=== PATIENT | male | born 1960 | race Caucasian/White ===

== ENCOUNTER → 2020-11-12 11:31 | Outpatient (BNVA) | payer BC, MEDICAID, SELFPAY | PROVIDERS: PCP Nurse Practitioner Family; Visit Provider Nurse Practitioner Family | DX: I25.10 Atherosclerotic heart disease of native coronary artery without angina pectoris (principal); I48.92 Unspecified atrial flutter; Z95.1 Presence of aortocoronary bypass graft; I10 Essential (primary) hypertension; E78.5 Hyperlipidemia, unspecified | CPT/HCPCS: 93005; 99212 ==

== ENCOUNTER 2021-01-30 08:46 | Outpatient (REF) | payer BC, MEDICAID, SELFPAY ==
[2021-01-30 12:07] LABS: Alanine Aminotransferase 34 U/L (0-40); Alkaline Phosphatase 50 U/L (39-117); Anion Gap 13 (12-20); Aspartate Amino Transferase 27 U/L (5-37); Bilirubin Total 1.4 mg/dL (0.0-1.0); Blood Urea Nitrogen 12 mg/dL (9-16); Carbon Dioxide 26 mmol/L (22-29); Chloride 104 mmol/L (96-108); Cholesterol 123 mg/dL; Estimated Glomerular Filt Rate > 60; Glucose Fasting 133 mg/dL (60-99); HDL Cholesterol 35 mg/dL; LDL Cholesterol Calculated 53 mg/dl; Potassium 4.1 mmol/L (3.3-5.1); Sodium 139 mmol/L (135-145); Total Protein 6.7 g/dL (6.5-8.0); Triglycerides 176 mg/dL
[2021-01-30 12:28] LABS: Prostate Specific Antigen Scr 0.49 ng/mL (<0.05-4.0)
== END 2021-01-30 08:47 | disposition home or self-care (01) ==
LOC: HO.HMGCLDS 08:46
PROVIDERS: PCP Nurse Practitioner Family; Visit Provider Nurse Practitioner Family
DX: I48.92 Unspecified atrial flutter (principal); I25.10 Atherosclerotic heart disease of native coronary artery without angina pectoris; I10 Essential (primary) hypertension; Z12.5 Encounter for screening for malignant neoplasm of prostate
CPT/HCPCS: 36415; 80053; 80061; 84153; 84443

== ENCOUNTER 2021-02-04 10:37 | Outpatient (REF) | payer BC, MEDICAID, SELFPAY ==
[2021-02-04 14:51] LABS: Estimated Average Glucose 126 mg/dL; Hemoglobin A1C 151.9732 umol/L
[2021-02-04 14:59] LABS: Cholesterol 128 mg/dL; HDL Cholesterol 38 mg/dL; LDL Cholesterol Calculated 50 mg/dl; Triglycerides 201 mg/dL
== END 2021-02-04 10:38 | disposition home or self-care (01) ==
LOC: HO.HMGCLDS 10:37
PROVIDERS: Nurse Practitioner Family; PCP Nurse Practitioner Family; Visit Provider Nurse Practitioner Family
DX: E78.5 Hyperlipidemia, unspecified (principal); R73.01 Impaired fasting glucose
CPT/HCPCS: 36415; 80061; 83036

== ENCOUNTER 2021-02-11 13:28 | Outpatient (REF) | payer BC, MEDICAID, SELFPAY ==
--- NOTE | ~2021-02-11 | US_ITS ---
EXAMINATION: US PELVIS, LIMITED/FOLLOWUP CLINICAL INFORMATION: Left lower quadrant pain. Evaluate for hernia. COMPARISON: Previous CT of the abdomen and pelvis October 2018. TECHNIQUE: Yi-scale and color imaging of the left inguinal region. Patient returned for additional images on 02/18/2021 FINDINGS: There is heterogeneous partially hyperechoic partially hyperechoic increased soft tissue seen in the left inguinal region suggestive of a hernia. This moves with Valsalva. No peristalsing loops of bowel are seen and this probably contains fat. This is deep and difficult to visualize by ultrasound. US/US pelvic limited IMPRESSION: Left inguinal hernia probably containing fat..
== END 2021-02-11 13:29 | disposition home or self-care (01) ==
LOC: HO.US 13:28
PROVIDERS: PCP Nurse Practitioner Family; Visit Provider Nurse Practitioner Family
DX: R10.32 Left lower quadrant pain (principal)
CPT/HCPCS: 76857

== ENCOUNTER → 2021-07-02 13:33 | Outpatient (BNVA) | payer BC, MEDICAID, SELFPAY | PROVIDERS: PCP Nurse Practitioner Family; Referring Provider Nurse Practitioner Family; Visit Provider Internal Medicine Cardiovascular Disease | DX: I25.10 Atherosclerotic heart disease of native coronary artery without angina pectoris (principal); I48.92 Unspecified atrial flutter | CPT/HCPCS: 93005 ==

== ENCOUNTER → 2021-10-01 13:29 | Outpatient (BNVA) | payer BC, MEDICAID, SELFPAY | PROVIDERS: PCP Nurse Practitioner Family; Referring Provider Nurse Practitioner Family; Visit Provider Internal Medicine Cardiovascular Disease ==

== ENCOUNTER → 2021-12-26 10:27 | Outpatient (REF) | payer BC, MEDICAID, SELFPAY ==
--- NOTE | 2021-12-26 10:34 | CA_ITS ---
Transthoracic Echocardiogram Patient (Last, First, Middle): Matteo Carlos, Gender: Male Date of : 1960 Age: 61 Procedure Date: 12/26/2021 Procedure Type: Transthoracic Echocardiogram Location: OP Height: 177.8 cm Weight: 90.72 kg BSA: 2.09 m2 Heart Rate: bpm BP: 122 / 70 mmHg Neon Light Installer: CELINA Referring MD: Dakota Cotter MD Glass Mechanic: Dakota Cotter MD Symptoms: I25.10 - Atherosclerotic heart disease of [place] coronary... Study Quality: Fair ECG Rhythm: Sinus Conclusions: - 1. Technically limited study, patient refused definity contrast next 2. Low normal LV ejection fraction 50-55% with impaired relaxation filling pattern 3. Normal cardiac valvular Doppler 4. Normal RV systolic pressure 5. No gross pericardial effusion Findings Procedure Information The patient declines contrast. Left Ventricle Normal left ventricular cavity size. There is normal left ventricular wall thickness. The left ventricular systolic function is low normal. The visually estimated ejection fraction is between 50-55%. Regional wall motion abnormalities can not be excluded due to suboptimal endocardial definition. Spectral Doppler is indicative of an impaired relaxation filling pattern. Right Ventricle Normal right ventricular cavity size and systolic function. Atria The left atrium is normal in size. Interatrial shunt cannot be excluded. The right atrium was not well visualized. Aortic Valve There is mild calcification of the aortic valve. There is no aortic valve stenosis. There is no aortic valve regurgitation. Mitral Valve There is mild anterior and posterior mitral leaflet thickening. There is mild mitral annular calcification. There is trace mitral valve regurgitation. There is no mitral valve stenosis. Pulmonic Valve The pulmonic valve was not well visualized. Tricuspid Valve Likely normal tricuspid valve structure and function. There is trace tricuspid valve regurgitation. The right ventricular systolic pressure is normal. The right ventricular systolic pressure is 21 mmHg. Normal right atrial pressure. Great Vessels The pulmonary artery was not well visualized. There is mild dilatation of the ascending aorta measuring 3.90 cm. Venous The inferior vena cava is normal in size and collapses greater than 50% with inspiration. Pericardium/Pleural There is no evidence of pericardial effusion. Prior Study Comparison Changes noted compared to prior study dated: 03/25/2019. LV systolic function may be marginally reduced Measurements 2D Linear Measurements IVSd: 1.01 0.6-0.9/0.6-1.0 cm LVIDd: 4.99 3.9-5.3/4.2-5.9 cm LVIDd Index: 2.39 2.4-3.2/2.2-3.1 cm/m2 LVIDs: 3.80 2.0-3.6 cm LVPWd: 1.05 0.7-1.1 cm LA Diam: 3.40 2.7-3.8/3.0-4.0 cm LAIDs Index: 1.63 1.5-2.3 cm/m2 LV Mass: 235.20 67-162/88-224 g LV Mass Index: 112.53 43-95/49-115 g/m2 LVOT Diam: 2.10 3.0+(-)1.3 cm Mitral Valve MV Pk E: 0.78 MV PK A: 0.61 MV Decel Time: 273.00 E/A: 1.30 E'Lateral: 10.40 E'Medial: 6.74 E/E' Med: 11.50 E/E' Lat: 7.50 PHT: 80.00 MVA PHT: 2.75 Decel [place]: 2.84 Aortic Valve AoV Pk Stalin: 1.31 AoV Mn Stalin: 0.88 AoV VTI: 0.27 AoV Pk Grad: 7.00 Aov Mn Grad: 4.00 BROOKE Cont.VTI: 2.88 LVOT LVOT Pk Stalin: 1.20 LVOT Mn Stalin: 0.78 LVOT VTI: 0.22 LVOT Pk Grad: 6.00 LVOT Mn Grad: 3.00 LVOT Diam: 2.10 LVOT Area: 3.46 Diastolic Function MV Pk E: 0.78 MV Pk A: 0.61 E/A: 1.30 E'Medial: 6.74 E/E' Med: 11.50 E' Laterial: 10.40 E/E' Lat: 7.50 Right Ventricle TAPSE (mm): 17.40 TVS' Stalin: 11.90 Tricuspid Valve TR Pk Stalin: 2.14 TR Pk Grad: 18.00 RA Press: 3.00 RVSP: 21.00 Great Vessels Aorta Sinus of Valsalva: 4.10 2.0-3.[address] [place]: 3.78 1.7-3.4 cm Ao Asc: 3.90 2.1-3.4 cm Ao Arch: 3.10 Updated in Other Vendor System with Status of Final Dakota Cotter MD electronically signed on 12/26/2021 4:33:53 PM with status of Final
== END ==
LOC: HO.CARD 10:27
PROVIDERS: Visit Provider Internal Medicine Cardiovascular Disease
DX: I25.10 Atherosclerotic heart disease of native coronary artery without angina pectoris (principal)
CPT/HCPCS: 93306

== ENCOUNTER → 2022-01-16 11:03 | Outpatient (BNVA) | payer BC, MEDICAID, SELFPAY | PROVIDERS: PCP Nurse Practitioner Family; Referring Provider Nurse Practitioner Family; Visit Provider Internal Medicine Cardiovascular Disease | DX: I25.10 Atherosclerotic heart disease of native coronary artery without angina pectoris (principal); I48.92 Unspecified atrial flutter | CPT/HCPCS: 93005 ==

== ENCOUNTER 2022-01-23 12:52 | Observation (INO) | payer BC, MEDICAID, SELFPAY ==
--- NOTE | 2022-01-23 | ECG_ITS ---
Test Reason : cp,weakness Blood Pressure : / mmHG Vent. Rate : 057 BPM Atrial Rate : 057 BPM P-R Int : 198 ms QRS Dur : 090 ms QT Int : 446 ms P-R-T Axes : 038 031 078 degrees QTc Int : 434 ms Sinus bradycardia Minimal voltage criteria for LVH, may be normal variant ( Sokolow-Isaacs ) ST & T wave abnormality, consider anterior ischemia Abnormal ECG When compared with ECG of 09-MAY-2020 12:37, No significant change was found Referred By: Generic ED Physician Electronically Signed By:HMIANSHU CHAMORRO MD
--- NOTE | ~2022-01-23 | CT_ITS ---
EXAMINATION: CTA NECK WITH CONTRAST (STROKE) CTA BRAIN WITH CONTRAST (STROKE) CLINICAL INFORMATION: Weakness. History of stroke. COMPARISON: CT head from 01/23/2022. Brain MRI from 04/13/2019. TECHNIQUE: Initial noncontrast applied marine physics professor imaging of the head and neck was performed. Comparison is made with noncontrast head CT from earlier today. Test bolus sequences followed by intravenous administration 70 mL of Omnipaque 350. Helical imaging was performed in the axial plane from the aortic arch to the skull vertex. Delayed postcontrast imaging of the head was also performed. The data was processed at the blood bank technologist's workstation for generation of MIP sequences. Angled MIPs and volume rendered reformatted images were also generated at an offline 3D workstation. Stenoses are assessed in accordance with NASCET criteria unless otherwise indicated. This CT examination was performed using dose optimization techniques as appropriate, variously including the following: *Automated exposure control. *Adjustment of mA and/or kV according to patient size (this includes techniques or standardized protocols for targeted exams where dose is matched to indication/reason for exam; i.e. extremities or head). *Use of iterative reconstruction technique. DLP: 1480 mGy-cm FINDINGS: CT Head: There is no evidence of acute intracranial hemorrhage or edematous territorial infarction. Chronic mineralization of the bilateral globus pallidotomy and left dentate nucleus. A few foci of hypoattenuation in the periventricular and deep white matter are consistent with mild microangiopathy. Yi-white matter differentiation is preserved. The ventricles are normal in size and configuration. No evidence for obstructive hydrocephalus. No abnormal mass effect or midline shift. No extra-axial fluid collections. Calcific atherosclerotic disease of the intracranial internal carotid arteries. No abnormal intracranial enhancement or regional oligemia. No acute soft tissue or osseous abnormalities. Mild mucosal thickening of the paranasal sinuses. Mild rightward nasal septal deviation. Changes of left-sided canal wall down mastoidectomy. Otherwise, the mastoid air cells and middle ear cavities are clear. CT Neck: Mildly heterogeneous thyroid gland without demonstrated discrete focal mass. The remaining cervical soft tissues are within normal limits. Straightening of the normal cervical lordosis. Moderate degenerative disc disease at C3-C4. Advanced degenerative disc disease from C5-T1. Facet and uncovertebral joint arthropathy leads to osseous encroachment on the neural foramina at C3-C4 and from C6-T1. Prominent bridging anterior osteophytosis from C4-T1. CT Upper Chest: Changes of median sternotomy for CABG. The visualized lung apices and upper mediastinum are within normal limits. Neck CTA: Aortic Arch: Normal contour and caliber with mild calcific atherosclerotic disease. Classic 3 vessel branching pattern of the aortic arch. Great Vessel Origins: No significant stenosis of the branch origins. Right Common Carotid Artery: No focal stenosis or occlusion. Cervical Right Internal Carotid Artery: Calcific atherosclerotic disease of the carotid bulb and proximal internal carotid artery causing less than 50% stenosis. Left Common Carotid Artery: No focal stenosis or occlusion. Cervical Left Internal Carotid Artery: Calcific atherosclerotic disease of the carotid bulb and proximal internal carotid artery causing less than 50% stenosis. Cervical Right Vertebral Artery: Co-dominant. No focal stenosis or occlusion. Cervical Left Vertebral Artery: Co-dominant. Calcific atherosclerotic disease causes moderate stenosis of the origin. No additional focal stenosis or occlusion. Brain CTA: Intracranial Internal Carotid Arteries: Calcific atherosclerotic disease of the intracranial internal carotid arteries without occlusion or flow-limiting stenosis. Right Anterior Cerebral Artery: Normal A1 segment. Normal opacification of the distal [place]AN[place] segments. Left Anterior Cerebral Artery: Normal A1 segment. Normal opacification of the distal DAYANARA segments. Anterior Communicating Artery: Normal. Right Middle Cerebral Artery: Normal M1 segment of the MCA without focal stenosis or occlusion. Normal arborization of the distal segments. Left Middle Cerebral Artery: Normal M1 segment of the MCA without focal stenosis or occlusion. Normal arborization of the distal segments. Right Vertebral Artery: Normal V4 segment. Normal opacification of the proximal segments of the posterior inferior cerebellar artery. Left Vertebral Artery: Normal V4 segment. Normal opacification of the proximal segments of the posterior inferior cerebellar artery. Basilar Artery: Normal without focal stenosis or occlusion. Normal appearance of the proximal superior cerebellar arteries. Right Posterior Cerebral Artery: Normal P1 segment. Normal opacification of the distal GRANT WRITER segments. Left Posterior Cerebral Artery: Normal P1 segment. Normal opacification of the distal GRANT WRITER segments. Normal opacification of the superior sagittal, straight, transverse, and sigmoid sinuses. CT/CT angio head neck stroke IMPRESSION: 1. No evidence of acute intracranial hemorrhage or edematous territorial infarction. Mild underlying microangiopathy and generalized cerebral volume loss. 2. CTA of the head and neck without proximal occlusion or flow-limiting stenosis. 3. Moderate multilevel degenerative spondyloarthropathy of the cervical spine. This critical result was discussed with Waylon Gilbert DO at 14:11 on 01/23/2022 and it was ascertained that the content and urgency of the report was understood at the time of direct communication.
--- NOTE | ~2022-01-23 | XR_ITS ---
EXAMINATION: XR CHEST CLINICAL INFORMATION: Weakness COMPARISON: 05/09/2020 TECHNIQUE: 2 views of the chest were obtained. FINDINGS: There is some minimal volume loss in the right lung with shift of the mediastinum slightly to the right, unchanged from prior. Heart size upper limits of normal. Patient status post median sternotomy. No infiltrates, effusions or lung masses are seen. There is no evidence of CHF. XR/XR chest 2V IMPRESSION: No acute intrathoracic disease
--- NOTE | ~2022-01-23 | CT_ITS ---
EXAMINATION: CT HEAD WITHOUT CONTRAST CLINICAL INFORMATION: Weakness. History of stroke. COMPARISON: Brain MRI from 04/13/2019. CT head from 03/24/2019. TECHNIQUE: Contiguous axial imaging was performed from the skull base to vertex without intravenous administration of contrast. This CT examination was performed using dose optimization techniques as appropriate, variously including the following: *Automated exposure control. *Adjustment of mA and/or kV according to patient size (this includes techniques or standardized protocols for targeted exams where dose is matched to indication/reason for exam; i.e. extremities or head). *Use of iterative reconstruction technique. DLP: 670 mGy-cm FINDINGS: There is no evidence of acute intracranial hemorrhage or edematous territorial infarction. Chronic mineralization of the bilateral globus pallidotomy and left dentate nucleus. A few foci of hypoattenuation in the periventricular and deep white matter are consistent with mild microangiopathy. Yi-white matter differentiation is preserved. The ventricles are normal in size and configuration. No evidence for obstructive hydrocephalus. No abnormal mass effect or midline shift. No extra-axial fluid collections. Calcific atherosclerotic disease of the intracranial internal carotid arteries. No acute soft tissue or osseous abnormalities. Mild mucosal thickening of the paranasal sinuses. Mild rightward nasal septal deviation. Changes of left-sided canal wall down mastoidectomy. Otherwise, the mastoid air cells and middle ear cavities are clear. CT/CT head for stroke IMPRESSION: 1. No evidence of acute intracranial hemorrhage or edematous territorial infarction. 2. Mild underlying microangiopathy. This critical result was discussed with Waylon Gilbert DO at 14:11 on 01/23/2022 and it was ascertained that the content and urgency of the report was understood at the time of direct communication.
--- NOTE | ~2022-01-23 | MR_ITS ---
EXAMINATION: MR BRAIN WITHOUT CONTRAST CLINICAL INFORMATION: Transient ischemic attack. COMPARISON: CTA head and neck from 01/23/2022. Brain MRI from 04/13/2019. TECHNIQUE: MRI of the brain was obtained using routine sequences without contrast. FINDINGS: No focal restricted diffusion is demonstrated to suggest acute or subacute cerebral ischemia. Chronic basal ganglia and left dentate nucleus mineralization. No evidence of acute or chronic hemorrhagic products on heme-sensitive imaging. Few scattered periventricular and deep white matter T2 FLAIR hyperintensities most commonly seen with minimal underlying microangiopathy. Proportional prominence of the ventricles and sulcal spaces without evidence of obstructive hydrocephalus. No abnormal mass effect. No midline shift. Normal appearance of the pituitary gland. Normal positioning of the cerebellar tonsils. Normal arterial and venous vascular flow voids are present. Normal, homogeneous marrow signal. Moderate degenerative spondyloarthropathy of the visualized upper cervical spine. Mild mucosal thickening of the paranasal sinuses. No signal abnormalities within the mastoids. MR/MR head/brain wo con IMPRESSION: 1. No acute intracranial abnormalities. 2. Minimal nonspecific white matter changes.
[2022-01-23 12:56] VITALS: BP 133/94; PULSE 58; RESP 20; TEMP 36.5; O2SAT 97; BMI 29.2
--- NOTE | 2022-01-23 13:39 | ED.NEUROSD ---
HPI - Neuro Symptoms/Deficit General Chief Complaint: Stroke Stated Complaint: weak chest pain facial numbness Time Seen by Provider: 01/23/22 13:20 Source: patient Mode of arrival: ambulatory Limitations: no limitations History of Present Illness HPI Narrative: F 8-year-old male he states history of mini-stroke presents emergency room complaining of global weakness he states he is unable to small normally smiles all the time he also is complaining of chest pain he denies any falls or injuries and cough fever states this started last night around 19:00 symptoms to the side for evaluation. Patient is very anxious and stating that he has global weakness Onset (ago): day(s) Time: 19:30 Last Observed Normal: 19:30 History of same: Yes Severity: moderate Quality: weak Relieving factors: none Context: gradual onset On Anticoagulants: No Associated symptoms: chest pain Treatments Prior to Arrival: none Related Data Home Medications Medication Instructions Recorded Confirmed metoprolol tartrate 50 mg tablet 100 mg PO TID tab 01/16/22 01/16/22 Previous Rx's Medication Instructions Recorded atorvastatin 40 mg tablet 40 mg PO DAILY #90 tab 07/02/21 ezetimibe 10 mg tablet 10 mg PO DAILY 90 Days #90 tab 07/02/21 lisinopril 10 mg tablet 10 mg PO BID #180 tab 07/02/21 rivaroxaban 20 mg tablet (Xarelto) 20 mg PO DAILY 90 Days #90 tab 07/02/21 dronedarone 400 mg tablet (Multaq) 400 mg PO BID 90 Days #180 tab 08/16/21 clotrimazole 1 % topical cream 1 appl TOPICAL BID 28 Days #45 g 08/27/21 (Clotrimazole AF) gabapentin 800 mg tablet 800 mg PO TID #90 tab 10/03/21 colchicine 0.6 mg capsule 0.6 mg PO DAILY #90 cap 10/14/21 nitroglycerin 0.4 mg sublingual 0.4 mg SUBLINGUAL Q5M PRN #25 tab 11/11/21 tablet isosorbide mononitrate 30 mg 90 mg PO DAILY 90 Days #270 tab 12/24/21 tablet,extended release 24 hr amlodipine 2.5 mg tablet 2.5 mg PO DAILY #30 tab 01/16/22 Allergies Allergy/AdvReac Type Severity Reaction Status Date / Time allopurinol Allergy Unknown he thinks Verified 08/27/21 14:17 it causes chest pain No Known Allergies Allergy Unverified 08/27/21 14:17 [No Known Allergies*] Review of Systems Review of Systems: Review of systems: General: Weakness Patient denies any fever chills recent illness or falls Musculoskeletal: Denies back pain or body aches or other injuries HEENT: denies headache, runny nose, ear pain Respiratory: denies shortness of breath, cough Cardiovascular: chest pain or palpitations : denies dysuria, frequency Abdomen: no nausea vomiting denies abdominal pain Extremities: no swelling, no pain Skin: no diaphoresis Yes all other systems are reviewed and are negative PMFSH Past Medical History Medical History (Updated 01/23/22 @ 16:21 by Waylon Gilbert DO) CAD (coronary artery disease) HLD (hyperlipidemia) HTN (hypertension) Paroxysmal atrial flutter TIA (transient ischemic attack) Surgical History History of cardiac cath History of cardiac cath Hx of CABG Family History Family History Father No problems noted. Mother No problems noted. Maternal Grandmother No problems noted. 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 Patient is alert and oriented to person place and time. Patient has no dysphagia or dysarthia, denies good vision in all four vision cain no nystagmus on exam, good strength to upper and lower extremities with normal reflexes to brachioradialis, wrist, patella and achilles. Negative romberg, good finger to nose and heel to infante. General: Well-appearing well-nourished in no signs of distress HEENT: Normocephalic atraumatic Neck: No signs of JVD, no masses no tenderness or lymphadenopathy Cardiovascular: Regular rate and rhythm Respiratory: Clear to auscultation bilaterally Abdomen: Soft nontender no masses Extremities: Normal pedal pulses no signs of edema Skin: Dry warm no rashes Back: No tenderness full ROM MDM - Neuro Symptoms/Deficit MDM Narrative Medical decision making narrative: Patient with global weakness bilaterally on his face stating he is unable to smile wanting putting effort into trying to smile will not lift up either extremity or legs and then very unlikely that patient has a global stroke this specialist since he is able to talk again here and has been change in speech I will give patient fluids give the patient for CTA and CT head patient is not a candidate for tPA as his symptoms started 19 hours ago. EKG on arrival is normal. 1412 I spoke with radiologist about the acute stroke. NO [place] no hemorrhage. He might have something metabolic but nothing focal. I will continue with stroke and cardiac workup. 1619 urine labs x-ray everything has coughing for patient he still significantly weak does not feel strong enough home on patient for complete cardiac workup and for workup. Lab Data Result diagrams: 01/23/22 13:48 01/23/22 13:48 Labs: Lab Results 01/23/22 01/23/22 01/23/22 Range/Units 13:48 13:48 13:48 WBC 7.2 (4.8-10.8) X10*3/uL RBC 4.50 L (4.60-5.80) X10*6/uL Hgb 13.7 L (14.0-18.0) g/dl Hct 40.1 L (42.0-52.0) % MCV 89.1 (80.0-98.0) fL MCH 30.4 (27.0-33.0) pg MCHC 34.2 (31.0-36.0) g/dl RDW 12.2 (11.0-16.0) % Plt Count 270 (160-400) X10*3/uL MPV 9.1 L (9.4-12.4) fL Immature Gran % (Auto) 0.3 (0.0-0.4) % Neut % (Auto) 50.4 (45-73) % Lymph % (Auto) 36.1 (20-40) % [place] % (Auto) 11.4 H (2-11) % Eos % (Auto) 1.5 (0-4) % Baso % (Auto) 0.3 (0-2) % Lymph # (Auto) 2.6 (1.2-4.9) X10*3/uL [place] # (Auto) 0.8 (0.1-1.2) X10*3/uL Eos # (Auto) 0.1 (0.0-0.4) X10*3/uL Baso # (Auto) 0.0 (0.0-0.2) X10*3/uL Abs Immat Gran (auto) 0.02 (0.00-0.03) X10*3/uL Absolute Neuts (auto) 3.6 (2.0-8.3) x10*3/uL Absolute Nucleated RBC 0.000 (0.0-0.012) X10*3/uL Nucleated RBC % (auto) 0.0 (0.0-0.2) /100WBC PT 26.0 H (9.9-13.0) SEC INR 2.2 H (0.9-1.1) APTT 42.3 H (24.1-38.0) SEC Sodium 140 (135-145) mmol/L Potassium 4.6 (3.3-5.1) mmol/L Chloride 101 (96-108) mmol/L Carbon Dioxide 31 H (22-29) mmol/L Anion Gap 13 (12-20) BUN 13 (9-16) mg/dL Creatinine 0.98 (0.5-1.4) mg/dL Estim Creat Clear Calc 91.5 Estimated GFR > 60 Random Glucose 143 H (60-115) mg/dL Calcium 9.8 D (8.4-10.2) mg/dL Magnesium 2.0 (1.6-2.6) mg/dL Total Bilirubin 1.1 H (0.0-1.0) mg/dL Direct Bilirubin 0.4 (0.0-0.5) mg/dL AST 27 (5-37) U/L ALT 40 (0-40) U/L Alkaline Phosphatase 56 (39-117) U/L Total Creatine Kinase 150 (38-174) U/L Troponin I High Sens (<3.5-35.0) ng/L Total Protein 7.1 (6.5-8.0) g/dL Albumin 4.1 (3.5-5.0) g/dL Urine Color Urine Appearance Urine pH (5.0-8.0) Ur Specific [place] (1.005-1.025) Urine Protein (NEG-TRACE) MG/DL Urine Glucose (UA) (NEG) MG/DL Urine Ketones (NEG) MG/DL Urine Blood (NEG) Urine Nitrite (NEG) Ur Leukocyte Esterase (NEG) Ethyl Alcohol mg/dL 01/23/22 01/23/22 01/23/22 Range/Units 13:48 13:48 14:39 WBC (4.8-10.8) X10*3/uL RBC (4.60-5.80) X10*6/uL Hgb (14.0-18.0) g/dl Hct (42.0-52.0) % MCV (80.0-98.0) fL MCH (27.0-33.0) pg MCHC (31.0-36.0) g/dl RDW (11.0-16.0) % Plt Count (160-400) X10*3/uL MPV (9.4-12.4) fL Immature Gran % (Auto) (0.0-0.4) % Neut % (Auto) (45-73) % Lymph % (Auto) (20-40) % [place] % (Auto) (2-11) % Eos % (Auto) (0-4) % Baso % (Auto) (0-2) % Lymph # (Auto) (1.2-4.9) X10*3/uL [place] # (Auto) (0.1-1.2) X10*3/uL Eos # (Auto) (0.0-0.4) X10*3/uL Baso # (Auto) (0.0-0.2) X10*3/uL Abs Immat Gran (auto) (0.00-0.03) X10*3/uL Absolute Neuts (auto) (2.0-8.3) x10*3/uL Absolute Nucleated RBC (0.0-0.012) X10*3/uL Nucleated RBC % (auto) (0.0-0.2) /100WBC PT (9.9-13.0) SEC INR (0.9-1.1) APTT (24.1-38.0) SEC Sodium (135-145) mmol/L Potassium (3.3-5.1) mmol/L Chloride (96-108) mmol/L Carbon Dioxide (22-29) mmol/L Anion Gap (12-20) BUN (9-16) mg/dL Creatinine (0.5-1.4) mg/dL Estim Creat Clear Calc Estimated GFR Random Glucose (60-115) mg/dL Calcium (8.4-10.2) mg/dL Magnesium (1.6-2.6) mg/dL Total Bilirubin (0.0-1.0) mg/dL Direct Bilirubin (0.0-0.5) mg/dL AST (5-37) U/L ALT (0-40) U/L Alkaline Phosphatase (39-117) U/L Total Creatine Kinase (38-174) U/L Troponin I High Sens 3.8 (<3.5-35.0) ng/L Total Protein (6.5-8.0) g/dL Albumin (3.5-5.0) g/dL Urine Color STRAW Urine Appearance CLEAR Urine pH 8.0 (5.0-8.0) Ur Specific [place] 1.010 (1.005-1.025) Urine Protein NEG (NEG-TRACE) MG/DL Urine Glucose (UA) NEG (NEG) MG/DL Urine Ketones NEG (NEG) MG/DL Urine Blood NEG (NEG) Urine Nitrite NEG (NEG) Ur Leukocyte Esterase NEG (NEG) Ethyl Alcohol < 10 mg/dL ECG Data Attestation: I personally reviewed and interpreted this ECG as follows: ECG interpretation date: 01/23/22 Prior ECG tracings: not available for review Interpretation: Rate [address] depressions this could be R-wave progression patient is bradycardic know from previous for comparison. NIH Stroke Scale Internal: Initial- Upon Arrival Level of Consciousness: Alert Level of Consciousness Questions: Answers both questions correctly Level of Consciousness Commands: Performs both tasks correctly Best Gaze: Normal Visual: No visual loss Facial Palsy: Normal Motor Arm (Right): No drift Motor Arm (Left): No drift Motor Leg (Right): No drift Motor Leg (Left): No drift Limb Ataxia: Absent Sensory: Normal Best Language: No aphasia Dysarthia: Normal Extinction and Inattention: No abnormality Score: 0 Critical Care Time Critical Care Time Critical Care Time: Yes Total Critical Care Time: 50 Attestation: Multiple re-evaluations the patient I did speak with Radiology as well as plan the patient for admission discussion neurology disposition. Discharge Plan Discharge Clinical Impression: Weakness, Exertional chest pain, HTN (hypertension), HLD (hyperlipidemia), CAD (coronary artery disease), Chest pain Patient Disposition: Admitted As Inpatient
[2022-01-23 13:53] LABS: MANUAL DIFF FLAG NO
[2022-01-23 14:06] LABS: Basophils Percent Auto 0.3 % (0-2); Eosinophils Absolute Auto 0.1 X10*3/uL (0.0-0.4); Eosinophils Percent Auto 1.5 % (0-4); Hematocrit 40.1 % (42.0-52.0); Hemoglobin 13.7 g/dl (14.0-18.0); Imm Gran Abs Auto 0.02 X10*3/uL (0.00-0.03); Imm Gran Pct Auto 0.3 % (0.0-0.4); Lymphocytes Absolute Auto 2.6 X10*3/uL (1.2-4.9); Lymphocytes Percent Auto 36.1 % (20-40); Mean Corpuscular HGB Conc 34.2 g/dl (31.0-36.0); Mean Corpuscular Hemoglobin 30.4 pg (27.0-33.0); Mean Corpuscular Volume 89.1 fL (80.0-98.0); Mean Platelet Volume 9.1 fL (9.4-12.4); Monocytes Absolute Auto 0.8 X10*3/uL (0.1-1.2); Monocytes Percent Auto 11.4 % (2-11); Neutrophils Absolute Auto 3.6 x10*3/uL (2.0-8.3); Neutrophils Percent Auto 50.4 % (45-73); Platelet Count 270 X10*3/uL (160-400); Red Cell Distribution Width 12.2 % (11.0-16.0); White Blood Count 7.2 X10*3/uL (4.8-10.8)
[2022-01-23 14:12] LABS: INTERNATIONAL NORM RATIO 2.2 (0.9-1.1)
[2022-01-23 14:14] LABS: Ethanol < 10 mg/dL
[2022-01-23 14:15] LABS: Partial Thromboplastin Time 42.3 SEC (24.1-38.0)
[2022-01-23 14:26] LABS: Troponin-I High Sensitivity 3.8 ng/L (<3.5-35.0)
[2022-01-23 14:33] LABS: Stroke Lab Use COMPLETE
[2022-01-23] MEDS: iohexoL 350 MG/ML 100 ML INFUS..BTL IV (14:33)
[2022-01-23 14:56] LABS: Appearance Urine CLEAR; Color Urine STRAW; Glucose Urine UA NEG (NEG); Leukocyte Esterase Urine NEG (NEG); Nitrite Urine NEG (NEG); Urine Blood NEG (NEG); Urine Ketones NEG (NEG); Urine Protein NEG (NEG-TRACE)
[2022-01-23 15:00] LABS: Alanine Aminotransferase 40 U/L (0-40); Albumin Level 4.1 g/dL (3.5-5.0); Alkaline Phosphatase 56 U/L (39-117); Anion Gap 13 (12-20); Aspartate Amino Transferase 27 U/L (5-37); Bilirubin Direct 0.4 mg/dL (0.0-0.5); Bilirubin Total 1.1 mg/dL (0.0-1.0); Blood Urea Nitrogen 13 mg/dL (9-16); Calcium 9.8 mg/dL (8.4-10.2); Carbon Dioxide 31 mmol/L (22-29); Chloride 101 mmol/L (96-108); Creatinine Clr Calc Pharmacy 91.5; Estimated Glomerular Filt Rate > 60; Glucose Random 143 mg/dL (60-115); Potassium 4.6 mmol/L (3.3-5.1); Sodium 140 mmol/L (135-145); Total Protein 7.1 g/dL (6.5-8.0)
[2022-01-23 16:01] VITALS: BP 169/94; PULSE 48; RESP 15; O2SAT 96
--- NOTE | 2022-01-23 17:10 | P.HPHOSP_ITS ---
History of Present Illness Date of Service: 01/23/22 Attending physician on admission: Cain Lovell Chief Complaint: Tia , chest pain 62-year-old male with past medical history CAD, HLD, hypertension, PAF-came to the hospital because of numbness of the face, generalized body weakness for more than 24 hour duration. Patient is awake historian-says that he started having chest pain yesterday than also having numbness of the face when he was at work-subsequently he said down and his symptoms was somewhat relieved and did not decided to come to the hospital-woke up with similar symptoms this morning again as per the patient- currently denies any numbness of the face but still generalized weak. Denies any blurry vision or weakness in any specific body part. He said he was admitted to [facility] 2 years ago with similar symptoms-and was told that he had possible TIA. Chest pain-burning/pressure, left side chest, reproducible, oppositional, also complains with the exertion. 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 Denies any new complaint of shortness of breath or abdominal pain or fever or chills or nausea or vomiting Denies any cough Currently no numbness, generally weak. Review of Systems Review of Systems: As above. Yes all other systems are reviewed and are nega tive [facility] Medical History CAD (coronary artery disease) HLD (hyperlipidemia) HTN (hypertension) Paroxysmal atrial flutter TIA (transient ischemic attack) Family History Father No problems noted. Mother No problems noted. Maternal Grandmother No problems noted. Pertinent family history: Says that father had heart disease. 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 Current occupational exposures/hazards: No Meds Allergies Allergy/AdvReac Type Severity Reaction Status Date / Time allopurinol Allergy Unknown he thinks Verified 08/27/21 14:17 it causes chest pain No Known Allergies Allergy Unverified 08/27/21 14:17 [No Known Allergies*] Active Medications: Current Medications Pharmacy Consult (Consult Rx Perform Med Rec) 1 each MISCELLANE ONCE PRN PRN Reason: Consult order Sodium Chloride (0.9 % Sodium Chloride Flush 3 Ml Syringe) 3 ml IVFLUSH QSHIFT [facility] Home Medications Medication Instructions Recorded Confirmed Last Taken Type metoprolol tartrate 50 mg tablet 100 mg PO TID tab 01/16/22 01/23/22 01/23/22 History atorvastatin 40 mg tablet 40 mg PO BEDTIME 01/23/22 01/23/22 01/22/22 History cholecalciferol (vitamin D3) 25 25 mcg PO DAILY 01/23/22 01/23/22 01/23/22 History mcg (1,000 unit) tablet coenzyme Q10 30 mg capsule (Co 30 mg PO DAILY 01/23/22 01/23/22 01/23/22 History Q-10) ezetimibe 10 mg tablet 10 mg PO BEDTIME 01/23/22 01/23/22 01/22/22 History gabapentin 400 mg capsule 400 mg PO QID 01/23/22 01/23/22 01/23/22 History isosorbide mononitrate 30 mg 30 mg PO TID 01/23/22 01/23/22 Unknown History tablet,extended release 24 hr multivitamin 1 tab PO DAILY 01/23/22 01/23/22 01/23/22 History omega-3 fatty acids-fish oil 684 1 cap PO DAILY 01/23/22 01/23/22 01/23/22 History mg-1,200 mg capsule,delayed release Physical Exam Vital Signs and Narrative: Vital Signs: Last Vital Signs Temp 97.7 F 01/23/22 12:56 Pulse 48 L 01/23/22 16:01 Resp 15 01/23/22 16:01 BP 169/94 H 01/23/22 16:01 Pulse Ox 96 01/23/22 16:01 BMI result Body Mass Index 29.2 Appearance: Alert.? Oriented X3.? not in distress.? Eyes: Pupils equal, round and reactive to light.? Sclera nonicteric.? ENT: Pharynx normal.? Moist mucous membranes. cvs: rrr, [id number] , no murmur res: clear to auscultation ,no rhonchii or wheezing abd: no rebound or guarding ,nt, bs present. ext pulses present , no cyanosis. neuro: axo3 , moves all ext, face symmetrical. No numbness Results Labs CBC and Chem 7: 01/23/22 13:48 01/23/22 13:48 Labs: Laboratory Results - last 24 hr 01/23/22 01/23/22 01/23/22 13:48 13:48 13:48 MCV 89.1 MCH 30.4 MCHC 34.2 RDW 12.2 Plt Count 270 MPV 9.1 L Immature Gran % (Auto) 0.3 Neut % (Auto) 50.4 Lymph % (Auto) 36.1 Thomas % (Auto) 11.4 H Eos % (Auto) 1.5 Baso % (Auto) 0.3 Lymph # (Auto) 2.6 Thomas # (Auto) 0.8 Eos # (Auto) 0.1 Baso # (Auto) 0.0 Abs Immat Gran (auto) 0.02 Absolute Neuts (auto) 3.6 Absolute Nucleated RBC 0.000 Nucleated RBC % (auto) 0.0 PT 26.0 H INR 2.2 H APTT 42.3 H Anion Gap 13 Estim Creat Clear Calc 91.5 Estimated GFR > 60 Random Glucose 143 H Calcium 9.8 D Magnesium 2.0 Total Bilirubin 1.1 H Direct Bilirubin 0.4 AST 27 ALT 40 Alkaline Phosphatase 56 Total Creatine Kinase 150 Troponin I High Sens Total Protein 7.1 Albumin 4.1 Urine Color Urine Appearance Urine pH Ur Specific [place] Urine Protein Urine Glucose (UA) Urine Ketones Urine Blood Urine Nitrite Ur Leukocyte Esterase Ethyl Alcohol 01/23/22 01/23/22 01/23/22 13:48 13:48 14:39 MCV MCH MCHC RDW Plt Count MPV Immature Gran % (Auto) Neut % (Auto) Lymph % (Auto) [place] % (Auto) Eos % (Auto) Baso % (Auto) Lymph # (Auto) [place] # (Auto) Eos # (Auto) Baso # (Auto) Abs Immat Gran (auto) Absolute Neuts (auto) Absolute Nucleated RBC Nucleated RBC % (auto) PT INR APTT Anion Gap Estim Creat Clear Calc Estimated GFR Random Glucose Calcium Magnesium Total Bilirubin Direct Bilirubin AST ALT Alkaline Phosphatase Total Creatine Kinase Troponin I High Sens 3.8 Total Protein Albumin Urine Color STRAW Urine Appearance CLEAR Urine pH 8.0 Ur Specific [place] 1.010 Urine Protein NEG Urine Glucose (UA) NEG Urine Ketones NEG Urine Blood NEG Urine Nitrite NEG Ur Leukocyte Esterase NEG Ethyl Alcohol < 10 Imaging Radiologist's Impressions: Impressions Head CT 01/23/22 14:02 IMPRESSION: 1. No evidence of acute intracranial hemorrhage or edematous territorial infarction. 2. Mild underlying microangiopathy. This critical result was discussed with Waylon Gilbert DO at 14:11 on 01/23/2022 and it was ascertained that the content and urgency of the report was understood at the time of direct communication. Head/Neck CTA 01/23/22 14:32 IMPRESSION: 1. No evidence of acute intracranial hemorrhage or edematous territorial infarction. Mild underlying microangiopathy and generalized cerebral volume loss. 2. CTA of the head and neck without proximal occlusion or flow-limiting stenosis. 3. Moderate multilevel degenerative spondyloarthropathy of the cervical spine. This critical result was discussed with Waylon Gilbert DO at 14:11 on 01/23/2022 and it was ascertained that the content and urgency of the report was understood at the time of direct communication. Chest X-Ray 01/23/22 14:55 IMPRESSION: No acute intrathoracic disease Assessment and Plan (1) Weakness: Status: Acute (2) Chest pain: Status: Acute (3) Paroxysmal atrial flutter: Status: Acute Plan 62-year-old male with history of CAD, hypertension,HLD,PAF: Came to the hospital because of chest pain and patient numbness. 1. Possible TIA stroke workup-ct head and cta -seems no cva recent echo : 12/26/21: Conclusions: - 1. Technically limited study, patient refused definity contrast next 2. Low normal LV ejection fraction 50-55% with impaired ? ? relaxation filling pattern ? 3. Normal cardiac valvular Doppler ? 4.? Normal RV systolic pressure? 5. No gross pericardial effusion ?? mri added Symptoms resolved Heart rate control, monitor on telemetry Continue Xarelto Neurology evaluation 2. Chest pain: EKG seems similar to before, 1st troponin negative next troponin pending Will continue Xarelto, metoprolol, statin Will add cardiology evaluation-as per recent cardiology knows plan is stress test 3 -6month if chest pain again -check ekg and trops 3.PAF: sinus brday hr 57 (ekg) ontinue multaq,metoprolol, xarelto 4. HLD: continue statin dvt prophylax: xaralto. Above management discussed the patient in detail length, he understand and in agreement with the above plan, time spent 70 minute. Quality Stroke Does the patient have a stroke diagnosis?: No VTE Prior VTE?: No VTE Risk Level:: Medical - moderate - high VTE Device Contraindication: N/A - Device Ordered VTE Drug Contraindication: N/A - Med Ordered
--- NOTE | 2022-01-23 17:56 | PHA.MEDREC ---
Pharmacy Consult ? Medication Reconciliation Pharmacy has completed the medication reconciliation. Pt was recently prescribed amlodipine 2.5mg QD but says he stopped taking it because it was giving him chest pain. Sadaf Brewer, AkhilD
[2022-01-23 18:22] LABS: Troponin-I High Sensitivity 4.5 ng/L (<3.5-35.0)
[2022-01-23 19:53] LABS: COVID-19 Test Negative (Negative)
[2022-01-23 20:00] VITALS: BP 129/89; PULSE 60; RESP 16; TEMP 36.7; O2SAT 95
[2022-01-23 20:28] VITALS: BP 159/99; PULSE 59; RESP 20; TEMP 36.8; O2SAT 95; BMI 28.6
[2022-01-23] MEDS: 0.9 % Sodium Chloride Flush 3 ML SYRINGE IVFLUSH (20:43)
[2022-01-23 22:42] VITALS: BP 160/100; PULSE 59
[2022-01-23] MEDS: Gabapentin 400 MG CAPSULE PO (22:46)
[2022-01-23] MEDS: Atorvastatin Calcium 40 MG TABLET PO (22:46)
[2022-01-23] MEDS: Isosorbide Mononitrate 30 MG TAB.ER.24H PO (22:46)
[2022-01-23] MEDS: Ezetimibe 10 MG TABLET PO (22:46)
[2022-01-23] MEDS: lisinopriL 10 MG TABLET PO (22:46)
[2022-01-23 23:11] VITALS: BP 157/94; PULSE 56; RESP 16; TEMP 36.6; O2SAT 96
--- NOTE | 2022-01-23 23:57 | ECG_ITS ---
Test Reason : cp Blood Pressure : / mmHG Vent. Rate : 060 BPM Atrial Rate : 060 BPM P-R Int : 202 ms QRS Dur : 094 ms QT Int : 454 ms P-R-T Axes : 053 051 118 degrees QTc Int : 454 ms Normal sinus rhythm Left ventricular hypertrophy with repolarization abnormality ( Sokolow-Isaacs , Romhilt-Ennis ) Abnormal ECG When compared with ECG of 23-JAN-2022 12:52, No significant change was found Referred By: Cain Lovell Electronically Signed By:HIMANSHU CHAMORRO MD
--- NOTE | 2022-01-24 00:10 | MHC.PIE ---
P.CHEST PAIN I.PT C/O MIDSTERNAL CHEST PAIN.BP 157/94,HR 56,SB ON TELE,STAT EKG DONE.MED WITH NITRO X 1 WITH EFFECT.PT STATES NOT SURE IF IT'S CARDIAC OR MUSCULAR.EKG SENT TO TO REVIEW AND UPDATED.ORDER FOR STAT TROPONIN GIVEN. E.MED WITH TYLENOL FOR CHEST PAIN WITH GOOD EFFECT.TROPONIN 4.4. UPDATED.PT HAS CARDIO CONSULT ORDERED.
[2022-01-24 00:28] VITALS: BP 157/94; PULSE 56
[2022-01-24] MEDS: Nitroglycerin 0.4 MG TAB.SUBL SUBLINGUAL ×2 (00:28→09:57)
[2022-01-24] MEDS: Acetaminophen 325 MG TABLET 650 MG PO (00:57)
[2022-01-24 02:46] LABS: Troponin-I High Sensitivity 4.4 ng/L (<3.5-35.0)
[2022-01-24 03:10] VITALS: BP 161/73; PULSE 59; RESP 16; TEMP 36.3; O2SAT 96
[2022-01-24 06:41] LABS: Hematocrit 44.1 % (42.0-52.0); Hemoglobin 15.3 g/dl (14.0-18.0); Mean Corpuscular HGB Conc 34.7 g/dl (31.0-36.0); Mean Corpuscular Hemoglobin 30.5 pg (27.0-33.0); Platelet Count 276 X10*3/uL (160-400); Red Blood Count 5.01 X10*6/uL (4.60-5.80); Red Cell Distribution Width 12.4 % (11.0-16.0); White Blood Count 8.9 X10*3/uL (4.8-10.8)
[2022-01-24 06:58] LABS: Anion Gap 12 (12-20); Blood Urea Nitrogen 11 mg/dL (9-16); Carbon Dioxide 30 mmol/L (22-29); Chloride 102 mmol/L (96-108); Estimated Glomerular Filt Rate > 60; Glucose Random 120 mg/dL (60-115); Potassium 4.1 mmol/L (3.3-5.1); Sodium 140 mmol/L (135-145)
[2022-01-24 07:30] VITALS: BP 174/112; PULSE 76; RESP 18; TEMP 36.4; O2SAT 95
[2022-01-24] MEDS: Rivaroxaban 20 MG TABLET PO (08:01)
[2022-01-24] MEDS: Metoprolol Tartrate 100 MG TABLET PO ×2 (08:01→14:37)
[2022-01-24] MEDS: Colchicine 0.6 MG TABLET PO (08:01)
[2022-01-24] MEDS: Dronedarone HCl 400 MG TABLET PO (08:01)
[2022-01-24] MEDS: Isosorbide Mononitrate 30 MG TAB.ER.24H PO ×2 (08:01→14:37)
[2022-01-24] MEDS: Multivitamin TABLET 1 TAB PO (08:02)
[2022-01-24] MEDS: Gabapentin 400 MG CAPSULE PO ×2 (08:02→14:37)
[2022-01-24] MEDS: lisinopriL 10 MG TABLET PO (08:03)
[2022-01-24] MEDS: 0.9 % Sodium Chloride Flush 3 ML SYRINGE IVFLUSH (08:05)
--- NOTE | 2022-01-24 08:20 | P.PNIM_ITS ---
Subjective Subjective Date of Service: 01/24/22 Interval History: TIA , chest pain Physical Exam Vital Signs: Vital Signs: Last Vital Signs Temp 97.5 F 01/24/22 07:30 Pulse 76 01/24/22 07:30 Resp 18 01/24/22 07:30 BP 174/112 H 01/24/22 07:30 Pulse Ox 95 01/24/22 07:30 BMI result Body Mass Index 28.6 Objective Data Active Medications Acetaminophen (Acetaminophen 325 Mg Tablet) 650 mg PO Q6H PRN PRN Reason: Pain, Mild (Pain Scale 1-3) Last Admin: 01/24/22 00:57 Dose: 650 mg Documented by: EVANGELISTA Amlodipine Besylate (Amlodipine Besylate 2.5 Mg Tablet) 2.5 mg PO DAILY [facility]; Protocol Atorvastatin Calcium (Atorvastatin Calcium 40 Mg Tablet) 40 mg PO BEDTIME [facility] Last Admin: 01/23/22 22:46 Dose: 40 mg Documented by: CARINE Colchicine (Colchicine 0.6 Mg Tablet) 0.6 mg PO DAILY [facility] Last Admin: 01/24/22 08:01 Dose: 0.6 mg Documented by: CAROLE Dronedarone (Dronedarone Hcl 400 Mg Tablet) 400 mg PO BID [facility] Last Admin: 01/24/22 08:01 Dose: 400 mg Documented by: CAROLE Ezetimibe (Ezetimibe 10 Mg Tablet) 10 mg PO BEDTIME [facility] Last Admin: 01/23/22 22:46 Dose: 10 mg Documented by: CARINE Gabapentin (Gabapentin 400 Mg Capsule) 400 mg PO QID [facility] Last Admin: 01/24/22 08:02 Dose: 400 mg Documented by: CAROLE Isosorbide Mononitrate (Isosorbide Mononitrate 30 Mg Tab.Er.24h) 30 mg PO TID [facility]; Protocol Last Admin: 01/24/22 08:01 Dose: 30 mg Documented by: CAROLE Lisinopril (Lisinopril 10 Mg Tablet) 10 mg PO BID [facility]; Protocol Last Admin: 01/24/22 08:03 Dose: 10 mg Documented by: CAROLE Metoprolol Tartrate (Metoprolol Tartrate 100 Mg Tablet) 100 mg PO TID [facility]; Protocol Last Admin: 01/24/22 08:01 Dose: 100 mg Documented by: CAROLE Multivitamins/Vitamin C (Multivitamin Tablet) 1 tab PO DAILY [facility] Last Admin: 01/24/22 08:02 Dose: 1 tab Documented by: CAROLE Nitroglycerin (Nitroglycerin 0.4 Mg Tab.Subl) 0.4 mg SUBLINGUAL Q5M PRN PRN Reason: chest pain Last Admin: 01/24/22 00:28 Dose: 0.4 mg Documented by: EVANGELISTA Pharmacy Consult (Consult Rx Perform Med Rec) 1 each MISCELLANE ONCE PRN PRN Reason: Consult order Rivaroxaban (Rivaroxaban 20 Mg Tablet) 20 mg PO DAILY [facility] Last Admin: 01/24/22 08:01 Dose: 20 mg Documented by: CAROLE Sodium Chloride (0.9 % Sodium Chloride Flush 3 Ml Syringe) 3 ml IVFLUSH QSHIFT [facility] Last Admin: 01/24/22 08:05 Dose: 3 ml Documented by: CAROLE Labs CBC & Chem 7: 01/24/22 06:20 01/24/22 06:20 Labs: Laboratory Results - last 24 hr 01/23/22 01/23/22 01/23/22 13:48 13:48 13:48 MCV 89.1 MCH 30.4 MCHC 34.2 RDW 12.2 Plt Count 270 MPV 9.1 L Immature Gran % (Auto) 0.3 Neut % (Auto) 50.4 Lymph % (Auto) 36.1 [place] % (Auto) 11.4 H Eos % (Auto) 1.5 Baso % (Auto) 0.3 Lymph # (Auto) 2.6 [place] # (Auto) 0.8 Eos # (Auto) 0.1 Baso # (Auto) 0.0 Abs Immat Gran (auto) 0.02 Absolute Neuts (auto) 3.6 Absolute Nucleated RBC 0.000 Nucleated RBC % (auto) 0.0 PT 26.0 H INR 2.2 H APTT 42.3 H Anion Gap 13 Estim Creat Clear Calc 91.5 Estimated GFR > 60 Random Glucose 143 H Calcium 9.8 D Magnesium 2.0 Total Bilirubin 1.1 H Direct Bilirubin 0.4 AST 27 ALT 40 Alkaline Phosphatase 56 Total Creatine Kinase 150 Troponin I High Sens Total Protein 7.1 Albumin 4.1 Urine Color Urine Appearance Urine pH Ur Specific Mineral Urine Protein Urine Glucose (UA) Urine Ketones Urine Blood Urine Nitrite Ur Leukocyte Esterase Ethyl Alcohol COVID-19 (PAIGE) COVID-19 [employer] Pictures 01/23/22 01/23/22 01/23/22 13:48 13:48 14:39 MCV MCH MCHC RDW Plt Count MPV Immature Gran % (Auto) Neut % (Auto) Lymph % (Auto) [place] % (Auto) Eos % (Auto) Baso % (Auto) Lymph # (Auto) [place] # (Auto) Eos # (Auto) Baso # (Auto) Abs Immat Gran (auto) Absolute Neuts (auto) Absolute Nucleated RBC Nucleated RBC % (auto) PT INR APTT Anion Gap Estim Creat Clear Calc Estimated GFR Random Glucose Calcium Magnesium Total Bilirubin Direct Bilirubin AST ALT Alkaline Phosphatase Total Creatine Kinase Troponin I High Sens 3.8 Total Protein Albumin Urine Color STRAW Urine Appearance CLEAR Urine pH 8.0 Ur Specific Mineral 1.010 Urine Protein NEG Urine Glucose (UA) NEG Urine Ketones NEG Urine Blood NEG Urine Nitrite NEG Ur Leukocyte Esterase NEG Ethyl Alcohol < 10 COVID-19 (PAIGE) COVID-JAMF Software 01/23/22 01/23/22 01/24/22 17:59 19:34 00:48 MCV MCH MCHC RDW Plt Count MPV Immature Gran % (Auto) Neut % (Auto) Lymph % (Auto) [place] % (Auto) Eos % (Auto) Baso % (Auto) Lymph # (Auto) [place] # (Auto) Eos # (Auto) Baso # (Auto) Abs Immat Gran (auto) Absolute Neuts (auto) Absolute Nucleated RBC Nucleated RBC % (auto) PT INR APTT Anion Gap Estim Creat Clear Calc Estimated GFR Random Glucose Calcium Magnesium Total Bilirubin Direct Bilirubin AST ALT Alkaline Phosphatase Total Creatine Kinase Troponin I High Sens 4.5 4.4 Total Protein Albumin Urine Color Urine Appearance Urine pH Ur Specific Mineral Urine Protein Urine Glucose (UA) Urine Ketones Urine Blood Urine Nitrite Ur Leukocyte Esterase Ethyl Alcohol COVID-19 (PAIGE) Negative COVID-JAMF Software See Note 01/24/22 01/24/22 06:20 06:20 MCV 88.0 MCH 30.5 MCHC 34.7 RDW 12.4 Plt Count 276 MPV 9.0 L Immature Gran % (Auto) Neut % (Auto) Lymph % (Auto) [place] % (Auto) Eos % (Auto) Baso % (Auto) Lymph # (Auto) [place] # (Auto) Eos # (Auto) Baso # (Auto) Abs Immat Gran (auto) Absolute Neuts (auto) Absolute Nucleated RBC 0.000 Nucleated RBC % (auto) 0.0 PT INR APTT Anion Gap 12 Estim Creat Clear Calc 107.0 Estimated GFR > 60 Random Glucose 120 H Calcium 10.0 Magnesium Total Bilirubin Direct Bilirubin AST ALT Alkaline Phosphatase Total Creatine Kinase Troponin I High Sens Total Protein Albumin Urine Color Urine Appearance Urine pH Ur Specific Mineral Urine Protein Urine Glucose (UA) Urine Ketones Urine Blood Urine Nitrite Ur Leukocyte Esterase Ethyl Alcohol COVID-19 (PAIGE) COVID-19 Clin Com Assessment and Plan Plan 62-year-old male with history of CAD, hypertension,HLD,PAF:? Came to the hospital because of chest pain and patient numbness. 1. Possible TIA stroke workup-ct head and cta -seems no cva recent echo : 12/26/21: Conclusions: - 1. Technically limited study, patient refused definity contrast next 2. Low normal LV ejection fraction 50-55% with impaired ? ? relaxation filling pattern ? 3. Normal cardiac valvular Doppler ? 4.? Normal RV systolic pressure? 5. No gross pericardial effusion ?? mri added Symptoms resolved Heart rate control, monitor on telemetry Continue Xarelto Neurology evaluation 2. Chest pain: EKG seems similar to before, 1st troponin negative next troponin pending Will continue Xarelto, metoprolol, statin Will add cardiology evaluation-as per recent cardiology knows plan is stress test 3 -6month if chest pain again -check ekg and trops 3.PAF: sinus brday hr 57 (ekg) ontinue multaq,metoprolol, xarelto 4. HLD: continue statin dvt prophylax: xaralto. Quality Stroke Does the patient have a stroke diagnosis?: No VTE Prior VTE?: No VTE Risk Level:: Medical - moderate - high VTE Device Contraindication: N/A - Device Ordered VTE Drug Contraindication: N/A - Med Ordered
[2022-01-24 09:56] VITALS: BP 139/85; PULSE 56
[2022-01-24] MEDS: amLODIPine Besylate 2.5 MG TABLET PO (09:57)
--- NOTE | 2022-01-24 10:11 | P.CONCA_ITS ---
History of Present Illness History of Present Illness Date of Service: 01/24/22 Requesting physician: Cain Lovell Consult reason: chest pain Chief complaint: Chest pain facial numbness Narrative: I was consulted to see Matteo in cardiology consultation today because of left- sided facial numbness and chest pain. Patient was recently seen by me in the office and that time was complaining of some exertional chest pain was advised cardiac catheterization. Since then he says he has been very anxious and stressed and also has increased stressed at work. He came to the hospital yesterday noticing left-sided facial numbness and chest pressure. He said he had taken his mom medicine the morning and was emergency for few hours and not received his other medicines still 11 at nighttime. His blood pressures started getting elevated. His symptoms persisted and however his EKG shows no significant new changes and his troponins are negative and he is therefore ruled out. His blood pressure this morning was very elevated but again he says he did not he sees medications very anxious overnight. He is concerned about what the findings of cardiac catheterization would be and that he would require repeat surgery. He has had no recurrent atrial fibrillation. He is currently on full oral anticoagulation with Xarelto and on Multaq. He is also on high dose metoprolol. He all however takes isosorbide 3 times a day per with no nitro free. . His blood pressure this morning was elevated but after getting his morning medication blood pressure is now more controlled. Review of Systems Constitutional: Constitutional: Reports no additional constitutional complaints Eyes: Eyes: Reports no additional eye complaints ENT: Reports system reviewed and no additional complaints, except as documented Cardiovascular: Cardiovascular: Reports chest pain at rest, Denies rapid heart rate, Denies lightheadedness, Denies Loss of Consciousness, Denies palpitations and Denies dyspnea Respiratory: Respiratory: Reports no additional respiratory complaints and Denies dyspnea Gastrointestinal: Gastrointestinal: Reports no additional gastrointestinal complaints Genitourinary: Genitourinary: Reports no additional male genitourinary compl aints Musculoskeletal: Musculoskeletal: Reports no additional musculoskeletal complaints Integumentary/Breasts: Skin/Breast: Reports system reviewed and no additional complaints, except as docu Neurologic: Reports system reviewed and no additional complaints, except as documented Psychiatric: Psychiatric: Reports no additional psychiatric complaints Endocrine: Endocrine: Reports no additional endocrine complaints and Denies palpitations Hematologic/Lymphatic: Hematologic/Lymphatic: Reports no additional hematologic/lymphatic complaints Allergic/Immunologic: Allergic/Immunologic: Reports no additional allergic/immunologic complaints [facility] Past Medical History Medical History CAD (coronary artery disease) HLD (hyperlipidemia) HTN (hypertension) Paroxysmal atrial flutter TIA (transient ischemic attack) Family History Family History Father No problems noted. Mother No problems noted. Maternal Grandmother No problems noted. 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 Current occupational exposures/hazards: No Meds Allergies Allergy/AdvReac Type Severity Reaction Status Date / Time allopurinol Allergy Unknown he thinks Verified 08/27/21 14:17 it causes chest pain No Known Allergies Allergy Unverified 08/27/21 14:17 [No Known Allergies*] Active Medications: Current Medications Acetaminophen (Acetaminophen 325 Mg Tablet) 650 mg PO Q6H PRN PRN Reason: Pain, Mild (Pain Scale 1-3) Last Admin: 01/24/22 00:57 Dose: 650 mg Documented by: Amlodipine Besylate (Amlodipine Besylate 2.5 Mg Tablet) 2.5 mg PO DAILY [facility]; Protocol Atorvastatin Calcium (Atorvastatin Calcium 40 Mg Tablet) 40 mg PO BEDTIME [facility] Last Admin: 01/23/22 22:46 Dose: 40 mg Documented by: Colchicine (Colchicine 0.6 Mg Tablet) 0.6 mg PO DAILY [facility] Last Admin: 01/24/22 08:01 Dose: 0.6 mg Documented by: Dronedarone (Dronedarone Hcl 400 Mg Tablet) 400 mg PO BID [facility] Last Admin: 01/24/22 08:01 Dose: 400 mg Documented by: Ezetimibe (Ezetimibe 10 Mg Tablet) 10 mg PO BEDTIME [facility] Last Admin: 01/23/22 22:46 Dose: 10 mg Documented by: Gabapentin (Gabapentin 400 Mg Capsule) 400 mg PO QID [facility] Last Admin: 01/24/22 08:02 Dose: 400 mg Documented by: Isosorbide Mononitrate (Isosorbide Mononitrate 30 Mg Tab.Er.24h) 30 mg PO TID [facility]; Protocol Last Admin: 01/24/22 08:01 Dose: 30 mg Documented by: Lisinopril (Lisinopril 10 Mg Tablet) 10 mg PO BID [facility]; Protocol Last Admin: 01/24/22 08:03 Dose: 10 mg Documented by: Metoprolol Tartrate (Metoprolol Tartrate 100 Mg Tablet) 100 mg PO TID [facility]; Protocol Last Admin: 01/24/22 08:01 Dose: 100 mg Documented by: Multivitamins/Vitamin C (Multivitamin Tablet) 1 tab PO DAILY [facility] Last Admin: 01/24/22 08:02 Dose: 1 tab Documented by: Nitroglycerin (Nitroglycerin 0.4 Mg Tab.Subl) 0.4 mg SUBLINGUAL Q5M PRN PRN Reason: chest pain Last Admin: 01/24/22 09:57 Dose: 0.4 mg Documented by: Pharmacy Consult (Consult Rx Perform Med Rec) 1 each MISCELLANE ONCE PRN PRN Reason: Consult order Rivaroxaban (Rivaroxaban 20 Mg Tablet) 20 mg PO DAILY [facility] Last Admin: 01/24/22 08:01 Dose: 20 mg Documented by: Sodium Chloride (0.9 % Sodium Chloride Flush 3 Ml Syringe) 3 ml IVFLUSH QSHIFT [facility] Last Admin: 01/24/22 08:05 Dose: 3 ml Documented by: Home Medications Medication Instructions Recorded Confirmed Last Taken Type metoprolol tartrate 50 mg tablet 100 mg PO TID tab 01/16/22 01/23/22 01/23/22 History atorvastatin 40 mg tablet 40 mg PO BEDTIME 01/23/22 01/23/22 01/22/22 History cholecalciferol (vitamin D3) 25 25 mcg PO DAILY 01/23/22 01/23/22 01/23/22 History mcg (1,000 unit) tablet coenzyme Q10 30 mg capsule (Co 30 mg PO DAILY 01/23/22 01/23/22 01/23/22 History Q-10) ezetimibe 10 mg tablet 10 mg PO BEDTIME 01/23/22 01/23/22 01/22/22 History gabapentin 400 mg capsule 400 mg PO QID 01/23/22 01/23/22 01/23/22 History isosorbide mononitrate 30 mg 30 mg PO TID 01/23/22 01/23/22 Unknown History tablet,extended release 24 hr multivitamin 1 tab PO DAILY 01/23/22 01/23/22 01/23/22 History omega-3 fatty acids-fish oil 684 1 cap PO DAILY 01/23/22 01/23/22 01/23/22 History mg-1,200 mg capsule,delayed release Physical Exam Vital Signs: Vital Signs: Last Vital Signs Temp 97.5 F 01/24/22 07:30 Pulse 56 01/24/22 09:56 Resp 18 01/24/22 07:30 BP 139/85 01/24/22 09:56 Pulse Ox 95 01/24/22 07:30 BMI result Body Mass Index 28.6 Const: General: cooperative, comfortable, no acute distress, alert, awake and anxious Nutritional Appearance: overweight Orientation/consciousness: patient oriented x3 Limitations: no limitations HEENT: Head: Yes normocephalic and Yes atraumatic Neck: Neck: Yes trachea midline, Yes supple and Yes no JVD Chest: Chest palpation & inspection: normal inspection of the chest and other (Well-healed sternotomy scar) Resp: Effort & Inspection: normal respiratory effort Auscultation: clear to auscultation bilaterally Cardio: Jugular venous distension: no JVD Palpation: normal PMI Rate: regular rate Rhythm: regular rhythm Heart sounds: S1 normal heart sound present, S2 normal heart sound present, no click, no gallops, no murmurs and no rubs GI: Auscultation: normal bowel sounds Skin: General skin exam: no rashes or lesions noted Neuro: General: patient oriented x3 and no focal motor deficits Extrem: General: Yes no clubbing, cyanosis or edema Objective Labs and Meds Result diagrams: 01/24/22 06:20 01/24/22 06:20 Lab results: Laboratory Results - last 24 hr 01/23/22 01/23/22 01/23/22 13:48 13:48 13:48 WBC 7.2 RBC 4.50 L Hgb 13.7 L Hct 40.1 L MCV 89.1 MCH 30.4 MCHC 34.2 RDW 12.2 Plt Count 270 MPV 9.1 L Immature Gran % (Auto) 0.3 Neut % (Auto) 50.4 Lymph % (Auto) 36.1 [place] % (Auto) 11.4 H Eos % (Auto) 1.5 Baso % (Auto) 0.3 Lymph # (Auto) 2.6 [place] # (Auto) 0.8 Eos # (Auto) 0.1 Baso # (Auto) 0.0 Abs Immat Gran (auto) 0.02 Absolute Neuts (auto) 3.6 Absolute Nucleated RBC 0.000 Nucleated RBC % (auto) 0.0 PT 26.0 H INR 2.2 H APTT 42.3 H Sodium 140 Potassium 4.6 Chloride 101 Carbon Dioxide 31 H Anion Gap 13 BUN 13 Creatinine 0.98 Estim Creat Clear Calc 91.5 Estimated GFR > 60 Random Glucose 143 H Calcium 9.8 D Magnesium 2.0 Total Bilirubin 1.1 H Direct Bilirubin 0.4 AST 27 ALT 40 Alkaline Phosphatase 56 Total Creatine Kinase 150 Troponin I High Sens Total Protein 7.1 Albumin 4.1 Urine Color Urine Appearance Urine pH Ur Specific [place] Urine Protein Urine Glucose (UA) Urine Ketones Urine Blood Urine Nitrite Ur Leukocyte Esterase Ethyl Alcohol COVID-19 ([facility]IGE) COVID-[employer] 01/23/22 01/23/22 01/23/22 13:48 13:48 14:39 WBC RBC Hgb Hct MCV MCH MCHC RDW Plt Count MPV Immature Gran % (Auto) Neut % (Auto) Lymph % (Auto) [place] % (Auto) Eos % (Auto) Baso % (Auto) Lymph # (Auto) [place] # (Auto) Eos # (Auto) Baso # (Auto) Abs Immat Gran (auto) Absolute Neuts (auto) Absolute Nucleated RBC Nucleated RBC % (auto) PT INR APTT Sodium Potassium Chloride Carbon Dioxide Anion Gap BUN Creatinine Estim Creat Clear Calc Estimated GFR Random Glucose Calcium Magnesium Total Bilirubin Direct Bilirubin AST ALT Alkaline Phosphatase Total Creatine Kinase Troponin I High Sens 3.8 Total Protein Albumin Urine Color STRAW Urine Appearance CLEAR Urine pH 8.0 Ur Specific [place] 1.010 Urine Protein NEG Urine Glucose (UA) NEG Urine Ketones NEG Urine Blood NEG Urine Nitrite NEG Ur Leukocyte Esterase NEG Ethyl Alcohol < 10 COVID-19 ([facility]IGE) COVID-19 [employer] 01/23/22 01/23/22 01/24/22 17:59 19:34 00:48 WBC RBC Hgb Hct MCV MCH MCHC RDW Plt Count MPV Immature Gran % (Auto) Neut % (Auto) Lymph % (Auto) [place] % (Auto) Eos % (Auto) Baso % (Auto) Lymph # (Auto) [place] # (Auto) Eos # (Auto) Baso # (Auto) Abs Immat Gran (auto) Absolute Neuts (auto) Absolute Nucleated RBC Nucleated RBC % (auto) PT INR APTT Sodium Potassium Chloride Carbon Dioxide Anion Gap BUN Creatinine Estim Creat Clear Calc Estimated GFR Random Glucose Calcium Magnesium Total Bilirubin Direct Bilirubin AST ALT Alkaline Phosphatase Total Creatine Kinase Troponin I High Sens 4.5 4.4 Total Protein Albumin Urine Color Urine Appearance Urine pH Ur Specific [place] Urine Protein Urine Glucose (UA) Urine Ketones Urine Blood Urine Nitrite Ur Leukocyte Esterase Ethyl Alcohol COVID-19 ([facility]IEG) Negative COVID-19 Clin Com See Note 01/24/22 01/24/22 06:20 06:20 WBC 8.9 RBC 5.01 Hgb 15.3 Hct 44.1 MCV 88.0 MCH 30.5 MCHC 34.7 RDW 12.4 Plt Count 276 MPV 9.0 L Immature Gran % (Auto) Neut % (Auto) Lymph % (Auto) [place] % (Auto) Eos % (Auto) Baso % (Auto) Lymph # (Auto) [place] # (Auto) Eos # (Auto) Baso # (Auto) Abs Immat Gran (auto) Absolute Neuts (auto) Absolute Nucleated RBC 0.000 Nucleated RBC % (auto) 0.0 PT INR APTT Sodium 140 Potassium 4.1 Chloride 102 Carbon Dioxide 30 H Anion Gap 12 BUN 11 Creatinine 0.83 Estim Creat Clear Calc 107.0 Estimated GFR > 60 Random Glucose 120 H Calcium 10.0 Magnesium Total Bilirubin Direct Bilirubin AST ALT Alkaline Phosphatase Total Creatine Kinase Troponin I High Sens Total Protein Albumin Urine Color Urine Appearance Urine pH Ur Specific [place] Urine Protein Urine Glucose (UA) Urine Ketones Urine Blood Urine Nitrite Ur Leukocyte Esterase Ethyl Alcohol COVID-19 ([facility]IGE) COVID-19 Clin Com Imaging Radiologist's impression: Impressions Head CT 01/23/22 14:02 IMPRESSION: 1. No evidence of acute intracranial hemorrhage or edematous territorial infarction. 2. Mild underlying microangiopathy. This critical result was discussed with Waylon Gilbert DO at 14:11 on 01/23/2022 and it was ascertained that the content and urgency of the report was understood at the time of direct communication. Head/Neck CTA 01/23/22 14:32 IMPRESSION: 1. No evidence of acute intracranial hemorrhage or edematous territorial infarction. Mild underlying microangiopathy and generalized cerebral volume loss. 2. CTA of the head and neck without proximal occlusion or flow-limiting stenosis. 3. Moderate multilevel degenerative spondyloarthropathy of the cervical spine. This critical result was discussed with Waylon Gilbert DO at 14:11 on 01/23/2022 and it was ascertained that the content and urgency of the report was understood at the time of direct communication. Chest X-Ray 01/23/22 14:55 IMPRESSION: No acute intrathoracic disease Brain MRI 01/23/22 18:46 IMPRESSION: 1. No acute intracranial abnormalities. 2. Minimal nonspecific white matter changes. Assessment and Plan (1) Chest pain: Status: Acute Patient present with chest pain episode with negative troponins and negative EKG changes. Unlikely to be acute coronary syndrome. Probably related to anxiety/related to uncontrolled hypertension and stress at work. He is scheduled for cardiac catheterization near future which will be pre prone to next week. Advised to continue metoprolol 100 mg t.i.d.. Advised to switch isosorbide to 90 mg once a day to prevent tachyphylaxis. Will continue amlodipine 2.5 mg but staggered to nighttime. Continue high-intensity statin therapy. Continue full oral anticoagulation with Xarelto. Blood pressure remained stable later can be discharged home. Continue Multaq therapy. Ambulate later today and then discharge him home. Patient was reassured any understands agrees. Advised him to participate in stress mitigation strategies. He should be off work for 1 week. Procedures Date of Service Date of Service: 01/24/22
[2022-01-24 11:10] VITALS: BP 132/78; PULSE 63; RESP 17; TEMP 36.9; O2SAT 96
--- NOTE | 2022-01-24 11:49 | PM.DS ---
DS: Providers Provider Date of Service: 01/24/22 Date of admission: 01/23/22 17:05 Primary care physician: MELO Sherman Consults: 01/23/22 17:06 Consult to Cardiology Routine Consulting Provider: [facility] [place] [facility] Reason for consultation: chest pain Has provider been notified: No Consult to Neurology Routine Consulting Provider: [facility] Reason for consultation: TIA Has provider been notified: No DS: Diagnosis Discharge Diagnosis (1) Chest pain: Status: Acute DS: Summary Hospital Course Hospital Course: 62-year-old male with past medical history CAD, HLD, hypertension, PAF-came to the hospital because of numbness of the face, generalized body weakness for more than 24 hour duration. Patient is awake historian-says that he started having chest pain yesterday than also having numbness of the face when he was at work-subsequently he said down and his symptoms was somewhat relieved and did not decided to come to the hospital-woke up with similar symptoms this morning again as per the patient-currently denies any numbness of the face but still generalized weak. Denies any blurry vision or weakness in any specific body part. He said he was admitted to [facility] years ago with similar symptoms-and was told that he had possible TIA. Chest pain-burning/pressure, left side chest, reproducible, oppositional, also complains with the exertion.? 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 Denies any new complaint of? shortness of breath or abdominal pain or fever or chills or nausea or vomiting Denies any cough Currently no numbness, generally weak. Hospital course:Patient came to the hospital because of chest pain and patient numbness. Workup including cardiac enzymes are fine, seen by Cardiology, seen by Cardiology his chest pain thought to be related to uncontrolled hypertension and possible stress component. Cardiology recommended to adjust Imdur to 90 mg daily and amlodipine 2.5 mg added at bedtime. Patient will need further cardiac workup in a week , cardio may arrange appointment. Will give work note for 1 week to the patient. Currently does not seem to complain of stress , denies any chest pain. Blood pressure is improving. Patient numbness probably related to stress component, CT head and MRI negative, neurology saw the patient-recommended to continue current management. Time Spent with Patient Time attestation: Total time spent providing and/or coordinating discharge services: Discharge coordination time: Greater than 30 minutes Quality: Safe Use of Opioids Does Pt have an Active Cancer Diagnosis on the Problem List?: No Quality: Stroke Does the patient have a stroke diagnosis?: No Physical Exam Vital Signs: Vital Signs: Last Vital Signs Temp 98.4 F 01/24/22 11:10 Pulse 63 01/24/22 11:10 Resp 17 01/24/22 11:10 BP 132/78 01/24/22 11:10 Pulse Ox 96 01/24/22 11:10 BMI result Body Mass Index 28.6 Appearance: Alert.? Oriented X3.? not in distress.? Eyes: Pupils equal, round and reactive to light.? Sclera nonicteric.? ENT: Pharynx normal.? Moist mucous membranes. cvs: rrr, [id number] , no murmur res: clear to auscultation ,no rhonchii or wheezing abd: no rebound or guarding ,nt, bs present. ext pulses present , no cyanosis. neuro: axo3 , moves all ext, face symmetrical. No numbness DS: Data Data Completed and Pending Labs on day of discharge: Laboratory Results - last 24 hr 01/23/22 01/23/22 01/23/22 13:48 13:48 13:48 WBC 7.2 RBC 4.50 L Hgb 13.7 L Hct 40.1 L MCV 89.1 MCH 30.4 MCHC 34.2 RDW 12.2 Plt Count 270 MPV 9.1 L Immature Gran % (Auto) 0.3 Neut % (Auto) 50.4 Lymph % (Auto) 36.1 Kidder % (Auto) 11.4 H Eos % (Auto) 1.5 Baso % (Auto) 0.3 Lymph # (Auto) 2.6 Kidder # (Auto) 0.8 Eos # (Auto) 0.1 Baso # (Auto) 0.0 Abs Immat Gran (auto) 0.02 Absolute Neuts (auto) 3.6 Absolute Nucleated RBC 0.000 Nucleated RBC % (auto) 0.0 PT 26.0 H INR 2.2 H APTT 42.3 H Sodium 140 Potassium 4.6 Chloride 101 Carbon Dioxide 31 H Anion Gap 13 BUN 13 Creatinine 0.98 Estim Creat Clear Calc 91.5 Estimated GFR > 60 Random Glucose 143 H Calcium 9.8 D Magnesium 2.0 Total Bilirubin 1.1 H Direct Bilirubin 0.4 AST 27 ALT 40 Alkaline Phosphatase 56 Total Creatine Kinase 150 Troponin I High Sens Total Protein 7.1 Albumin 4.1 Urine Color Urine Appearance Urine pH Ur Specific [place] Urine Protein Urine Glucose (UA) Urine Ketones Urine Blood Urine Nitrite Ur Leukocyte Esterase Ethyl Alcohol COVID-19 ([facility]IGE) COVID-19 Clin Com 01/23/22 01/23/22 01/23/22 13:48 13:48 14:39 WBC RBC Hgb Hct MCV MCH MCHC RDW Plt Count MPV Immature Gran % (Auto) Neut % (Auto) Lymph % (Auto) Kidder % (Auto) Eos % (Auto) Baso % (Auto) Lymph # (Auto) Kidder # (Auto) Eos # (Auto) Baso # (Auto) Abs Immat Gran (auto) Absolute Neuts (auto) Absolute Nucleated RBC Nucleated RBC % (auto) PT INR APTT Sodium Potassium Chloride Carbon Dioxide Anion Gap BUN Creatinine Estim Creat Clear Calc Estimated GFR Random Glucose Calcium Magnesium Total Bilirubin Direct Bilirubin AST ALT Alkaline Phosphatase Total Creatine Kinase Troponin I High Sens 3.8 Total Protein Albumin Urine Color STRAW Urine Appearance CLEAR Urine pH 8.0 Ur Specific [place] 1.010 Urine Protein NEG Urine Glucose (UA) NEG Urine Ketones NEG Urine Blood NEG Urine Nitrite NEG Ur Leukocyte Esterase NEG Ethyl Alcohol < 10 COVID-19 ([facility]IGE) COVID-19 Clin Com 01/23/22 01/23/22 01/24/22 17:59 19:34 00:48 WBC RBC Hgb Hct MCV MCH MCHC RDW Plt Count MPV Immature Gran % (Auto) Neut % (Auto) Lymph % (Auto) Kid[place] % (Auto) Eos % (Auto) Baso % (Auto) Lymph # (Auto) Kidder # (Auto) Eos # (Auto) Baso # (Auto) Abs Immat Gran (auto) Absolute Neuts (auto) Absolute Nucleated RBC Nucleated RBC % (auto) PT INR APTT Sodium Potassium Chloride Carbon Dioxide Anion Gap BUN Creatinine Estim Creat Clear Calc Estimated GFR Random Glucose Calcium Magnesium Total Bilirubin Direct Bilirubin AST ALT Alkaline Phosphatase Total Creatine Kinase Troponin I High Sens 4.5 4.4 Total Protein Albumin Urine Color Urine Appearance Urine pH Ur Specific [place] Urine Protein Urine Glucose (UA) Urine Ketones Urine Blood Urine Nitrite Ur Leukocyte Esterase Ethyl Alcohol COVID-19 (PAIGE) Negative COVID-19 Clin Com See Note 01/24/22 01/24/22 06:20 06:20 WBC 8.9 RBC 5.01 Hgb 15.3 Hct 44.1 MCV 88.0 MCH 30.5 MCHC 34.7 RDW 12.4 Plt Count 276 MPV 9.0 L Immature Gran % (Auto) Neut % (Auto) Lymph % (Auto) [place] % (Auto) Eos % (Auto) Baso % (Auto) Lymph # (Auto) [place] # (Auto) Eos # (Auto) Baso # (Auto) Abs Immat Gran (auto) Absolute Neuts (auto) Absolute Nucleated RBC 0.000 Nucleated RBC % (auto) 0.0 PT INR APTT Sodium 140 Potassium 4.1 Chloride 102 Carbon Dioxide 30 H Anion Gap 12 BUN 11 Creatinine 0.83 Estim Creat Clear Calc 107.0 Estimated GFR > 60 Random Glucose 120 H Calcium 10.0 Magnesium Total Bilirubin Direct Bilirubin AST ALT Alkaline Phosphatase Total Creatine Kinase Troponin I High Sens Total Protein Albumin Urine Color Urine Appearance Urine pH Ur Specific [place] Urine Protein Urine Glucose (UA) Urine Ketones Urine Blood Urine Nitrite Ur Leukocyte Esterase Ethyl Alcohol COVID-19 (PAIGE) COVID-19 Clin Com Additional Comments Additional comments: MR/MR head/brain wo con IMPRESSION: 1. No acute intracranial abnormalities. 2. Minimal nonspecific white matter changes. ??XR/XR chest 2V IMPRESSION: No acute intrathoracic disease. CT/CT angio head? neck stroke IMPRESSION: 1. No evidence of acute intracranial hemorrhage or edematous territorial infarction. Mild underlying microangiopathy and generalized cerebral volume loss. 2. CTA of the head and neck without proximal occlusion or flow-limiting stenosis. 3. Moderate multilevel degenerative spondyloarthropathy of the cervical spine. Discharge Plan Discharge Patient Disposition: Home, Self-Care Discharge Diagnosis: chest pain , face numbness Referrals: Jorge Alberto Dumont, [facility] [Primary Care Provider] - 1 Week Discharge Medications: New amlodipine 2.5 mg tablet 2.5 mg PO BEDTIME Qty: 30 0RF Continued Multaq 400 mg tablet 400 mg PO BID 90 Days Qty: 180 0RF Rx Instructions: Must make cardiology appt for refills - overdue colchicine 0.6 mg capsule 0.6 mg PO DAILY Qty: 90 2RF nitroglycerin 0.4 mg tablet, sublingual 0.4 mg sublingual Q5M PRN (Reason: chest pain) Qty: 25 0RF multivitamin Tablet 1 tab PO DAILY 0RF gabapentin 400 mg Capsule 400 mg PO QID 0RF coenzyme Q10 [Co Q-10] 30 mg Capsule 30 mg PO DAILY 0RF cholecalciferol (vitamin D3) 25 mcg (1,000 unit) Tablet 25 mcg PO DAILY 0RF omega-3 fatty acids-fish oil 684-1,200 mg Capsule,Delayed Release(Dr/Ec) 1 cap PO DAILY 0RF atorvastatin 40 mg tablet 40 mg PO BEDTIME 0RF ezetimibe 10 mg tablet 10 mg PO BEDTIME 0RF lisinopril 10 mg tablet 10 mg PO BID Qty: 180 1RF Xarelto 20 mg tablet 20 mg PO DAILY 90 Days Qty: 90 1RF Rx Instructions: Please call to schedule follow-up appt for cardiology metoprolol tartrate 50 mg tablet 100 mg PO TID 0RF Changed isosorbide mononitrate 30 mg tablet extended release 24 hr 90 mg PO TID Qty: 90 0RF Rx Instructions: Must make cardiology appt for refills - overdue Discharge Orders: Discharge Order (Routine); Ordered 01/24/22 Ordered By: Cain Lovell Diet: advance to usual diet Activity on Discharge: As tolerated Stand Alone Forms: Patient Portal Discharge page, Work/School Release Care Plan Goals: Patient came to the hospital because of chest pain and patient numbness. Workup including cardiac enzymes are fine, seen by Cardiology, seen by Cardiology his chest pain thought to be related to uncontrolled hypertension and possible stress component. Cardiology recommended to adjust Imdur to 90 mg daily and amlodipine 2.5 mg added at bedtime. Patient will need further cardiac workup in a week , cardio may arrange appointment. Will give work note for 1 week to the patient. Patient numbness -CT head and MRI negative, neurology saw the patient-migraine equivalent syndrome with anxiety.? Reassurance and education is recommended. Health Concerns: As above. Plan of Treatment: As above. Assessment: As above. Discharge Date/Time: 01/24/22 15:21
--- NOTE | 2022-01-24 11:55 | MHC.CM.PN ---
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
--- NOTE | 2022-01-24 12:41 | MHC.SLORD ---
Speech Language Pathology Order Status: GERIATRIC PHYSICIAN discussed with MD via [facility] Message- Per Dr. Lovell, patient is not having trouble eating- Order for bedside dysphagia evaluation, which was placed yesterday when patient first arrived in ED, is canceled as it is no longer indicated. Please re-refer with any further concern.
--- NOTE | 2022-01-24 13:56 | PM.NEUROCN ---
History of Present Illness Data of Consult Service Date: 01/24/22 Primary Care Provider: Jorge Alberto Dumont, [facility]- HPI Reason for consult: Facial numbness 62 years old man who came to hospital with new onset of facial numbness that started couple of days prior to coming to hospital. He said he was at work when he started noticing numbness or weakness of left side of face. He put some ice to help it out. Apparently it came back and then he came to emergency room and still had when he was here but now it was resolved. He also was complaining of chest pain nausea and said he vomited. He probably also had a headache but that was not severe. There was no recent cold or flu-like illness or rash. Review of Systems Review of Systems: No recent cold or flu-like illness. [facility] Past Medical History Medical History CAD (coronary artery disease) HLD (hyperlipidemia) HTN (hypertension) Paroxysmal atrial flutter TIA (transient ischemic attack) Family History Family History Father No problems noted. Mother No problems noted. Maternal Grandmother No problems noted. 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 Current occupational exposures/hazards: No Meds Allergies Allergy/AdvReac Type Severity Reaction Status Date / Time allopurinol Allergy Unknown he thinks Verified 08/27/21 14:17 it causes chest pain No Known Allergies Allergy Unverified 08/27/21 14:17 [No Known Allergies*] Active Medications: Current Medications Acetaminophen (Acetaminophen 325 Mg Tablet) 650 mg PO Q6H PRN PRN Reason: Pain, Mild (Pain Scale 1-3) Last Admin: 01/24/22 00:57 Dose: 650 mg Documented by: Amlodipine Besylate (Amlodipine Besylate 2.5 Mg Tablet) 2.5 mg PO DAILY [facility]; Protocol Atorvastatin Calcium (Atorvastatin Calcium 40 Mg Tablet) 40 mg PO BEDTIME [facility] Last Admin: 01/23/22 22:46 Dose: 40 mg Documented by: Colchicine (Colchicine 0.6 Mg Tablet) 0.6 mg PO DAILY [facility] Last Admin: 01/24/22 08:01 Dose: 0.6 mg Documented by: Dronedarone (Dronedarone Hcl 400 Mg Tablet) 400 mg PO BID [facility] Last Admin: 01/24/22 08:01 Dose: 400 mg Documented by: Ezetimibe (Ezetimibe 10 Mg Tablet) 10 mg PO BEDTIME [facility] Last Admin: 01/23/22 22:46 Dose: 10 mg Documented by: Gabapentin (Gabapentin 400 Mg Capsule) 400 mg PO QID [facility] Last Admin: 01/24/22 08:02 Dose: 400 mg Documented by: Isosorbide Mononitrate (Isosorbide Mononitrate 30 Mg Tab.Er.24h) 30 mg PO TID [facility]; Protocol Last Admin: 01/24/22 08:01 Dose: 30 mg Documented by: Lisinopril (Lisinopril 10 Mg Tablet) 10 mg PO BID [facility]; Protocol Last Admin: 01/24/22 08:03 Dose: 10 mg Documented by: Metoprolol Tartrate (Metoprolol Tartrate 100 Mg Tablet) 100 mg PO TID [facility]; Protocol Last Admin: 01/24/22 08:01 Dose: 100 mg Documented by: Multivitamins/Vitamin C (Multivitamin Tablet) 1 tab PO DAILY [facility] Last Admin: 01/24/22 08:02 Dose: 1 tab Documented by: Nitroglycerin (Nitroglycerin 0.4 Mg Tab.Subl) 0.4 mg SUBLINGUAL Q5M PRN PRN Reason: chest pain Last Admin: 01/24/22 09:57 Dose: 0.4 mg Documented by: Pharmacy Consult (Consult Rx Perform Med Rec) 1 each MISCELLANE ONCE PRN PRN Reason: Consult order Rivaroxaban (Rivaroxaban 20 Mg Tablet) 20 mg PO DAILY [facility] Last Admin: 01/24/22 08:01 Dose: 20 mg Documented by: Sodium Chloride (0.9 % Sodium Chloride Flush 3 Ml Syringe) 3 ml IVFLUSH QSHIFT [facility] Last Admin: 01/24/22 08:05 Dose: 3 ml Documented by: Home Medications Medication Instructions Recorded Confirmed Last Taken Type metoprolol tartrate 50 mg tablet 100 mg PO TID tab 01/16/22 01/23/22 01/23/22 History atorvastatin 40 mg tablet 40 mg PO BEDTIME 01/23/22 01/23/22 01/22/22 History cholecalciferol (vitamin D3) 25 25 mcg PO DAILY 01/23/22 01/23/22 01/23/22 History mcg (1,000 unit) tablet coenzyme Q10 30 mg capsule (Co 30 mg PO DAILY 01/23/22 01/23/22 01/23/22 History Q-10) ezetimibe 10 mg tablet 10 mg PO BEDTIME 01/23/22 01/23/22 01/22/22 History gabapentin 400 mg capsule 400 mg PO QID 01/23/22 01/23/22 01/23/22 History isosorbide mononitrate 30 mg 30 mg PO TID 01/23/22 01/23/22 Unknown History tablet,extended release 24 hr multivitamin 1 tab PO DAILY 01/23/22 01/23/22 01/23/22 History omega-3 fatty acids-fish oil 684 1 cap PO DAILY 01/23/22 01/23/22 01/23/22 History mg-1,200 mg capsule,delayed release Physical Exam Vital Signs: Vital Signs: Last Vital Signs Temp 98.4 F 01/24/22 11:10 Pulse 63 01/24/22 11:10 Resp 17 01/24/22 11:10 BP 132/78 01/24/22 11:10 Pulse Ox 96 01/24/22 11:10 BMI result Body Mass Index 28.6 Neuro: Other: Alert and awake with normal spontaneity of speech fluency comprehension and anxious affect. Pupils were equal and reactive to light. Extraocular muscles were intact. Visual cain are full. Face was symmetrical. Tongue was midline. There was no pronator drift. [id number] testing was normal. Deep tendon reflexes were absent with flexor plantars. Results Labs CBC & Chem 7: 01/24/22 06:20 01/24/22 06:20 Labs: Short CBC 01/23/22 01/24/22 Range/Units 13:48 06:20 WBC 7.2 8.9 (4.8-10.8) X10*3/uL Hgb 13.7 L 15.3 (14.0-18.0) g/dl Hct 40.1 L 44.1 (42.0-52.0) % Plt Count 270 276 (160-400) X10*3/uL BMP 01/23/22 01/24/22 13:48 06:20 Sodium 140 140 Potassium 4.6 4.1 Chloride 101 102 Carbon Dioxide 31 H 30 H BUN 13 11 Creatinine 0.98 0.83 Calcium 9.8 D 10.0 Cardiac Enzymes 01/23/22 Range/Units 13:48 Total Creatine Kinase 150 (38-174) U/L Liver Function 01/23/22 Range/Units 13:48 Total Bilirubin 1.1 H (0.0-1.0) mg/dL Direct Bilirubin 0.4 (0.0-0.5) mg/dL AST 27 (5-37) U/L ALT 40 (0-40) U/L Alkaline Phosphatase 56 (39-117) U/L Albumin 4.1 (3.5-5.0) g/dL Urine 01/23/22 Range/Units 14:39 Urine Color STRAW Urine Appearance CLEAR Urine pH 8.0 (5.0-8.0) Ur Specific [place] 1.010 (1.005-1.025) Urine Protein NEG (NEG-TRACE) MG/DL Urine Glucose (UA) NEG (NEG) MG/DL Noncontrast MRI of brain did not reveal any significant acute or chronic abnormality. CTA of brain and neck did not reveal any vascular lesion. Spondylitic changes were noted in spine. Assessment and Plan (1) Facial numbness: Status: Acute 62 years old man significantly anxious who reported developing left-sided facial numbness. He was a vague historian but also stated that he was dizzy had chest pain vomited and might also have a headache. Examination was nonfocal in brain imaging has not reveal any acute pathology or any significant chronic pathology. 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 Reassurance and education is recommended Procedures Date of Service Date of Service: 01/24/22
[2022-01-24 14:34] VITALS: BP 142/89; PULSE 69
== END 2022-01-24 15:21 | disposition home or self-care (01) ==
LOC: HO.ED 16:20 → HO.EDOVER 17:18 → HO.IMC 18:52
PROVIDERS: Internal Medicine; Admitting Provider Internal Medicine; Emergency Provider Student in an Organized Health Care Education/Training Program; PCP Nurse Practitioner Family; Visit Provider Internal Medicine
DX: R20.0 Anesthesia of skin (principal); R07.9 Chest pain, unspecified; R11.2 Nausea with vomiting, unspecified; I48.92 Unspecified atrial flutter; I25.10 Atherosclerotic heart disease of native coronary artery without angina pectoris; I10 Essential (primary) hypertension; E78.5 Hyperlipidemia, unspecified; F41.9 Anxiety disorder, unspecified; Z87.891 Personal history of nicotine dependence; Z20.822 Contact with and (suspected) exposure to COVID-19; Z95.1 Presence of aortocoronary bypass graft; Z86.73 Personal history of transient ischemic attack (TIA), and cerebral infarction without residual deficits; Z88.8 Allergy status to other drugs, medicaments and biological substances; Z79.01 Long term (current) use of anticoagulants; Z79.899 Other long term (current) drug therapy
CPT/HCPCS: 36415; 70450; 70496; 70498; 70551; 71046; 80048; 80076; 81003; 82077; 82550; 83735; 84484; 85025; 85027; 85610; 85730; 87635; 93005; 99219; 99285; 99291; Q9967

== ENCOUNTER → 2022-02-18 14:09 | Outpatient (BNVA) | payer BC, MEDICAID, SELFPAY | PROVIDERS: PCP Nurse Practitioner Family; Referring Provider Nurse Practitioner Family; Visit Provider Nurse Practitioner Family | DX: Z13.89 Encounter for screening for other disorder (principal) ==

== ENCOUNTER → 2022-05-23 10:51 | Outpatient (BNVA) | payer BC, MEDICAID, SELFPAY | PROVIDERS: PCP Nurse Practitioner Family; Referring Provider Nurse Practitioner Family; Visit Provider Internal Medicine Cardiovascular Disease | DX: I25.10 Atherosclerotic heart disease of native coronary artery without angina pectoris (principal); I48.92 Unspecified atrial flutter | CPT/HCPCS: 93005 ==

== ENCOUNTER → 2022-08-15 10:57 | Outpatient (BNVA) | payer BC, MEDICAID, SELFPAY | PROVIDERS: PCP Nurse Practitioner Family; Referring Provider Nurse Practitioner Family; Visit Provider Internal Medicine Cardiovascular Disease | DX: I48.19 Other persistent atrial fibrillation (principal); I25.10 Atherosclerotic heart disease of native coronary artery without angina pectoris | CPT/HCPCS: 93005 ==

== ENCOUNTER → 2022-08-18 10:34 | Day surgery (SDC) | payer BC, MEDICAID, SELFPAY ==
[2022-08-18 10:50] VITALS: BMI 28.7
[2022-08-18 10:53] VITALS: BP 134/85; PULSE 54; RESP 18; TEMP 36.9; O2SAT 97
--- NOTE | 2022-08-18 11:01 | ECG_ITS ---
Test Reason : lt chest pressure Blood Pressure : / mmHG Vent. Rate : 055 BPM Atrial Rate : 055 BPM P-R Int : 210 ms QRS Dur : 092 ms QT Int : 478 ms P-R-T Axes : 035 024 069 degrees QTc Int : 457 ms Sinus bradycardia with 1st degree A-V block Minimal voltage criteria for LVH, may be normal variant ( Sokolow-Isaacs ) Nonspecific T wave abnormality Abnormal ECG When compared with ECG of 24-JAN-2022 00:03, ST no longer depressed in Anterior leads T wave inversion less evident in Anterior leads Referred By: Papito Cardona Electronically Signed By:JOSÉ VASQUEZ MD
--- NOTE | 2022-08-18 11:07 | PC.NURSE ---
pt admits to L chest pressure 2/10 comes and goes. last night took nitro x 1 s.l. for 02/11. with relief to 10/14. hx cardiac cath here for cardioversion. sbrady on monitor. reported to Dr. Jenny Menjivar and Dr. Cotter. vss
--- NOTE | 2022-08-18 11:17 | SUR.OPER ---
sent photo of sinus lindsey nonspecific t waves to dr. birmingham
--- NOTE | 2022-08-18 11:56 | PC.NURSE ---
Dr. Cotter spoke to accepting MD. Report given to Lexi Lund RN. transferred pt to ED on monitor. report given to melissa Arthur RN.
== END ==
PROVIDERS: PCP Nurse Practitioner Family; Visit Provider Internal Medicine Cardiovascular Disease
DX: I48.19 Other persistent atrial fibrillation (principal); Z53.09 Procedure and treatment not carried out because of other contraindication; R00.1 Bradycardia, unspecified
CPT/HCPCS: 93005

== ENCOUNTER 2022-08-18 11:53 | Emergency (ER) | payer BC, SELFPAY ==
--- NOTE | ~2022-08-18 | XR_ITS ---
EXAMINATION: XR CHEST CLINICAL INFORMATION: Chest pain COMPARISON: Chest radiographs 01/23/2022, 05/09/2020, 03/24/2019 TECHNIQUE: Portable upright AP x2 views of the chest are obtained. FINDINGS: There has been prior median sternotomy. Heart size within normal, similar to prior exams. Vascularity normal. No pneumothorax, pleural reaction, or effusion. There is tapering at the cardiophrenic angles consistent with areolar tissue and possibly disc atelectasis at the bases. Otherwise, no lobar or segmental airspace consolidation or groundglass opacities. The hilar and mediastinal contours and bony structures are unremarkable. No free air beneath the diaphragms. XR/XR chest 1V IMPRESSION: -Disc atelectasis at bases. Lungs otherwise clear. -No pneumothorax. No lobar segmental airspace consolidation or effusion.
--- NOTE | 2022-08-18 12:01 | ED_ITS ---
HPI - General Adult General Chief complaint: Chest Pain Stated complaint: sent from PACU Time Seen by Provider: 08/18/22 12:01 Source: patient Mode of arrival: other (stretcher) Limitations: no limitations History of Present Illness HPI narrative: Patient is a 62 year old assigned male at with a history of atrial fibrillation with RVR presenting to the emergency department today with chest pain. Patient states that he was getting ready to get cardioverted for his rapid heart beat when he began to have left sided chest pain. Patient states that they recommended he be brought down to the Emergency Department to be evaluated. Patient denies any dizziness, lightheadedness, abdominal pain, nausea, vomiting, fever, chills, blurry vision, double vision, loss of vision, difficulty breathing, shortness of breath, back pain, night sweats, pain with urination, increased urinary frequency, increased urinary urgency, blood in his urine or stool, syncope or a near syncopal episode, recent trauma or falls, bowel incontinence, bladder incontinence, bowel retention, bladder retention, or any other complaints at this time. Onset (ago): minute(s) Location: chest Radiation: non-radiation Severity: mild Severity scale (1-10): 2 Quality: dull Pain Consistency: constant Relieving factors: none Exacerbating factors: none Associated symptoms: denies other symptoms Treatments prior to arrival: none Related Data Home Medications Medication Instructions Recorded Confirmed cholecalciferol (vitamin D3) 25 25 mcg PO DAILY 01/23/22 08/15/22 mcg (1,000 unit) tablet coenzyme Q10 30 mg capsule (Co 30 mg PO DAILY 01/23/22 08/15/22 Q-10) multivitamin 1 tab PO DAILY 01/23/22 08/15/22 omega-3 fatty acids-fish oil 684 1 cap PO DAILY 01/23/22 08/15/22 mg-1,200 mg capsule,delayed release clotrimazole 1 % topical cream appl topical BID 04/10/22 05/23/22 lidocaine 5 % topical ointment topical TID 04/10/22 05/23/22 gabapentin 400 mg capsule 400 mg PO TID 05/23/22 08/15/22 gabapentin 800 mg tablet 800 mg PO BEDTIME 05/23/22 08/15/22 Previous Rx's Medication Instructions Recorded lisinopril 10 mg tablet 10 mg PO BID #180 tabs 03/07/22 clopidogrel 75 mg tablet 75 mg PO DAILY #90 tabs 05/12/22 isosorbide mononitrate 30 mg 30 mg PO DAILY 90 days #90 tabs 05/23/22 tablet,extended release 24 hr atorvastatin 40 mg tablet 40 mg PO DAILY #90 tabs 06/04/22 ezetimibe 10 mg tablet 10 mg PO DAILY #90 tabs 07/07/22 rivaroxaban 20 mg tablet (Xarelto) 20 mg PO DAILY #90 tabs 07/07/22 colchicine 0.6 mg capsule 0.6 mg PO DAILY #90 caps 07/11/22 nitroglycerin 0.4 mg sublingual 0.4 mg sublingual Q5M PRN chest 07/13/22 tablet pain #25 tabs amlodipine 5 mg tablet 5 mg PO DAILY #90 tabs 08/12/22 amiodarone 400 mg tablet 400 mg PO BID #30 tabs 08/15/22 metoprolol tartrate 100 mg tablet 100 mg PO BID #60 tabs 08/15/22 Allergies Allergy/AdvReac Type Severity Reaction Status Date / Time allopurinol Allergy Unknown he thinks Verified 05/23/22 11:09 it causes chest pain Review of Systems Constitutional: Constitutional: Reports no additional constitutional complaints, Denies chills, Denies fever(s) and Denies night sweats Eyes: Eyes: Reports no additional eye complaints, Denies blurry vision, Denies change in vision, Denies diplopia, Denies eye discharge, Denies loss of vision and Denies eye pain ENT: Denies dizziness Cardiovascular: Cardiovascular: Reports no additional cardiovascular complaints, Reports chest pain, Denies lightheadedness, Denies Loss of Consciousness and Denies dyspnea Respiratory: Respiratory: Reports no additional respiratory complaints and Denies dyspnea Gastrointestinal: Gastrointestinal: Reports no additional gastrointestinal complaints, Denies abdominal pain, Denies melena, Denies hematochezia, Denies change in bowel habits and Denies change in stool character Genitourinary: Genitourinary: Reports no additional male genitourinary complaints, Denies hematuria, Denies oliguria, Denies difficulty urinating, Denies dysuria, Denies urinary frequency, Denies urinary hesitancy, Denies urinary incontinence and Denies urinary urgency Musculoskeletal: Musculoskeletal: Reports no additional musculoskeletal complaints, Denies numbness and Denies tingling Neurologic: Denies dizziness, Denies loss of vision, Denies numbness and Denie s tingling Psychiatric: Psychiatric: Reports no additional psychiatric complaints Endocrine: Endocrine: Reports no additional endocrine complaints Hematologic/Lymphatic: Hematologic/Lymphatic: Reports no additional hematologic/lymphatic complaints Allergic/Immunologic: Allergic/Immunologic: Reports no additional allergic/immunologic complaints PMFSH Past Medical History Attestation statement: The following information was validated with the patient. Source: old records reviewed Medical History CAD (coronary artery disease) Exertional chest pain HLD (hyperlipidemia) HTN (hypertension) Paroxysmal atrial flutter TIA (transient ischemic attack) Surgical History History of cardiac cath History of cardiac cath Hx of CABG S/P cardiac catheterization Family History Family History Father No problems noted. Mother No problems noted. Maternal Grandmother No problems noted. 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 Current occupational exposures/hazards: No Cognitive needs: No Hearing needs: No Vision needs: No Physical Exam ED Vital Signs: Vital Signs - 24 hr 08/18/22 12:03 08/18/22 14:00 08/18/22 15:42 Temperature 98.4 F 97.9 F 97.8 F Pulse Rate 53 54 54 Respiratory Rate 19 15 16 Blood Pressure 136/85 144/89 H 144/82 H Pulse Oximetry 95 95 98 Oxygen Delivery Method Room Air Room Air Room Air BMI result Body Mass Index 29.0 Const General: cooperative, no acute distress, alert and awake Nutritional Appearance: well nourished Orientation/consciousness: patient oriented x3 Limitations: no limitations HENMT Head: Yes normal to inspection and Yes atraumatic Ears: hearing grossly normal bilaterally and external ears normal General nose exam: Normal external nose present, no nasal discharge noted and no epistaxis Face and sinus: Yes normal facial exam, No abrasion and No laceration Mouth: Normal oral and palatal mucosa present, no drooling and no muffled voice Eyes General: appearance normal, both eyes and all related structures Periorbital: periorbital findings normal Eyelids: Yes eyelids normal Conjunctivae: conjunctivae normal Pupils: Equal, round and reactive pupils present EOM: EOMs intact bilaterally Neck Neck: Yes normal visual inspection, Yes full ROM and Yes no lymphadenopathy Chest Chest palpation & inspection: normal inspection of the chest Resp Effort & Inspection: normal respiratory effort and able to speak in complete sentences Auscultation: clear to auscultation bilaterally Cardio Rate: bradycardic Rhythm: regular rhythm GI Inspection: Yes normal to inspection Palpation (GI): Soft to palpation, not firm, nontender and no guarding Neuro General: patient oriented x3 and moves all extremities Cranial nerves: Yes Equal, round and reactive pupils present Cognition (Neuro): normal cognition Motor exam (neuro): 5/5 motor strength present throughout Sensory Exam: Normal double simultaneous stimulation for sensation Coordination: [id number] test normal Extrem General: Yes normal to inspection, Yes full ROM and Yes capillary refill normal Psych Appearance: grossly normal Mental Status: mental status grossly normal Affect: normal affect Attitude: cooperative Thought process: Normal thought process present Thought content: Normal thought content present Insight: Good insight present (Psych) Medical Decision Making [facility] Narrative Medical decision making narrative: Patient is a 62 year old assigned male at with a history of a-fib with RVR presenting to the emergency department today with chest pain. Patient's physical exam showed mild bradycardia but was otherwise unremarkable. Patient's blood work was unremarkable. Patient's EKG showed brdaycardia. Patient's chest x-ray showed no acute process. I spoke to the porcelain enameling supervisor contact lens manufacturer who felt that as long as the patient's repeat troponin was also negative, the patient could be discharged with out patient follow up. I explained my physical exam findings as well as all test results to the patient. I answered all questions asked by the patient. I stressed the importance of the patient taking his medication as prescribed. I stressed the importance of the patient following up with his prima care provider and his porcelain enameling supervisor. I stressed the importance of the patient returning to the emergency department immediately if his symptoms were to worsen or if he were to develop any dizziness, shortness of breath, difficulty breathing, chest pain, blurry vision, loss of vision, nausea, vomiting, abdominal pain, fever, chills, back pain, or any other complaints. Patient verbalized agreement and understanding with this treatment plan and discharge. Medical Records Medical records reviewed: Yes I reviewed the patient's medical records. Lab Data Lab results reviewed: Yes I reviewed the patient's lab results. Result diagrams: 08/18/22 12:41 08/18/22 12:41 Labs: Lab Results 08/18/22 08/18/22 08/18/22 Range/Units 12:41 12:41 12:41 WBC 11.5 H (4.8-10.8) X10*3/uL RBC 4.34 L (4.60-5.80) X10*6/uL Hgb 13.2 L (14.0-18.0) g/dl Hct 38.7 L (42.0-52.0) % MCV 89.2 (80.0-98.0) fL MCH 30.4 (27.0-33.0) pg MCHC 34.1 (31.0-36.0) g/dl RDW 12.5 (11.0-16.0) % Plt Count 286 (160-400) X10*3/uL MPV 8.8 L (9.4-12.4) fL Immature Gran % (Auto) 0.4 (0.0-0.4) % Neut % (Auto) 73.4 H (45-73) % Lymph % (Auto) 17.6 L (20-40) % Kershaw % (Auto) 6.9 (2-11) % Eos % (Auto) 1.4 (0-4) % Baso % (Auto) 0.3 (0-2) % Lymph # (Auto) 2.0 (1.2-4.9) X10*3/uL Kershaw # (Auto) 0.8 (0.1-1.2) X10*3/uL Eos # (Auto) 0.2 (0.0-0.4) X10*3/uL Baso # (Auto) 0.0 (0.0-0.2) X10*3/uL Abs Immat Gran (auto) 0.05 H (0.00-0.03) X10*3/uL Absolute Neuts (auto) 8.4 H (2.0-8.3) x10*3/uL Absolute Nucleated RBC 0.000 (0.0-0.012) X10*3/uL Nucleated RBC % (auto) 0.0 (0.0-0.2) /100WBC Sodium 139 (135-145) mmol/L Potassium 4.6 (3.3-5.1) mmol/L Chloride 102 (96-108) mmol/L Carbon Dioxide 29 (22-29) mmol/L Anion Gap 13 (12-20) BUN 14 (9-16) mg/dL Creatinine 0.94 (0.5-1.4) mg/dL Estim Creat Clear Calc 95.2 Estimated GFR > 60 Random Glucose 125 H (60-115) mg/dL Calcium 9.5 (8.4-10.2) mg/dL Magnesium 2.1 (1.6-2.6) mg/dL Total Bilirubin 1.4 H (0.0-1.0) mg/dL AST 18 (5-37) U/L ALT 28 (0-40) U/L Alkaline Phosphatase 63 (39-117) U/L Troponin I High Sens < 3.5 (<3.5-35.0) ng/L Total Protein 6.6 (6.5-8.0) g/dL Albumin 3.9 (3.5-5.0) g/dL Urine Color Urine Appearance Urine pH (5.0-9.0) Ur Specific Parrott (1.005-1.025) Urine Protein (Neg-Trace) mg/dL Urine Glucose (UA) (Negative) mg/dL Urine Ketones (Negative) mg/dL Urine Blood (Negative) Urine Nitrite (Negative) Ur Leukocyte Esterase (Negative) 08/18/22 08/18/22 Range/Units 14:05 15:48 WBC (4.8-10.8) X10*3/uL RBC (4.60-5.80) X10*6/uL Hgb (14.0-18.0) g/dl Hct (42.0-52.0) % MCV (80.0-98.0) fL MCH (27.0-33.0) pg MCHC (31.0-36.0) g/dl RDW (11.0-16.0) % Plt Count (160-400) X10*3/uL MPV (9.4-12.4) fL Immature Gran % (Auto) (0.0-0.4) % Neut % (Auto) (45-73) % Lymph % (Auto) (20-40) % Kershaw % (Auto) (2-11) % Eos % (Auto) (0-4) % Baso % (Auto) (0-2) % Lymph # (Auto) (1.2-4.9) X10*3/uL Kershaw # (Auto) (0.1-1.2) X10*3/uL Eos # (Auto) (0.0-0.4) X10*3/uL Baso # (Auto) (0.0-0.2) X10*3/uL Abs Immat Gran (auto) (0.00-0.03) X10*3/uL Absolute Neuts (auto) (2.0-8.3) x10*3/uL Absolute Nucleated RBC (0.0-0.012) X10*3/uL Nucleated RBC % (auto) (0.0-0.2) /100WBC Sodium (135-145) mmol/L Potassium (3.3-5.1) mmol/L Chloride (96-108) mmol/L Carbon Dioxide (22-29) mmol/L Anion Gap (12-20) BUN (9-16) mg/dL Creatinine (0.5-1.4) mg/dL Estim Creat Clear Calc Estimated GFR Random Glucose (60-115) mg/dL Calcium (8.4-10.2) mg/dL Magnesium (1.6-2.6) mg/dL Total Bilirubin (0.0-1.0) mg/dL AST (5-37) U/L ALT (0-40) U/L Alkaline Phosphatase (39-117) U/L Troponin I High Sens < 3.5 (<3.5-35.0) ng/L Total Protein (6.5-8.0) g/dL Albumin (3.5-5.0) g/dL Urine Color Yellow Urine Appearance Clear Urine pH 7.5 (5.0-9.0) Ur Specific Parrott 1.010 (1.005-1.025) Urine Protein Negative (Neg-Trace) mg/dL Urine Glucose (UA) Negative (Negative) mg/dL Urine Ketones Negative (Negative) mg/dL Urine Blood Negative (Negative) Urine Nitrite Negative (Negative) Ur Leukocyte Esterase Negative (Negative) Imaging Data Chest x-ray: Attestation: I personally reviewed and interpreted this imaging study as follows: My impression: No acute process. Radiologist's impression: EXAMINATION: XR CHEST CLINICAL INFORMATION: Chest pain COMPARISON: Chest radiographs 01/23/2022, 05/09/2020, 03/24/2019 TECHNIQUE: Portable upright AP x2 views of the chest are obtained. FINDINGS: There has been prior median sternotomy. Heart size within normal, similar to prior exams. Vascularity normal. No pneumothorax, pleural reaction, or effusion. There is tapering at the cardiophrenic angles consistent with areolar tissue and possibly disc atelectasis at the bases. Otherwise, no lobar or segmental airspace consolidation or groundglass opacities. The hilar and mediastinal contours and bony structures are unremarkable. No free air beneath the diaphragms. XR/XR chest 1V IMPRESSION: -Disc atelectasis at bases. Lungs otherwise clear. -No pneumothorax. No lobar segmental airspace consolidation or effusion. Dictated By: Juan Nagel MD Signed By: Electronically signed by Juan Nagel MD 08/18/22 1302 ECG Data Attestation: I personally reviewed and interpreted this ECG as follows: Prior ECG tracings: available for review Interpretation: Vent. Rate: 054 BPM ? ? Atrial Rate: 054 BPM P-R Int: 192 ms? QRS Dur: 086 ms QT Int: 484 ms ? ? ? P-R-T Axes: 042 031 067 degrees QTc Int: 458 ms ? Sinus bradycardia T wave abnormality, consider anterior ischemia Abnormal ECG When compared with ECG of 18-AUG-2022 11:12, No significant change was found ? Electronically Signed By:JOSÉ VASQUEZ MD Dictated By: Myles Vasquez MD Signed By: Electronically signed by Myles Vasquez MD 08/18/22 9023 Critical Care Time Critical Care Time Critical Care Time: Yes Total Critical Care Time: 30 Attestation: I spent 30 minutes of Critical Care Time with this patient. This does not include time spent on separately reported billable procedures. Discharge Plan Discharge Clinical Impression: Chest pain Patient Disposition: Home, Self-Care Instructions: Chest Pain (DC) Additional Instructions: Follow up with your primary care provider. Return to the emergency department immediately if your symptoms worsen or if you develop any dizziness, shortness of breath, difficulty breathing, chest pain, blurry vision, loss of vision, nausea, vomiting, abdominal pain, fever, chills, back pain, or any other complaints. Prescriptions: No Action lisinopril 10 mg tablet 10 mg PO BID Qty: 180 1RF clopidogrel 75 mg tablet 75 mg PO DAILY Qty: 90 3RF atorvastatin 40 mg tablet 40 mg PO DAILY Qty: 90 1RF Xarelto 20 mg tablet 20 mg PO DAILY Qty: 90 3RF ezetimibe 10 mg tablet 10 mg PO DAILY Qty: 90 3RF colchicine 0.6 mg capsule 0.6 mg PO DAILY Qty: 90 2RF nitroglycerin 0.4 mg tablet, sublingual 0.4 mg sublingual Q5M PRN (Reason: chest pain) Qty: 25 0RF amlodipine 5 mg tablet 5 mg PO DAILY Qty: 90 3RF multivitamin Tablet 1 tab PO DAILY coenzyme Q10 [Co Q-10] 30 mg Capsule 30 mg PO DAILY cholecalciferol (vitamin D3) 25 mcg (1,000 unit) Tablet 25 mcg PO DAILY omega-3 fatty acids-fish oil 684-1,200 mg Capsule,Delayed Release(Dr/Ec) 1 cap PO DAILY gabapentin 400 mg capsule 400 mg PO TID clotrimazole 1 % cream topical BID lidocaine 5 % ointment topical TID gabapentin 800 mg tablet 800 mg PO BEDTIME isosorbide mononitrate 30 mg tablet extended release 24 hr 30 mg PO DAILY 90 Days Qty: 90 1RF amiodarone 400 mg tablet 400 mg PO BID Qty: 30 0RF metoprolol tartrate 100 mg tablet 100 mg PO BID Qty: 60 3RF Referrals: Jorge Alberto Dumont FNP-[facility] [Primary Care Provider] - Dakota Cotter MD [Physician] - Print Language: Thai
--- NOTE | 2022-08-18 12:02 | ECG_ITS ---
Test Reason : CHEST PAIN Blood Pressure : / mmHG Vent. Rate : 054 BPM Atrial Rate : 054 BPM P-R Int : 192 ms QRS Dur : 086 ms QT Int : 484 ms P-R-T Axes : 042 031 067 degrees QTc Int : 458 ms Sinus bradycardia T wave abnormality, consider anterior ischemia Abnormal ECG When compared with ECG of 18-AUG-2022 11:12, No significant change was found Referred By: Annamarie Doe Electronically Signed By:JOSÉ VASQUEZ MD
[2022-08-18 12:03] VITALS: BP 136/85; PULSE 53; RESP 19; TEMP 36.9; O2SAT 95; BMI 29.0
[2022-08-18 12:47] LABS: MANUAL DIFF FLAG NO
[2022-08-18 12:53] LABS: Basophils Percent Auto 0.3 % (0-2); Eosinophils Absolute Auto 0.2 X10*3/uL (0.0-0.4); Eosinophils Percent Auto 1.4 % (0-4); Hematocrit 38.7 % (42.0-52.0); Hemoglobin 13.2 g/dl (14.0-18.0); Imm Gran Abs Auto 0.05 X10*3/uL (0.00-0.03); Imm Gran Pct Auto 0.4 % (0.0-0.4); Lymphocytes Percent Auto 17.6 % (20-40); Mean Corpuscular HGB Conc 34.1 g/dl (31.0-36.0); Mean Corpuscular Hemoglobin 30.4 pg (27.0-33.0); Mean Corpuscular Volume 89.2 fL (80.0-98.0); Mean Platelet Volume 8.8 fL (9.4-12.4); Monocytes Absolute Auto 0.8 X10*3/uL (0.1-1.2); Monocytes Percent Auto 6.9 % (2-11); Neutrophils Absolute Auto 8.4 x10*3/uL (2.0-8.3); Neutrophils Percent Auto 73.4 % (45-73); Platelet Count 286 X10*3/uL (160-400); Red Blood Count 4.34 X10*6/uL (4.60-5.80); Red Cell Distribution Width 12.5 % (11.0-16.0); White Blood Count 11.5 X10*3/uL (4.8-10.8)
[2022-08-18 13:10] LABS: Alanine Aminotransferase 28 U/L (0-40); Albumin Level 3.9 g/dL (3.5-5.0); Alkaline Phosphatase 63 U/L (39-117); Anion Gap 13 (12-20); Aspartate Amino Transferase 18 U/L (5-37); Bilirubin Total 1.4 mg/dL (0.0-1.0); Blood Urea Nitrogen 14 mg/dL (9-16); Calcium 9.5 mg/dL (8.4-10.2); Carbon Dioxide 29 mmol/L (22-29); Chloride 102 mmol/L (96-108); Creatinine Clr Calc Pharmacy 95.2; Estimated Glomerular Filt Rate > 60; Glucose Random 125 mg/dL (60-115); Magnesium 2.1 mg/dL (1.6-2.6); Potassium 4.6 mmol/L (3.3-5.1); Sodium 139 mmol/L (135-145); Total Protein 6.6 g/dL (6.5-8.0)
[2022-08-18 13:14] LABS: Troponin-I High Sensitivity < 3.5 ng/L (<3.5-35.0)
[2022-08-18 14:00] VITALS: BP 144/89; PULSE 54; RESP 15; TEMP 36.6; O2SAT 95
[2022-08-18 14:29] LABS: Appearance Urine Clear; Color Urine Yellow; Glucose Urine UA Negative (Negative); Leukocyte Esterase Urine Negative (Negative); Nitrite Urine Negative (Negative); PH 7.5 (5.0-9.0); Urine Blood Negative (Negative); Urine Ketones Negative (Negative); Urine Protein Negative (Neg-Trace)
[2022-08-18 15:42] VITALS: BP 144/82; PULSE 54; RESP 16; TEMP 36.6; O2SAT 98
[2022-08-18 16:14] LABS: Troponin-I High Sensitivity < 3.5 ng/L (<3.5-35.0)
== END 2022-08-18 17:24 | disposition home or self-care (01) ==
PROVIDERS: Physician Assistant Medical; Emergency Provider Emergency Medicine Emergency Medical Services; PCP Nurse Practitioner Family
DX: R07.9 Chest pain, unspecified (principal); I48.20 Chronic atrial fibrillation, unspecified; I10 Essential (primary) hypertension; E78.5 Hyperlipidemia, unspecified; Z95.5 Presence of coronary angioplasty implant and graft; Z86.73 Personal history of transient ischemic attack (TIA), and cerebral infarction without residual deficits; Z87.891 Personal history of nicotine dependence; Z79.899 Other long term (current) drug therapy; Z79.02 Long term (current) use of antithrombotics/antiplatelets; Z79.01 Long term (current) use of anticoagulants
CPT/HCPCS: 36415; 71045; 80053; 81003; 83735; 84484; 85025; 93005; 99283; 99284

== ENCOUNTER → 2022-09-17 13:24 | Outpatient (BNVA) | payer BC, SELFPAY | PROVIDERS: PCP Nurse Practitioner Family; Referring Provider Nurse Practitioner Family; Visit Provider Internal Medicine Cardiovascular Disease | DX: I20.0 Unstable angina (principal); I48.0 Paroxysmal atrial fibrillation | CPT/HCPCS: 93005 ==

== ENCOUNTER 2022-09-25 11:56 | Outpatient (REF) | payer BC, SELFPAY ==
[2022-09-25 12:29] LABS: Hematocrit 39.7 % (42.0-52.0); Hemoglobin 13.5 g/dl (14.0-18.0); Mean Corpuscular Volume 91.1 fL (80.0-98.0); Mean Platelet Volume 8.7 fL (9.4-12.4); Platelet Count 290 X10*3/uL (160-400); Red Blood Count 4.36 X10*6/uL (4.60-5.80); Red Cell Distribution Width 12.5 % (11.0-16.0); White Blood Count 7.2 X10*3/uL (4.8-10.8)
[2022-09-25 12:37] LABS: INTERNATIONAL NORM RATIO 1.2 (0.9-1.1); Prothrombin Time 13.6 SEC (10.0-13.1)
[2022-09-25 12:54] LABS: Anion Gap 11 (12-20); Blood Urea Nitrogen 16 mg/dL (9-16); Calcium 9.5 mg/dL (8.4-10.2); Carbon Dioxide 29 mmol/L (22-29); Chloride 103 mmol/L (96-108); Estimated Glomerular Filt Rate > 60; Glucose Random 146 mg/dL (60-115); Potassium 4.7 mmol/L (3.3-5.1); Sodium 138 mmol/L (135-145)
== END 2022-09-25 11:57 | disposition home or self-care (01) ==
LOC: HO.LAB 11:56
PROVIDERS: PCP Nurse Practitioner Family; Visit Provider Internal Medicine Cardiovascular Disease
DX: I20.0 Unstable angina (principal)
CPT/HCPCS: 36415; 80048; 85027; 85610

== ENCOUNTER → 2022-10-09 10:23 | Outpatient (BNVA) | payer BC, SELFPAY | PROVIDERS: PCP Nurse Practitioner Family; Referring Provider Nurse Practitioner Family; Visit Provider Internal Medicine Cardiovascular Disease | DX: Z13.89 Encounter for screening for other disorder (principal) ==

== ENCOUNTER 2022-10-24 11:11 | Emergency (ER) | payer BC, SELFPAY ==
--- NOTE | ~2022-10-24 | XR_ITS ---
EXAMINATION: XR CHEST CLINICAL INFORMATION: Chest pain COMPARISON: 08/18/2022 TECHNIQUE: 2 views of the chest were obtained. FINDINGS: Lungs are well expanded and clear. No pleural effusion. Cardiac silhouette is normal in size. The sternotomy wires are intact. Mild atherosclerotic calcification of the aorta. Pulmonary vascular pattern is normal. The visualized bones are unremarkable. XR/XR chest 2V IMPRESSION: No acute pulmonary disease.
--- NOTE | ~2022-10-24 | CT_ITS ---
EXAMINATION: CT HEAD WITHOUT CONTRAST CLINICAL INFORMATION: Head injury one week ago on anticoagulation. COMPARISON: 01/23/2022 TECHNIQUE: Contiguous axial imaging was performed from the skull base to vertex without intravenous administration of contrast. This CT examination was performed using dose optimization techniques as appropriate, variously including the following: *Automated exposure control *Adjustment of mA and/or kV according to patient size (this includes techniques or standardized protocols for targeted exams where dose is matched to indication/reason for exam; i.e. extremities or head) *Use of iterative reconstruction technique DLP: 624 mGy-cm FINDINGS: No acute findings. No intracranial hemorrhage, extra-axial fluid collection, focal mass effect or midline shift. The ventricles have normal size and configuration; no hydrocephalus. Chronic mineralization of each globus pallidus and left dentate nucleus of the cerebellum. The newman-white matter differentiation is maintained. No evidence of an acute major vascular territory infarction. There is atherosclerotic calcification of cavernous carotid arteries. No evidence of calvarial fracture. The visualized paranasal sinuses are well aerated. Prior left mastoidectomy. The orbits, globes and temporomandibular joints are unremarkable. CT/CT head/brain wo IV con IMPRESSION: No acute intracranial pathology compared to 01/23/2022.
--- NOTE | 2022-10-24 11:14 | ECG_ITS ---
Test Reason : CHEST PAIN Blood Pressure : / mmHG Vent. Rate : 056 BPM Atrial Rate : 056 BPM P-R Int : 230 ms QRS Dur : 094 ms QT Int : 474 ms P-R-T Axes : 034 026 053 degrees QTc Int : 457 ms Sinus bradycardia with 1st degree A-V block Otherwise normal ECG When compared with ECG of 18-AUG-2022 12:10, LA interval has increased Referred By: Suyapa Hart Electronically Signed By:HIMANSHU CHAMORRO MD
[2022-10-24 11:28] VITALS: BP 124/70; PULSE 56; RESP 20; TEMP 36.4; O2SAT 95; BMI 28.7
--- NOTE | 2022-10-24 11:28 | ED.CHESTPAIN ---
HPI - Chest Pain General Chief Complaint: Chest Pain <Suyapa Godinez GERALDINE Hart - Last Filed: 10/24/22 11:34> Stated Complaint: chest pain <Suyapa Godinez GERALDINE Hart - Last Filed: 10/24/22 11:34> Time Seen by Provider: 10/24/22 12:38 <Suyapa Hart CNP - Last Filed: 10/24/22 11:34> Source: patient <Baudilio Rodarte MD - Last Filed: 10/24/22 15:10> Mode of arrival: ambulatory <Baudilio Rodarte MD - Last Filed: 10/24/22 15:10> Limitations: no limitations <Baudilio Rodarte MD - Last Filed: 10/24/22 15:10> History of Present Illness HPI narrative: 62-year-old male with history of coronary artery disease, recent stent placement presents with intermittent chest pain since yesterday. Yesterday, the patient's symptoms were severe. After arrest, they improved. Today they recurred earlier this morning around 6:00 a.m.. He went to his cardiology office to get a work note. However, symptoms started to recur again. Patient's types of pain as pressure-like in nature. Substernal location. The pain does not radiate. There is no clear relieving or exacerbating features. Is not associated with nausea vomiting. Is not associated with diaphoresis. Symptoms are similar to his ongoing chest pain symptoms which resulted his most recent cardiac catheterization. Additionally, patient is reporting intermittent headache for 1 week. Patient reports head injury. He is on anticoagulation. Denies loss of consciousness. Denies any neck pain or additional neurologic complaints. <Baudilio Rodarte MD - Last Filed: 10/24/22 15:10> Related Data Home Medications: Home Medications Medication Instructions Recorded Confirmed cholecalciferol (vitamin D3) 25 25 mcg PO DAILY 01/23/22 10/09/22 mcg (1,000 unit) tablet coenzyme Q10 30 mg capsule (Co 30 mg PO DAILY 01/23/22 10/09/22 Q-10) multivitamin 1 tab PO DAILY 01/23/22 10/09/22 omega-3 fatty acids-fish oil 684 1 cap PO DAILY 01/23/22 10/09/22 mg-1,200 mg capsule,delayed release clotrimazole 1 % topical cream appl topical BID 04/10/22 10/09/22 lidocaine 5 % topical ointment topical TID 04/10/22 10/09/22 gabapentin 400 mg capsule 400 mg PO TID 05/23/22 10/09/22 Previous Rx's Medication Instructions Recorded clopidogrel 75 mg tablet 75 mg PO DAILY #90 tabs 05/12/22 ezetimibe 10 mg tablet 10 mg PO DAILY #90 tabs 07/07/22 rivaroxaban 20 mg tablet (Xarelto) 20 mg PO DAILY #90 tabs 07/07/22 colchicine 0.6 mg capsule 0.6 mg PO DAILY #90 caps 07/11/22 nitroglycerin 0.4 mg sublingual 0.4 mg sublingual Q5M PRN chest 07/13/22 tablet pain #25 tabs metoprolol tartrate 100 mg tablet 100 mg PO BID #60 tabs 08/15/22 amiodarone 200 mg tablet 200 mg PO DAILY #90 tabs 08/27/22 lisinopril 10 mg tablet 10 mg PO BID #180 tabs 09/01/22 amlodipine 10 mg tablet 10 mg PO DAILY #30 tabs 09/17/22 gabapentin 800 mg tablet 800 mg PO TID #90 tabs 10/04/22 atorvastatin 40 mg tablet 40 mg PO DAILY #90 tabs 10/07/22 isosorbide mononitrate 60 mg 60 mg PO BID #60 tabs 10/09/22 tablet,extended release 24 hr spironolactone 25 mg tablet 25 mg PO DAILY #30 tabs 10/09/22 (Aldactone) ranolazine 500 mg tablet,extended 500 mg PO BID #14 tabs 10/24/22 release,12 hr (Ranexa) <Suyapa Hart CNP - Last Filed: 10/24/22 11:34> Allergies/Adverse Reactions: Allergies Allergy/AdvReac Type Severity Reaction Status Date / Time allopurinol Allergy Unknown he thinks Verified 05/23/22 11:09 it causes chest pain <Suyapa Hart CNP - Last Filed: 10/24/22 11:34> Review of Systems Review of Systems: Yes all other systems are reviewed and are negative <Baudilio Rodarte MD - Last Filed: 10/24/22 15:10> Constitutional: Constitutional: Reports no additional constitutional complaints and Reports headache(s) <Baudilio Rodarte MD - Last Filed: 10/24/22 15:10> Eyes: Eyes: Reports no additional eye complaints <Baudilio Rodarte MD - Last Filed: 10/24/22 15:10> ENT: Reports system reviewed and no additional complaints, except as documented and Reports headache(s) <Baudilio Rodarte MD - Last Filed: 10/24/22 15:10> Cardiovascular: Cardiovascular: Reports chest pain <Baudilio Rodarte MD - Last Filed: 10/24/22 15:10> Respiratory: Respiratory: Reports no additional respiratory complaints <Baudilio Rodarte MD - Last Filed: 10/24/22 15:10> Gastrointestinal: Gastrointestinal: Reports no additional gastrointestinal complaints <Baudilio Rodarte MD - Last Filed: 10/24/22 15:10> Genitourinary: Genitourinary: Reports no additional male genitourinary complaints <Baudilio Rodarte MD - Last Filed: 10/24/22 15:10> Musculoskeletal: Musculoskeletal: Reports no additional musculoskeletal complaints <Baudilio Rodarte MD - Last Filed: 10/24/22 15:10> Integumentary/Breasts: Skin/Breast: Reports system reviewed and no additional complaints, except as docu <Baudilio Rodarte MD - Last Filed: 10/24/22 15:10> Neurologic: Reports headache(s) <Baudilio Rodarte MD - Last Filed: 10/24/22 15:10> Psychiatric: Psychiatric: Reports no additional psychiatric complaints <Baudilio Rodarte MD - Last Filed: 10/24/22 15:10> Endocrine: Endocrine: Reports no additional endocrine complaints <Baudilio Rodarte MD - Last Filed: 10/24/22 15:10> Hematologic/Lymphatic: Hematologic/Lymphatic: Reports no additional hematologic/lymphatic complaints <Baudilio Rodarte MD - Last Filed: 10/24/22 15:10> Allergic/Immunologic: Allergic/Immunologic: Reports no additional allergic/immunologic complaints <Baudilio Rodarte MD - Last Filed: 10/24/22 15:10> PMFSH Past Medical History Attestation statement: The following information was validated with the patient. <Baudilio Rodarte MD - Last Filed: 10/24/22 15:10> Source: old records reviewed <Baudilio Rodarte MD - Last Filed: 10/24/22 15:10> Medical History: Medical History CAD (coronary artery disease) Exertional chest pain HLD (hyperlipidemia) HTN (hypertension) Paroxysmal atrial flutter Persistent atrial fibrillation TIA (transient ischemic attack) <Suyapa Hart CNP - Last Filed: 10/24/22 11:34> Surgical History: Surgical History History of cardiac cath History of cardiac cath Hx of CABG S/P cardiac catheterization <Suyapa Hart CNP - Last Filed: 10/24/22 11:34> Family History Family History: Family History Father No problems noted. Mother No problems noted. Maternal Grandmother No problems noted. 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 Current occupational exposures/hazards: No Cognitive needs: No Hearing needs: No Vision needs: No <Suyapa Hart CNP - Last Filed: 10/24/22 11:34> Physical Exam Vital Signs: Vital Signs: Last Vital Signs Temp 97.9 F 10/24/22 14:01 Pulse 52 10/24/22 14:01 Resp 19 10/24/22 14:01 BP 112/68 10/24/22 14:01 Pulse Ox 95 10/24/22 14:01 O2 Del Method 10/24/22 14:01 BMI result Body Mass Index 28.7 <Suyapa Hart CNP - Last Filed: 10/24/22 11:34> Vital Signs: Last Vital Signs Temp 97.9 F 10/24/22 14:01 Pulse 52 10/24/22 14:01 Resp 19 10/24/22 14:01 BP 112/68 10/24/22 14:01 Pulse Ox 95 10/24/22 14:01 O2 Del Method 10/24/22 14:01 BMI result Body Mass Index 28.7 <Baudilio Rodarte MD - Last Filed: 10/24/22 15:10> Const: General: cooperative, healthy appearing, comfortable, no acute distress and well developed <Baudilio Rodarte MD - Last Filed: 10/24/22 15:10> Orientation/consciousness: patient oriented x3 <Baudilio Rodarte MD - Last Filed: 10/24/22 15:10> HEENT: Head: Yes normal to inspection <Baudilio Rodarte MD - Last Filed: 10/24/22 15:10> Eyes: General: appearance normal, both eyes and all related structures <Baudilio Rodarte MD - Last Filed: 10/24/22 15:10> Neck: Neck: Yes normal visual inspection, Yes full ROM and Yes no meningeal signs <Baudilio Rodarte MD - Last Filed: 10/24/22 15:10> Resp: Effort & Inspection: normal respiratory effort <Baudilio Rodarte MD - Last Filed: 10/24/22 15:10> Auscultation: clear to auscultation bilaterally <Baudilio Rodarte MD - Last Filed: 10/24/22 15:10> Cardio: Rate: regular rate <Baudilio Rodarte MD - Last Filed: 10/24/22 15:10> Rhythm: regular rhythm <Baudilio Rodarte MD - Last Filed: 10/24/22 15:10> Heart sounds: no gallops, no murmurs and no rubs <Baudilio Rodarte MD - Last Filed: 10/24/22 15:10> GI: Inspection: Yes normal to inspection <Baudilio Rodarte MD - Last Filed: 10/24/22 15:10> Palpation (GI): Soft to palpation, nontender, no guarding and No hepatosplenomegaly present <Baudilio Rodarte MD - Last Filed: 10/24/22 15:10> : General: Yes no CVA tenderness <Baudilio Rodarte MD - Last Filed: 10/24/22 15:10> Back/Spine/Pelvis: Back: no CVA tenderness <Baudilio Rodarte MD - Last Filed: 10/24/22 15:10> Neuro: General: patient oriented x3, moves all extremities, no meningeal signs, no focal motor deficits and CN's II-XI intact bilaterally <Baudilio Rodarte MD - Last Filed: 10/24/22 15:10> Extrem: General: Yes normal to inspection and No pedal edema <Baudilio Rodarte MD - Last Filed: 10/24/22 15:10> Psych: Appearance: grossly normal <Baudilio Rodarte MD - Last Filed: 10/24/22 15:10> Mental Status: mental status grossly normal <Baudilio Rodarte MD - Last Filed: 10/24/22 15:10> Course Course Course Narrative: This is an RME: Additional HPI, ROS, PE not included below will be deferred to primary provider. Patient is a 62-year-old male presents to emergency department for evaluation of chest pain. Onset a few days ago, has been intermittent, predominantly left sided. Yesterday while at work pain was feeling worse, was unable to work today. Reports hx of stent placement last month, and history of CABG, followed by Dr. Cotter. On xarelto and plavix. Presented to Cardiology office today to request to light duty note for work and was referred to the emergency department. Plan: labs, EKG, chest x-ray, viral testing <Suyapa Hart CNP - Last Filed: 10/24/22 11:34> Reevaluation(s) Reevaluation #1: Per cloud subject matter expert, Dr. Morris, recommends discharge home with additional antianginals suggesting Ranexa 500 mg twice a day. This will be discussed with patient. <Baudilio Rodarte MD - Last Filed: 10/24/22 15:10> Time: 13:00 <Baudilio Rodarte MD - Last Filed: 10/24/22 15:10> Reevaluation #2: Patient is chest pain-free at this time. His headache is improved. We discussed all results and plan per his cloud subject matter expert. He is requesting few days off from work attending cardiologists re-evaluation. <Baudilio Rodarte MD - Last Filed: 10/24/22 15:10> Time: 15:06 <Baudilio Rodarte MD - Last Filed: 10/24/22 15:10> Medications Administered Discontinued Medications Generic Name Dose Route Start Last Admin Trade Name Freq PRN Reason Stop Dose Admin Acetaminophen 975 mg 10/24/22 12:54 10/24/22 13:28 Acetaminophen 325 Mg Tablet PO 10/24/22 12:55 975 mg ONCE ONE Administration Nitroglycerin 0.5 inch 10/24/22 12:54 10/24/22 13:27 Nitroglycerin 2 % Oint 1 Gm Packet TRANSDERMA 10/24/22 12:55 0.5 inch ONCE ONE Administration <Suyapa Hart CNP - Last Filed: 10/24/22 11:34> Medications Administered Discontinued Medications Generic Name Dose Route Start Last Admin Trade Name Freq PRN Reason Stop Dose Admin Acetaminophen 975 mg 10/24/22 12:54 10/24/22 13:28 Acetaminophen 325 Mg Tablet PO 10/24/22 12:55 975 mg ONCE ONE Administration Nitroglycerin 0.5 inch 10/24/22 12:54 10/24/22 13:27 Nitroglycerin 2 % Oint 1 Gm Packet TRANSDERMA 10/24/22 12:55 0.5 inch ONCE ONE Administration <Baudilio Rodarte MD - Last Filed: 10/24/22 15:10> Medical Decision Making Differential Diagnosis Differential Diagnoses: The differential diagnosis associated with the presentation includes (Acute coronary syndrome, stuttering chest pain, unstable angina, unstable angina, nonspecific chest pain, chest wall pain) <Baudilio Rodarte MD - Last Filed: 10/24/22 15:10> Chronic angina <Baudilio Rodarte MD - Last Filed: 10/24/22 15:10> Admission/Observation Consideration of admission/observation: Escalation of care including admission/observation considered <Baudilio Rodarte MD - Last Filed: 10/24/22 15:10> Will discuss with cloud subject matter expert about potentially admitting for observation versus outpatient follow-up <Baudilio Rodarte MD - Last Filed: 10/24/22 15:10> Consult Healthcare Provider Management of the patient was discussed with: Plant Changer (Cardiology) <Baudilio Rodarte MD - Last Filed: 01/20/23 15:10> Lab Data MDM Lab Attestation statement: I reviewed the patient's lab results. <Baudilio Rodarte MD - Last Filed: 10/24/22 15:10> Result Diagrams: 10/24/22 11:45 10/24/22 11:45 <Suyapa Hart CNP - Last Filed: 10/24/22 11:34> Labs: Lab Results 10/24/22 10/24/22 10/24/22 Range/Units 11:45 11:45 11:45 WBC 7.3 (4.8-10.8) X10*3/uL RBC 4.30 L (4.60-5.80) X10*6/uL Hgb 13.2 L (14.0-18.0) g/dl Hct 37.6 L (42.0-52.0) % MCV 87.4 (80.0-98.0) fL MCH 30.7 (27.0-33.0) pg MCHC 35.1 (31.0-36.0) g/dl RDW 12.3 (11.0-16.0) % Plt Count 245 (160-400) X10*3/uL MPV 8.6 L (9.4-12.4) fL Immature Gran % (Auto) 0.3 (0.0-0.4) % Neut % (Auto) 56.1 (45-73) % Lymph % (Auto) 31.6 (20-40) % [place] % (Auto) 9.5 (2-11) % Eos % (Auto) 2.2 (0-4) % Baso % (Auto) 0.3 (0-2) % Lymph # (Auto) 2.3 (1.2-4.9) X10*3/uL [place] # (Auto) 0.7 (0.1-1.2) X10*3/uL Eos # (Auto) 0.2 (0.0-0.4) X10*3/uL Baso # (Auto) 0.0 (0.0-0.2) X10*3/uL Abs Immat Gran (auto) 0.02 (0.00-0.03) X10*3/uL Absolute Neuts (auto) 4.1 (2.0-8.3) x10*3/uL Absolute Nucleated RBC 0.000 (0.0-0.012) X10*3/uL Nucleated RBC % (auto) 0.0 (0.0-0.2) /100WBC Sodium 139 (135-145) mmol/L Potassium 4.3 (3.3-5.1) mmol/L Chloride 105 (96-108) mmol/L Carbon Dioxide 25 (22-29) mmol/L Anion Gap 13 (12-20) BUN 14 (9-16) mg/dL Creatinine 0.98 (0.5-1.4) mg/dL Estim Creat Clear Calc 90.8 Estimated GFR > 60 Random Glucose 116 H (60-115) mg/dL Calcium 9.0 (8.4-10.2) mg/dL Magnesium 1.8 (1.6-2.6) mg/dL Total Bilirubin 1.0 (0.0-1.0) mg/dL AST 19 (5-37) U/L ALT 22 (0-40) U/L Alkaline Phosphatase 46 (39-117) U/L Troponin I High Sens < 3.5 (<3.5-35.0) ng/L Total Protein 6.9 (6.5-8.0) g/dL Albumin 4.0 (3.5-5.0) g/dL Lipase 18 (8-78) U/L COVID-19 ([facility]) (Negative) COVID-19 Clin Com Influenza Type A ([facility]) (Negative) Influenza Type B ([facility]) (Negative) Influenza A & B Note 10/24/22 10/24/22 Range/Units 11:45 11:45 WBC (4.8-10.8) X10*3/uL RBC (4.60-5.80) X10*6/uL Hgb (14.0-18.0) g/dl Hct (42.0-52.0) % MCV (80.0-98.0) fL MCH (27.0-33.0) pg MCHC (31.0-36.0) g/dl RDW (11.0-16.0) % Plt Count (160-400) X10*3/uL MPV (9.4-12.4) fL Immature Gran % (Auto) (0.0-0.4) % Neut % (Auto) (45-73) % Lymph % (Auto) (20-40) % [place] % (Auto) (2-11) % Eos % (Auto) (0-4) % Baso % (Auto) (0-2) % Lymph # (Auto) (1.2-4.9) X10*3/uL [place] # (Auto) (0.1-1.2) X10*3/uL Eos # (Auto) (0.0-0.4) X10*3/uL Baso # (Auto) (0.0-0.2) X10*3/uL Abs Immat Gran (auto) (0.00-0.03) X10*3/uL Absolute Neuts (auto) (2.0-8.3) x10*3/uL Absolute Nucleated RBC (0.0-0.012) X10*3/uL Nucleated RBC % (auto) (0.0-0.2) /100WBC Sodium (135-145) mmol/L Potassium (3.3-5.1) mmol/L Chloride (96-108) mmol/L Carbon Dioxide (22-29) mmol/L Anion Gap (12-20) BUN (9-16) mg/dL Creatinine (0.5-1.4) mg/dL Estim Creat Clear Calc Estimated GFR Random Glucose (60-115) mg/dL Calcium (8.4-10.2) mg/dL Magnesium (1.6-2.6) mg/dL Total Bilirubin (0.0-1.0) mg/dL AST (5-37) U/L ALT (0-40) U/L Alkaline Phosphatase (39-117) U/L Troponin I High Sens (<3.5-35.0) ng/L Total Protein (6.5-8.0) g/dL Albumin (3.5-5.0) g/dL Lipase (8-78) U/L COVID-19 ([facility]) Negative (Negative) COVID-19 Clin Com See Note Influenza Type A ([facility]) Negative (Negative) Influenza Type B ([facility]) Negative (Negative) Influenza A & B Note See Note <Suyapa Hart, GERALDINE - Last Filed: 10/24/22 11:34> Lab Results 10/24/22 10/24/22 10/24/22 Range/Units 11:45 11:45 11:45 WBC 7.3 (4.8-10.8) X10*3/uL RBC 4.30 L (4.60-5.80) X10*6/uL Hgb 13.2 L (14.0-18.0) g/dl Hct 37.6 L (42.0-52.0) % MCV 87.4 (80.0-98.0) fL MCH 30.7 (27.0-33.0) pg MCHC 35.1 (31.0-36.0) g/dl RDW 12.3 (11.0-16.0) % Plt Count 245 (160-400) X10*3/uL MPV 8.6 L (9.4-12.4) fL Immature Gran % (Auto) 0.3 (0.0-0.4) % Neut % (Auto) 56.1 (45-73) % Lymph % (Auto) 31.6 (20-40) % [place] % (Auto) 9.5 (2-11) % Eos % (Auto) 2.2 (0-4) % Baso % (Auto) 0.3 (0-2) % Lymph # (Auto) 2.3 (1.2-4.9) X10*3/uL [place] # (Auto) 0.7 (0.1-1.2) X10*3/uL Eos # (Auto) 0.2 (0.0-0.4) X10*3/uL Baso # (Auto) 0.0 (0.0-0.2) X10*3/uL Abs Immat Gran (auto) 0.02 (0.00-0.03) X10*3/uL Absolute Neuts (auto) 4.1 (2.0-8.3) x10*3/uL Absolute Nucleated RBC 0.000 (0.0-0.012) X10*3/uL Nucleated RBC % (auto) 0.0 (0.0-0.2) /100WBC Sodium 139 (135-145) mmol/L Potassium 4.3 (3.3-5.1) mmol/L Chloride 105 (96-108) mmol/L Carbon Dioxide 25 (22-29) mmol/L Anion Gap 13 (12-20) BUN 14 (9-16) mg/dL Creatinine 0.98 (0.5-1.4) mg/dL Estim Creat Clear Calc 90.8 Estimated GFR > 60 Random Glucose 116 H (60-115) mg/dL Calcium 9.0 (8.4-10.2) mg/dL Magnesium 1.8 (1.6-2.6) mg/dL Total Bilirubin 1.0 (0.0-1.0) mg/dL AST 19 (5-37) U/L ALT 22 (0-40) U/L Alkaline Phosphatase 46 (39-117) U/L Troponin I High Sens < 3.5 (<3.5-35.0) ng/L Total Protein 6.9 (6.5-8.0) g/dL Albumin 4.0 (3.5-5.0) g/dL Lipase 18 (8-78) U/L COVID-19 ([facility]) (Negative) COVID-19 Clin Com Influenza Type A ([facility]) (Negative) Influenza Type B ([facility]) (Negative) Influenza A & B Note 10/24/22 10/24/22 Range/Units 11:45 11:45 WBC (4.8-10.8) X10*3/uL RBC (4.60-5.80) X10*6/uL Hgb (14.0-18.0) g/dl Hct (42.0-52.0) % MCV (80.0-98.0) fL MCH (27.0-33.0) pg MCHC (31.0-36.0) g/dl RDW (11.0-16.0) % Plt Count (160-400) X10*3/uL MPV (9.4-12.4) fL Immature Gran % (Auto) (0.0-0.4) % Neut % (Auto) (45-73) % Lymph % (Auto) (20-40) % [place] % (Auto) (2-11) % Eos % (Auto) (0-4) % Baso % (Auto) (0-2) % Lymph # (Auto) (1.2-4.9) X10*3/uL [place] # (Auto) (0.1-1.2) X10*3/uL Eos # (Auto) (0.0-0.4) X10*3/uL Baso # (Auto) (0.0-0.2) X10*3/uL Abs Immat Gran (auto) (0.00-0.03) X10*3/uL Absolute Neuts (auto) (2.0-8.3) x10*3/uL Absolute Nucleated RBC (0.0-0.012) X10*3/uL Nucleated RBC % (auto) (0.0-0.2) /100WBC Sodium (135-145) mmol/L Potassium (3.3-5.1) mmol/L Chloride (96-108) mmol/L Carbon Dioxide (22-29) mmol/L Anion Gap (12-20) BUN (9-16) mg/dL Creatinine (0.5-1.4) mg/dL Estim Creat Clear Calc Estimated GFR Random Glucose (60-115) mg/dL Calcium (8.4-10.2) mg/dL Magnesium (1.6-2.6) mg/dL Total Bilirubin (0.0-1.0) mg/dL AST (5-37) U/L ALT (0-40) U/L Alkaline Phosphatase (39-117) U/L Troponin I High Sens (<3.5-35.0) ng/L Total Protein (6.5-8.0) g/dL Albumin (3.5-5.0) g/dL Lipase (8-78) U/L COVID-19 ([facility]) Negative (Negative) COVID-19 Clin Com See Note Influenza Type A ([facility]) Negative (Negative) Influenza Type B ([facility]) Negative (Negative) Influenza A & B Note See Note <Baudilio Rodarte MD - Last Filed: 10/24/22 15:10> Independent Interpretation I performed an independent interpretation of an: EKG (Sinus bradycardia heart rate 56, no acute ST elevations or depressions, diffuse non specific ST T wave changes.) <Baudilio Rodarte MD - Last Filed: 10/24/22 15:10> Radiology Impression Discussion of test interpretation with radiology: I have reviewed the radiologist's reading. (FINDINGS: Lungs are well expanded and clear. No pleural effusion. Cardiac silhouette is normal in size. The sternotomy wires are intact. Mild atherosclerotic calcification of the aorta. Pulmonary vascular pattern is normal. The visualized bones are unremarkable. XR/XR chest 2V) <Baudilio Rodarte MD - Last Filed: 10/24/22 15:10> Radiologist Impression: IMPRESSION: No acute intracranial pathology compared to 01/23/2022. Dictated By: Marco Hernandes MD Signed By: <Electronically signed by Marco Hernandes MD in [facility]> 10/24/22 1434 <Baudilio Rodarte MD - Last Filed: 10/24/22 15:10> Discharge Plan Discharge Clinical Impression: Chest pain, Status post coronary artery stent placement, Head injury <Suyapa Hart CNP - Last Filed: 10/24/22 11:34> Patient Disposition: Home, Self-Care <Suyapa Hart CNP - Last Filed: 10/24/22 11:34> Instructions: Chest Pain (ED), Head Injury (ED) <Suyapa Hart CNP - Last Filed: 10/24/22 11:34> Prescriptions: New ranolazine [Ranexa] 500 mg tablet extended release 12 hr 500 mg PO BID Qty: 14 0RF No Action clopidogrel 75 mg tablet 75 mg PO DAILY Qty: 90 3RF Xarelto 20 mg tablet 20 mg PO DAILY Qty: 90 3RF ezetimibe 10 mg tablet 10 mg PO DAILY Qty: 90 3RF colchicine 0.6 mg capsule 0.6 mg PO DAILY Qty: 90 2RF nitroglycerin 0.4 mg tablet, sublingual 0.4 mg sublingual Q5M PRN (Reason: chest pain) Qty: 25 0RF amiodarone 200 mg tablet 200 mg PO DAILY Qty: 90 2RF Rx Instructions: You are on Amiodarone 200mg daily. No longer take 400mg. Multaq also known as dronedarone was STOPPED. You should not be taking Multaq now. lisinopril 10 mg tablet 10 mg PO BID Qty: 180 3RF gabapentin 800 mg tablet 800 mg PO TID Qty: 90 0RF atorvastatin 40 mg tablet 40 mg PO DAILY Qty: 90 3RF spironolactone [Aldactone] 25 mg tablet 25 mg PO DAILY Qty: 30 5RF multivitamin Tablet 1 tab PO DAILY coenzyme Q10 [Co Q-10] 30 mg Capsule 30 mg PO DAILY cholecalciferol (vitamin D3) 25 mcg (1,000 unit) Tablet 25 mcg PO DAILY omega-3 fatty acids-fish oil 684-1,200 mg Capsule,Delayed Release(Dr/Ec) 1 cap PO DAILY gabapentin 400 mg capsule 400 mg PO TID clotrimazole 1 % cream topical BID lidocaine 5 % ointment topical TID amlodipine 10 mg tablet 10 mg PO DAILY Qty: 30 3RF isosorbide mononitrate 60 mg tablet extended release 24 hr 60 mg PO BID Qty: 60 3RF metoprolol tartrate 100 mg tablet 100 mg PO BID Qty: 60 3RF <Suyapa Hart, GERALDINE - Last Filed: 10/24/22 11:34>
[2022-10-24 11:56] LABS: MANUAL DIFF FLAG NO
[2022-10-24 11:58] VITALS: BP 113/62; PULSE 54; RESP 18; O2SAT 95
[2022-10-24 11:58] LABS: Basophils Percent Auto 0.3 % (0-2); Eosinophils Absolute Auto 0.2 X10*3/uL (0.0-0.4); Eosinophils Percent Auto 2.2 % (0-4); Hematocrit 37.6 % (42.0-52.0); Hemoglobin 13.2 g/dl (14.0-18.0); Imm Gran Abs Auto 0.02 X10*3/uL (0.00-0.03); Imm Gran Pct Auto 0.3 % (0.0-0.4); Lymphocytes Absolute Auto 2.3 X10*3/uL (1.2-4.9); Lymphocytes Percent Auto 31.6 % (20-40); Mean Corpuscular HGB Conc 35.1 g/dl (31.0-36.0); Mean Corpuscular Hemoglobin 30.7 pg (27.0-33.0); Mean Corpuscular Volume 87.4 fL (80.0-98.0); Mean Platelet Volume 8.6 fL (9.4-12.4); Monocytes Absolute Auto 0.7 X10*3/uL (0.1-1.2); Monocytes Percent Auto 9.5 % (2-11); Neutrophils Absolute Auto 4.1 x10*3/uL (2.0-8.3); Neutrophils Percent Auto 56.1 % (45-73); Platelet Count 245 X10*3/uL (160-400); Red Cell Distribution Width 12.3 % (11.0-16.0); White Blood Count 7.3 X10*3/uL (4.8-10.8)
[2022-10-24 12:15] LABS: COVID-19 Test Negative (Negative); IDNOW Serial# 16C4AD1C; IDNOW Serial# BCCEAD1C; Influenza A Negative (Negative); Influenza B2 Negative (Negative)
[2022-10-24 12:25] LABS: Alanine Aminotransferase 22 U/L (0-40); Alkaline Phosphatase 46 U/L (39-117); Anion Gap 13 (12-20); Aspartate Amino Transferase 19 U/L (5-37); Blood Urea Nitrogen 14 mg/dL (9-16); Carbon Dioxide 25 mmol/L (22-29); Chloride 105 mmol/L (96-108); Creatinine Clr Calc Pharmacy 90.8; Estimated Glomerular Filt Rate > 60; Glucose Random 116 mg/dL (60-115); Lipase 18 U/L (8-78); Magnesium 1.8 mg/dL (1.6-2.6); Potassium 4.3 mmol/L (3.3-5.1); Sodium 139 mmol/L (135-145); Total Protein 6.9 g/dL (6.5-8.0)
[2022-10-24 12:30] VITALS: BP 116/68; PULSE 52; RESP 18; TEMP 36.7; O2SAT 94
[2022-10-24 12:32] LABS: Troponin-I High Sensitivity < 3.5 ng/L (<3.5-35.0)
[2022-10-24] MEDS: Nitroglycerin 2 % Oint 1 GM Packet 0.5 INCH TRANSDERMA (13:27)
[2022-10-24] MEDS: Acetaminophen 325 MG TABLET 975 MG PO (13:28)
[2022-10-24 14:01] VITALS: BP 112/68; PULSE 52; RESP 19; TEMP 36.6; O2SAT 95
== END 2022-10-24 15:24 | disposition home or self-care (01) ==
PROVIDERS: Nurse Practitioner Family; Emergency Provider Emergency Medicine
DX: R07.9 Chest pain, unspecified (principal); I25.10 Atherosclerotic heart disease of native coronary artery without angina pectoris; Z95.1 Presence of aortocoronary bypass graft; R51.9 Headache, unspecified; I10 Essential (primary) hypertension
CPT/HCPCS: 70450; 71046; 80053; 83690; 83735; 84484; 85025; 87502; 87635; 93005; 99284; 99285

== ENCOUNTER 2022-10-30 11:57 | Emergency (ER) | payer BC, SELFPAY ==
--- NOTE | ~2022-10-30 | XR_ITS ---
EXAMINATION: XR CHEST CLINICAL INFORMATION: Chest pain COMPARISON: 10/24/2022 TECHNIQUE: Frontal view of the chest was obtained. FINDINGS: The lungs are markedly hypoinflated compared to the prior study. Increased lung markings can probably be accounted for by this. Median sternotomy and normal sized heart. No consolidations, pleural effusions, lung masses or pneumothorax is seen. XR/XR chest 1V IMPRESSION: Hypoinflated lungs. No acute intrathoracic disease.
--- NOTE | 2022-10-30 12:02 | ECG_ITS ---
Test Reason : CHEST PAIN Blood Pressure : / mmHG Vent. Rate : 067 BPM Atrial Rate : 067 BPM P-R Int : 184 ms QRS Dur : 110 ms QT Int : 472 ms P-R-T Axes : 047 017 071 degrees QTc Int : 498 ms Normal sinus rhythm Left ventricular hypertrophy with repolarization abnormality ( [place] product ) Prolonged QT Abnormal ECG When compared with ECG of 24-OCT-2022 11:21, VA interval has decreased Nonspecific T wave abnormality no longer evident in Anterior leads Referred By: Maureen Tomas Electronically Signed By:RAINE HYLTON
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
[2022-10-30 12:13] VITALS: BP 139/86; PULSE 66; RESP 19; TEMP 36.5; O2SAT 94; BMI 28.7
[2022-10-30 12:29] LABS: MANUAL DIFF FLAG NO
[2022-10-30 12:36] LABS: Basophils Percent Auto 0.3 % (0-2); Eosinophils Absolute Auto 0.1 X10*3/uL (0.0-0.4); Eosinophils Percent Auto 1.8 % (0-4); Hematocrit 40.1 % (42.0-52.0); Imm Gran Abs Auto 0.02 X10*3/uL (0.00-0.03); Imm Gran Pct Auto 0.3 % (0.0-0.4); Lymphocytes Absolute Auto 1.9 X10*3/uL (1.2-4.9); Mean Corpuscular HGB Conc 34.9 g/dl (31.0-36.0); Mean Corpuscular Hemoglobin 30.4 pg (27.0-33.0); Mean Platelet Volume 8.4 fL (9.4-12.4); Monocytes Absolute Auto 0.7 X10*3/uL (0.1-1.2); Monocytes Percent Auto 11.1 % (2-11); Neutrophils Absolute Auto 3.3 x10*3/uL (2.0-8.3); Neutrophils Percent Auto 54.5 % (45-73); Platelet Count 242 X10*3/uL (160-400); Red Blood Count 4.61 X10*6/uL (4.60-5.80); Red Cell Distribution Width 12.3 % (11.0-16.0)
[2022-10-30 12:38] LABS: INTERNATIONAL NORM RATIO 2.1 (0.9-1.1); Prothrombin Time 24.7 SEC (10.0-13.1)
[2022-10-30 12:49] LABS: Alanine Aminotransferase 24 U/L (0-40); Albumin Level 4.2 g/dL (3.5-5.0); Alkaline Phosphatase 47 U/L (39-117); Anion Gap 13 (12-20); Aspartate Amino Transferase 18 U/L (5-37); Bilirubin Direct 0.4 mg/dL (0.0-0.5); Bilirubin Total 1.3 mg/dL (0.0-1.0); Blood Urea Nitrogen 18 mg/dL (9-16); Calcium 9.6 mg/dL (8.4-10.2); Carbon Dioxide 26 mmol/L (22-29); Chloride 100 mmol/L (96-108); Creatinine Clr Calc Pharmacy 68.9; Estimated Glomerular Filt Rate 57; Glucose Random 163 mg/dL (60-115); Magnesium 1.9 mg/dL (1.6-2.6); Potassium 4.2 mmol/L (3.3-5.1); Sodium 135 mmol/L (135-145); Total Protein 7.2 g/dL (6.5-8.0)
[2022-10-30 12:54] LABS: COVID-19 Test Negative (Negative); IDNOW Serial# 6674DD1D
[2022-10-30 13:02] LABS: Troponin-I High Sensitivity < 3.5 ng/L (<3.5-35.0)
[2022-10-30 13:29] VITALS: BP 126/83; PULSE 59; RESP 16; O2SAT 94
== END 2022-10-30 15:59 | disposition home or self-care (01) ==
PROVIDERS: Nurse Practitioner Family; Emergency Provider Student in an Organized Health Care Education/Training Program
DX: R55 Syncope and collapse (principal); R07.89 Other chest pain; Z20.822 Contact with and (suspected) exposure to COVID-19; Z20.828 Contact with and (suspected) exposure to other viral communicable diseases; Z79.899 Other long term (current) drug therapy
CPT/HCPCS: 71045; 80048; 80076; 83735; 84484; 85025; 85610; 87635; 93005; 99284

== ENCOUNTER → 2022-12-18 10:26 | Outpatient (BNVA) | payer BC, SELFPAY | PROVIDERS: PCP Nurse Practitioner Family; Referring Provider Nurse Practitioner Family; Visit Provider Internal Medicine Cardiovascular Disease | DX: R07.9 Chest pain, unspecified (principal); I48.0 Paroxysmal atrial fibrillation; I25.10 Atherosclerotic heart disease of native coronary artery without angina pectoris | CPT/HCPCS: 93005 ==

== ENCOUNTER → 2023-01-01 13:23 | Outpatient (REF) | payer BC, SELFPAY ==
--- NOTE | 2023-01-01 13:37 | HM_ITS ---
* Total monitoring time 3 days. * Underlying rhythm is sinus. Average ventricular rate 60/Min. Range 46 to 79/Min. * There is evidence of atrial fibrillation/flutter (more suggestive of flutter). * Overall burden 3.9%. Longest episode 2 hours 49 minutes. Fastest episode 111/Min. * Rare PACs. * No significant pauses or AV blocks. * No patient markers or events in diary. MTDD
== END ==
LOC: HO.CARD 13:23
PROVIDERS: PCP Nurse Practitioner Family; Visit Provider Internal Medicine Cardiovascular Disease
DX: I48.0 Paroxysmal atrial fibrillation (principal)
CPT/HCPCS: 93242

== ENCOUNTER 2023-02-26 08:11 | Outpatient (REF) | payer BC, SELFPAY ==
[2023-02-26 11:20] LABS: MANUAL DIFF FLAG NO
[2023-02-26 11:24] LABS: Appearance Urine Clear; Color Urine Yellow; Glucose Urine UA Negative (Negative); Leukocyte Esterase Urine Negative (Negative); Nitrite Urine Negative (Negative); PH 6.5 (5.0-9.0); Specific Gravity - Urine 1.015 (1.005-1.025); Urine Blood Negative (Negative); Urine Ketones Negative (Negative); Urine Protein Negative (Neg-Trace)
[2023-02-26 11:35] LABS: Basophils Percent Auto 0.5 % (0-2); Eosinophils Absolute Auto 0.1 X10*3/uL (0.0-0.4); Eosinophils Percent Auto 1.8 % (0-4); Hematocrit 42.5 % (42.0-52.0); Hemoglobin 14.3 g/dl (14.0-18.0); Imm Gran Abs Auto 0.02 X10*3/uL (0.00-0.03); Imm Gran Pct Auto 0.3 % (0.0-0.4); Lymphocytes Absolute Auto 2.6 X10*3/uL (1.2-4.9); Lymphocytes Percent Auto 38.6 % (20-40); Mean Corpuscular HGB Conc 33.6 g/dl (31.0-36.0); Mean Corpuscular Hemoglobin 31.2 pg (27.0-33.0); Mean Corpuscular Volume 92.6 fL (80.0-98.0); Monocytes Absolute Auto 0.9 X10*3/uL (0.1-1.2); Monocytes Percent Auto 13.1 % (2-11); Neutrophils Percent Auto 45.7 % (45-73); Platelet Count 277 X10*3/uL (160-400); Red Blood Count 4.59 X10*6/uL (4.60-5.80); Red Cell Distribution Width 12.1 % (11.0-16.0); White Blood Count 6.6 X10*3/uL (4.8-10.8)
[2023-02-26 12:05] LABS: Alanine Aminotransferase 21 U/L (0-40); Albumin Level 4.1 g/dL (3.5-5.0); Alkaline Phosphatase 43 U/L (39-117); Anion Gap 11 (12-20); Aspartate Amino Transferase 17 U/L (5-37); Blood Urea Nitrogen 19 mg/dL (9-16); Calcium 9.6 mg/dL (8.4-10.2); Carbon Dioxide 29 mmol/L (22-29); Chloride 104 mmol/L (96-108); Cholesterol 130 mg/dL; Estimated Glomerular Filt Rate > 60; Glucose Fasting 134 mg/dL (60-99); HDL Cholesterol 40 mg/dL; LDL Cholesterol Calculated 63 mg/dl; Potassium 5.2 mmol/L (3.3-5.1); Prostate Specific Antigen Scr 0.42 ng/mL (<0.05-4.0); Sodium 139 mmol/L (135-145); TSH reflex Free T4 1.41 uIU/mL (0.32-4.0); Triglycerides 138 mg/dL
== END 2023-02-26 08:12 | disposition home or self-care (01) ==
LOC: HO.HMGCLDS 08:11
PROVIDERS: PCP Nurse Practitioner Family; Visit Provider Nurse Practitioner Family
DX: Z12.5 Encounter for screening for malignant neoplasm of prostate (principal); I10 Essential (primary) hypertension
CPT/HCPCS: 36415; 80053; 80061; 81003; 84153; 84443; 85025

== ENCOUNTER 2023-03-10 09:42 | Outpatient (REF) | payer BC, SELFPAY ==
[2023-03-10 11:49] LABS: Estimated Average Glucose 114 mg/dL; Hemoglobin A1c % 5.6 %
[2023-03-10 11:59] LABS: Alanine Aminotransferase 25 U/L (0-40); Albumin Level 4.3 g/dL (3.5-5.0); Alkaline Phosphatase 42 U/L (39-117); Anion Gap 12 (12-20); Aspartate Amino Transferase 19 U/L (5-37); Bilirubin Total 1.4 mg/dL (0.0-1.0); Blood Urea Nitrogen 17 mg/dL (9-16); Carbon Dioxide 28 mmol/L (22-29); Chloride 100 mmol/L (96-108); Cholesterol 136 mg/dL; Estimated Glomerular Filt Rate > 60; Glucose Random 140 mg/dL (60-115); HDL Cholesterol 40 mg/dL; LDL Cholesterol Calculated 61 mg/dl; Potassium 4.3 mmol/L (3.3-5.1); Sodium 136 mmol/L (135-145); Total Protein 7.4 g/dL (6.5-8.0); Triglycerides 176 mg/dL
== END 2023-03-10 09:43 | disposition home or self-care (01) ==
LOC: HO.HMGCLDS 09:42
PROVIDERS: PCP Nurse Practitioner Family; Visit Provider Nurse Practitioner Family
DX: I25.10 Atherosclerotic heart disease of native coronary artery without angina pectoris (principal); R73.01 Impaired fasting glucose
CPT/HCPCS: 36415; 80053; 80061; 83036

== ENCOUNTER → 2023-03-30 11:03 | Outpatient (BNVA) | payer BC, SELFPAY | PROVIDERS: PCP Nurse Practitioner Family; Referring Provider Nurse Practitioner Family; Visit Provider Internal Medicine Cardiovascular Disease | DX: I48.0 Paroxysmal atrial fibrillation (principal); I25.10 Atherosclerotic heart disease of native coronary artery without angina pectoris | CPT/HCPCS: 93005 ==

== ENCOUNTER 2023-05-27 13:51 | Outpatient (AMB) | payer BC, MEDICAID, SELFPAY ==
--- NOTE | 2023-05-27 14:00 | A.OFFPC_ITS ---
Vital Signs 05/27/23 14:01 Height 5 ft 10 in Weight 215 lb 4 oz BMI 30.9 BP 100/62 Blood Pressure Location Rt brachial Position Sitting Pulse 69 Pulse Source Pulse Oximeter Pulse Oximetry (%) 95 Oxygen Delivery Method Room Air Intake Visit Reasons: 3 Month follow up Allergies allopurinol Allergy (Verified 05/27/23 14:02) Chest Pain Tobacco use date assessed: 05/27/23 Dental Screening Dental Screen Date: 05/27/23 Did you have a dental visit in the last 12 months?: No Did you have a dental problem in the last 6 months where you did not have access to dental care?: No Was dental information given to patient?: No HPI 3 Month follow up HPI Details HTN: Blood pressure is stable, managed with amlodipine 10mg, isosorbide mononitrate 60mg tid, lisinopril 10mg, metoprolol 100mg bid, and spironolactone 25mg. Will order labs. Pt is following up with cardiology due to CAD and afib. Denies shortness of breath, headache, dizziness, and blurred vision. Pt does report some intermittent chest discomfort. He has been worked up for this in the past. Will do an EKG in office. Pt reports some left-sided facial numbness. He has seen neurology for this, there was question of migraine, imaging showed no signs of CVA. Pt c/o fatigue especially when getting up in the morning. Will order labs to further assess. REPLACED BY [facility] Medical History CAD (coronary artery disease) Crescendo angina Exertional chest pain HLD (hyperlipidemia) HTN (hypertension) Paroxysmal atrial flutter Persistent atrial fibrillation TIA (transient ischemic attack) Surgical History History of cardiac cath History of cardiac cath Hx of CABG S/P cardiac catheterization Family History Father No problems noted. Mother No problems noted. Maternal Grandmother No problems noted. 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 Ge Fuentes, Maricruz Velázquez, Brent Lara and colleagues, with an educational miah from [employer]. Review of Systems Const Reports as per HPI Physical exam (Primary Care) Vital Signs: Last Vital Signs Pulse 69 05/27/23 14:01 BP 100/62 05/27/23 14:01 Pulse Ox 95 05/27/23 14:01 Oxygen Delivery Method Room Air 05/27/23 14:01 BMI result Body Mass Index 30.9 Tobacco/Smoking Status: Tobacco use Status Tobacco use date assessed 05/27/23 05/27/23 14:06 Patient Tobacco Use Status Former Tobacco user 05/27/23 14:06 e-Cigarette/Vaping Use Never Used 05/27/23 14:06 Thrive Assessment: Date of Thrive Assessment Date Thrive assessed 02/23/23 05/27/23 14:06 Const General: cooperative Orientation/consciousness: patient oriented x3 Eyes Pupils: Equal, round and reactive pupils present Resp Effort & Inspection: normal respiratory effort Auscultation: clear to auscultation bilaterally Cardio Rate: regular rate Rhythm: regular rhythm Heart sounds: S1 normal heart sound present and S2 normal heart sound present Neuro Other: facial symmetry noted, tongue midline, no pronator drift noted, shoulder shrugs General: patient oriented x3 and CN's II-XI intact bilaterally Cranial nerves: Yes Equal, round and reactive pupils present Extrem Other: slight weakness to BLE Psych Appearance: grossly normal Mental Status: mental status grossly normal Speech and movement: Normal speech and movement present Affect: normal affect Attitude: cooperative Thought process: Normal thought process present Thought content: Normal thought content present Insight: Good insight present (Psych) Judgement: Good judgement present (Psych) Assessment and Plan Assessment & Plan (1) CAD (coronary artery disease): Code(s): I25.10 - Atherosclerotic heart disease of [place] coronary artery without angina pectoris Plan: Labs ordered (2) HTN (hypertension): Comment: stable Code(s): I10 - Essential (primary) hypertension Plan: Labs ordered (3) Facial numbness: Code(s): R20.0 - Anesthesia of skin (4) Chest pain: Comment: no changes on EKG Code(s): R07.9 - Chest pain, unspecified Plan The patient agreed to the use of a product manager medical device for this encounter. Scribed for BRADFORD Reyes-BRITTON by Jenna Penn product manager medical device, on 05/27/2023 at 14:15 EST. Orders: Orders Comprehensive [place]. Panel Fast Today I10 - Essential (primary) hypertension, I25.10 - Atherosclerotic heart disease of [place] coronary artery without angina pectoris Lipid Panel Today I10 - Essential (primary) hypertension, I25.10 - Atherosclerotic heart disease of [place] coronary artery without angina pectoris TSH reflex Free T4 Today I10 - Essential (primary) hypertension, I25.10 - Atherosclerotic heart disease of [place] coronary artery without angina pectoris Complete Blood Count Auto Diff Today I10 - Essential (primary) hypertension, I25.10 - Atherosclerotic heart disease of [place] coronary artery without angina pectoris UA CC w/rflx Micro + Cult Today I10 - Essential (primary) hypertension, I25.10 - Atherosclerotic heart disease of [place] coronary artery without angina pectoris Referrals Cologuard Test Z12.11 - Encounter for screening for malignant neoplasm of colon, Z12.12 - Encounter for screening for malignant neoplasm of rectum Coding Level of Care Code Est Pt Level 3 (37489) Diagnoses CAD (coronary artery disease) I25.10 HTN (hypertension) I10 Facial numbness R20.0 Chest pain R07.9
[2023-05-27 14:01] VITALS: BP 100/62; PULSE 69; O2SAT 95; BMI 30.9
== END 2023-05-27 14:57 | disposition home or self-care (01) ==
PROVIDERS: Visit Provider Nurse Practitioner Family
DX: I25.10 Atherosclerotic heart disease of native coronary artery without angina pectoris (principal); I10 Essential (primary) hypertension; R20.0 Anesthesia of skin; R07.9 Chest pain, unspecified
CPT/HCPCS: 99213

== ENCOUNTER 2023-06-01 08:44 | Outpatient (REF) | payer BC, MEDICAID, SELFPAY ==
[2023-06-01 11:20] LABS: MANUAL DIFF FLAG NO
[2023-06-01 11:33] LABS: Basophils Percent Auto 0.3 % (0-2); Eosinophils Absolute Auto 0.2 X10*3/uL (0.0-0.4); Eosinophils Percent Auto 2.1 % (0-4); Hematocrit 38.3 % (42.0-52.0); Hemoglobin 13.5 g/dl (14.0-18.0); Imm Gran Abs Auto 0.02 X10*3/uL (0.00-0.03); Imm Gran Pct Auto 0.3 % (0.0-0.4); Lymphocytes Absolute Auto 2.7 X10*3/uL (1.2-4.9); Lymphocytes Percent Auto 38.5 % (20-40); Mean Corpuscular HGB Conc 35.2 g/dl (31.0-36.0); Mean Corpuscular Hemoglobin 31.9 pg (27.0-33.0); Mean Corpuscular Volume 90.5 fL (80.0-98.0); Monocytes Absolute Auto 0.8 X10*3/uL (0.1-1.2); Monocytes Percent Auto 11.5 % (2-11); Neutrophils Absolute Auto 3.4 x10*3/uL (2.0-8.3); Neutrophils Percent Auto 47.3 % (45-73); Platelet Count 270 X10*3/uL (160-400); Red Blood Count 4.23 X10*6/uL (4.60-5.80); Red Cell Distribution Width 11.8 % (11.0-16.0); White Blood Count 7.1 X10*3/uL (4.8-10.8)
[2023-06-01 11:36] LABS: Appearance Urine Clear; Color Urine Yellow; Glucose Urine UA Negative (Negative); Leukocyte Esterase Urine Negative (Negative); Nitrite Urine Negative (Negative); Urine Blood Negative (Negative); Urine Ketones Negative (Negative); Urine Protein Negative (Neg-Trace)
[2023-06-01 12:22] LABS: Alanine Aminotransferase 32 U/L (0-40); Albumin Level 3.9 g/dL (3.5-5.0); Alkaline Phosphatase 38 U/L (39-117); Anion Gap 10 (12-20); Aspartate Amino Transferase 23 U/L (5-37); Blood Urea Nitrogen 13 mg/dL (9-16); Calcium 9.1 mg/dL (8.4-10.2); Carbon Dioxide 28 mmol/L (22-29); Chloride 99 mmol/L (96-108); Cholesterol 109 mg/dL (<200); Estimated Glomerular Filt Rate > 60; Glucose Fasting 127 mg/dL (60-99); HDL Cholesterol 38 mg/dL (>40); LDL Cholesterol Calculated 34 mg/dL (<100); Potassium 4.4 mmol/L (3.3-5.1); Sodium 133 mmol/L (135-145); TSH reflex Free T4 1.29 uIU/mL (0.32-4.0); Total Protein 6.8 g/dL (6.5-8.0); Triglycerides 186 mg/dL (<150)
== END 2023-06-01 08:45 | disposition home or self-care (01) ==
LOC: HO.HMGCLDS 08:44
PROVIDERS: PCP Nurse Practitioner Family; Visit Provider Nurse Practitioner Family
DX: I10 Essential (primary) hypertension (principal); I25.10 Atherosclerotic heart disease of native coronary artery without angina pectoris
CPT/HCPCS: 36415; 80053; 80061; 81003; 84443; 85025

== ENCOUNTER → 2023-06-25 10:08 | Outpatient (BNVA) | payer BC, SELFPAY | PROVIDERS: PCP Nurse Practitioner Family; Visit Provider Internal Medicine Cardiovascular Disease ==

== ENCOUNTER 2023-06-26 09:14 | Outpatient (REF) | payer BC, MEDICAID, SELFPAY ==
[2023-06-26 11:45] LABS: Estimated Average Glucose 128 mg/dL; Hemoglobin A1c % 6.1 % (<6.0)
== END 2023-06-26 09:15 | disposition home or self-care (01) ==
LOC: HO.HMGCLDS 09:14
PROVIDERS: PCP Nurse Practitioner Family; Visit Provider Nurse Practitioner Family
DX: R73.01 Impaired fasting glucose (principal)
CPT/HCPCS: 36415; 83036

== ENCOUNTER 2023-07-02 04:28 | Emergency (ER) | payer BC, MEDICAID, SELFPAY ==
--- NOTE | ~2023-07-02 | XR_ITS ---
EXAMINATION: XR CHEST CLINICAL INFORMATION: Chest pain COMPARISON: 10/30/2022 TECHNIQUE: Frontal view of the chest was obtained. FINDINGS: Lung volumes are symmetric. There is mild streaky opacity at the right base more suggestive of atelectasis. No additional consolidation is seen. No evidence of pneumothorax, pleural effusion, or pulmonary edema. Cardiac size is within normal limits. Calcification is present at the aortic arch. Sternal wires are present. No acute osseous findings are seen. XR/XR chest 1V IMPRESSION: Mild streaky right basilar opacity more suggestive of atelectasis.
--- NOTE | 2023-07-02 04:30 | ECG_ITS ---
Test Reason : CHEST PAIN Blood Pressure : / mmHG Vent. Rate : 060 BPM Atrial Rate : 060 BPM P-R Int : 234 ms QRS Dur : 094 ms QT Int : 462 ms P-R-T Axes : 057 039 080 degrees QTc Int : 462 ms Sinus rhythm with 1st degree A-V block Otherwise normal ECG When compared with ECG of 30-OCT-2022 12:15, LA interval has increased Referred By: Generic ED Physician Electronically Signed By:HUBER ALDRICH
[2023-07-02 04:43] VITALS: BP 123/74; PULSE 59; RESP 20; TEMP 36.5; O2SAT 96; BMI 31.6
[2023-07-02 04:46] VITALS: PULSE 59
[2023-07-02 04:48] LABS: MANUAL DIFF FLAG NO
[2023-07-02 04:49] LABS: Basophils Percent Auto 0.5 % (0-2); Eosinophils Absolute Auto 0.1 X10*3/uL (0.0-0.4); Eosinophils Percent Auto 1.4 % (0-4); Hematocrit 40.8 % (42.0-52.0); Hemoglobin 14.3 g/dl (14.0-18.0); Imm Gran Abs Auto 0.01 X10*3/uL (0.00-0.03); Imm Gran Pct Auto 0.1 % (0.0-0.4); Lymphocytes Absolute Auto 2.9 X10*3/uL (1.2-4.9); Lymphocytes Percent Auto 39.4 % (20-40); Mean Corpuscular Volume 91.3 fL (80.0-98.0); Mean Platelet Volume 8.7 fL (9.4-12.4); Monocytes Absolute Auto 0.9 X10*3/uL (0.1-1.2); Monocytes Percent Auto 12.9 % (2-11); Neutrophils Absolute Auto 3.3 x10*3/uL (2.0-8.3); Neutrophils Percent Auto 45.7 % (45-73); Platelet Count 272 X10*3/uL (160-400); Red Blood Count 4.47 X10*6/uL (4.60-5.80); Red Cell Distribution Width 11.7 % (11.0-16.0); White Blood Count 7.3 X10*3/uL (4.8-10.8)
[2023-07-02 05:02] LABS: Anion Gap 14 (12-20); Blood Urea Nitrogen 13 mg/dL (9-16); Calcium 9.8 mg/dL (8.4-10.2); Carbon Dioxide 26 mmol/L (22-29); Chloride 101 mmol/L (96-108); Creatinine Clr Calc Pharmacy 88.3; Estimated Glomerular Filt Rate > 60; Glucose Random 137 mg/dL (60-115); Potassium 4.3 mmol/L (3.3-5.1); Sodium 137 mmol/L (135-145)
[2023-07-02 05:09] LABS: Troponin-I High Sensitivity < 2.7 ng/L (<3.5-35.0)
[2023-07-02 06:00] VITALS: BP 103/67; PULSE 53; RESP 17; TEMP 36.5; O2SAT 94
[2023-07-02 06:23] LABS: COVID-19 Test Negative (Negative); IDNOW Serial# 6674DD1D
--- NOTE | 2023-07-02 06:24 | ED.CHESTPAIN ---
HPI - Chest Pain General Chief Complaint: Chest Pain Stated Complaint: CP Time Seen by Provider: 07/02/23 06:22 Source: patient Mode of arrival: ambulatory Limitations: no limitations History of Present Illness HPI narrative: Patient is a 63-year-old male with history of CAD, HTN, HLD, proximal a flutter, AFib, TIA, status post cardiac catheterization, CABG x3 presenting to the emergency department with complaint of intermittent left anterior chest pain since Thursday. He is unable to state length of episodes of chest pain, stating that it varies. Has also felt fatigued and lightheaded. He denies palpitations. Denies shortness of breath, cough, fever. Does report nausea and vomiting, but denies any diarrhea or constipation. Denies abdominal pain. Denies any falls. Denies any headaches or vision changes. MD complaint: chest pain Pertinent past history: coronary artery disease and CABG Onset (ago): day(s) Timing of current episode: episodic Prior episodes: Yes Onset: during rest Pain location: left chest Pain radiation: none Severity: moderate Quality: sharp Relieving factors: nothing Exacerbating factors: nothing Associated symptoms: nausea and vomiting Treatment prior to arrival: none Related Data Home Medications Medication Instructions Recorded Confirmed cholecalciferol (vitamin D3) 25 25 mcg PO DAILY 01/23/22 03/30/23 mcg (1,000 unit) tablet multivitamin 1 tab PO DAILY 01/23/22 03/30/23 omega-3 fatty acids-fish oil 684 1 cap PO DAILY 01/23/22 03/30/23 mg-1,200 mg capsule,delayed release gabapentin 400 mg capsule 400 mg PO TID 05/23/22 03/30/23 ranolazine 500 mg tablet,extended 500 mg PO BID 03/30/23 03/30/23 release,12 hr Previous Rx's Medication Instructions Recorded nitroglycerin 0.4 mg sublingual 0.4 mg sublingual Q5M PRN chest 07/13/22 tablet pain #25 tabs spironolactone 25 mg tablet 25 mg PO DAILY #30 tabs 10/09/22 (Aldactone) lisinopril 10 mg tablet 10 mg PO BID #180 tabs 11/04/22 atorvastatin 40 mg tablet 40 mg PO DAILY #90 tabs 12/01/22 clotrimazole 1 % topical cream 1 appl topical BID #45 grams 12/03/22 amlodipine 10 mg tablet 10 mg PO DAILY 90 days #90 tabs 01/08/23 metoprolol tartrate 100 mg tablet 100 mg PO BID #60 tabs 01/22/23 isosorbide mononitrate 60 mg 60 mg PO TID 30 days #90 tabs 03/31/23 tablet,extended release 24 hr clopidogrel 75 mg tablet 75 mg PO DAILY #90 tabs 04/27/23 pantoprazole 40 mg tablet,delayed 40 mg PO DAILY #90 tabs 05/25/23 release dronedarone 400 mg tablet (Multaq) 400 mg PO Q12H #60 tabs 05/27/23 rivaroxaban 20 mg tablet (Xarelto) 20 mg PO DAILY #90 tabs 06/24/23 ezetimibe 10 mg tablet 10 mg PO DAILY #90 tabs 06/26/23 Allergies Allergy/AdvReac Type Severity Reaction Status Date / Time allopurinol Allergy Chest Pain Verified 07/02/23 04:53 Review of Systems Review of Systems: As per HPI. Yes all other systems are reviewed and are negative Constitutional: Constitutional: Reports as per HPI [facility] Past Medical History Medical History CAD (coronary artery disease) Crescendo angina Exertional chest pain HLD (hyperlipidemia) HTN (hypertension) Paroxysmal atrial flutter Persistent atrial fibrillation TIA (transient ischemic attack) Surgical History History of cardiac cath History of cardiac cath Hx of CABG S/P cardiac catheterization Family History Family History Father No problems noted. Mother No problems noted. Maternal Grandmother No problems noted. 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 Blood pressure normal. Heart rate bradycardic. Respiratory rate normal. Temperature normal. Oxygen saturation normal. Const: General: cooperative, healthy appearing and no acute distress Orientation/consciousness: oriented to person, oriented to place, oriented to time and patient oriented x3 Limitations: no limitations HEENT: Head: Yes normocephalic and Yes atraumatic Ears: external ears normal General nose exam: Normal external nose present Face and sinus: Yes face symmetric Mouth: oropharynx normal and moist mucous membranes Throat: Yes uvula midline Eyes: Pupils: Equal, round and reactive pupils present Neck: Neck: Yes normal visual inspection and Yes supple Resp: Effort & Inspection: normal respiratory effort and able to speak in complete sentences Auscultation: clear to auscultation bilaterally Cardio: Rate: regular rate Rhythm: regular rhythm Heart sounds: S1 normal heart sound present and S2 normal heart sound present GI: Palpation (GI): Soft to palpation and nontender Auscultation: normoactive bowel sounds : General: Yes no CVA tenderness Back/Spine/Pelvis: Back: no CVA tenderness Skin: General skin exam: elasticity normal and turgor normal Neuro: General: oriented to person, oriented to place, oriented to time, patient oriented x3, moves all extremities, no focal motor deficits and CN's II-XI intact bilaterally Cranial nerves: Yes Equal, round and reactive pupils present Cognition (Neuro): normal cognition Extrem: General: Yes full ROM, Yes no pedal edema and Yes no calf tenderness Psych: Mental Status: mental status grossly normal Affect: normal affect Thought process: Normal thought process present Medical Decision Making Medical Decision Making MDM Narrative: Patient is a 63-year-old male with history of CAD, HTN, HLD, proximal a flutter, AFib, TIA, status post cardiac catheterization, CABG x3 presenting to the emergency department with complaint of intermittent left anterior chest pain since Thursday. On exam patient is awake, A+Ox3, bradycardic, VS otherwise WNL, afebrile, normal neurological exam without focal deficits, physical exam findings as above. Given reported symptoms and physical exam findings, initial differential includes ACS, musculoskeletal, viral illness. Less likely pneumonia, pneumothorax. Do not suspect aortic dissection. Unlikely PE as patient is anticoagulated. Labs notable for no leukocytosis, no anemia, no electrolyte abnormalities, negative troponin. X-ray notable for mild streaky right basilar opacities suggestive of atelectasis. My interpretation is in agreement with the radiologist's interpretation. COVID and flu swabs negative. EKG shows normal sinus rhythm with first degree AV block, rate of 60bpm, increased CO interval, no evidence of STEMI. HEART score of 4. Will obtain repeat troponin given that chest pain is episodic. No delta on repeat troponin. Feel patient is stable for discharge home with PCP follow-up. Patient is agreeable to this and feels comfortable being discharged home. Return precautions discussed at bedside. Instructed patient to schedule appointment with his PCP this week. Differential Diagnosis Differential Diagnoses: The differential diagnosis associated with the presentation includes As per [facility]. Lab Data [facility] Lab Attestation statement: I reviewed the patient's lab results. As per [facility]. 07/02/23 04:42 07/02/23 04:42 Labs: Lab Results 07/02/23 07/02/23 07/02/23 Range/Units 04:42 06:07 07:59 WBC 7.3 (4.8-10.8) X10*3/uL RBC 4.47 L (4.60-5.80) X10*6/uL Hgb 14.3 (14.0-18.0) g/dl Hct 40.8 L (42.0-52.0) % MCV 91.3 (80.0-98.0) fL MCH 32.0 (27.0-33.0) pg MCHC 35.0 (31.0-36.0) g/dl RDW 11.7 (11.0-16.0) % Plt Count 272 (160-400) X10*3/uL MPV 8.7 L (9.4-12.4) fL Immature Gran % (Auto) 0.1 (0.0-0.4) % Neut % (Auto) 45.7 (45-73) % Lymph % (Auto) 39.4 (20-40) % Hettinger % (Auto) 12.9 H (2-11) % Eos % (Auto) 1.4 (0-4) % Baso % (Auto) 0.5 (0-2) % Lymph # (Auto) 2.9 (1.2-4.9) X10*3/uL Hettinger # (Auto) 0.9 (0.1-1.2) X10*3/uL Eos # (Auto) 0.1 (0.0-0.4) X10*3/uL Baso # (Auto) 0.0 (0.0-0.2) X10*3/uL Abs Immat Gran (auto) 0.01 (0.00-0.03) X10*3/uL Absolute Neuts (auto) 3.3 (2.0-8.3) x10*3/uL Absolute Nucleated RBC 0.000 (0.0-0.012) X10*3/uL Nucleated RBC % (auto) 0.0 (0.0-0.2) /100WBC Hold Blue Top SEE NOTE Sodium 137 (135-145) mmol/L Potassium 4.3 (3.3-5.1) mmol/L Chloride 101 (96-108) mmol/L Carbon Dioxide 26 (22-29) mmol/L Anion Gap 14 (12-20) BUN 13 (9-16) mg/dL Creatinine 1.04 (0.5-1.4) mg/dL Estim Creat Clear Calc 88.3 Estimated GFR > 60 Random Glucose 137 H (60-115) mg/dL Calcium 9.8 D (8.4-10.2) mg/dL Troponin I High Sens < 2.7 < 2.7 (<3.5-35.0) ng/L COVID-19 (PAIGE) Negative (Negative) COVID-19 Clin Com See Note Influenza Type A (MOIRA) Negative (Negative) Influenza Type B (MOIRA) Negative (Negative) Influenza A & B Note See Note Independent Interpretation I performed an independent interpretation of an: Plain X-Ray Interpretation: I independently reviewed the x-ray and agree with the radiologist's interpretation of atelectasis. Radiology Impression Discussion of test interpretation with radiology: I have reviewed the radiologist's reading. Radiologist Impression: XR/XR chest 1V IMPRESSION: Mild streaky right basilar opacity more suggestive of atelectasis. External Record Review External record reviewed: Inpatient record, Office record and Outpatient record Scores Heart Score History: -1- moderately suspicious ECG: -0- normal Age: -1- >45 - <65 Risk factory: -2- 3 or more risk factors or treated atherosclerosis Troponin: -0- < or = normal limit Score: 4 Risk: 16.6% Discharge Plan Discharge Clinical Impression: Atypical chest pain Patient Disposition: Home, Self-Care Instructions: Chest Pain (DC) Additional Instructions: You were evaluated in the emergency department today for chest pain. Your evaluation has shown no signs of medical conditions requiring emergent intervention at this time, however we recommend that you follow-up with your primary care physician or your transitional care manager as soon as possible for further testing as an outpatient. Please schedule an appointment for follow-up with your primary care physician as soon as possible. Return to the emergency department if you experience worsening or uncontrolled chest pain, shortness of breath, lightheadedness, feeling faint, loss of consciousness, nausea, vomiting, or any other concerning symptoms. Prescriptions: No Action nitroglycerin 0.4 mg tablet, sublingual 0.4 mg sublingual Q5M PRN (Reason: chest pain) Qty: 25 0RF spironolactone [Aldactone] 25 mg tablet 25 mg PO DAILY Qty: 30 5RF lisinopril 10 mg tablet 10 mg PO BID Qty: 180 3RF atorvastatin 40 mg tablet 40 mg PO DAILY Qty: 90 3RF clotrimazole 1 % cream 1 appl topical BID Qty: 45 1RF amlodipine 10 mg tablet 10 mg PO DAILY 90 Days Qty: 90 3RF metoprolol tartrate 100 mg tablet 100 mg PO BID Qty: 60 3RF isosorbide mononitrate 60 mg tablet extended release 24 hr 60 mg PO TID 30 Days Qty: 90 5RF clopidogrel 75 mg tablet 75 mg PO DAILY Qty: 90 2RF pantoprazole 40 mg tablet,delayed release (DR/EC) 40 mg PO DAILY Qty: 90 1RF Multaq 400 mg tablet 400 mg PO Q12H Qty: 60 5RF Xarelto 20 mg tablet 20 mg PO DAILY Qty: 90 3RF ezetimibe 10 mg tablet 10 mg PO DAILY Qty: 90 3RF multivitamin Tablet 1 tab PO DAILY cholecalciferol (vitamin D3) 25 mcg (1,000 unit) Tablet 25 mcg PO DAILY omega-3 fatty acids-fish oil 684-1,200 mg Capsule,Delayed Release(Dr/Ec) 1 cap PO DAILY gabapentin 400 mg capsule 400 mg PO TID ranolazine 500 mg tablet extended release 12 hr 500 mg PO BID
[2023-07-02 06:27] LABS: IDNOW Serial# 08D9AD1C; Influenza A Negative (Negative); Influenza B2 Negative (Negative)
[2023-07-02 07:10] VITALS: BP 103/65; PULSE 55; RESP 18; O2SAT 93
--- NOTE | 2023-07-02 07:13 | PC.NURSE ---
Assumed care of this pt at 0700. Pt appears to be sleeping in bed at this time quietly. No apparent distress.
[2023-07-02 08:26] LABS: Troponin-I High Sensitivity < 2.7 ng/L (<3.5-35.0)
[2023-07-02 08:30] VITALS: BP 108/74; PULSE 57; RESP 18; TEMP 36.7; O2SAT 97
== END 2023-07-02 08:50 | disposition home or self-care (01) ==
PROVIDERS: Registered Nurse Emergency; Emergency Provider Emergency Medicine
DX: R07.89 Other chest pain (principal); Z20.822 Contact with and (suspected) exposure to COVID-19; I10 Essential (primary) hypertension; E78.5 Hyperlipidemia, unspecified; I48.0 Paroxysmal atrial fibrillation; Z95.1 Presence of aortocoronary bypass graft; Z86.73 Personal history of transient ischemic attack (TIA), and cerebral infarction without residual deficits; Z87.891 Personal history of nicotine dependence; Z79.01 Long term (current) use of anticoagulants; Z79.899 Other long term (current) drug therapy
CPT/HCPCS: 36415; 71045; 80048; 84484; 85025; 87502; 87635; 93005; 99285

== ENCOUNTER 2023-09-09 13:57 | Outpatient (AMB) | payer BC, MEDICAID, SELFPAY ==
[2023-09-09 13:56] VITALS: BP 112/70; PULSE 73; TEMP 36.3; O2SAT 98; BMI 31.4
--- NOTE | 2023-09-09 13:56 | AM.OFFWIN_ITS ---
Intake Vital Signs 09/09/23 13:56 Height 5 ft 10 in Weight 99.337 kg BMI 31.4 BP 112/70 Blood Pressure Location Rt brachial Position Sitting Pulse 73 Pulse Source Pulse Oximeter Temp 97.4 F Temp Source Temporal Artery Scan Pulse Oximetry (%) 98 Oxygen Delivery Method Room Air Intake Visit Reasons: EP chest pain Intake Note: pt is here today for chest pain started 3 days ago Patient Tobacco Use Status: Former Tobacco user Allergies allopurinol Allergy (Verified 09/09/23 13:57) Chest Pain Do you need a note to return to daycare/school/sports/work: No HPI HPI Comments History of Present Illness Details 1415 63 year old male presents with chest kosta n x3 days not improving despite sublingual nitroglycerin, patient reports he has taken nitro every day for the past 3 days and has not gotten rid of his chest pain he took 2 pills yesterday back to back in even with this no pain improvement. He reports substernal chest heaviness without radiation of symptoms no associated chest pain. He is refusing to go to the hospital by ambulance but states he will drive himself there. He would like to go to [facility], expect called into [facility] in [place] Exam- regular rate past rhythm likely sinus tachycardia. Heart rate around 90- 100. EKG done and there is new T-wave inversions in lead V1 when compared with previous EKG here on 07/02/2023 at that time he had a first-degree AV block not present today. Patient refusing ambulance will go by private vehicle verbalizes understanding of risks associated with driving himself there versus taking ambulance. Patient EN route. [facility] Medical History Crescendo angina Persistent atrial fibrillation TIA (transient ischemic attack) Exertional chest pain Paroxysmal atrial flutter CAD (coronary artery disease) HLD (hyperlipidemia) HTN (hypertension) Surgical History S/P cardiac catheterization Hx of CABG History of cardiac cath History of cardiac cath Family History Father No problems noted. Mother No problems noted. Maternal Grandmother No problems noted. 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 Current occupational exposures/hazards: No Cognitive needs: No Hearing needs: No Vision needs: No Review of Systems Const Details: Constitutional : No Weight loss, No Fever, No Chills, No Fatigue, No Malaise ENT/Mouth : No sore throat, No Rhinorrhea Eyes: No Eye Pain, No Swelling, No Redness Cardiovascular : + Chest Pain, No SOB, No Dyspnea on Exertion, No Orthopnea, No Edema, No Palpitations Respiratory : No Cough, No Sputum, No Wheezing Gastrointestinal : No Nausea, No Vomiting, No Diarrhea, No Constipation, No abdominal Pain, No Hematochezia, No Melena Genitourinary : No Dysuria, No Urinary Frequency, No Hematuria, Musculoskeletal : No joint pain, No Myalgias, No Joint Swelling Skin : No Skin Lesions, No rash Neuro : No Weakness, No Numbness, No Dizziness, No Headache All other systems reviewed and are negative All systems reviewed & are unremarkable except as noted in HPI and below Physical Exam Vital Signs: Last Vital Signs Temp 97.4 F 09/09/23 13:56 Pulse 73 09/09/23 13:56 BP 112/70 09/09/23 13:56 Pulse Ox 98 09/09/23 13:56 Oxygen Delivery Method Room Air 09/09/23 13:56 BMI result Body Mass Index 31.4 vss Appearance: Alert.? Oriented X3.? No acute distress.? Head: Normocephalic, atraumatic, no step-offs or deformities Eyes: Pupils equal, round and reactive to light.? ENT: Pharynx normal.? Neck: Normal inspection.? Neck supple.? CVS: Rapid rate normal rhythm likely sinus tachycardia.? Pulses normal.? Respiratory: No respiratory distress.? Breath sounds normal.? Abdomen: Soft and nontender.? Skin: Skin warm and dry.? Normal skin color.? Normal skin turgor.? Extremities: No lower extremity edema.? No calf ttp. 5/5 strength to bilateral upper and lower extremities Neuro: Oriented X 3.? No motor deficit.? No sensory deficit. CN 2-12 intact Assessment & Plan Assessment & Plan (1) Chest pain: Code(s): R07.9 - Chest pain, unspecified Plan Patient refusing ambulance transport to go to [facility] Emergency [facility] via private vehicle Coding Level of Care Code Est Pt Level 3 (29605) Diagnoses Chest pain R07.9
== END 2023-09-09 14:17 | disposition home or self-care (01) ==
PROVIDERS: Visit Provider Physician Assistant
DX: R07.9 Chest pain, unspecified (principal)
CPT/HCPCS: 93000; 99213

== ENCOUNTER 2023-09-09 15:26 | Emergency (ER) | payer BC, MEDICAID, SELFPAY ==
--- NOTE | ~2023-09-09 | XR_ITS ---
EXAMINATION: XR CHEST CLINICAL INFORMATION: Chest pain. COMPARISON: Chest radiograph 07/02/2023. TECHNIQUE: 2 views of the chest were obtained. FINDINGS: Unchanged cardiomediastinal silhouette. Sternal wires and mediastinal surgical clips are seen. New, focal hazy airspace opacity projecting over the medial aspect of the right lung base adjacent to the cardiomediastinal silhouette. Unchanged streaky opacities projecting over the retrocardiac region/left lower lobe, favoring to represent subsegmental atelectasis. No pleural effusion. No pneumothorax. No acute osseous findings. XR/XR chest 2V IMPRESSION: New, focal hazy airspace opacity in the medial aspect of the right lung base which could represent aspiration or pneumonia in the appropriate clinical context. Correlate clinically and follow-up to ensure resolution.
--- NOTE | 2023-09-09 15:27 | ECG_ITS ---
Test Reason : cx pain Blood Pressure : / mmHG Vent. Rate : 065 BPM Atrial Rate : 065 BPM P-R Int : 220 ms QRS Dur : 092 ms QT Int : 452 ms P-R-T Axes : 025 028 069 degrees QTc Int : 470 ms Sinus rhythm with 1st degree A-V block Otherwise normal ECG When compared with ECG of 02-JUL-2023 04:38, No significant change was found Referred By: Generic ED Physician Electronically Signed By:RAINE HYLTON
[2023-09-09 15:53] VITALS: BP 108/71; PULSE 62; RESP 18; TEMP 37; O2SAT 94; BMI 31.7
--- NOTE | 2023-09-09 15:55 | ED_ITS ---
HPI - Chest Pain General Chief Complaint: Chest Pain Stated Complaint: chest pain Time Seen by Provider: 09/09/23 16:06 Source: patient and RN notes reviewed Mode of arrival: ambulatory Limitations: no limitations History of Present Illness HPI narrative: Patient is a 63-year-old male with history of CAD, HTN, HLD, proximal a flutter, AFib on Eliquis, TIA, status post cardiac catheterization, CABG x3, most recent last september presenting to the ED with complaint of intermittent chest pain for 2 days and new T wave inversion in V1 on EKG at urgent care. Reports episodes last anywhere from a few minutes to longer than 1 hour. He denies associated shortness of breath or palpitations. Denies any abdominal pain, nausea, vomiting. Denies any back pain. Denies dizziness or lightheadedness. Denies recent cough or fevers. States he has been taking his medications as prescribed. States pain is relieved temporarily with nitro. Denies recent calf pain or swelling. Denies weakness or fatigue. Denies lower extremity edema. 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 and other Onset (ago): day(s) Timing of current episode: episodic Prior episodes: Yes Onset: during rest Pain location: left chest Pain radiation: none Severity: moderate Pain scale (0-10): 5 Quality: aching Relieving factors: nitroglycerin Exacerbating factors: nothing Treatment prior to arrival: nitroglycerin Related Data Home Medications Medication Instructions Recorded Confirmed cholecalciferol (vitamin D3) 25 25 mcg PO DAILY 01/23/22 03/30/23 mcg (1,000 unit) tablet multivitamin 1 tab PO DAILY 01/23/22 03/30/23 omega-3 fatty acids-fish oil 684 1 cap PO DAILY 01/23/22 03/30/23 mg-1,200 mg capsule,delayed release gabapentin 400 mg capsule 400 mg PO TID 05/23/22 03/30/23 ranolazine 500 mg tablet,extended 500 mg PO BID 03/30/23 03/30/23 release,12 hr Previous Rx's Medication Instructions Recorded nitroglycerin 0.4 mg sublingual 0.4 mg sublingual Q5M PRN chest 07/13/22 tablet pain #25 tabs spironolactone 25 mg tablet 25 mg PO DAILY #30 tabs 10/09/22 (Aldactone) lisinopril 10 mg tablet 10 mg PO BID #180 tabs 11/04/22 atorvastatin 40 mg tablet 40 mg PO DAILY #90 tabs 12/01/22 clotrimazole 1 % topical cream 1 appl topical BID #45 grams 12/03/22 amlodipine 10 mg tablet 10 mg PO DAILY 90 days #90 tabs 01/08/23 metoprolol tartrate 100 mg tablet 100 mg PO BID #60 tabs 01/22/23 isosorbide mononitrate 60 mg 60 mg PO TID 30 days #90 tabs 03/31/23 tablet,extended release 24 hr clopidogrel 75 mg tablet 75 mg PO DAILY #90 tabs 04/27/23 pantoprazole 40 mg tablet,delayed 40 mg PO DAILY #90 tabs 05/25/23 release dronedarone 400 mg tablet (Multaq) 400 mg PO Q12H #60 tabs 05/27/23 rivaroxaban 20 mg tablet (Xarelto) 20 mg PO DAILY #90 tabs 06/24/23 ezetimibe 10 mg tablet 10 mg PO DAILY #90 tabs 06/26/23 amoxicillin 875 mg-potassium 1 tab PO BID #14 tabs 09/09/23 clavulanate 125 mg tablet doxycycline hyclate 100 mg capsule 100 mg PO BID #10 caps 09/09/23 Allergies Allergy/AdvReac Type Severity Reaction Status Date / Time allopurinol Allergy Chest Pain Verified 09/09/23 15:55 Review of Systems 2 Review of Systems: As per HPI. Yes all other systems are reviewed and are negative Constitutional: Constitutional: Reports as per HPI [facility] [place] Past Medical History Medical History Crescendo angina Persistent atrial fibrillation TIA (transient ischemic attack) Exertional chest pain Paroxysmal atrial flutter CAD (coronary artery disease) HLD (hyperlipidemia) HTN (hypertension) Surgical History S/P cardiac catheterization Hx of CABG History of cardiac cath History of cardiac cath Family History Family History Father No problems noted. Mother No problems noted. Maternal Grandmother No problems noted. 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 Blood pressure normal. Heart rate normal. Respiratory rate normal. Temperature normal. Oxygen saturation normal. Const: General: cooperative, healthy appearing and no acute distress O rientation/consciousness: oriented to person, oriented to place, oriented to time and patient oriented x3 Limitations: no limitations HEENT: Head: Yes normocephalic and Yes atraumatic Ears: external ears normal General nose exam: Normal external nose present Face and sinus: Yes face symmetric Mouth: oropharynx normal and moist mucous membranes Throat: Yes uvula midline Eyes: Pupils: Equal, round and reactive pupils present Neck: Neck: Yes normal visual inspection and Yes supple Resp: Effort & Inspection: normal respiratory effort and able to speak in complete sentences Auscultation: clear to auscultation bilaterally Cardio: Rate: regular rate Rhythm: regular rhythm Heart sounds: S1 normal heart sound present and S2 normal heart sound present GI: Palpation (GI): Soft to palpation and nontender Auscultation: n ormoactive bowel sounds : General: Yes no CVA tenderness Back/Spine/Pelvis: Back: no CVA tenderness Skin: General skin exam: elasticity normal and turgor normal Neuro: General: oriented to person, oriented to place, oriented to time, patient oriented x3, moves all extremities, no focal motor deficits and CN's II- XI intact bilaterally Cranial nerves: Yes Equal, round and reactive pupils present Cognition (Neuro): normal cognition Extrem: General: Yes full ROM, Yes no pedal edema and Yes no calf tenderness Psych: Mental Status: mental status grossly normal Affect: normal affect Thought process: Normal thought process present Course Course Course Narrative: This is an RME: Additional HPI, ROS, PE not included below will be deferred to primary provider. This is a 63-year-old male, CAD, HTN, HLD, proximal a flutter, AFib, TIA, status post cardiac catheterization, CABG x3, presenting to the emergency department for evaluation of chest pain for the last 2 days he has been using nitro without any relief. Reporting chest pain comes and goes. Patient was seen by urgent care and there was concerns for new inverted T-waves. Plan: Labs, EKG, chest xray Medical Decision Making Medical Decision Making MDM Narrative: Patient is a 63-year-old male with history of CAD, HTN, HLD, proximal a flutter, AFib on Eliquis, TIA, status post cardiac catheterization, CABG x3, most recent last september presenting to the ED with complaint of intermittent chest pain for 2 days and new T wave inversion in V1 on EKG at urgent care. On exam patient is awake, A+Ox3, VS WNL, afebrile, normal neurological exam without focal deficits, physical exam findings as above. Given reported symptoms and physical exam findings, initial differential includes ACS/OK, angina, GERD, pneumonia, musculoskeletal pain. Less likely PE as patient is currently anticoagulated with Eliquis, Wells score of 3. Labs notable for leukocytosis, mild anemia consistent with baseline, slightly elevated bilirubin consistent with baseline, negative troponin. Given that patient has had pain for 2 days, repeat troponin not indicated. EKG shows sinus rhythm with first-degree AV block, no T-wave inversion on V1 on EKG performed here. No other evidence of ischemia. HEART score of 3. X-ray notable for new hazy opacity of right lung base. My interpretation is in agreement with the radiologist's interpretation. Patient denies cough or shortness of breath but O2 sat 93-94% on room air, will treat for pneumonia at this time. Discussed with patient that he will need to follow- up with PCP for repeat chest x-ray to ensure resolution of pneumonia. Return precautions discussed. Patient verbalized understanding of and agreement with plan. Differential Diagnosis Differential Diagnoses: The differential diagnosis associated with the presentation includes As per [facility] Admission/Observation Consideration of admission/observation: Escalation of care including admission/observation considered Lab Data [facility] Lab Attestation statement: I reviewed the patient's lab results. As per [facility]. 09/09/23 16:19 09/09/23 16:19 Labs: Lab Results 09/09/23 Range/Units 16:19 WBC 7.4 (4.8-10.8) X10*3/uL RBC 4.10 L (4.60-5.80) X10*6/uL Hgb 13.1 L (14.0-18.0) g/dl Hct 37.0 L (42.0-52.0) % MCV 90.2 (80.0-98.0) fL MCH 32.0 (27.0-33.0) pg MCHC 35.4 (31.0-36.0) g/dl RDW 11.9 (11.0-16.0) % Plt Count 283 (160-400) X10*3/uL MPV 8.6 L (9.4-12.4) fL Immature Gran % (Auto) 0.4 (0.0-0.4) % Neut % (Auto) 67.9 (45-73) % Lymph % (Auto) 21.6 (20-40) % [place] % (Auto) 8.9 (2-11) % Eos % (Auto) 0.9 (0-4) % Baso % (Auto) 0.3 (0-2) % Lymph # (Auto) 1.6 (1.2-4.9) X10*3/uL [place] # (Auto) 0.7 (0.1-1.2) X10*3/uL Eos # (Auto) 0.1 (0.0-0.4) X10*3/uL Baso # (Auto) 0.0 (0.0-0.2) X10*3/uL Abs Immat Gran (auto) 0.03 (0.00-0.03) X10*3/uL Absolute Neuts (auto) 5.0 (2.0-8.3) x10*3/uL Absolute Nucleated RBC 0.000 (0.0-0.012) X10*3/uL Nucleated RBC % (auto) 0.0 (0.0-0.2) /100WBC PT 31.2 H (11.1-13.3) SEC INR 2.6 H (0.9-1.1) APTT 38.7 H (26.0-36.4) SEC Sodium 135 (135-145) mmol/L Potassium 4.1 (3.3-5.1) mmol/L Chloride 100 (96-108) mmol/L Carbon Dioxide 26 (22-29) mmol/L Anion Gap 13 (12-20) BUN 13 (9-16) mg/dL Creatinine 1.11 (0.5-1.4) mg/dL Estim Creat Clear Calc 82.9 Estimated GFR > 60 Random Glucose 181 H (60-115) mg/dL Calcium 9.4 (8.4-10.2) mg/dL Total Bilirubin 1.1 H (0.0-1.0) mg/dL Direct Bilirubin 0.4 (0.0-0.5) mg/dL AST 22 (5-37) U/L ALT 32 (0-40) U/L Alkaline Phosphatase 47 (39-117) U/L Troponin I High Sens < 2.7 (<3.5-35.0) ng/L Total Protein 7.4 (6.5-8.0) g/dL Albumin 4.2 (3.5-5.0) g/dL Independent Interpretation I performed an independent interpretation of an: EKG and Plain X-Ray Interpretation: sinus rhythm with first-degree AV block, rate 65 bpm, MA interval 220, normal QT interval, no T wave inversion noted on V1 New hazy airspace opacity on chest x-ray Radiology Impression Discussion of test interpretation with radiology: I have reviewed the radiologist's reading. Radiologist Impression: XR/XR chest 2V IMPRESSION: New, focal hazy airspace opacity in the medial aspect of the right lung base which could represent aspiration or pneumonia in the appropriate clinical context. Correlate clinically and follow-up to ensure resolution. External Record Review External record reviewed: Inpatient record, Office record and Outpatient record Prescription Management I considered prescription management with: Antibiotic Chronic Conditions Patient?s care impacted by: Other Scores Heart Score History: -0- slightly suspicious ECG: -0- normal Age: -1- >45 - <65 Risk factory: -2- 3 or more risk factors or treated atherosclerosis Troponin: -0- < or = normal limit Score: 3 Risk: 1.7% Discharge Plan Discharge Clinical Impression: Right lower lobe pneumonia Patient Disposition: Home, Self-Care Instructions: Community Acquired Pneumonia (DC) Additional Instructions: You were evaluated in the emergency department today for chest pain. Your x-ray showed evidence of a right lower lobe pneumonia. You are being treated with a course of two antibiotics, please complete the full courses as prescribed. It is important that you schedule an appointment for follow-up with your primary care physician as you will need a repeat chest x-ray to ensure that your pneumonia has resolved. Return to the emergency department if you experience worsening or uncontrolled chest pain, shortness of breath, lightheadedness, feeling faint, loss of consciousness, nausea, vomiting, or any other concerning symptoms. Prescriptions: New amoxicillin-pot clavulanate 875-125 mg tablet 1 tab PO BID Qty: 14 0RF doxycycline hyclate 100 mg capsule 100 mg PO BID Qty: 10 0RF No Action nitroglycerin 0.4 mg tablet, sublingual 0.4 mg sublingual Q5M PRN (Reason: chest pain) Qty: 25 0RF spironolactone [Aldactone] 25 mg tablet 25 mg PO DAILY Qty: 30 5RF lisinopril 10 mg tablet 10 mg PO BID Qty: 180 3RF atorvastatin 40 mg tablet 40 mg PO DAILY Qty: 90 3RF clotrimazole 1 % cream 1 appl topical BID Qty: 45 1RF amlodipine 10 mg tablet 10 mg PO DAILY 90 Days Qty: 90 3RF metoprolol tartrate 100 mg tablet 100 mg PO BID Qty: 60 3RF isosorbide mononitrate 60 mg tablet extended release 24 hr 60 mg PO TID 30 Days Qty: 90 5RF clopidogrel 75 mg tablet 75 mg PO DAILY Qty: 90 2RF pantoprazole 40 mg tablet,delayed release (DR/EC) 40 mg PO DAILY Qty: 90 1RF Multaq 400 mg tablet 400 mg PO Q12H Qty: 60 5RF Xarelto 20 mg tablet 20 mg PO DAILY Qty: 90 3RF ezetimibe 10 mg tablet 10 mg PO DAILY Qty: 90 3RF multivitamin Tablet 1 tab PO DAILY cholecalciferol (vitamin D3) 25 mcg (1,000 unit) Tablet 25 mcg PO DAILY omega-3 fatty acids-fish oil 684-1,200 mg Capsule,Delayed Release(Dr/Ec) 1 cap PO DAILY gabapentin 400 mg capsule 400 mg PO TID ranolazine 500 mg tablet extended release 12 hr 500 mg PO BID
[2023-09-09 16:24] VITALS: BP 107/74; PULSE 57; RESP 18; TEMP 36.9; O2SAT 93
[2023-09-09 16:24] LABS: MANUAL DIFF FLAG NO
[2023-09-09 16:30] LABS: Basophils Percent Auto 0.3 % (0-2); Eosinophils Absolute Auto 0.1 X10*3/uL (0.0-0.4); Eosinophils Percent Auto 0.9 % (0-4); Hemoglobin 13.1 g/dl (14.0-18.0); Imm Gran Abs Auto 0.03 X10*3/uL (0.00-0.03); Imm Gran Pct Auto 0.4 % (0.0-0.4); Lymphocytes Absolute Auto 1.6 X10*3/uL (1.2-4.9); Lymphocytes Percent Auto 21.6 % (20-40); Mean Corpuscular HGB Conc 35.4 g/dl (31.0-36.0); Mean Corpuscular Volume 90.2 fL (80.0-98.0); Mean Platelet Volume 8.6 fL (9.4-12.4); Monocytes Absolute Auto 0.7 X10*3/uL (0.1-1.2); Monocytes Percent Auto 8.9 % (2-11); Neutrophils Percent Auto 67.9 % (45-73); Platelet Count 283 X10*3/uL (160-400); Red Cell Distribution Width 11.9 % (11.0-16.0); White Blood Count 7.4 X10*3/uL (4.8-10.8)
[2023-09-09 16:33] LABS: INTERNATIONAL NORM RATIO 2.6 (0.9-1.1); Prothrombin Time 31.2 SEC (11.1-13.3)
[2023-09-09 16:35] LABS: Partial Thromboplastin Time 38.7 SEC (26.0-36.4)
[2023-09-09 16:40] LABS: Alanine Aminotransferase 32 U/L (0-40); Albumin Level 4.2 g/dL (3.5-5.0); Alkaline Phosphatase 47 U/L (39-117); Anion Gap 13 (12-20); Aspartate Amino Transferase 22 U/L (5-37); Bilirubin Direct 0.4 mg/dL (0.0-0.5); Bilirubin Total 1.1 mg/dL (0.0-1.0); Blood Urea Nitrogen 13 mg/dL (9-16); Calcium 9.4 mg/dL (8.4-10.2); Carbon Dioxide 26 mmol/L (22-29); Chloride 100 mmol/L (96-108); Creatinine Clr Calc Pharmacy 82.9; Estimated Glomerular Filt Rate > 60; Glucose Random 181 mg/dL (60-115); Potassium 4.1 mmol/L (3.3-5.1); Sodium 135 mmol/L (135-145); Total Protein 7.4 g/dL (6.5-8.0)
[2023-09-09 16:49] LABS: Troponin-I High Sensitivity < 2.7 ng/L (<3.5-35.0)
--- NOTE | 2023-09-09 17:39 | PC.NURSE ---
pt a&o x4, pleasant, calm, and cooperative. 20G IV placed to LAC. labs drawn and sent. EKG obtained and pt placed on bedside monitor in normal sinus rhythm. pt currently resting quietly on stretcher in no apparent distress. rr even/unlabored. pt sating 94% on room air. plan of care ongoing.
== END 2023-09-09 19:21 | disposition home or self-care (01) ==
PROVIDERS: Physician Assistant Medical; Emergency Provider Emergency Medicine; PCP Nurse Practitioner Family
DX: J18.9 Pneumonia, unspecified organism (principal); I10 Essential (primary) hypertension; E78.5 Hyperlipidemia, unspecified; I48.0 Paroxysmal atrial fibrillation; Z95.5 Presence of coronary angioplasty implant and graft; Z79.01 Long term (current) use of anticoagulants; Z79.02 Long term (current) use of antithrombotics/antiplatelets; Z79.899 Other long term (current) drug therapy; Z87.891 Personal history of nicotine dependence
CPT/HCPCS: 36415; 71046; 80048; 80076; 84484; 85025; 85610; 85730; 93005; 99283; 99285

== ENCOUNTER → 2023-09-09 15:27 | Outpatient (BNV) | payer BC, MEDICAID, SELFPAY | PROVIDERS: PCP Nurse Practitioner Family; Visit Provider Internal Medicine | DX: I44.0 Atrioventricular block, first degree (principal) | CPT/HCPCS: 93010 ==

== ENCOUNTER 2023-09-14 08:27 | Outpatient (AMB) | payer BC, MEDICAID, SELFPAY ==
--- NOTE | 2023-09-14 08:30 | A.OFFPC_ITS ---
Vital Signs 09/14/23 08:34 Weight 224 lb BP 110/66 Blood Pressure Location Rt brachial Position Sitting Pulse 60 Pulse Source Pulse Oximeter Pulse Oximetry (%) 95 Oxygen Delivery Method Room Air Intake Visit Reasons: ED F/U Chest Pain Allergies allopurinol Allergy (Verified 09/14/23 08:34) Chest Pain Medication List - Last Reconciled 09/14/23 by Jorge Alberto Dumont, HOT BRAIDER- amlodipine 10 mg PO DAILY 90 days amoxicillin-pot clavulanate 875-125 mg 1 tab PO BID atorvastatin 40 mg PO DAILY cholecalciferol (vitamin D3) 25 mcg PO DAILY clopidogrel 75 mg PO DAILY clotrimazole 1% 1 appl topical BID doxycycline hyclate 100 mg PO BID dronedarone (Multaq) 400 mg PO Q12H ezetimibe 10 mg PO DAILY gabapentin 400 mg PO TID 90 days isosorbide mononitrate ER 60 mg PO TID 30 days lisinopril 10 mg PO BID lorazepam 0.5 mg PO BEDTIME PRN 30 days metoprolol tartrate 100 mg PO BID multivitamin 1 tab PO DAILY nitroglycerin 0.4 mg sublingual Q5M PRN omega-3 fatty acids-fish oil 684-1,200 mg 1 cap PO DAILY pantoprazole 40 mg PO DAILY ranolazine ER 500 mg PO BID rivaroxaban (Xarelto) 20 mg PO DAILY spironolactone (Aldactone) 25 mg PO DAILY Tobacco use date assessed: 05/27/23 HPI ED F/U Chest Pain HPI Details Pt was seen in the walk-in on 09/09 c/o chest pain. EKG showed new T- wave inversions in lead V1 when compared with previous EKG here on 07/02/2023. Pt was sent to the ER. Labs showed leukocytosis, troponin was negative. EKG showed sinus rhythm with first-degree AV block, no T-wave inversion on V1 on EKG performed in the ER. Chest XR showed new focal hazy airspace opacity in the medial aspect of the right lung base which could represent aspiration or pneumonia in the appropriate clinical context. He was treated for pneumonia with augmentin and doxycycline. Pt reports that his breathing is improving. Will order repeat chest XR. Denies fever, chills, and shortness of breath. He does report intermittent chest discomfort mostly with exertion, though pt does report symptoms in office while sitting. EKG done in office. 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 Pt knows to call 911 or go to the ER with any worsening symptoms. Pt will be following up with cardiology this month. Pt is very anxious. He reports insomnia as well. Pt has tried lorazepam in the past which helped. Will send this to be taken as needed. Educated pt on risk of addiction, this is not a long-term med. Pt understands that they can not drive while taking this med, share this med, and to only take as prescribed. [facility] Medical History Crescendo angina Persistent atrial fibrillation TIA (transient ischemic attack) Exertional chest pain Paroxysmal atrial flutter CAD (coronary artery disease) HLD (hyperlipidemia) HTN (hypertension) Surgical History S/P cardiac catheterization Hx of CABG History of cardiac cath History of cardiac cath Family History Father No problems noted. Mother No problems noted. Maternal Grandmother No problems noted. 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 Ge Fuentes, Maricruz Velázquez, Brent Lara and colleagues, with an educational miah from [employer] Review of Systems Const Reports as per HPI Physical exam (Primary Care) Vital Signs: Last Vital Signs Pulse 60 09/14/23 08:34 BP 110/66 09/14/23 08:34 Pulse Ox 95 09/14/23 08:34 Oxygen Delivery Method Room Air 09/14/23 08:34 Tobacco/Smoking Status: Tobacco use Status Tobacco use date assessed 05/27/23 09/14/23 08:32 Patient Tobacco Use Status Former Tobacco user 09/14/23 08:32 e-Cigarette/Vaping Use Never Used 09/14/23 08:32 Thrive Assessment: Date of Thrive Assessment Date Thrive assessed 02/23/23 09/14/23 08:32 Const General: cooperative Orientation/consciousness: patient oriented x3 Resp Effort & Inspection: normal respiratory effort Auscultation: clear to auscultation bilaterally Cardio Other: very difficult to auscultate Rate: regular rate Heart sounds: S1 normal heart sound present and S2 normal heart sound present Neuro General: patient oriented x3 Psych Appearance: grossly normal Mental Status: mental status grossly normal Speech and movement: Normal speech and movement present Affect: normal affect Attitude: cooperative Thought process: Normal thought process present Thought content: Normal thought content present Insight: Good insight present (Psych) Judgement: Good judgement present (Psych) Assessment and Plan Assessment & Plan (1) Pneumonia: Code(s): J18.9 - Pneumonia, unspecified organism Plan: Chest XR ordered (2) Exertional chest pain: Code(s): R07.9 - Chest pain, unspecified Plan: EKG done in office, stat echo ordered, pt instructed to call 911 with any ongoing symptoms. Pt is following up with cardio at the end of this month. Plan The patient agreed to the use of a medical billing and coding instructor for this encounter. Scribed for JESSE Reyes by Jenna Penn medical billing and coding instructor, on 09/14/2023 at 08:40 EST. Orders: Orders XR chest 2V Today J18.9 - Pneumonia, unspecified organism Complete Blood Count Auto Diff Today J18.9 - Pneumonia, unspecified organism Comprehensive Met. Panel Today J18.9 - Pneumonia, unspecified organism AMB EKG-In Office Today J18.9 - Pneumonia, unspecified organism, R07.9 - Chest pain, unspecified CA echo transthoracic complete Today J18.9 - Pneumonia, unspecified organism, R07.9 - Chest pain, unspecified Medications: New lorazepam 0.5 mg PO BEDTIME 30 days PRN 30 tabs 2RF anxiety Coding Level of Care Code Est Pt Level 4 (99848) Diagnoses Pneumonia J18.9 Exertional chest pain R07.9
[2023-09-14 08:34] VITALS: BP 110/66; PULSE 60; O2SAT 95
== END 2023-09-14 10:38 | disposition home or self-care (01) ==
PROVIDERS: PCP Nurse Practitioner Family; Visit Provider Nurse Practitioner Family
DX: J18.9 Pneumonia, unspecified organism (principal); R07.9 Chest pain, unspecified
CPT/HCPCS: 99214

== ENCOUNTER 2023-09-22 15:38 | Emergency (ER) | payer BC, MEDICAID, SELFPAY ==
--- NOTE | ~2023-09-22 | XR_ITS ---
XR/XR chest 2V IMPRESSION: Question small infiltrate at the right lung base at the cardiophrenic angle similar to 09/09/2023 exam. Imaging follow-up recommended. EXAMINATION: XR CHEST CLINICAL INFORMATION: Pain COMPARISON: Previous chest x-ray most recent September 2023 TECHNIQUE: 2 views of the chest were obtained. FINDINGS: The cardiac and mediastinal contours are stable. Question small infiltrate at right lung base at the cardiophrenic angle. Similar to 09/09/2023 exam. The lungs are otherwise clear. No pleural effusion or pneumothorax. Median sternotomy wires. No acute bone abnormality.
--- NOTE | ~2023-09-22 | XR_ITS ---
EXAMINATION: XR SHOULDER, LEFT CLINICAL INFORMATION: Shoulder pain COMPARISON: None available TECHNIQUE: Three views of the left shoulder. FINDINGS: This is status post median sternotomy. There are some minimal degenerative changes at the AC joint. No fracture. Glenohumeral and acromioclavicular alignment is anatomic. No abnormal soft tissue calcifications. XR/XR shoulder LT min 2V IMPRESSION: Mild degenerative changes at the AC joint. No acute finding
[2023-09-22 15:43] VITALS: BP 127/78; PULSE 62; RESP 18; TEMP 36.7; O2SAT 96; BMI 30.7
--- NOTE | 2023-09-22 15:43 | ECG_ITS ---
Test Reason : CHEST PAIN Blood Pressure : / mmHG Vent. Rate : 061 BPM Atrial Rate : 061 BPM P-R Int : 212 ms QRS Dur : 092 ms QT Int : 456 ms P-R-T Axes : 035 022 068 degrees QTc Int : 459 ms Sinus rhythm with 1st degree A-V block Nonspecific ST abnormality Abnormal ECG When compared with ECG of 09-SEP-2023 15:34, No significant change was found Referred By: Noah Jacinto Electronically Signed By:HIMANSHU CHAMORRO MD
--- NOTE | 2023-09-22 15:44 | ED_ITS ---
HPI - General Adult General Chief complaint: Chest Pain Stated complaint: chest pain left arm pain Time Seen by Provider: 09/22/23 23:55 Source: patient, old records reviewed and conference interpreter Mode of arrival: ambulatory Limitations: no limitations History of Present Illness HPI narrative: 63 yo male with PMH of PAF on eliquis, HLD, HTN, CAD s/p multiple PCI currently on eliquis and med management - just completed cardiac rehab. Treated for RLL pneumonia on 09/09 with augmentin and doxy who comes here today with c/o Related Data Home Medications Medication Instructions Recorded Confirmed cholecalciferol (vitamin D3) 25 25 mcg PO DAILY 01/23/22 09/14/23 mcg (1,000 unit) tablet multivitamin 1 tab PO DAILY 01/23/22 09/14/23 omega-3 fatty acids-fish oil 684 1 cap PO DAILY 01/23/22 09/14/23 mg-1,200 mg capsule,delayed release ranolazine 500 mg tablet,extended 500 mg PO BID 03/30/23 09/14/23 release,12 hr Previous Rx's Medication Instructions Recorded nitroglycerin 0.4 mg sublingual 0.4 mg sublingual Q5M PRN chest 07/13/22 tablet pain #25 tabs spironolactone 25 mg tablet 25 mg PO DAILY #30 tabs 10/09/22 (Aldactone) lisinopril 10 mg tablet 10 mg PO BID #180 tabs 11/04/22 atorvastatin 40 mg tablet 40 mg PO DAILY #90 tabs 12/01/22 clotrimazole 1 % topical cream 1 appl topical BID #45 grams 12/03/22 amlodipine 10 mg tablet 10 mg PO DAILY 90 days #90 tabs 01/08/23 metoprolol tartrate 100 mg tablet 100 mg PO BID #60 tabs 01/22/23 isosorbide mononitrate 60 mg 60 mg PO TID 30 days #90 tabs 03/31/23 tablet,extended release 24 hr clopidogrel 75 mg tablet 75 mg PO DAILY #90 tabs 04/27/23 pantoprazole 40 mg tablet,delayed 40 mg PO DAILY #90 tabs 05/25/23 release dronedarone 400 mg tablet (Multaq) 400 mg PO Q12H #60 tabs 05/27/23 rivaroxaban 20 mg tablet (Xarelto) 20 mg PO DAILY #90 tabs 06/24/23 ezetimibe 10 mg tablet 10 mg PO DAILY #90 tabs 06/26/23 amoxicillin 875 mg-potassium 1 tab PO BID #14 tabs 09/09/23 clavulanate 125 mg tablet doxycycline hyclate 100 mg capsule 100 mg PO BID #10 caps 09/09/23 gabapentin 400 mg capsule 400 mg PO TID 90 days #270 caps 09/14/23 lorazepam 0.5 mg tablet 0.5 mg PO BEDTIME PRN anxiety 30 09/14/23 days #30 tabs Allergies Allergy/AdvReac Type Severity Reaction Status Date / Time allopurinol Allergy Chest Pain Verified 09/14/23 08:34 [facility] Past Medical History Medical History Crescendo angina Persistent atrial fibrillation TIA (transient ischemic attack) Exertional chest pain Paroxysmal atrial flutter CAD (coronary artery disease) HLD (hyperlipidemia) HTN (hypertension) Surgical History S/P cardiac catheterization Hx of CABG History of cardiac cath History of cardiac cath Family History Family History Father No problems noted. Mother No problems noted. Maternal Grandmother No problems noted. 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 He reports that he was diagnosed with pneumonia 2 weeks ago and completed his antibiotics. Plan for cardiac workup. Symptoms started just under 2 hours ago Medical Decision Making Medical Decision Making [facility] Narrative: 63 yo male with PMH of PAF on eliquis, HLD, HTN, CAD s/p multiple PCI currently on eliquis and med management Differential Diagnosis Differential Diagnoses: The differential diagnosis associated with the presentation includes Admission/Observation Consideration of admission/observation: Escalation of care including admission/observation considered Lab Data [facility] Lab Attestation statement: I reviewed the patient's lab results. 09/22/23 18:10 09/22/23 18:10 Labs: Lab Results 09/22/23 Range/Units 18:10 WBC 10.6 (4.8-10.8) X10*3/uL RBC 4.39 L (4.60-5.80) X10*6/uL Hgb 14.0 (14.0-18.0) g/dl Hct 39.5 L (42.0-52.0) % MCV 90.0 (80.0-98.0) fL MCH 31.9 (27.0-33.0) pg MCHC 35.4 (31.0-36.0) g/dl RDW 11.8 (11.0-16.0) % Plt Count 312 (160-400) X10*3/uL MPV 8.5 L (9.4-12.4) fL Immature Gran % (Auto) 0.2 (0.0-0.4) % Neut % (Auto) 72.1 (45-73) % Lymph % (Auto) 18.9 L (20-40) % Sampson % (Auto) 8.0 (2-11) % Eos % (Auto) 0.6 (0-4) % Baso % (Auto) 0.2 (0-2) % Lymph # (Auto) 2.0 (1.2-4.9) X10*3/uL Sampson # (Auto) 0.8 (0.1-1.2) X10*3/uL Eos # (Auto) 0.1 (0.0-0.4) X10*3/uL Baso # (Auto) 0.0 (0.0-0.2) X10*3/uL Abs Immat Gran (auto) 0.02 (0.00-0.03) X10*3/uL Absolute Neuts (auto) 7.6 (2.0-8.3) x10*3/uL Absolute Nucleated RBC 0.000 (0.0-0.012) X10*3/uL Nucleated RBC % (auto) 0.0 (0.0-0.2) /100WBC PT 21.6 H D (11.1-13.3) SEC INR 1.8 H (0.9-1.1) APTT 33.9 (26.0-36.4) SEC Sodium 136 (135-145) mmol/L Potassium 4.9 (3.3-5.1) mmol/L Chloride 103 (96-108) mmol/L Carbon Dioxide 28 (22-29) mmol/L Anion Gap 10 L (12-20) BUN 13 (9-16) mg/dL Creatinine 1.02 (0.5-1.4) mg/dL Estim Creat Clear Calc 88.8 Estimated GFR > 60 Random Glucose 131 H (60-115) mg/dL Calcium 10.0 D (8.4-10.2) mg/dL Total Bilirubin 1.2 H (0.0-1.0) mg/dL AST 23 (5-37) U/L ALT 33 (0-40) U/L Alkaline Phosphatase 45 (39-117) U/L Troponin I High Sens < 2.7 (<3.5-35.0) ng/L Total Protein 7.7 (6.5-8.0) g/dL Albumin 4.4 (3.5-5.0) g/dL Lipase 17 (8-78) U/L Independent Interpretation I performed an independent interpretation of an: EKG and Plain X-Ray (normal ) Interpretation: Rate: 61 Rhythm: NSR 1st degree AVB Roosevelt: normal Normal P waves. 1st degree AVB Normal QRS complex. ST T wave : nonspecific V1-V2, avL qTC: normal prior studies: no change from priors The study has been interpreted contemporaneously by me. . Radiology Impression Discussion of test interpretation with radiology: I have reviewed the radiologist's reading. External Record Review External record reviewed: Inpatient record and Office record Discharge Plan Discharge Prescriptions: No Action nitroglycerin 0.4 mg tablet, sublingual 0.4 mg sublingual Q5M PRN (Reason: chest pain) Qty: 25 0RF spironolactone [Aldactone] 25 mg tablet 25 mg PO DAILY Qty: 30 5RF lisinopril 10 mg tablet 10 mg PO BID Qty: 180 3RF atorvastatin 40 mg tablet 40 mg PO DAILY Qty: 90 3RF clotrimazole 1 % cream 1 appl topical BID Qty: 45 1RF amlodipine 10 mg tablet 10 mg PO DAILY 90 Days Qty: 90 3RF metoprolol tartrate 100 mg tablet 100 mg PO BID Qty: 60 3RF isosorbide mononitrate 60 mg tablet extended release 24 hr 60 mg PO TID 30 Days Qty: 90 5RF clopidogrel 75 mg tablet 75 mg PO DAILY Qty: 90 2RF pantoprazole 40 mg tablet,delayed release (DR/EC) 40 mg PO DAILY Qty: 90 1RF Multaq 400 mg tablet 400 mg PO Q12H Qty: 60 5RF Xarelto 20 mg tablet 20 mg PO DAILY Qty: 90 3RF ezetimibe 10 mg tablet 10 mg PO DAILY Qty: 90 3RF gabapentin 400 mg capsule 400 mg PO TID 90 Days Qty: 270 0RF multivitamin Tablet 1 tab PO DAILY cholecalciferol (vitamin D3) 25 mcg (1,000 unit) Tablet 25 mcg PO DAILY omega-3 fatty acids-fish oil 684-1,200 mg Capsule,Delayed Release(Dr/Ec) 1 cap PO DAILY amoxicillin-pot clavulanate 875-125 mg tablet 1 tab PO BID Qty: 14 0RF doxycycline hyclate 100 mg capsule 100 mg PO BID Qty: 10 0RF lorazepam 0.5 mg tablet 0.5 mg PO BEDTIME PRN (Reason: anxiety) 30 Days Qty: 30 2RF ranolazine 500 mg tablet extended release 12 hr 500 mg PO BID
[2023-09-22 18:14] LABS: MANUAL DIFF FLAG NO
[2023-09-22 18:16] LABS: Basophils Percent Auto 0.2 % (0-2); Eosinophils Absolute Auto 0.1 X10*3/uL (0.0-0.4); Eosinophils Percent Auto 0.6 % (0-4); Hematocrit 39.5 % (42.0-52.0); Imm Gran Abs Auto 0.02 X10*3/uL (0.00-0.03); Imm Gran Pct Auto 0.2 % (0.0-0.4); Lymphocytes Percent Auto 18.9 % (20-40); Mean Corpuscular HGB Conc 35.4 g/dl (31.0-36.0); Mean Corpuscular Hemoglobin 31.9 pg (27.0-33.0); Mean Platelet Volume 8.5 fL (9.4-12.4); Monocytes Absolute Auto 0.8 X10*3/uL (0.1-1.2); Neutrophils Absolute Auto 7.6 x10*3/uL (2.0-8.3); Neutrophils Percent Auto 72.1 % (45-73); Platelet Count 312 X10*3/uL (160-400); Red Blood Count 4.39 X10*6/uL (4.60-5.80); Red Cell Distribution Width 11.8 % (11.0-16.0); White Blood Count 10.6 X10*3/uL (4.8-10.8)
[2023-09-22 18:23] LABS: INTERNATIONAL NORM RATIO 1.8 (0.9-1.1); Prothrombin Time 21.6 SEC (11.1-13.3)
[2023-09-22 18:25] LABS: Partial Thromboplastin Time 33.9 SEC (26.0-36.4)
[2023-09-22 18:32] LABS: Alanine Aminotransferase 33 U/L (0-40); Albumin Level 4.4 g/dL (3.5-5.0); Alkaline Phosphatase 45 U/L (39-117); Anion Gap 10 (12-20); Aspartate Amino Transferase 23 U/L (5-37); Bilirubin Total 1.2 mg/dL (0.0-1.0); Blood Urea Nitrogen 13 mg/dL (9-16); Carbon Dioxide 28 mmol/L (22-29); Chloride 103 mmol/L (96-108); Creatinine Clr Calc Pharmacy 88.8; Estimated Glomerular Filt Rate > 60; Glucose Random 131 mg/dL (60-115); Lipase 17 U/L (8-78); Potassium 4.9 mmol/L (3.3-5.1); Sodium 136 mmol/L (135-145); Total Protein 7.7 g/dL (6.5-8.0)
[2023-09-22 18:41] LABS: Troponin-I High Sensitivity < 2.7 ng/L (<3.5-35.0)
--- NOTE | 2023-09-23 00:22 | ED.FALL ---
HPI - Fall General Chief Complaint: Chest Pain Stated Complaint: chest pain left arm pain Time Seen by Provider: 09/22/23 23:55 Related Data Home Medications Medication Instructions Recorded Confirmed cholecalciferol (vitamin D3) 25 25 mcg PO DAILY 01/23/22 09/14/23 mcg (1,000 unit) tablet multivitamin 1 tab PO DAILY 01/23/22 09/14/23 omega-3 fatty acids-fish oil 684 1 cap PO DAILY 01/23/22 09/14/23 mg-1,200 mg capsule,delayed release ranolazine 500 mg tablet,extended 500 mg PO BID 03/30/23 09/14/23 release,12 hr Previous Rx's Medication Instructions Recorded nitroglycerin 0.4 mg sublingual 0.4 mg sublingual Q5M PRN chest 07/13/22 tablet pain #25 tabs spironolactone 25 mg tablet 25 mg PO DAILY #30 tabs 10/09/22 (Aldactone) lisinopril 10 mg tablet 10 mg PO BID #180 tabs 11/04/22 atorvastatin 40 mg tablet 40 mg PO DAILY #90 tabs 12/01/22 clotrimazole 1 % topical cream 1 appl topical BID #45 grams 12/03/22 amlodipine 10 mg tablet 10 mg PO DAILY 90 days #90 tabs 01/08/23 metoprolol tartrate 100 mg tablet 100 mg PO BID #60 tabs 01/22/23 isosorbide mononitrate 60 mg 60 mg PO TID 30 days #90 tabs 03/31/23 tablet,extended release 24 hr clopidogrel 75 mg tablet 75 mg PO DAILY #90 tabs 04/27/23 pantoprazole 40 mg tablet,delayed 40 mg PO DAILY #90 tabs 05/25/23 release dronedarone 400 mg tablet (Multaq) 400 mg PO Q12H #60 tabs 05/27/23 rivaroxaban 20 mg tablet (Xarelto) 20 mg PO DAILY #90 tabs 06/24/23 ezetimibe 10 mg tablet 10 mg PO DAILY #90 tabs 06/26/23 amoxicillin 875 mg-potassium 1 tab PO BID #14 tabs 09/09/23 clavulanate 125 mg tablet doxycycline hyclate 100 mg capsule 100 mg PO BID #10 caps 09/09/23 gabapentin 400 mg capsule 400 mg PO TID 90 days #270 caps 09/14/23 lorazepam 0.5 mg tablet 0.5 mg PO BEDTIME PRN anxiety 30 09/14/23 days #30 tabs Allergies Allergy/AdvReac Type Severity Reaction Status Date / Time allopurinol Allergy Chest Pain Verified 09/14/23 08:34 [facility] Past Medical History Medical History Crescendo angina Persistent atrial fibrillation TIA (transient ischemic attack) Exertional chest pain Paroxysmal atrial flutter CAD (coronary artery disease) HLD (hyperlipidemia) HTN (hypertension) Surgical History S/P cardiac catheterization Hx of CABG History of cardiac cath History of cardiac cath Family History Family History Father No problems noted. Mother No problems noted. Maternal Grandmother No problems noted. 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 Current occupational exposures/hazards: No Cognitive needs: No Hearing needs: No Vision needs: No Physical Exam Vital Signs: Vital Signs: Last Vital Signs Temp 98.0 F 09/22/23 15:43 Pulse 62 09/22/23 15:43 Resp 18 09/22/23 15:43 BP 127/78 09/22/23 15:43 Pulse Ox 96 09/22/23 15:43 O2 Del Method Room Air 09/22/23 15:43 BMI result Body Mass Index 30.7 Medical Decision Making Lab Data 09/22/23 18:10 09/22/23 18:10 Labs: Lab Results 09/22/23 Range/Units 18:10 WBC 10.6 (4.8-10.8) X10*3/uL RBC 4.39 L (4.60-5.80) X10*6/uL Hgb 14.0 (14.0-18.0) g/dl Hct 39.5 L (42.0-52.0) % MCV 90.0 (80.0-98.0) fL MCH 31.9 (27.0-33.0) pg MCHC 35.4 (31.0-36.0) g/dl RDW 11.8 (11.0-16.0) % Plt Count 312 (160-400) X10*3/uL MPV 8.5 L (9.4-12.4) fL Immature Gran % (Auto) 0.2 (0.0-0.4) % Neut % (Auto) 72.1 (45-73) % Lymph % (Auto) 18.9 L (20-40) % Harlan % (Auto) 8.0 (2-11) % Eos % (Auto) 0.6 (0-4) % Baso % (Auto) 0.2 (0-2) % Lymph # (Auto) 2.0 (1.2-4.9) X10*3/uL Harlan # (Auto) 0.8 (0.1-1.2) X10*3/uL Eos # (Auto) 0.1 (0.0-0.4) X10*3/uL Baso # (Auto) 0.0 (0.0-0.2) X10*3/uL Abs Immat Gran (auto) 0.02 (0.00-0.03) X10*3/uL Absolute Neuts (auto) 7.6 (2.0-8.3) x10*3/uL Absolute Nucleated RBC 0.000 (0.0-0.012) X10*3/uL Nucleated RBC % (auto) 0.0 (0.0-0.2) /100WBC PT 21.6 H D (11.1-13.3) SEC INR 1.8 H (0.9-1.1) APTT 33.9 (26.0-36.4) SEC Sodium 136 (135-145) mmol/L Potassium 4.9 (3.3-5.1) mmol/L Chloride 103 (96-108) mmol/L Carbon Dioxide 28 (22-29) mmol/L Anion Gap 10 L (12-20) BUN 13 (9-16) mg/dL Creatinine 1.02 (0.5-1.4) mg/dL Estim Creat Clear Calc 88.8 Estimated GFR > 60 Random Glucose 131 H (60-115) mg/dL Calcium 10.0 D (8.4-10.2) mg/dL Total Bilirubin 1.2 H (0.0-1.0) mg/dL AST 23 (5-37) U/L ALT 33 (0-40) U/L Alkaline Phosphatase 45 (39-117) U/L Troponin I High Sens < 2.7 (<3.5-35.0) ng/L Total Protein 7.7 (6.5-8.0) g/dL Albumin 4.4 (3.5-5.0) g/dL Lipase 17 (8-78) U/L Discharge Plan Discharge Prescriptions: No Action nitroglycerin 0.4 mg tablet, sublingual 0.4 mg sublingual Q5M PRN (Reason: chest pain) Qty: 25 0RF spironolactone [Aldactone] 25 mg tablet 25 mg PO DAILY Qty: 30 5RF lisinopril 10 mg tablet 10 mg PO BID Qty: 180 3RF atorvastatin 40 mg tablet 40 mg PO DAILY Qty: 90 3RF clotrimazole 1 % cream 1 appl topical BID Qty: 45 1RF amlodipine 10 mg tablet 10 mg PO DAILY 90 Days Qty: 90 3RF metoprolol tartrate 100 mg tablet 100 mg PO BID Qty: 60 3RF isosorbide mononitrate 60 mg tablet extended release 24 hr 60 mg PO TID 30 Days Qty: 90 5RF clopidogrel 75 mg tablet 75 mg PO DAILY Qty: 90 2RF pantoprazole 40 mg tablet,delayed release (DR/EC) 40 mg PO DAILY Qty: 90 1RF Multaq 400 mg tablet 400 mg PO Q12H Qty: 60 5RF Xarelto 20 mg tablet 20 mg PO DAILY Qty: 90 3RF ezetimibe 10 mg tablet 10 mg PO DAILY Qty: 90 3RF gabapentin 400 mg capsule 400 mg PO TID 90 Days Qty: 270 0RF multivitamin Tablet 1 tab PO DAILY cholecalciferol (vitamin D3) 25 mcg (1,000 unit) Tablet 25 mcg PO DAILY omega-3 fatty acids-fish oil 4141,200 mg Capsule,Delayed Release(Dr/Ec) 1 cap PO DAILY amoxicillin-pot clavulanate 875-125 mg tablet 1 tab PO BID Qty: 14 0RF doxycycline hyclate 100 mg capsule 100 mg PO BID Qty: 10 0RF lorazepam 0.5 mg tablet 0.5 mg PO BEDTIME PRN (Reason: anxiety) 30 Days Qty: 30 2RF ranolazine 500 mg tablet extended release 12 hr 500 mg PO BID
[2023-09-23 00:24] LABS: Troponin-I High Sensitivity < 2.7 ng/L (<3.5-35.0)
--- NOTE | 2023-09-23 00:25 | ED.EXTPRO ---
HPI - Extremity Problem General Chief complaint: Chest Pain Stated complaint: chest pain left arm pain Time Seen by Provider: 09/22/23 23:55 Source: patient Mode of arrival: ambulatory Limitations: no limitations History of Present Illness HPI Narrative: 63 yo male with PMH of CAD s/p PCI on multiple meds and med management, PAF on elliquis, pneumonia just completed augmentin and doxy 09/09, HTN, HLD here with c/o L shoulder pain since 2pm denies injury but hurts to move arm and it is sharp and painful. States it moves to the chest. He has not injured the L shoulder before. He denies numbness or tingling. MD Complaint: extremity pain Onset (ago): day(s) (2pm on 09/22) Pain Consistency: constant Location: left and upper extremity Radiation: distal Relieving factors: rest Exacerbating factors: range of motion and palpation Associated symptoms: denies other symptoms Related Data Home Medications Medication Instructions Recorded Confirmed cholecalciferol (vitamin D3) 25 25 mcg PO DAILY 01/23/22 09/14/23 mcg (1,000 unit) tablet multivitamin 1 tab PO DAILY 01/23/22 09/14/23 omega-3 fatty acids-fish oil 684 1 cap PO DAILY 01/23/22 09/14/23 mg-1,200 mg capsule,delayed release ranolazine 500 mg tablet,extended 500 mg PO BID 03/30/23 09/14/23 release,12 hr Previous Rx's Medication Instructions Recorded nitroglycerin 0.4 mg sublingual 0.4 mg sublingual Q5M PRN chest 07/13/22 tablet pain #25 tabs spironolactone 25 mg tablet 25 mg PO DAILY #30 tabs 10/09/22 (Aldactone) lisinopril 10 mg tablet 10 mg PO BID #180 tabs 11/04/22 atorvastatin 40 mg tablet 40 mg PO DAILY #90 tabs 12/01/22 clotrimazole 1 % topical cream 1 appl topical BID #45 grams 12/03/22 amlodipine 10 mg tablet 10 mg PO DAILY 90 days #90 tabs 01/08/23 metoprolol tartrate 100 mg tablet 100 mg PO BID #60 tabs 01/22/23 isosorbide mononitrate 60 mg 60 mg PO TID 30 days #90 tabs 03/31/23 tablet,extended release 24 hr clopidogrel 75 mg tablet 75 mg PO DAILY #90 tabs 04/27/23 pantoprazole 40 mg tablet,delayed 40 mg PO DAILY #90 tabs 05/25/23 release dronedarone 400 mg tablet (Multaq) 400 mg PO Q12H #60 tabs 05/27/23 rivaroxaban 20 mg tablet (Xarelto) 20 mg PO DAILY #90 tabs 06/24/23 ezetimibe 10 mg tablet 10 mg PO DAILY #90 tabs 06/26/23 amoxicillin 875 mg-potassium 1 tab PO BID #14 tabs 09/09/23 clavulanate 125 mg tablet doxycycline hyclate 100 mg capsule 100 mg PO BID #10 caps 09/09/23 gabapentin 400 mg capsule 400 mg PO TID 90 days #270 caps 09/14/23 lorazepam 0.5 mg tablet 0.5 mg PO BEDTIME PRN anxiety 30 09/14/23 days #30 tabs lidocaine 4 % topical patch 1 patch topical DAILY PRN pain #30 09/23/23 ea oxycodone 5 mg tablet 5 mg PO TID PRN pain #10 tabs 09/23/23 Allergies Allergy/AdvReac Type Severity Reaction Status Date / Time allopurinol Allergy Chest Pain Verified 09/14/23 08:34 Review of Systems Review of Systems: Constitutional : No Fever, No Chills ENT/Mouth : No Ear Pain, No Hoarseness, No sore throat Eyes: No Eye Pain, No Swelling, No Redness, No Foreign Body Cardiovascular : pos Chest Pain, No SOB Respiratory : No Cough, No Dyspnea Gastrointestinal : No Nausea, No Vomiting, No Diarrhea, No abdominal Pain Genitourinary : No Dysuria, No Hematuria Musculoskeletal : positive joint pain, No Myalgias, No Joint Swelling Skin : No Skin lacerations, No rash Neuro : No Weakness, No Numbness, No Loss of Consciousness, No Dizziness, No Headache Psych : No Anxiety/Panic, No Depression Heme/Lymph: no easy bruising, no Lymphadenopathy Endocrine : No Polyuria, No Polydipsia All other systems reviewed and are negative [facility] Past Medical History Attestation statement: The following information was validated with the patient. Source: old records reviewed Medical History Crescendo angina Persistent atrial fibrillation TIA (transient ischemic attack) Exertional chest pain Paroxysmal atrial flutter CAD (coronary artery disease) HLD (hyperlipidemia) HTN (hypertension) Surgical History S/P cardiac catheterization Hx of CABG History of cardiac cath History of cardiac cath Family History Family History Father No problems noted. Mother No problems noted. Maternal Grandmother No problems noted. 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 Oriented X3. No acute distress. Eyes: Pupils equal, round and reactive to light. ENT: Pharynx normal. Neck: Normal inspection. Neck supple. CVS: Normal heart rate and rhythm. Pulses normal. Respiratory: No respiratory distress. Breath sounds normal. Abdomen: Soft and nontender. Skin: Skin warm and dry. Normal skin color. Normal skin turgor. Extremities: No lower extremity edema. ttp L shoulder at prox biceps tendon insertion distal pulses and NV intact SILT intact will not perform rotator cuff testing due to pain Neuro: Oriented X 3. No motor deficit. No sensory deficit. Medications Administered Discontinued Medications Generic Name Dose Route Start Last Admin Trade Name Freq PRN Reason Stop Dose Admin Hydrocodone Bitart/Acetaminophen 1 tab 09/23/23 00:12 09/23/23 00:28 Hydrocodone Bit/Acetam 5/325 Tablet PO 09/23/23 00:13 1 tab ONCE ONE Administration Lidocaine 1 patch 09/23/23 00:12 09/23/23 00:28 Lidocaine 4 % Patch Adh..Patch TRANSDERMA 09/23/23 00:13 1 patch ONCE ONE Administration Protocol Medical Decision Making Medical Decision Making [facility] Narrative: 63 yo male with PMH of CAD s/p PCI on multiple meds and med management, PAF on elliquis, pneumonia just completed augmentin and doxy 09/09, HTN, HLD here with reproduceable atraumatic L shoulder pain starting at 2pm - distal NV intact, cannot perform rotator cuff testing but also very tender at bicepts tendon insertion. At this time given hx will obtain EKG, xray, trop x 2 but suspect MSK pain. Oral pain medications ordered. Differential Diagnosis Differential Diagnoses: The differential diagnosis associated with the presentation includes tendonitis, rotator cuff issues, atypical chest pain Admission/Observation Consideration of admission/observation: Escalation of care including admission/observation considered EKG nonischemic trop flat x 2 Lab Data [facility] Lab Attestation statement: I reviewed the patient's lab results. 09/22/23 18:10 09/22/23 18:10 Labs: Lab Results 09/22/23 09/22/23 Range/Units 18:10 23:58 WBC 10.6 (4.8-10.8) X10*3/uL RBC 4.39 L (4.60-5.80) X10*6/uL Hgb 14.0 (14.0-18.0) g/dl Hct 39.5 L (42.0-52.0) % MCV 90.0 (80.0-98.0) fL MCH 31.9 (27.0-33.0) pg MCHC 35.4 (31.0-36.0) g/dl RDW 11.8 (11.0-16.0) % Plt Count 312 (160-400) X10*3/uL MPV 8.5 L (9.4-12.4) fL Immature Gran % (Auto) 0.2 (0.0-0.4) % Neut % (Auto) 72.1 (45-73) % Lymph % (Auto) 18.9 L (20-40) % Roberts % (Auto) 8.0 (2-11) % Eos % (Auto) 0.6 (0-4) % Baso % (Auto) 0.2 (0-2) % Lymph # (Auto) 2.0 (1.2-4.9) X10*3/uL Roberts # (Auto) 0.8 (0.1-1.2) X10*3/uL Eos # (Auto) 0.1 (0.0-0.4) X10*3/uL Baso # (Auto) 0.0 (0.0-0.2) X10*3/uL Abs Immat Gran (auto) 0.02 (0.00-0.03) X10*3/uL Absolute Neuts (auto) 7.6 (2.0-8.3) x10*3/uL Absolute Nucleated RBC 0.000 (0.0-0.012) X10*3/uL Nucleated RBC % (auto) 0.0 (0.0-0.2) /100WBC PT 21.6 H D (11.1-13.3) SEC INR 1.8 H (0.9-1.1) APTT 33.9 (26.0-36.4) SEC Sodium 136 (135-145) mmol/L Potassium 4.9 (3.3-5.1) mmol/L Chloride 103 (96-108) mmol/L Carbon Dioxide 28 (22-29) mmol/L Anion Gap 10 L (12-20) BUN 13 (9-16) mg/dL Creatinine 1.02 (0.5-1.4) mg/dL Estim Creat Clear Calc 88.8 Estimated GFR > 60 Random Glucose 131 H (60-115) mg/dL Calcium 10.0 D (8.4-10.2) mg/dL Total Bilirubin 1.2 H (0.0-1.0) mg/dL AST 23 (5-37) U/L ALT 33 (0-40) U/L Alkaline Phosphatase 45 (39-117) U/L Troponin I High Sens < 2.7 < 2.7 (<3.5-35.0) ng/L Total Protein 7.7 (6.5-8.0) g/dL Albumin 4.4 (3.5-5.0) g/dL Lipase 17 (8-78) U/L Independent Interpretation I performed an independent interpretation of an: EKG and Plain X-Ray (no fracture, likely resolved pneumonia) Interpretation: Rate: 61 Rhythm: NSR with 1st degree AVB [place]: normal Normal P waves. 1st degree AVB Normal QRS complex. ST T wave : nonspecific ST T wave changes V1-V2, aVL qTC: normal prior studies: no change from priors The study has been interpreted contemporaneously by me. . Radiology Impression Discussion of test interpretation with radiology: I have reviewed the radiologist's reading. External Record Review External record reviewed: Inpatient record and Office record Prescription Management I considered prescription management with: Pain Medication and Other Discharge Plan Discharge Clinical Impression: Left shoulder tendonitis Patient Disposition: Home, Self-Care Instructions: Shoulder Pain (ED) Additional Instructions: return for worsening symptoms, pain, numbness or tingling. wear sling for 3 days but no longer. use pain patches and take tylenol. please follow up with your doctor you may need further workup including MRI or physical therapy. Prescriptions: New lidocaine 4 % adhesive patch,medicated 1 patch topical DAILY PRN (Reason: pain) Qty: 30 0RF Rx Instructions: may leave on for up to 12 hrs oxycodone 5 mg tablet 5 mg PO TID PRN (Reason: pain) Qty: 10 0RF Rx Instructions: Partial Fill upon patient request. No Action nitroglycerin 0.4 mg tablet, sublingual 0.4 mg sublingual Q5M PRN (Reason: chest pain) Qty: 25 0RF spironolactone [Aldactone] 25 mg tablet 25 mg PO DAILY Qty: 30 5RF lisinopril 10 mg tablet 10 mg PO BID Qty: 180 3RF atorvastatin 40 mg tablet 40 mg PO DAILY Qty: 90 3RF clotrimazole 1 % cream 1 appl topical BID Qty: 45 1RF amlodipine 10 mg tablet 10 mg PO DAILY 90 Days Qty: 90 3RF metoprolol tartrate 100 mg tablet 100 mg PO BID Qty: 60 3RF isosorbide mononitrate 60 mg tablet extended release 24 hr 60 mg PO TID 30 Days Qty: 90 5RF clopidogrel 75 mg tablet 75 mg PO DAILY Qty: 90 2RF pantoprazole 40 mg tablet,delayed release (DR/EC) 40 mg PO DAILY Qty: 90 1RF Multaq 400 mg tablet 400 mg PO Q12H Qty: 60 5RF Xarelto 20 mg tablet 20 mg PO DAILY Qty: 90 3RF ezetimibe 10 mg tablet 10 mg PO DAILY Qty: 90 3RF gabapentin 400 mg capsule 400 mg PO TID 90 Days Qty: 270 0RF multivitamin Tablet 1 tab PO DAILY cholecalciferol (vitamin D3) 25 mcg (1,000 unit) Tablet 25 mcg PO DAILY omega-3 fatty acids-fish oil 684-1,200 mg Capsule,Delayed Release(Dr/Ec) 1 cap PO DAILY amoxicillin-pot clavulanate 875-125 mg tablet 1 tab PO BID Qty: 14 0RF doxycycline hyclate 100 mg capsule 100 mg PO BID Qty: 10 0RF lorazepam 0.5 mg tablet 0.5 mg PO BEDTIME PRN (Reason: anxiety) 30 Days Qty: 30 2RF ranolazine 500 mg tablet extended release 12 hr 500 mg PO BID
[2023-09-23] MEDS: Lidocaine 4 % Patch ADH..PATCH 1 PATCH TRANSDERMA (00:28)
[2023-09-23] MEDS: HYDROcodone Bit/Acetam 5/325 TABLET 1 TAB PO (00:28)
[2023-09-23 00:31] VITALS: BP 101/65; PULSE 62; RESP 16; O2SAT 95
[2023-09-23 01:06] VITALS: BP 103/69; PULSE 61; RESP 16; O2SAT 95
== END 2023-09-23 01:07 | disposition home or self-care (01) ==
PROVIDERS: Physician Assistant; Emergency Provider Emergency Medicine; PCP Nurse Practitioner Family
DX: M75.32 Calcific tendinitis of left shoulder (principal); R07.89 Other chest pain; M79.602 Pain in left arm; Z79.01 Long term (current) use of anticoagulants; Z87.891 Personal history of nicotine dependence; Z79.899 Other long term (current) drug therapy
CPT/HCPCS: 36415; 71046; 73030; 80053; 83690; 84484; 85025; 85610; 85730; 93005; 99284; 99285

== ENCOUNTER → 2023-09-22 15:43 | Outpatient (BNV) | payer BC, MEDICAID, SELFPAY | PROVIDERS: Emergency Provider Emergency Medicine; PCP Nurse Practitioner Family; Visit Provider Internal Medicine Cardiovascular Disease | DX: I44.0 Atrioventricular block, first degree (principal); R94.31 Abnormal electrocardiogram [ECG] [EKG] | CPT/HCPCS: 93010 ==

== ENCOUNTER 2023-10-27 14:42 | Outpatient (AMB) | payer BC, MEDICAID, SELFPAY ==
--- NOTE | 2023-10-27 14:45 | A.OFFVIS_ITS ---
Intake Vital Signs 10/27/23 14:46 Height 5 ft 10 in Weight 213 lb 13.574 oz BMI 30.7 BP 110/64 Blood Pressure Location Lt brachial Position Sitting Pulse 56 Intake Visit Reasons: 6 THU FUP W/ EKG Intake Note: 6 month follow-up with ekg feeling good Clinical Services Director Required: No Allergies allopurinol Allergy (Verified 09/14/23 08:34) Chest Pain Medication List - Last Reconciled 10/27/23 by Dakota Cotter MD amlodipine 10 mg PO DAILY 90 days atorvastatin 40 mg PO DAILY cholecalciferol (vitamin D3) 25 mcg PO DAILY clopidogrel 75 mg PO DAILY clotrimazole 1% 1 appl topical BID dronedarone (Multaq) 400 mg PO Q12H ezetimibe 10 mg PO DAILY gabapentin 400 mg PO TID 90 days isosorbide mononitrate ER 30 mg PO TID lidocaine 4% 1 patch topical DAILY PRN lisinopril 10 mg PO BID lorazepam 0.5 mg PO BEDTIME PRN 30 days metoprolol tartrate 50 mg PO .4 times a day multivitamin 1 tab PO DAILY nitroglycerin 0.4 mg sublingual Q5M PRN omega-3 fatty acids-fish oil 684-1,200 mg 1 cap PO DAILY oxycodone 5 mg PO TID PRN pantoprazole 40 mg PO DAILY ranolazine ER 500 mg PO BID rivaroxaban (Xarelto) 20 mg PO DAILY spironolactone 25 mg PO DAILY HPI HPI Comments History of Present Illness Details Matteo comes for follow-up. He said when he pushes himself for over exerts himself he still gets symptoms of angina. He has to then slow down his activity. He has not taken sublingual nitroglycerin. No symptoms at rest. He has currently not working. Taking all his medications. No prolonged symptoms of palpitations or lightheadedness. No heart failure symptoms. [facility] Medical History Crescendo angina Persistent atrial fibrillation TIA (transient ischemic attack) Exertional chest pain Paroxysmal atrial flutter CAD (coronary artery disease) HLD (hyperlipidemia) HTN (hypertension) Surgical History S/P cardiac catheterization Hx of CABG History of cardiac cath History of cardiac cath Family History Father No problems noted. Mother No problems noted. Maternal Grandmother No problems noted. 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 Current occupational exposures/hazards: No Cognitive needs: No Hearing needs: No Vision needs: No Review of Systems Const Denies chills, Denies fatigue, Denies fever(s), Denies frequent falls, Denies weakness, Denies weight gain and Denies weight loss ENT Denies dizziness Card Denies chest pain, Denies leg edema, Denies lightheadedness, Denies palpitations, Denies dyspnea, Denies dyspnea on exertion, Denies orthopnea and Denies other (loss of consciousness) Resp Denies cough, Denies dyspnea and Denies dyspnea on exertion GI Denies hematochezia and Denies change in stool character Musc Denies abnormal gait, Denies muscle weakness, Denies numbness, Denies radiating pain into limb and Denies tingling Neuro Denies abnormal gait, Denies dizziness, Denies frequent falls, Denies numbness, Denies tingling and Denies weakness Endo Denies fatigue and Denies palpitations Physical Exam Vital Signs: Last Vital Signs Pulse 56 10/27/23 14:46 BP 110/64 10/27/23 14:46 BMI result Body Mass Index 30.7 Const General: cooperative, healthy appearing, no acute distress, alert and awake Orientation/consciousness: patient oriented x3 HEENT Head: Yes normal to inspection Neck Neck: Yes normal visual inspection and Yes no JVD Chest Chest palpation & inspection: other (Well-healed sternotomy scar) Resp Effort & Inspection: normal respiratory effort, able to speak in complete sentences and not labored Auscultation: clear to auscultation bilaterally, no crackles, no rales, no rhonchi and no wheezes Cardio Jugular venous distension: no JVD Rate: regular rate Rhythm: regular rhythm Heart sounds: S1 normal heart sound present and S2 normal heart sound present Peripheral pulses: Peripheral pulses 2+ throughout GI Inspection: Yes normal to inspection Neuro General: patient oriented x3 Extrem Other: Right femoral catheterization site well healed with easily palpable femoral pulse General: Yes normal to inspection and No edema Office Procedures EKG Details: EKG shows normal sinus rhythm with T-wave inversion in V2 to V4 which could represent repolarization abnormality or ischemia. [id number], Complete Assessment & Plan Assessment & Plan (1) Exertional chest pain: Code(s): R07.9 - Chest pain, unspecified Plan: Patient with complex coronary artery disease with prior surgical revascularization multiple PCIs. Complex coronary artery disease with patent bypass grafts. Patient continues to have exertional angina with no unstable pattern. He is on 4 antianginal therapies including his own way of taking metoprolol which she takes 4 times a day as well as isosorbide which she takes 3 times a day. He continues to take amlodipine and Ranexa as prescribed. He is currently on Plavix therapy along with oral anticoagulation with Xarelto. Continue the same. His LDL is currently well optimized. Blood pressure is currently well optimized. Advised to avoid sudden strenuous exertion and avoid over exertion. Advised to take nitroglycerin if he gets resting discomfort in seek emergency care. He understands management well. (2) Paroxysmal atrial fibrillation: Code(s): I48.0 - Paroxysmal atrial fibrillation Plan: Paroxysmal atrial fibrillation which has remained suppressed on metoprolol therapy. No indication for antiarrhythmic drug therapy at this point time. Avoidance of stimulants was discussed. Stress mitigation strategies were discussed aggressive control blood pressure is advised. Continue full oral anticoagulation, currently on Xarelto 20 mg daily. Will follow up in the clinic in 3 months time on patient's request. Thank you for allowing me to partake in his care Medications: Changed From metoprolol tartrate 100 mg PO BID 60 tabs 3RF To metoprolol tartrate 50 mg PO .4 times a day Coding Level of Care Code Est Pt Level 4 (29564) Diagnoses Exertional chest pain R07.9 Paroxysmal atrial fibrillation I48.0 CPT Codes EKG - CPT: 60501-[id number], Complete ([id number])
[2023-10-27 14:46] VITALS: BP 110/64; PULSE 56; BMI 30.7
== END 2023-10-27 15:07 | disposition home or self-care (01) ==
PROVIDERS: PCP Nurse Practitioner Family; Visit Provider Internal Medicine Cardiovascular Disease
DX: R07.9 Chest pain, unspecified (principal); I48.0 Paroxysmal atrial fibrillation
CPT/HCPCS: 93010; 99214

== ENCOUNTER → 2023-10-27 14:42 | Outpatient (BNVA) | payer BC, MEDICAID, SELFPAY | PROVIDERS: PCP Nurse Practitioner Family; Visit Provider Internal Medicine Cardiovascular Disease | DX: R07.9 Chest pain, unspecified (principal); I48.0 Paroxysmal atrial fibrillation; Z79.01 Long term (current) use of anticoagulants; Z79.899 Other long term (current) drug therapy | CPT/HCPCS: 93005 ==

== ENCOUNTER 2024-01-28 14:30 | Outpatient (AMB) | payer BC, SELFPAY ==
--- NOTE | 2024-01-28 14:36 | MHC.OFFVIS ---
Vital Signs 01/28/24 14:37 Height 5 ft 10 in Weight 209 lb 7.026 oz BMI 30.0 BP 100/70 Blood Pressure Location Lt brachial Position Sitting Pulse 69 Pulse Source Monitor Intake Visit Reasons: 3 mth f/up Quality Rn Required: No Allergies allopurinol Allergy (Verified 01/28/24 14:39) Chest Pain Medication List - Last Reconciled 01/28/24 by Renee Pack, OPERATIONS AND MAINTENANCE SUPERVISOR-C amlodipine 10 mg PO DAILY atorvastatin 40 mg PO DAILY cholecalciferol (vitamin D3) 25 mcg PO DAILY clopidogrel 75 mg PO DAILY clotrimazole 1% 1 appl topical BID dronedarone (Multaq) 400 mg PO BID ezetimibe 10 mg PO DAILY gabapentin 400 mg PO TID 90 days isosorbide mononitrate ER 30 mg PO TID lidocaine 4% 1 patch topical DAILY PRN lisinopril 10 mg PO BID lorazepam 0.5 mg PO BEDTIME PRN 30 days metoprolol tartrate 50 mg PO .4 times a day multivitamin 1 tab PO DAILY nitroglycerin 0.4 mg sublingual Q5M PRN omega-3 fatty acids-fish oil 684-1,200 mg 1 cap PO DAILY oxycodone 5 mg PO TID PRN pantoprazole 40 mg PO DAILY ranolazine ER 500 mg PO BID 90 days rivaroxaban (Xarelto) 20 mg PO DAILY spironolactone 25 mg PO DAILY HPI HPI 3 mth f/up: Details: Matteo is a 64 yo male with PMH of HTN, HLD, paroxysmal atrial fibrillation, complex coronary artery disease with prior CABG and multiple PCIs, stable angina who presents for follow up. Today he reports that he will get chest discomfort if he does exertional activities. He tries to do things slowly yet remain as active as he can. He tries to keep his stress level down as well as increased stress and anxiety will cause chest discomfort as well. His breathing has been stable. No PND, orthopnea or edema. No lightheadedness, presyncope, syncope, falls. No bleeding issues reported. Has been out of work as he is unable to perform his job functions without getting chest discomfort. Taking meds as directed. [facility] Medical History Crescendo angina Persistent atrial fibrillation TIA (transient ischemic attack) Exertional chest pain Paroxysmal atrial flutter CAD (coronary artery disease) HLD (hyperlipidemia) HTN (hypertension) Surgical History (Updated 01/29/24 @ 08:15 by YEVGENIY Bell) S/P cardiac catheterization Hx of CABG History of cardiac cath History of cardiac cath Family History Father No problems noted. Mother No problems noted. Maternal Grandmother No problems noted. 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 Current occupational exposures/hazards: No Cognitive needs: No Hearing needs: No Vision needs: No Review of Systems Const All systems reviewed & are unremarkable except as noted in HPI and below ENT Denies dizziness Card Reports chest pain, Denies chest pain at rest, Denies chest pain with activity, Denies rapid heart rate, Denies pedal edema, Denies edema, Denies leg edema, Denies lightheadedness, Denies palpitations, Reports dyspnea, Reports dyspnea on exertion and Denies orthopnea Resp Denies cough, Reports dyspnea and Reports dyspnea on exertion GI Denies hematochezia and Denies change in stool character Musc Denies abnormal gait, Denies limited range of motion, Denies muscle cramps, Denies muscle weakness, Denies numbness, Denies radiating pain into limb, Denies stiffness and Denies tingling Neuro Denies abnormal gait, Denies dizziness, Denies numbness and Denies tingling Endo Denies palpitations Physical Exam Vital Signs: Last Vital Signs Pulse 69 01/28/24 14:37 BP 100/70 01/28/24 14:37 BMI result Body Mass Index 30.0 Const General: cooperative, healthy appearing, comfortable and no acute distress Orientation/consciousness: patient oriented x3 Neck Neck: Yes normal visual inspection and Yes no JVD Resp Effort & Inspection: normal respiratory effort Auscultation: clear to auscultation bilaterally, no crackles, no rales, no rhonchi and no wheezes Cardio Jugular venous distension: no JVD Rate: regular rate Rhythm: regular rhythm Heart sounds: S1 normal heart sound present, S2 normal heart sound present, no murmurs and no rubs Neuro General: patient oriented x3 Extrem General: Yes normal to inspection and No no pedal edema Psych Appearance: grossly normal Mental Status: mental status grossly normal Speech and movement: Normal speech and movement present Office Procedures EKG Details: Today, read by me, rhythm with first-degree AV block, no acute ST or T-wave abnormalities, rate 69, QTC 452 millisecond [id number], Complete Assessment & Plan Assessment & Plan (1) Exertional chest pain: Code(s): R07.9 - Chest pain, unspecified Category: Medical Plan: History of CAD with three-vessel coronary artery bypass grafting 01/2015. Cardiac catheterization 02/01/2022 showing severe PLV stenosis, graft known to be occluded, PCI to the RPLV LU. Last echo 12/26/2021 shows EF 50-55%, impaired relaxation, normal valves, regional wall motion abnormalities can not be excluded due to suboptimal endocardial definition. Cardiac catheterization 09/26/2022 with 95% stenosis of the right PAV, PCI performed, 95% stenosis of the right PDA and PCI performed. Patient continues to have exertional angina with no unstable pattern. He is on 4 antianginal therapies including metoprolol which he takes 4 times a day as well as isosorbide which he takes 3 times a day. He continues to take amlodipine and Ranexa as prescribed. He is currently on Plavix therapy along with oral anticoagulation with Xarelto. He is not on aspirin. EKG done today showing sinus rhythm with first-degree AV block, no acute ST or T-wave abnormalities, rate 69. His angina has remained stable. He adjusts his physical activity and stress levels to avoid chest symptoms. He continues on atorvastatin 40 mg daily as well as Zetia 10 mg daily. Last LDL 34 on 06/01/2023. Recent LFTs are normal. Blood pressure is well controlled. Advised to avoid sudden strenuous exertion and avoid over exertion. Advised to take nitroglycerin sublingual if needed for chest discomfort. Emergency care if needed. Cardiology office visit in 3 months, sooner if needed. (2) Paroxysmal atrial fibrillation: Code(s): I48.0 - Paroxysmal atrial fibrillation Category: Medical Plan: Paroxysmal atrial fibrillation which has remained suppressed on metoprolol and Multaq. EKG done today shows sinus rhythm with first-degree AV block, QTC interval 452 milliseconds. Avoidance of stimulants was discussed. Continue full oral anticoagulation, currently on Xarelto 20 mg daily. Labs done 09/22/2023 shows creatinine 1.02 (3) S/P cardiac catheterization: Comment: 02/01/2022 severe R PLV stenosis, graft known to be occluded, severe distal left main stenosis, occluded mid LAD with patent LACEY to LAD, patent radial graft to the OM. PCI to the R-PLV with LU Code(s): Z98.890 - Other specified postprocedural states Category: Surgical Plan: As above (4) Hx of CABG: Comment: x 3 triple bypass 01/2015 LACEY to LAD, right radial artery graft to OM and SVG to R-PLV Code(s): Z95.1 - Presence of aortocoronary bypass graft Category: Surgical Plan: As above (5) S/P cardiac cath: Comment: 09/26/2022 distal left main 70% stenosis, lad ostial 60-70% stenosis, mid LAD severe stenosis, left circumflex mid to distal 80% stenosis, RCA previous stent in the right PDA, right PAV 95% stenosis, PCI performed, right PDA 95% stenosis, PCI performed, vein graft aorta left 2/3 RPL, radial graft from aorta left to 2nd OM, lacey to mid LAD Code(s): Z98.890 - Other specified postprocedural states Category: Surgical Plan: As above Plan Time spent on chart review, documentation, interview, assessment, paperwork for disability Coding Level of Care Code Est Pt Level 4 (47228) Diagnoses Exertional chest pain R07.9 Paroxysmal atrial fibrillation I48.0 S/P cardiac catheterization Z98.890 Hx of CABG Z95.1 CPT Codes EKG - CPT: 50062-[id number], Complete ([id number]) Time Spent (min) 40
[2024-01-28 14:37] VITALS: BP 100/70; PULSE 69
== END 2024-01-28 15:11 | disposition home or self-care (01) ==
PROVIDERS: PCP Nurse Practitioner Family; Visit Provider Nurse Practitioner Family
DX: I44.0 Atrioventricular block, first degree (principal)
CPT/HCPCS: 93010; 99214

== ENCOUNTER → 2024-01-28 14:30 | Outpatient (BNVA) | payer BC, MEDICAID, SELFPAY | PROVIDERS: PCP Nurse Practitioner Family; Visit Provider Nurse Practitioner Family | DX: R07.9 Chest pain, unspecified (principal); I48.0 Paroxysmal atrial fibrillation; I25.10 Atherosclerotic heart disease of native coronary artery without angina pectoris; Z79.01 Long term (current) use of anticoagulants; Z79.02 Long term (current) use of antithrombotics/antiplatelets; Z79.899 Other long term (current) drug therapy; Z95.1 Presence of aortocoronary bypass graft | CPT/HCPCS: 93005 ==

== ENCOUNTER 2024-04-25 11:01 | Outpatient (AMB) | payer OTHER, SELFPAY ==
--- NOTE | 2024-04-25 11:04 | A.OFFPC_ITS ---
Vital Signs 04/25/24 11:05 Height 5 ft 10 in Weight 211 lb BMI 30.3 BP 112/78 Blood Pressure Location Lt brachial Position Sitting Pulse 67 Pulse Source Pulse Oximeter Pulse Oximetry (%) 96 Oxygen Delivery Method Room Air Intake Visit Reasons: Annual Physical Over Due Intake Note: Pt is here today for his Annual Physical Allergies allopurinol Allergy (Verified 04/25/24 12:05) Chest Pain Medication List - Last Reconciled 04/25/24 by JESSE Glover amlodipine 10 mg PO DAILY atorvastatin 40 mg PO DAILY cholecalciferol (vitamin D3) 25 mcg PO DAILY clopidogrel 75 mg PO DAILY clotrimazole 1% 1 appl topical BID colchicine 0.3 mg orally 2 tabs with flare, then 1 tab 1 hr later PRN; (MAX: 3 tabs a day) 10 days dronedarone (Multaq) 400 mg PO BID ezetimibe 10 mg PO DAILY gabapentin 400 mg PO TID 90 days isosorbide mononitrate ER 30 mg PO TID lisinopril 10 mg PO BID lorazepam 0.5 mg PO BEDTIME PRN 30 days metoprolol tartrate 50 mg (1/2 x 100 mg) PO .4 times a day multivitamin 1 tab PO DAILY omega-3 fatty acids-fish oil 684-1,200 mg 1 cap PO DAILY pantoprazole 40 mg PO DAILY ranolazine ER 500 mg PO BID 90 days rivaroxaban (Xarelto) 20 mg PO DAILY spironolactone 25 mg PO DAILY Tobacco use date assessed: 04/25/24 Dental Screening Dental Screen Date: 04/25/24 Did you have a dental visit in the last 12 months?: No Did you have a dental problem in the last 6 months where you did not have access to dental care?: No Was dental information given to patient?: No HPI Annual Physical Over Due HPI Details Pt is here for a PE. Will order labs. Cologuard is up to date. Due for PSA, will order. Denies dribbling with urination, weak stream, does report frequent nocturia. Pt follows up with cardiology. [facility] Medical History Crescendo angina Persistent atrial fibrillation TIA (transient ischemic attack) Exertional chest pain Paroxysmal atrial flutter CAD (coronary artery disease) HLD (hyperlipidemia) HTN (hypertension) Surgical History S/P cardiac catheterization Hx of CABG History of cardiac cath History of cardiac cath Family History Father No problems noted. Mother No problems noted. Maternal Grandmother No problems noted. 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 1. Little interest or pleasure in doing things: not at all 2. Feeling down, depressed, or hopeless: not at all 3. Trouble falling or staying asleep, or sleeping too much: not at all 4. Feeling tired or having little energy: not at all 5. Poor appetite or overeating: not at all 6. Feeling bad about yourself - or that you are a failure or have let yourself or your family down: not at all 7. Trouble concentrating on things, such as reading the newspaper or watching television: not at all 8. Moving or speaking so slowly that other people could have noticed. Or the opposite - being so fidgety or restless that you have been moving around a lot more than usual: not at all 9. Thoughts that you would be better off or of hurting yourself in some way: not at all Total score: 0 Depression Screening Interpretation: Negative Depression Screening Done: Yes 34608 - PHQ-9 Billing: Yes Source: Developed by Drs. Ge Fuentes, Maricruz Velázquez, Brent Lara and colleagues, with an educational miah from [employer]. Thrive Questionnaire Date Thrive assessed: 04/25/24 I am a: Patient What is your living situation today?: I have a steady place to live Within the past 12 months, did the food you bought not last and you didn't have the money to get more?: Never true Within the past 12 months, did you worry whether your food would run out before you got money to buy more?: Never true Do you have trouble paying for medicines?: No Do you have trouble getting transportation to medical appointments?: No Do you have trouble paying your heating and electricity bill?: No Do you have trouble taking care of your child, family member or friend?: No Do you have trouble with day-to-day activities such as bathing, preparing meals, shopping, managing finances, etc.?: No Are you currently unemployed and looking for a job?: Yes Are you interested in more education?: No Please select the resources that you would like help with: Housing/Jail Currently or been in a relationship where the following occur: No concerns reported THRIVE Score: 0 AUDIT C Alcohol Use Questionnaire (AUDIT-C) 1. How often do you have a drink containing alcohol?: Never 3. How often do you have six or more drinks on one occasion?: Never Total Score: 0 Score Reviewed/Action Taken: Yes MIKEL-7 AMB Questionnaire MIKEL-7 Date MIKEL - 7 assessed: 04/25/24 Feeling nervous, anxious, or on edge: 0 = Not at all Not being able to stop or control worryin = Not at all Worrying too much about different things: 0 = Not at all Trouble relaxin = Not at all Being so restless that it is hard to sit still: 0 = Not at all Becoming easily annoyed or irritable: 0 = Not at all Feeling afraid as if something awful might happen: 0 = Not at all Total MIKEL-7 score (0-4 normal; 5-9 mild; 10-14 moderate; 15-21 severe): 0 Source: Developed by Drs. Ge Fuentes, Maricruz Velázquez, Brent Lara and colleagues, with an educational miah from [employer]. MIKEL-7 Assessment Billing MIKEL-7 Assessment Tool: MIKEL-7 Assessment 18734 Review of Systems Const Denies chills and Denies fever(s) Eyes Denies blurry vision ENT Denies vertigo, Denies dizziness and Denies sore throat Card Denies chest pain at rest, Denies chest pain with activity, Denies diaphoresis, Denies dyspnea and Denies dyspnea on exertion Resp Denies cough, Denies dyspnea, Denies dyspnea on exertion and Denies wheezing GI Denies abdominal pain, Denies melena, Denies hematochezia, Denies constipation, Denies diarrhea and Denies loose stools Denies hematuria Musc Denies numbness and Denies tingling Skin/Breast Denies lesions Neuro Denies vertigo, Denies dizziness, Denies numbness and Denies tingling Psych Denies anxiety, Denies depression, Denies homicidal ideation, Denies suicidal ideation and Denies other (substance abuse) Aller/Immun Denies wheezing Physical exam (Primary Care) Vital Signs: Last Vital Signs Pulse 67 04/25/24 11:05 BP 112/78 04/25/24 11:05 Pulse Ox 96 04/25/24 11:05 Oxygen Delivery Method Room Air 04/25/24 11:05 BMI result Body Mass Index 30.3 Tobacco/Smoking Status: Tobacco use Status Tobacco use date assessed 04/25/24 04/25/24 11:10 Patient Tobacco Use Status Former Tobacco user 04/25/24 11:10 e-Cigarette/Vaping Use Never Used 04/25/24 11:10 PHQ-9: PHQ-9 Score PHQ-9: Total score 0 04/25/24 11:10 Depression Screening Interpretation: Negative Thrive Assessment: Date of Thrive Assessment Date Thrive assessed 04/25/24 04/25/24 11:10 Currently or been in a relationship where the following occur: No concerns reported Const General: cooperative Nutritional Appearance: well nourished Orientation/consciousness: patient oriented x3 HENMT Head: Yes normal to inspection, Yes normocephalic and Yes atraumatic Ears: TM's normal bilaterally Eyes General: appearance normal, both eyes and all related structures Alignment and Position: alignment normal and position normal Neck Neck: Yes normal visual inspection and Yes no lymphadenopathy Thyroid: Thyroid normal Resp Other: lungs fairly clear Effort & Inspection: normal respiratory effort Cardio Rate: regular rate Rhythm: regular rhythm Heart sounds: S1 normal heart sound present, S2 normal heart sound present and no murmurs GI Palpation (GI): Soft to palpation and nontender Auscultation: normal bowel sounds Other: YOLA: prostate without nodules Male General Exam: Yes normal external exam Penis: normal penis Scrotum: scrotum normal and no inguinal hernias Testes: absent testicle on the left and no testicular mass Skin Rashes: no rashes Neuro General: patient oriented x3, moves all extremities, no focal motor deficits and deep tendon reflexes 2+ bilaterally Romberg Test: Negative Extrem Right lower extremity: edema (trace) Left lower extremity: edema (trace) Psych Appearance: grossly normal Mental Status: mental status grossly normal Speech and movement: Normal speech and movement present Affect: normal affect Attitude: cooperative Thought process: Normal thought process present Thought content: Normal thought content present Insight: Good insight present (Psych) Judgement: Good judgement present (Psych) Assessment and Plan Assessment & Plan (1) Physical exam: Code(s): Z00.00 - Encounter for general adult medical examination without abnormal findings Plan: Labs ordered (2) Screening PSA (prostate specific antigen): Code(s): Z12.5 - Encounter for screening for malignant neoplasm of prostate Plan: PSA ordered Plan The patient agreed to the use of a director of medical services for this encounter. Scribed for BRADFORD Reyes-BC by Jenna Penn director of medical services, on 04/25/2024 at 11:15 EST. Orders: Orders Complete Blood Count Auto Diff Today Z00.00 - Encounter for general adult medical examination without abnormal findings Comprehensive Arg[place]. Panel Fast Today Z00.00 - Encounter for general adult medical examination without abnormal findings Lipid Panel Today Z00.00 - Encounter for general adult medical examination without abnormal findings Prostate Specific Antigen Scr Today Z12.5 - Encounter for screening for malignant neoplasm of prostate TSH reflex Free T4 Today Z00.00 - Encounter for general adult medical examination without abnormal findings UA CC w/rflx Micro + Cult Today Z00.00 - Encounter for general adult medical examination without abnormal findings Medications: Refilled ezetimibe 10 mg PO DAILY 90 tabs 3RF colchicine 0.3 mg orally 2 tabs with flare, then 1 tab 1 hr later PRN; (MAX: 3 tabs a day) 30 tabs 0RF gout flare 10 days clopidogrel 75 mg PO DAILY 90 tabs 0RF pantoprazole 40 mg PO DAILY 90 tabs 1RF gabapentin 400 mg PO TID 270 caps 0RF 90 days Coding Level of Care Code Est Pt Prev Care 40-64y(35860) Diagnoses Physical exam Z00.00 Screening PSA (prostate specific antigen) Z12.5 Additional Codes MIKEL-7 Assessment Billing - MIKEL-7 Assessment Tool: MIKEL-7 Assessment 20485 ([id number])
[2024-04-25 11:05] VITALS: BP 112/78; PULSE 67; O2SAT 96; BMI 30.3
== END 2024-04-25 11:27 | disposition home or self-care (01) ==
PROVIDERS: PCP Nurse Practitioner Family; Visit Provider Nurse Practitioner Family
DX: Z00.00 Encounter for general adult medical examination without abnormal findings (principal); Z12.5 Encounter for screening for malignant neoplasm of prostate
CPT/HCPCS: 99396

== ENCOUNTER 2024-05-05 13:41 | Outpatient (AMB) | payer OTHER, SELFPAY ==
[2024-05-05 14:02] VITALS: BP 96/58; PULSE 69; BMI 30.3
--- NOTE | 2024-05-05 14:02 | A.OFFVIS_ITS ---
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 Allergies allopurinol Allergy (Verified 05/05/24 14:04) Chest Pain Medication List - Last Reconciled 05/05/24 by YEVGENIY Bell amlodipine 10 mg PO DAILY atorvastatin 40 mg PO DAILY cholecalciferol (vitamin D3) 25 mcg PO DAILY clopidogrel 75 mg PO DAILY clotrimazole 1% 1 appl topical BID colchicine 0.3 mg orally 2 tabs with flare, then 1 tab 1 hr later PRN; (MAX: 3 tabs a day) 10 days dronedarone (Multaq) 400 mg PO BID ezetimibe 10 mg PO DAILY gabapentin 400 mg PO TID 90 days isosorbide mononitrate ER 30 mg PO TID lisinopril 10 mg PO BID lorazepam 0.5 mg PO BEDTIME PRN 30 days metoprolol tartrate 50 mg (1/2 x 100 mg) PO .4 times a day multivitamin 1 tab PO DAILY omega-3 fatty acids-fish oil 684-1,200 mg 1 cap PO DAILY pantoprazole 40 mg PO DAILY ranolazine ER 500 mg PO BID 90 days rivaroxaban (Xarelto) 20 mg PO DAILY spironolactone 25 mg PO DAILY HPI HPI 3 mth fu: Details: Matteo is a 64 yo male with PMH of HTN, HLD, paroxysmal atrial fibrillation, complex coronary artery disease with prior CABG and multiple PCIs, stable angina who presents for follow up. Today he reports that he continues to get chest discomfort if he does exertional activities. He says this symptom has been stable and not any worse than when previously seen. If he takes things slow he is able to control this symptom. He tries to keep his stress level down since increased stress and anxiety will also cause chest discomfort. He takes his medications throughout the day and finds this system works well for him. His breathing has been stable. No PND, orthopnea or edema. No lightheadedness, presyncope, syncope, falls. No bleeding issues reported. He tells me that since his last visit he got . He is very happy and showing me pictures of his new bride. [facility] Medical History Crescendo angina Persistent atrial fibrillation TIA (transient ischemic attack) Exertional chest pain Paroxysmal atrial flutter CAD (coronary artery disease) HLD (hyperlipidemia) HTN (hypertension) Surgical History S/P cardiac catheterization Hx of CABG History of cardiac cath History of cardiac cath Family History Father No problems noted. Mother No problems noted. Maternal Grandmother No problems noted. 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 Current occupational exposures/hazards: No Cognitive needs: No Hearing needs: No Vision needs: No Review of Systems Const All systems reviewed & are unremarkable except as noted in HPI and below ENT Denies dizziness Card Reports chest pain, Denies chest pain at rest, Denies chest pain with activity, Denies rapid heart rate, Denies pedal edema, Denies edema, Denies leg edema, Denies lightheadedness, Denies palpitations, Denies dyspnea, Denies dyspnea on exertion and Denies orthopnea Resp Denies cough, Denies dyspnea and Denies dyspnea on exertion GI Denies hematochezia and Denies change in stool character Musc Denies abnormal gait, Denies limited range of motion, Denies muscle cramps, Denies muscle weakness, Denies numbness, Denies radiating pain into limb, Denies stiffness and Denies tingling Neuro Denies abnormal gait, Denies dizziness, Denies numbness and Denies tingling Endo Denies palpitations Physical Exam Vital Signs: Last Vital Signs Pulse 69 05/05/24 14:02 BP 80/64 L 05/05/24 14:02 BMI result Body Mass Index 30.3 Const General: cooperative, healthy appearing, comfortable and no acute distress Orientation/consciousness: patient oriented x3 Neck Neck: Yes normal visual inspection and Yes no JVD Resp Effort & Inspection: normal respiratory effort Auscultation: clear to auscultation bilaterally, no crackles, no rales, no rhonchi and no wheezes Cardio Jugular venous distension: no JVD Rate: regular rate Rhythm: regular rhythm Heart sounds: S1 normal heart sound present, S2 normal heart sound present, no murmurs and no rubs Neuro General: patient oriented x3 Extrem General: Yes normal to inspection and No no pedal edema Psych Appearance: grossly normal Mental Status: mental status grossly normal Speech and movement: Normal speech and movement present Office Procedures EKG Details: Today, read by me, sinus rhythm with sinus arrhythmia, first-degree AV block, rate 69, QTC 456 milliseconds. Note tracing at 20mv and not usual 10 mV -false abnormally large QRS complexes [id number], Complete Assessment & Plan Assessment & Plan (1) Exertional chest pain: Code(s): R07.9 - Chest pain, unspecified Category: Medical Plan: History of CAD with three-vessel coronary artery bypass grafting 01/2015. Last echo 12/26/2021 shows EF 50-55%, impaired relaxation, normal valves, regional wall motion abnormalities can not be excluded due to suboptimal endocardial definition. Cardiac catheterization 02/01/2022 showing severe PLV stenosis, graft known to be occluded, PCI to the RPLV LU. Cardiac catheterization 09/26/2022 with 95% stenosis of the right PAV, PCI performed, 95% stenosis of the right PDA and PCI performed. Patient does have known exertional angina with no unstable pattern. He is on 4 antianginal therapies including metoprolol which he takes 4 times a day as well as isosorbide which he takes 3 times a day, amlodipine and Ranexa. He is currently on Plavix therapy along with oral anticoagulation with Xarelto. He is not on aspirin. EKG done today showing sinus rhythm with sinus arrythmia and first-degree AV block, no acute ST or T- wave abnormalities, rate 69. His angina has remained stable. He adjusts his physical activity and stress levels to avoid chest symptoms. He continues on atorvastatin 40 mg daily as well as Zetia 10 mg daily. Last LDL 34 on 06/01/2023. 09/22/23 LFTs are normal. Blood pressure is mildly low, not orthostatic and asymptomatic. Advised to avoid sudden strenuous exertion and avoid over exertion. Advised to take nitroglycerin sublingual if needed for chest discomfort. Take all meds as directed, maintain good hydration. Will have him update lipid profile, BMP, CBC prior to next visit ( ordered by PCP). Emergency care if needed. Cardiology office visit in 3 months, sooner if needed. (2) Paroxysmal atrial fibrillation: Code(s): I48.0 - Paroxysmal atrial fibrillation Category: Medical Plan: Paroxysmal atrial fibrillation which has remained suppressed. On Multaq for rhythm control and on metoprolol for heart rate control. EKG done today shows sinus rhythm/ SA with first-degree AV block, QTC interval 456 milliseconds, rate 69. Avoidance of stimulants was discussed. Continue full oral anticoagulation, currently on Xarelto 20 mg daily. Labs done 09/22/2023 shows creatinine 1.02 (3) S/P cardiac catheterization: Comment: 02/01/2022 severe R PLV stenosis, graft known to be occluded, severe distal left main stenosis, occluded mid LAD with patent LACEY to LAD, patent radial graft to the OM. PCI to the R-PLV with LU Code(s): Z98.890 - Other specified postprocedural states Category: Surgical Plan: As above (4) S/P cardiac cath: Comment: 09/26/2022 distal left main 70% stenosis, lad ostial 60-70% stenosis, mid LAD severe stenosis, left circumflex mid to distal 80% stenosis, RCA previous stent in the right PDA, right PAV 95% stenosis, PCI performed, right PDA 95% stenosis, PCI performed, vein graft aorta left 2/3 RPL, radial graft from aorta left to 2nd OM, lacey to mid LAD Code(s): Z98.890 - Other specified postprocedural states Category: Surgical Plan: As above (5) Hx of CABG: Comment: x 3 triple bypass 01/2015 LACEY to LAD, right radial artery graft to OM and SVG to R-PLV Code(s): Z95.1 - Presence of aortocoronary bypass graft Category: Surgical Plan: As above Plan Time spent on chart review, documentation, interview, assessment, paperwork for disability Medications: Refilled ranolazine ER 500 mg PO BID 90 days 180 tabs 3RF isosorbide mononitrate ER 30 mg PO TID 270 tabs 5RF rivaroxaban (Xarelto) 20 mg PO DAILY 90 tabs 3RF Coding Level of Care Code Est Pt Level 4 (37219) Diagnoses Exertional chest pain R07.9 Paroxysmal atrial fibrillation I48.0 S/P cardiac catheterization Z98.890 Hx of CABG Z95.1 CPT Codes EKG - CPT: 49198-[id number], Complete ([id number]) Time Spent (min) 30
[2024-05-05 14:20] VITALS: BP 106/66
== END 2024-05-05 14:43 | disposition home or self-care (01) ==
PROVIDERS: PCP Nurse Practitioner Family; Visit Provider Nurse Practitioner Family
DX: R07.9 Chest pain, unspecified (principal); I48.0 Paroxysmal atrial fibrillation; Z98.890 Other specified postprocedural states; Z95.1 Presence of aortocoronary bypass graft
CPT/HCPCS: 93010; 99214

== ENCOUNTER → 2024-05-05 13:41 | Outpatient (BNVA) | payer OTHER, SELFPAY | PROVIDERS: PCP Nurse Practitioner Family; Visit Provider Nurse Practitioner Family | DX: I48.0 Paroxysmal atrial fibrillation (principal); R07.9 Chest pain, unspecified; I44.0 Atrioventricular block, first degree; Z98.890 Other specified postprocedural states; Z95.1 Presence of aortocoronary bypass graft | CPT/HCPCS: 93005; 99212 ==

== ENCOUNTER 2024-06-22 10:24 | Outpatient (REF) | payer OTHER, SELFPAY ==
[2024-06-22 13:10] LABS: MANUAL DIFF FLAG NO
[2024-06-22 13:18] LABS: Basophils Percent Auto 0.4 % (0-2); Eosinophils Absolute Auto 0.1 X10*3/uL (0.0-0.4); Eosinophils Percent Auto 2.3 % (0-4); Hematocrit 37.9 % (42.0-52.0); Hemoglobin 12.9 g/dl (14.0-18.0); Imm Gran Abs Auto 0.02 X10*3/uL (0.00-0.03); Imm Gran Pct Auto 0.4 % (0.0-0.4); Lymphocytes Absolute Auto 1.6 X10*3/uL (1.2-4.9); Lymphocytes Percent Auto 27.3 % (20-40); Mean Corpuscular Hemoglobin 31.2 pg (27.0-33.0); Mean Corpuscular Volume 91.8 fL (80.0-98.0); Mean Platelet Volume 9.2 fL (9.4-12.4); Monocytes Absolute Auto 0.7 X10*3/uL (0.1-1.2); Monocytes Percent Auto 12.2 % (2-11); Neutrophils Absolute Auto 3.3 x10*3/uL (2.0-8.3); Neutrophils Percent Auto 57.4 % (45-73); Platelet Count 217 X10*3/uL (160-400); Red Blood Count 4.13 X10*6/uL (4.60-5.80); Red Cell Distribution Width 12.6 % (11.0-16.0); White Blood Count 5.7 X10*3/uL (4.8-10.8)
[2024-06-22 13:38] LABS: Appearance Urine Clear; Color Urine Yellow; Glucose Urine UA Negative (Negative); Leukocyte Esterase Urine Negative (Negative); Nitrite Urine Negative (Negative); PH 7.5 (5.0-9.0); Urine Blood Negative (Negative); Urine Ketones Negative (Negative); Urine Protein Negative (Neg-Trace)
[2024-06-22 13:54] LABS: Alanine Aminotransferase 34 U/L (0-40); Albumin Level 3.9 g/dL (3.5-5.0); Alkaline Phosphatase 49 U/L (39-117); Anion Gap 11 (12-20); Aspartate Amino Transferase 25 U/L (5-37); Bilirubin Total 1.2 mg/dL (0.0-1.0); Blood Urea Nitrogen 11 mg/dL (9-16); Calcium 9.3 mg/dL (8.4-10.2); Carbon Dioxide 27 mmol/L (22-29); Chloride 102 mmol/L (96-108); Cholesterol 114 mg/dL (<200); Estimated Glomerular Filt Rate > 60; Glucose Fasting 138 mg/dL (60-99); HDL Cholesterol 39 mg/dL (>40); LDL Cholesterol Calculated 48 mg/dL (<100); Potassium 4.1 mmol/L (3.3-5.1); Sodium 136 mmol/L (135-145); Total Protein 6.9 g/dL (6.5-8.0); Triglycerides 136 mg/dL (<150)
[2024-06-22 14:14] LABS: Prostate Specific Antigen Scr 0.56 ng/mL (<0.05-4.0)
[2024-06-22 14:17] LABS: TSH reflex Free T4 1.15 uIU/mL (0.32-4.0)
== END 2024-06-22 10:25 | disposition home or self-care (01) ==
LOC: HO.HMGCLDS 10:24
PROVIDERS: PCP Nurse Practitioner Family; Visit Provider Nurse Practitioner Family
DX: Z00.00 Encounter for general adult medical examination without abnormal findings (principal); Z12.5 Encounter for screening for malignant neoplasm of prostate
CPT/HCPCS: 36415; 80053; 80061; 81003; 84153; 84443; 85025

== ENCOUNTER 2024-08-15 14:44 | Outpatient (AMB) | payer OTHER, SELFPAY ==
--- NOTE | 2024-08-15 14:53 | MHC.OFFVIS ---
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 Allergies allopurinol Allergy (Verified 05/05/24 14:04) Chest Pain Medication List - Last Reconciled 08/15/24 by Dakota Cotter MD atorvastatin 40 mg PO DAILY cholecalciferol (vitamin D3) 25 mcg PO DAILY clopidogrel 75 mg PO DAILY clotrimazole 1% 1 appl topical BID colchicine 0.6 mg orally 2 tabs with flare, then 1 tab 1 hr later PRN; (MAX: 3 tabs a day) Cannot take concurrently with Multaq 10 days diltiazem HCl CD (Cardizem CD) 180 mg PO DAILY dronedarone (Multaq) 400 mg PO BID ezetimibe 10 mg PO DAILY gabapentin 400 mg PO TID 90 days isosorbide mononitrate ER 30 mg PO TID lisinopril 10 mg PO BID lorazepam 0.5 mg PO BEDTIME PRN 30 days metoprolol tartrate 50 mg (1/2 x 100 mg) PO .4 times a day multivitamin 1 tab PO DAILY omega-3 fatty acids-fish oil 684-1,200 mg 1 cap PO DAILY pantoprazole 40 mg PO DAILY ranolazine ER 500 mg PO BID 90 days rivaroxaban (Xarelto) 20 mg PO DAILY spironolactone 25 mg PO DAILY HPI Comments Details: Matteo comes for follow-up. He was recently arrested for some landlord/10 and related issues. Subsequently during the 2nd rest he developed some chest pain and was sent to [facility] where he was noted to be in atrial fibrillation. Subsequently started on Cardizem. He is currently presents to the office and is in sinus rhythm. He says lot of personal stress currently living out of a motel. With stress he gets some retrosternal chest pressure. He denies any exertional chest pressure. Takes all his medications including isosorbide. No bleeding issues or neurologic events. [facility] History Crescendo angina Persistent atrial fibrillation TIA (transient ischemic attack) Exertional chest pain Paroxysmal atrial flutter CAD (coronary artery disease) HLD (hyperlipidemia) HTN (hypertension) Surgical History S/P cardiac catheterization Hx of CABG History of cardiac cath History of cardiac cath Family History Father No problems noted. Mother No problems noted. Maternal Grandmother No problems noted. 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 Current occupational exposures/hazards: No Cognitive needs: No Hearing needs: No Vision needs: No Review of Systems Const Denies weakness ENT Denies dizziness Card Reports chest pain, Denies chest pain with activity, Denies syncope, Denies rapid heart rate, Denies pedal edema, Denies edema, Denies leg edema, Denies lightheadedness, Denies palpitations, Denies dyspnea, Denies dyspnea on exertion and Denies orthopnea Resp Denies cough, Denies dyspnea and Denies dyspnea on exertion GI Denies hematochezia and Denies change in stool character Musc Denies abnormal gait, Denies muscle cramps, Denies muscle weakness, Denies numbness, Denies radiating pain into limb and Denies tingling Neuro Denies abnormal gait, Denies dizziness, Denies syncope, Denies numbness, Denies tingling and Denies weakness Endo Denies palpitations Physical Exam Vital Signs: Last Vital Signs Pulse 67 08/15/24 14:54 BP 108/60 08/15/24 14:54 BMI result Body Mass Index 29.1 Const General: cooperative, healthy appearing, no acute distress, alert and awake Orientation/consciousness: patient oriented x3 HEENT Head: Yes normal to inspection Neck Neck: Yes normal visual inspection and Yes no JVD Chest Chest palpation & inspection: other (Well-healed sternotomy scar) Resp Effort & Inspection: normal respiratory effort, able to speak in complete sentences and not labored Auscultation: clear to auscultation bilaterally, no crackles, no rales, no rhonchi and no wheezes Cardio Jugular venous distension: no JVD Rate: regular rate Rhythm: regular rhythm Heart sounds: S1 normal heart sound present and S2 normal heart sound present Peripheral pulses: Peripheral pulses 2+ throughout GI Inspection: Yes normal to inspection Neuro General: patient oriented x3 Extrem Other: Right femoral catheterization site well healed with easily palpable femoral pulse General: Yes normal to inspection and No edema Office Procedures EKG Details: EKG shows normal sinus rhythm with first-degree AV block with PACs [id number], Complete Assessment & Plan Assessment & Plan (1) Paroxysmal atrial fibrillation: Code(s): I48.0 - Paroxysmal atrial fibrillation Category: Medical Plan: Paroxysmal atrial fibrillation now currently suppressed on triple therapy with Multaq, Cardizem metoprolol. Continue the same. Stress mitigation strategies were discussed. Consider treatment for the same through your office. Continue full oral anticoagulation, currently on Xarelto 20 mg daily. Follow up in the clinic in 3 months time. (2) CAD (coronary artery disease): Code(s): I25.10 - Atherosclerotic heart disease of [place] coronary artery without angina pectoris Category: Medical Plan: CAD status post coronary artery bypass grafting and multiple PCI. Currently having intermittent episode of chest pain which are most likely stress-induced. There is no ischemic EKG changes at current point in time. Recent presentation in the hospital there was no evidence of acute myocardial injury. Advised stress mitigation strategies. Continue current therapy with clopidogrel as well as Xarelto. Continue aggressive blood pressure control. Which is well optimized. Do therapy with metoprolol and isosorbide and Ranexa. Continue high-intensity statin therapy with target goal LDL closer to 60 mg/dL. Will follow up in the clinic in 3 months time on his request. Thank you for allowing me to partake in his care Medications: Refilled diltiazem HCl CD (Cardizem CD) 180 mg PO DAILY 90 caps 1RF lisinopril 10 mg PO BID 180 tabs 1RF diltiazem HCl CD (Cardizem CD) 180 mg PO DAILY 90 caps 1RF lisinopril 10 mg PO BID 180 tabs 1RF metoprolol tartrate 50 mg (1/2 x 100 mg) PO .4 times a day 90 tabs 2RF Coding Level of Care Code Est Pt Level 4 (83021) Complex EM visit Add On G2211 Diagnoses Paroxysmal atrial fibrillation I48.0 CAD (coronary artery disease) I25.10 CPT Codes EKG - CPT: 03132-[id number], Complete ([id number])
[2024-08-15 14:54] VITALS: BP 108/60; PULSE 67; BMI 29.1
== END 2024-08-15 15:38 | disposition home or self-care (01) ==
LOC: HO.HCS 14:44
PROVIDERS: PCP Nurse Practitioner Family; Visit Provider Internal Medicine Cardiovascular Disease
DX: I48.0 Paroxysmal atrial fibrillation (principal); I25.10 Atherosclerotic heart disease of native coronary artery without angina pectoris
CPT/HCPCS: 93010; 99214; G2211

== ENCOUNTER → 2024-08-15 14:44 | Outpatient (BNVA) | payer OTHER, SELFPAY | PROVIDERS: PCP Nurse Practitioner Family; Visit Provider Internal Medicine Cardiovascular Disease | DX: I48.0 Paroxysmal atrial fibrillation (principal); I25.10 Atherosclerotic heart disease of native coronary artery without angina pectoris | CPT/HCPCS: 93005; 99212 ==

== ENCOUNTER 2024-08-24 10:51 | Outpatient (AMB) | payer OTHER, SELFPAY ==
[2024-08-24 10:51] VITALS: BP 108/66; PULSE 67; O2SAT 97; BMI 29.4
--- NOTE | 2024-08-24 10:51 | A.OFFPC_ITS ---
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: No Accompanied by: Self / Same As Patient Allergies allopurinol Allergy (Verified 08/24/24 11:45) Chest Pain Medication List - Last Reconciled 08/24/24 by BRADFORD Glover- atorvastatin 40 mg PO DAILY cholecalciferol (vitamin D3) 25 mcg PO DAILY clopidogrel 75 mg PO DAILY clotrimazole 1% 1 appl topical BID colchicine 0.6 mg orally 2 tabs with flare, then 1 tab 1 hr later PRN; (MAX: 3 tabs a day) Cannot take concurrently with Multaq 10 days diltiazem HCl CD (Cardizem CD) 180 mg PO DAILY dronedarone (Multaq) 400 mg PO BID ezetimibe 10 mg PO DAILY gabapentin 400 mg PO TID 90 days isosorbide mononitrate ER 30 mg PO TID lisinopril 10 mg PO BID lorazepam 0.5 mg PO BEDTIME PRN 30 days metoprolol tartrate 50 mg (1/2 x 100 mg) PO .4 times a day multivitamin 1 tab PO DAILY omega-3 fatty acids-fish oil 684-1,200 mg 1 cap PO DAILY pantoprazole 40 mg PO DAILY ranolazine ER 500 mg PO BID 90 days rivaroxaban (Xarelto) 20 mg PO DAILY spironolactone 25 mg PO DAILY Tobacco use date assessed: 04/25/24 Dental Screening Dental Screen Date: 04/25/24 HPI ED F/U HPI Details Patient was seen in the ER 07/11/2024 for chest pain. Around the same time he was subsequently arrested and developed these symptoms. Does have a history of AFib coronary artery disease does follow-up with cardiology on a regular basis. His heart rate was noted to be irregularly irregular with no murmurs and lungs were clear. EKG showed sinus rhythm ventricular rate of [address] changes. Later on that same day another EKG was done and showed atrial fib with a rapid ventricular response without ischemic changes. Initial troponin is 11 it was repeated negative. He was started on Cardizem, eventually discharged. Missing all notes on this. He was subsequently seen by Cardiology, please see his note. It was thought that the patient's episode was related to stress at that time. Please see current med list. Pt reports that he is no longer living in the situation he was in. Pt is currently living in [place]. Pt reports the CP is better, though present here and there . He reports his meds help it . Pt denies any SOB, dizziness, HINTON, blurred vision. [facility] Medical History Crescendo angina Persistent atrial fibrillation TIA (transient ischemic attack) Exertional chest pain Paroxysmal atrial flutter CAD (coronary artery disease) HLD (hyperlipidemia) HTN (hypertension) Surgical History S/P cardiac catheterization Hx of CABG History of cardiac cath History of cardiac cath Family History Father No problems noted. Mother No problems noted. Maternal Grandmother No problems noted. 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 1. Little interest or pleasure in doing things: not at all 2. Feeling down, depressed, or hopeless: not at all 3. Trouble falling or staying asleep, or sleeping too much: not at all 4. Feeling tired or having little energy: not at all 5. Poor appetite or overeating: not at all 6. Feeling bad about yourself - or that you are a failure or have let yourself or your family down: not at all 7. Trouble concentrating on things, such as reading the newspaper or watching television: not at all 8. Moving or speaking so slowly that other people could have noticed. Or the opposite - being so fidgety or restless that you have been moving around a lot more than usual: not at all 9. Thoughts that you would be better off or of hurting yourself in some way: not at all Total score: 0 Depression Screening Interpretation: Negative Depression Screening Done: Yes 11479 - PHQ-9 Billing: Yes Source: Developed by Drs. Ge Fuentes, Maricruz Velázquez, Brent Lara and colleagues, with an educational miah from [employer]. Thrive Questionnaire Date Thrive assessed: 04/25/24 MIKEL-7 AMB Questionnaire MIKEL-7 Date MIKEL - 7 assessed: 04/25/24 Source: Developed by Drs. Ge Fuentes, Maricruz Velázquez, Brent Lara and colleagues, with an educational miah from [employer]. Physical exam (Primary Care) Vital Signs: Last Vital Signs Pulse 67 08/24/24 10:51 BP 108/66 08/24/24 10:51 Pulse Ox 97 08/24/24 10:51 BMI result Body Mass Index 29.4 Tobacco/Smoking Status: Tobacco use Status Tobacco use date assessed 04/25/24 08/24/24 10:53 Patient Tobacco Use Status Former Tobacco user 08/24/24 10:53 e-Cigarette/Vaping Use Never Used 08/24/24 10:53 PHQ-9: PHQ-9 Score PHQ-9: Total score 0 08/24/24 11:42 Depression Screening Interpretation: Negative Thrive Assessment: Date of Thrive Assessment Date Thrive assessed 04/25/24 08/24/24 10:53 Const General: cooperative, healthy appearing, comfortable, no acute distress and well developed Resp Effort & Inspection: normal respiratory effort Auscultation: clear to auscultation bilaterally Cardio Rhythm: abnormal rhythm irregularly irregular Heart sounds: S1 normal heart sound present and S2 normal heart sound present Extrem Right lower extremity: no edema Left lower extremity: no edema Psych Appearance: grossly normal Mental Status: mental status grossly normal Speech and movement: Normal speech and movement present Affect: normal affect Attitude: cooperative Thought process: Normal thought process present Thought content: Normal thought content present Insight: Good insight present (Psych) Judgement: Good judgement present (Psych) Coding Level of Care Code Est Pt Level 3 (26411) Diagnoses Exertional chest pain R07.9 Stress F43.9 Additional Codes PHQ-9 - 48425 - PHQ-9 Billing: Yes ([id number]) Assessment & Plan Assessment & Plan (1) Exertional chest pain: Code(s): R07.9 - Chest pain, unspecified Category: Medical Plan: seems more stress related, sending a low dose buspirone (2) Stress: Code(s): F43.9 - Reaction to severe stress, unspecified Category: Medical Plan: as above Medications: New buspirone 5 mg PO BID 60 tabs 1RF 30 days Refilled colchicine 0.6 mg orally 2 tabs with flare, then 1 tab 1 hr later PRN; (MAX: 3 tabs a day) Cannot take concurrently with Multaq 30 tabs 0RF gout flare 10 days
== END 2024-08-24 13:16 | disposition home or self-care (01) ==
PROVIDERS: PCP Nurse Practitioner Family; Visit Provider Nurse Practitioner Family
DX: R07.9 Chest pain, unspecified (principal); F43.9 Reaction to severe stress, unspecified

== ENCOUNTER → 2024-08-24 10:51 | Outpatient (BNVA) | payer OTHER, SELFPAY | PROVIDERS: PCP Nurse Practitioner Family; Visit Provider Nurse Practitioner Family | DX: R07.9 Chest pain, unspecified (principal); F43.9 Reaction to severe stress, unspecified | CPT/HCPCS: 96127; 99212 ==

== ENCOUNTER 2024-10-05 03:44 | Emergency (ER) | payer OTHER, SELFPAY ==
[2024-10-05] VITALS (8 sets, daily range): BP systolic 132–161; BP diastolic 82–94; PULSE 63–75; RESP 16–24; TEMP 36.3–37.1; O2SAT 93–98; BMI 29.7
--- NOTE | 2024-10-05 | ECG_ITS ---
Test Reason : CHEST PAIN Blood Pressure : / mmHG Vent. Rate : 066 BPM Atrial Rate : 066 BPM P-R Int : 208 ms QRS Dur : 090 ms QT Int : 452 ms P-R-T Axes : 049 029 055 degrees QTc Int : 473 ms Normal sinus rhythm with sinus arrhythmia Normal ECG When compared with ECG of 05-OCT-2024 03:50, No significant change was found Referred By: Annamarie Doe Electronically Signed By:HIMANSHU CHAMORRO MD
--- NOTE | ~2024-10-05 | XR_ITS ---
CLINICAL HISTORY: chest pain shortness of breath 1 view chest x-ray Comparison: CR/SR - XR CHEST 2V - 09/22/2023 04:23 PM EST Findings: Sternotomy wires are evident. Cardiac silhouette is at the upper limits of normal for size. No dense areas of consolidation are seen. There is streaky interstitial prominence along the left cardiophrenic angle. No pleural effusion or pneumothorax. IMPRESSION: Streaky density in the left cardiophrenic angle may be related to atelectasis or developing bronchitis/bronchiolitis. This document has been electronically signed by: Saul Rivers MD on 10/05/2024 04:37:34
[2024-10-05 04:12] LABS: Hemoglobin 13.4 g/dl (14.0-18.0); Mean Corpuscular HGB Conc 35.3 g/dl (31.0-36.0); Mean Corpuscular Hemoglobin 31.2 pg (27.0-33.0); Mean Corpuscular Volume 88.6 fL (80.0-98.0); Mean Platelet Volume 8.9 fL (9.4-12.4); Platelet Count 232 X10*3/uL (160-400); Red Blood Count 4.29 X10*6/uL (4.60-5.80); Red Cell Distribution Width 12.6 % (11.0-16.0)
[2024-10-05 04:20] LABS: INTERNATIONAL NORM RATIO 1.3 (0.9-1.1); Prothrombin Time 14.8 SEC (10.9-12.4)
--- NOTE | 2024-10-05 04:20 | PC.NURSE ---
pt a&ox4, respirations even and unlabored. pt reports sudden onset of left sided chest pain for two hours starting today. pt reports he has some intermittent nausea. pt reports hx of ND one year ago and reports he had two stents placed. pt reports some shortness of breath. pt denies vomiting and diarrhea. 20G placed in left ac, labs obtained. pt normal sinus on tele.
[2024-10-05 04:23] LABS: Partial Thromboplastin Time 30.4 SEC (26.0-36.8)
[2024-10-05 04:51] LABS: Alanine Aminotransferase 58 U/L (0-40); Albumin Level 4.2 g/dL (3.5-5.0); Alkaline Phosphatase 56 U/L (39-117); Anion Gap 12 (12-20); Aspartate Amino Transferase 33 U/L (5-37); Bilirubin Total 0.9 mg/dL (0.0-1.0); Blood Urea Nitrogen 12 mg/dL (9-16); Calcium 9.2 mg/dL (8.4-10.2); Carbon Dioxide 28 mmol/L (22-29); Chloride 104 mmol/L (96-108); Creatinine Clr Calc Pharmacy 83.9; Estimated Glomerular Filt Rate > 60; Glucose Random 178 mg/dL (60-115); Sodium 140 mmol/L (135-145); Total Protein 7.2 g/dL (6.5-8.0)
--- NOTE | 2024-10-05 06:00 | PC.NURSE ---
pt ambulatory with steady gait to bathroom, unable to provide urine sample at this time.
--- NOTE | 2024-10-05 06:41 | ED.CHESTPAIN ---
HPI - Chest Pain General Chief Complaint: Chest Pain Stated Complaint: chest pain Time Seen by Provider: 10/05/24 06:36 Source: patient Mode of arrival: ambulatory Limitations: no limitations History of Present Illness ED Provider: Annamarie Doe PA-C HPI narrative: Patient is a 64 year old assigned male at with a history of 2 cardiac stents, CABG, GERD, paroxysymal atrial fib, CAD, HLD, and HTN presenting to the emergency department today with left sided chest pain. Patient states that over the last few hours he has had left sided crushing chest pain that felt like an elephant sitting on his chest. Patient states that it feels similar to his previous heart incidents. Patient states that since he has been in the department the pain has lessened and is now intermittent rather than constant. Patient denies any dizziness, lightheadedness, abdominal pain, nausea, vomiting, fever, chills, blurry vision, double vision, loss of vision, difficulty breathing, shortness of breath, back pain, night sweats, pain with urination, increased urinary frequency, increased urinary urgency, blood in his urine or stool, syncope or a near syncopal episode, recent trauma or falls, bowel incontinence, bladder incontinence, or any other complaints at this time. 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 CABG Onset (ago): hour(s) Relieving factors: nothing Exacerbating factors: nothing Treatment prior to arrival: none Risk Factors Coronary artery disease risk factors: hyperlipidemia Related Data Home Medications ?Medication ?Instructions ?Recorded ?Confirmed cholecalciferol (vitamin D3) 25 25 mcg PO DAILY 01/23/22 08/24/24 mcg (1,000 unit) tablet multivitamin 1 tab PO DAILY 01/23/22 08/24/24 omega-3 fatty acids-fish oil 684 1 cap PO DAILY 01/23/22 08/24/24 mg-1,200 mg capsule,delayed release Previous Rx's ?Medication ?Instructions ?Recorded spironolactone 25 mg tablet 25 mg PO DAILY #30 tabs 10/26/23 dronedarone 400 mg tablet (Multaq) 400 mg PO BID #180 tabs 11/11/23 clopidogrel 75 mg tablet 75 mg PO DAILY #90 tabs 04/26/24 ezetimibe 10 mg tablet 10 mg PO DAILY #90 tabs 04/26/24 pantoprazole 40 mg tablet,delayed 40 mg PO DAILY #90 tabs 04/26/24 release isosorbide mononitrate 30 mg 30 mg PO TID #270 tabs 05/05/24 tablet,extended release 24 hr ranolazine 500 mg tablet,extended 500 mg PO BID 90 days #180 tabs 05/05/24 release,12 hr rivaroxaban 20 mg tablet (Xarelto) 20 mg PO DAILY #90 tabs 05/05/24 lorazepam 0.5 mg tablet 0.5 mg PO BEDTIME PRN anxiety 30 06/17/24 days #30 tabs gabapentin 400 mg capsule 400 mg PO TID 90 days #270 caps 07/18/24 diltiazem HCl 180 mg 180 mg PO DAILY #90 caps 08/15/24 capsule,extended release 24 hr (Cardizem CD) lisinopril 10 mg tablet 10 mg PO BID #180 tabs 08/15/24 metoprolol tartrate 100 mg tablet 50 mg (1/2 x 100 mg) PO .4 times a 08/15/24 day #90 tabs buspirone 5 mg tablet 5 mg PO BID 30 days #60 tabs 08/24/24 atorvastatin 40 mg tablet 40 mg PO DAILY #90 tabs 09/09/24 clotrimazole 1 % topical cream 1 appl topical BID #45 grams 09/15/24 colchicine 0.6 mg tablet 0.6 mg PO .COMPLEX PRN gout flare 09/26/24 10 days #30 tabs atorvastatin 40 mg tablet 40 mg PO DAILY #14 tabs 10/05/24 clopidogrel 75 mg tablet (Plavix) 75 mg PO DAILY #14 tabs 10/05/24 diltiazem HCl 180 mg 180 mg PO DAILY #14 caps 10/05/24 capsule,extended release 24 hr gabapentin 400 mg capsule 400 mg PO TID #42 caps 10/05/24 isosorbide mononitrate 30 mg 30 mg PO DAILY #14 tabs 10/05/24 tablet,extended release 24 hr lisinopril 10 mg tablet 10 mg PO DAILY #14 tabs 10/05/24 metoprolol succinate 100 mg 100 mg PO DAILY #14 tabs 10/05/24 tablet,extended release 24 hr rivaroxaban 20 mg tablet (Xarelto) 20 mg PO DAILY #14 tabs 10/05/24 Allergies Allergy/AdvReac Type Severity Reaction Status Date / Time allopurinol Allergy Chest Pain Verified 10/05/24 03:55 Review of Systems Constitutional: Constitutional: Reports no additional constitutional complaints, Denies chills, Denies fever(s) and Denies night sweats Eyes: Eyes: Reports no additional eye complaints, Denies blurry vision, Denies change in vision, Denies diplopia, Denies eye discharge, Denies loss of vision and Denies eye pain ENT: Denies dizziness Cardiovascular: Cardiovascular: Reports no additional cardiovascular complaints, Reports chest pain (left sided - initially constant and now intermittent), Denies lightheadedness, Denies Loss of Consciousness and Denies dyspnea Respiratory: Respiratory: Reports no additional respiratory complaints and Denies dyspnea Gastrointestinal: Gastrointestinal: Reports no additional gastrointestinal complaints, Denies abdominal pain, Denies melena, Denies hematochezia, Denies change in bowel habits and Denies change in stool character Genitourinary: Genitourinary: Reports no additional male genitourinary complaints, Denies hematuria, Denies oliguria, Denies difficulty urinating, Denies dysuria, Denies urinary frequency, Denies urinary hesitancy, Denies urinary incontinence and Denies urinary urgency Musculoskeletal: Musculoskeletal: Reports no additional musculoskeletal complaints, Denies numbness and Denies tingling Neurologic: Denies dizziness, Denies loss of vision, Denies numbness and Denies tingling Psychiatric: Psychiatric: Reports no additional psychiatric complaints Endocrine: Endocrine: Reports no additional endocrine complaints Hematologic/Lymphatic: Hematologic/Lymphatic: Reports no additional hematologic/lymphatic complaints Allergic/Immunologic: Allergic/Immunologic: Reports no additional allergic/immunologic complaints FORMERLY [facility], 1928–1983 Past Medical History Attestation statement: The following information was validated with the patient. Source: old records reviewed and nursing notes reviewed Medical History Crescendo angina Persistent atrial fibrillation TIA (transient ischemic attack) Exertional chest pain Paroxysmal atrial flutter CAD (coronary artery disease) HLD (hyperlipidemia) HTN (hypertension) Surgical History S/P cardiac catheterization Hx of CABG History of cardiac cath History of cardiac cath Family History Family History Father No problems noted. Mother No problems noted. Maternal Grandmother No problems noted. 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 Current occupational exposures/hazards: No Cognitive needs: No Hearing needs: No Vision needs: No Physical Exam Vital Signs: Vital Signs: Last Vital Signs Temp 98.7 F 10/05/24 11:47 Pulse 75 10/05/24 11:47 Resp 18 10/05/24 11:47 BP 145/94 H 10/05/24 11:47 Pulse Ox 98 10/05/24 11:47 O2 Del Method Room Air 10/05/24 11:47 BMI result Body Mass Index 29.7 Const: General: cooperative, no acute distress, alert and awake Nutritional Appearance: well nourished Orientation/consciousness: patient oriented x3 Limitations: no limitations HEENT: Head: Yes normal to inspection and Yes atraumatic Ears: hearing grossly normal bilaterally and external ears normal General nose exam: Normal external nose present, no nasal discharge noted and no epistaxis Face and sinus: Yes normal facial exam, No abrasion and No laceration Mouth: Normal oral and palatal mucosa present, no drooling and no muffled voice Eyes: General: appearance normal, both eyes and all related structures Periorbital: periorbital findings normal Eyelids: Yes eyelids normal Conjunctivae: conjunctivae normal Pupils: Equal, round and reactive pupils present EOM: EOMs intact bilaterally Neck: Neck: Yes normal visual inspection, Yes full ROM and Yes no lymphadenopathy Chest: Chest palpation & inspection: normal inspection of the chest Resp: Effort & Inspection: normal respiratory effort and able to speak in complete sentences GI: Inspection: Yes normal to inspection Neuro: General: patient oriented x3 and moves all extremities Cranial nerves: Yes Equal, round and reactive pupils present Cognition (Neuro): normal cognition Extrem: General: Yes normal to inspection, Yes full ROM and Yes capillary refill normal Psych: Appearance: grossly normal Mental Status: mental status grossly normal Affect: normal affect Attitude: cooperative Thought process: Normal thought process present Thought content: Normal thought content present Insight: Good insight present (Psych) Course Reevaluation(s) Reevaluation #1: Patient had just been discharged from this facility. He reported to triage staff that he went to his micromatic hone operator's office to have a refill of his medications but they are close given that it is a holiday. I was able to confirm the patient's dosing for Xarelto, atorvastatin, diltiazem, metoprolol, lisinopril, gabapentin, Plavix, isosorbide. The patient confirms that he is taking all these medications including a medication called Multaq, however on his external medication history he has not been on the Multaq since July and was only given a 30 day supply. I asked the patient to follow up with his micromatic hone operator when able if they still want him to be restarted on this Time: 12:40 Medications Administered Discontinued Medications Generic Name Dose Route Start Last Admin Trade Name Freq PRN Reason Stop Dose Admin Acetaminophen 975 mg 10/05/24 10:21 10/05/24 10:26 Acetaminophen 325 Mg Tablet PO 10/05/24 10:22 650 mg ONCE ONE Administration Nitroglycerin 0.4 mg 10/05/24 10:03 10/05/24 10:19 Nitroglycerin 0.4 Mg Tab.Subl SUBLINGUAL 0.4 mg [id number] PRN Administration Chest Pain Medical Decision Making Medical Decision Making [facility] Narrative: Patient is a 64 year old assigned male at with a history of 2 cardiac stents, CABG, GERD, paroxysymal atrial fib, CAD, HLD, and HTN presenting to the emergency department today with left sided chest pain. Patient's physical exam was unremarkable. Patient's blood work was unremarkable. Patient's initial troponin was 3.0, repeat at 0626 was 6.3, and repeat at 0925 was 8.3. Patient's initial and repeat EKGs were unremarkable. Patient's chest x-ray showed evidence of possible bronchitis. I consulted with Dr. Cotter, the micromatic hone operator, who stated the patient was appropriate for discharge. I explained my physical exam findings as well as all test results to the patient. I answered all questions asked by the patient. Patient did receive nitro which helped his chest pain some butdid not resolve it. I stressed the importance of the patient taking his medication as directed (either prescribed or as the over the counter packaging recommends). I stressed the importance of the patient following up with his primary care provider and his micromatic hone operator. I stressed the importance of the patient returning to the emergency department immediately if his symptoms were to worsen or if he were to develop any dizziness, shortness of breath, difficulty breathing, chest pain, blurry vision, loss of vision, nausea, vomiting, abdominal pain, fever, chills, back pain, or any other complaints. Patient verbalized agreement and understanding with this treatment plan and discharge. Differential Diagnosis Differential Diagnoses: The differential diagnosis associated with the presentation includes Chest pain NSTEMI STEMI Bronchitis COVID-19 Influenza RSV Admission/Observation Consideration of admission/observation: Escalation of care including admission/observation considered Patient would have been admitted to the hospital had his work up had any findings where hospital admission was appropriate, his clinical presentation warranted hospital admission, and the micromatic hone operator butadiene convertor operator recommended admission. Consult Healthcare Provider Management of the patient was discussed with: Director Of Casino Marketing (spoke to Dr. Cotter - the micromatic hone operator butadiene convertor operator as noted in the MDM Rationale portion of this note.) Lab Data [facility] Lab Attestation statement: I reviewed the patient's lab results. My interpretation of these results are in the MDM Rationale portion of this note. 10/05/24 04:08 10/05/24 04:08 Labs: Lab Results 10/05/24 10/05/24 10/05/24 Range/Units 04:08 06:26 08:37 WBC 7.0 (4.8-10.8) X10*3/uL RBC 4.29 L (4.60-5.80) X10*6/uL Hgb 13.4 L (14.0-18.0) g/dl Hct 38.0 L (42.0-52.0) % MCV 88.6 (80.0-98.0) fL MCH 31.2 (27.0-33.0) pg MCHC 35.3 (31.0-36.0) g/dl RDW 12.6 (11.0-16.0) % Plt Count 232 (160-400) X10*3/uL MPV 8.9 L (9.4-12.4) fL Absolute Nucleated RBC 0.000 (0.0-0.012) X10*3/uL Nucleated RBC % (auto) 0.0 (0.0-0.2) /100WBC PT 14.8 H (10.9-12.4) SEC INR 1.3 H (0.9-1.1) APTT 30.4 (26.0-36.8) SEC Sodium 140 (135-145) mmol/L Potassium 4.0 (3.3-5.1) mmol/L Chloride 104 (96-108) mmol/L Carbon Dioxide 28 (22-29) mmol/L Anion Gap 12 (12-20) BUN 12 (9-16) mg/dL Creatinine 1.05 (0.5-1.4) mg/dL Estim Creat Clear Calc 83.9 Estimated GFR > 60 Random Glucose 178 H (60-115) mg/dL Calcium 9.2 (8.4-10.2) mg/dL Total Bilirubin 0.9 (0.0-1.0) mg/dL AST 33 (5-37) U/L ALT 58 H (0-40) U/L Alkaline Phosphatase 56 (39-117) U/L Troponin I High Sens 3.0 6.3 D (<3.5-35.0) ng/L Total Protein 7.2 (6.5-8.0) g/dL Albumin 4.2 (3.5-5.0) g/dL Urine Color Yellow Urine Appearance Clear Urine pH 8.5 (5.0-9.0) Ur Specific [place] 1.010 (1.005-1.025) Urine Protein Negative (Neg-Trace) mg/dL Urine Glucose (UA) Negative (Negative) mg/dL Urine Ketones Negative (Negative) mg/dL Urine Blood Negative (Negative) Urine Nitrite Negative (Negative) Ur Leukocyte Esterase Negative (Negative) Urine RBC 0-2 (0-2) /HPF Urine WBC 0-5 (0-5) /HPF Ur Squamous Epith Cells 0-2 (0-2) /HPF Urine Bacteria None Seen (None Seen) Hyaline Casts 0-2 (0-2) /LPF Influenza Type A (PCR) (Negative) Influenza Type B (PCR) (Negative) RSV RNA Qual (PCR) (Negative) SARS-CoV-2 RNA (RT-PCR) (Negative) 10/05/24 10/05/24 Range/Units 09:25 10:35 WBC (4.8-10.8) X10*3/uL RBC (4.60-5.80) X10*6/uL Hgb (14.0-18.0) g/dl Hct (42.0-52.0) % MCV (80.0-98.0) fL MCH (27.0-33.0) pg MCHC (31.0-36.0) g/dl RDW (11.0-16.0) % Plt Count (160-400) X10*3/uL MPV (9.4-12.4) fL Absolute Nucleated RBC (0.0-0.012) X10*3/uL Nucleated RBC % (auto) (0.0-0.2) /100WBC PT (10.9-12.4) SEC INR (0.9-1.1) APTT (26.0-36.8) SEC Sodium (135-145) mmol/L Potassium (3.3-5.1) mmol/L Chloride (96-108) mmol/L Carbon Dioxide (22-29) mmol/L Anion Gap (12-20) BUN (9-16) mg/dL Creatinine (0.5-1.4) mg/dL Estim Creat Clear Calc Estimated GFR Random Glucose (60-115) mg/dL Calcium (8.4-10.2) mg/dL Total Bilirubin (0.0-1.0) mg/dL AST (5-37) U/L ALT (0-40) U/L Alkaline Phosphatase (39-117) U/L Troponin I High Sens 8.3 (<3.5-35.0) ng/L Total Protein (6.5-8.0) g/dL Albumin (3.5-5.0) g/dL Urine Color Urine Appearance Urine pH (5.0-9.0) Ur Specific [place] (1.005-1.025) Urine Protein (Neg-Trace) mg/dL Urine Glucose (UA) (Negative) mg/dL Urine Ketones (Negative) mg/dL Urine Blood (Negative) Urine Nitrite (Negative) Ur Leukocyte Esterase (Negative) Urine RBC (0-2) /HPF Urine WBC (0-5) /HPF Ur Squamous Epith Cells (0-2) /HPF Urine Bacteria (None Seen) Hyaline Casts (0-2) /LPF Influenza Type A (PCR) NEGATIVE (Negative) Influenza Type B (PCR) NEGATIVE (Negative) RSV RNA Qual (PCR) NEGATIVE (Negative) SARS-CoV-2 RNA (RT-PCR) NEGATIVE (Negative) Independent Interpretation I performed an independent interpretation of an: EKG and Plain X-Ray Interpretation: My interpretation is in agreement with the radiologist's impression of this imaging study. CLINICAL HISTORY: chest pain shortness of breath 1 view chest x-ray Comparison: CR/SR - XR CHEST 2V - 09/22/2023 04:23 PM EST Findings: Sternotomy wires are evident. Cardiac silhouette is at the upper limits of normal for size. No dense areas of consolidation are seen. There is streaky interstitial prominence along the left cardiophrenic angle. No pleural effusion or pneumothorax. IMPRESSION: Streaky density in the left cardiophrenic angle may be related to atelectasis or developing bronchitis/bronchiolitis. This document has been electronically signed by: Saul Rivers MD on 10/05/2024 04:37:34 Dictated By: Saul Rivers MD Signed By: Electronically signed by Saul Rivers MD 10/05/24 0438 Vent. Rate: 067 BPM Atrial Rate: 067 BPM P-R Int: 182 ms QRS Dur: 088 ms QT Int: 454 ms P-R-T Axes: 006 019 053 degrees QTc Int: 479 ms Normal sinus rhythm Normal ECG DD/ 1012 Vent. Rate: 066 BPM Atrial Rate: 066 BPM P-R Int: 208 ms QRS Dur: 090 ms QT Int: 452 ms P-R-T Axes: 049 029 055 degrees QTc Int: 473 ms Normal sinus rhythm with sinus arrhythmia Normal ECG When compared with ECG of 05-OCT-2024 03:50, No significant change was found DD/ 1012 Radiology Impression Discussion of test interpretation with radiology: I have reviewed the radiologist's reading. Chronic Conditions Patient?s care impacted by: Hypertension Critical Care Time Critical Care Time Critical Care Time: Yes Total Critical Care Time: 34 Attestation: I spent 34 minutes of Critical Care Time with this patient. This does not include time spent on separately reported billable procedures. Discharge Plan Discharge Clinical Impression: Chest pain, Acute bronchitis Patient Disposition: Home, Self-Care Instructions: Chest Pain (DC), Acute Bronchitis (ED) Additional Instructions: Your work up today was reassuring for no emergent cardiac (heart) issues. I did consult with a micromatic hone operator (on site services specialist) who stated you were clear for discharge. Follow up with your primary care provider and your micromatic hone operator. Return to the emergency department immediately if your symptoms worsen or if you develop any dizziness, shortness of breath, difficulty breathing, chest pain, blurry vision, loss of vision, nausea, vomiting, abdominal pain, fever, chills, back pain, or any other complaints. Prescriptions: New Xarelto 20 mg tablet 20 mg PO DAILY Qty: 14 0RF Rx Instructions: must administer with evening meal atorvastatin 40 mg tablet 40 mg PO DAILY Qty: 14 0RF diltiazem HCl 180 mg capsule,extended release 24hr 180 mg PO DAILY Qty: 14 0RF metoprolol succinate 100 mg tablet extended release 24 hr 100 mg PO DAILY Qty: 14 0RF lisinopril 10 mg tablet 10 mg PO DAILY Qty: 14 0RF gabapentin 400 mg capsule 400 mg PO TID Qty: 42 0RF clopidogrel [Plavix] 75 mg tablet 75 mg PO DAILY Qty: 14 0RF isosorbide mononitrate 30 mg tablet extended release 24 hr 30 mg PO DAILY Qty: 14 0RF No Action spironolactone 25 mg tablet 25 mg PO DAILY Qty: 30 5RF Multaq 400 mg tablet 400 mg PO BID Qty: 180 2RF clopidogrel 75 mg tablet 75 mg PO DAILY Qty: 90 0RF ezetimibe 10 mg tablet 10 mg PO DAILY Qty: 90 3RF pantoprazole 40 mg tablet,delayed release (DR/EC) 40 mg PO DAILY Qty: 90 1RF lorazepam 0.5 mg tablet 0.5 mg PO BEDTIME PRN (Reason: anxiety) 30 Days Qty: 30 2RF gabapentin 400 mg capsule 400 mg PO TID 90 Days Qty: 270 0RF atorvastatin 40 mg tablet 40 mg PO DAILY Qty: 90 3RF clotrimazole 1 % cream 1 appl topical BID Qty: 45 1RF colchicine 0.6 mg tablet 0.6 mg PO .COMPLEX PRN (Reason: gout flare) 10 Days Qty: 30 0RF Rx Instructions: 0.6 mg orally 2 tabs with flare, then 1 tab 1 hr later PRN; (MAX: 3 tabs a day) Cannot take concurrently with Multaq multivitamin Tablet 1 tab PO DAILY cholecalciferol (vitamin D3) 25 mcg (1,000 unit) Tablet 25 mcg PO DAILY omega-3 fatty acids-fish oil 684-1,200 mg Capsule,Delayed Release(Dr/Ec) 1 cap PO DAILY ranolazine 500 mg tablet extended release 12 hr 500 mg PO BID 90 Days Qty: 180 3RF isosorbide mononitrate 30 mg tablet extended release 24 hr 30 mg PO TID Qty: 270 5RF Xarelto 20 mg tablet 20 mg PO DAILY Qty: 90 3RF metoprolol tartrate 100 mg tablet 50 mg PO .4 times a day Qty: 90 2RF diltiazem HCl [Cardizem CD] 180 mg capsule,extended release 24hr 180 mg PO DAILY Qty: 90 1RF lisinopril 10 mg tablet 10 mg PO BID Qty: 180 1RF buspirone 5 mg tablet 5 mg PO BID 30 Days Qty: 60 1RF Referrals: Jorge Alberto Dumont, NUMERICAL CONTROL MACHINE TOOL OPERATOR-BC [Primary Care Provider] - Interventions: ED Discharge Assessment Last Done: 10/05/24 11:47 Discharge Date/Time: 10/05/24 11:48 Print Language: German
[2024-10-05 07:02] LABS: Troponin-I High Sensitivity 6.3 ng/L (<3.5-35.0)
--- NOTE | 2024-10-05 07:40 | PC.NURSE ---
Pt asleep, easily awakes States mild 3/10 cp at this time without SOB. NSR on tele. Speaking full sentences. VSS. Skin pwd. Awaiting urine spec and repeat trop
[2024-10-05 08:45] LABS: Appearance Urine Clear; Color Urine Yellow; Glucose Urine UA Negative (Negative); Leukocyte Esterase Urine Negative (Negative); Nitrite Urine Negative (Negative); PH 8.5 (5.0-9.0); Urine Blood Negative (Negative); Urine Ketones Negative (Negative); Urine Protein Negative (Neg-Trace)
[2024-10-05 08:50] LABS: Bacteria Urine None Seen (None Seen); Hyaline Casts Urine 0-2 /LPF (0-2); RBC Urine 0-2 /HPF (0-2); Squamous Epithelial Cell Urine 0-2 /HPF (0-2); WBC Urine 0-5 /HPF (0-5)
[2024-10-05 09:53] LABS: Troponin-I High Sensitivity 8.3 ng/L (<3.5-35.0)
--- NOTE | 2024-10-05 10:03 | ECG_ITS ---
Test Reason : CP Blood Pressure : / mmHG Vent. Rate : 067 BPM Atrial Rate : 067 BPM P-R Int : 182 ms QRS Dur : 088 ms QT Int : 454 ms P-R-T Axes : 006 019 053 degrees QTc Int : 479 ms Normal sinus rhythm Nonspecific ST abnormality Abnormal ECG When compared with ECG of 22-SEP-2023 15:57, MO interval has decreased Referred By: Annamarie Doe Electronically Signed By:HIMANSHU CHAMORRO MD
[2024-10-05] MEDS: Nitroglycerin 0.4 MG TAB.SUBL SUBLINGUAL (10:19)
--- NOTE | 2024-10-05 10:23 | PC.NURSE ---
Third troponin resulted, plan for repeat EKG and Nitro. Pt given nitro for persistent 3/10 left sided CP. Denies SOB
[2024-10-05] MEDS: Acetaminophen 325 MG TABLET 975 MG PO (10:26)
--- NOTE | 2024-10-05 10:29 | PC.NURSE ---
Pt requesting Tylenol for H/A s/p Nitro. States CP is unchanged and 10
[2024-10-05 11:21] LABS: Influenza A PCR NEGATIVE (Negative); Influenza B PCR NEGATIVE (Negative); Resp Syncy Virus RNA Qual PCR NEGATIVE (Negative); SARS COV2 PCR INHOUSE NEGATIVE (Negative)
== END 2024-10-05 11:48 | disposition home or self-care (01) ==
PROVIDERS: Physician Assistant Medical; Emergency Provider Emergency Medicine; PCP Nurse Practitioner Family
DX: R07.9 Chest pain, unspecified (principal); J20.9 Acute bronchitis, unspecified; I10 Essential (primary) hypertension; E78.5 Hyperlipidemia, unspecified; I48.0 Paroxysmal atrial fibrillation; Z95.1 Presence of aortocoronary bypass graft; Z79.02 Long term (current) use of antithrombotics/antiplatelets; Z79.899 Other long term (current) drug therapy; Z79.01 Long term (current) use of anticoagulants; Z87.891 Personal history of nicotine dependence; Z03.818 Encounter for observation for suspected exposure to other biological agents ruled out
CPT/HCPCS: 0241U; 36415; 71045; 80053; 81001; 84484; 85027; 85610; 85730; 93005; 99283; 99285

== ENCOUNTER → 2024-10-05 04:10 | Outpatient (BNV) | payer OTHER, SELFPAY | PROVIDERS: PCP Nurse Practitioner Family; Visit Provider Radiology Diagnostic Radiology | DX: R07.9 Chest pain, unspecified (principal); R06.02 Shortness of breath | CPT/HCPCS: 71045 ==

== ENCOUNTER → 2024-10-05 10:12 | Outpatient (BNV) | payer OTHER, SELFPAY | PROVIDERS: Emergency Provider Emergency Medicine; PCP Nurse Practitioner Family; Visit Provider Internal Medicine Cardiovascular Disease | DX: R07.9 Chest pain, unspecified (principal); R94.31 Abnormal electrocardiogram [ECG] [EKG] | CPT/HCPCS: 93010 ==

== ENCOUNTER → 2024-11-09 15:16 | Outpatient (BNVA) | payer OTHER, SELFPAY | PROVIDERS: PCP Nurse Practitioner Family; Visit Provider Nurse Practitioner Family | DX: R74.8 Abnormal levels of other serum enzymes (principal); I10 Essential (primary) hypertension | CPT/HCPCS: 96127; 99212 ==

== ENCOUNTER 2024-11-24 13:47 | Outpatient (AMB) | payer OTHER, SELFPAY ==
--- NOTE | 2024-11-24 14:08 | MHC.OFFVIS ---
Vital Signs 11/24/24 14:09 Height 5 ft 10 in Weight 210 lb 5.136 oz BMI 30.2 BP 120/70 Blood Pressure Location Lt brachial Position Sitting Pulse 63 Pulse Source Monitor Intake Visit Reasons: 3 mth f/up Intake Note: 3 mth f/up Mission Assessment Specialist Required: No Accompanied by: Self / Same As Patient Allergies allopurinol Allergy (Verified 11/09/24 15:39) Chest Pain Medication List - Last Reconciled 11/24/24 by Dakota Cotter MD atorvastatin 40 mg PO DAILY buspirone 5 mg PO BID 30 days cholecalciferol (vitamin D3) 25 mcg PO DAILY clopidogrel (Plavix) 75 mg PO DAILY clotrimazole 1% 1 appl topical BID colchicine 0.6 mg orally 2 tabs with flare, then 1 tab 1 hr later PRN; (MAX: 3 tabs a day) Cannot take concurrently with Multaq 10 days diltiazem HCl CD 180 mg PO DAILY dronedarone (Multaq) 400 mg PO BID ezetimibe 10 mg PO DAILY gabapentin 400 mg PO TID 90 days isosorbide mononitrate ER 30 mg PO BID lisinopril 10 mg PO BID lorazepam 0.5 mg PO BEDTIME PRN 30 days metoprolol tartrate 50 mg PO TID multivitamin 1 tab PO DAILY omega-3 fatty acids-fish oil 684-1,200 mg 1 cap PO DAILY pantoprazole 40 mg PO DAILY ranolazine ER 500 mg PO BID 90 days rivaroxaban (Xarelto) 20 mg PO DAILY spironolactone 25 mg PO DAILY 90 days HPI Comments Details: Matteo comes for follow-up. He intermittently under stressful situation has chest pain for which she then psych sublingual nitroglycerin. No clear exertional chest pain. Takes all his medications. No prolonged palpitation irregular heartbeat. No bleeding issues or neurologic events. Takes all his medications regularly. No heart failure symptoms. [facility] Medical History Crescendo angina Persistent atrial fibrillation TIA (transient ischemic attack) Exertional chest pain Paroxysmal atrial flutter CAD (coronary artery disease) HLD (hyperlipidemia) HTN (hypertension) Surgical History S/P cardiac catheterization Hx of CABG History of cardiac cath History of cardiac cath Family History Father No problems noted. Mother No problems noted. Maternal Grandmother No problems noted. 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 Current occupational exposures/hazards: No Cognitive needs: No Hearing needs: No Vision needs: No Review of Systems Const Denies chills, Denies fatigue, Denies fever(s), Denies frequent falls, Denies weakness, Denies weight gain and Denies weight loss ENT Denies dizziness Card Reports chest pain, Denies leg edema, Denies lightheadedness, Denies palpitations, Denies dyspnea and Denies dyspnea on exertion Resp Denies cough, Denies dyspnea and Denies dyspnea on exertion GI Denies hematochezia Musc Denies abnormal gait, Denies muscle weakness, Denies numbness, Denies radiating pain into limb and Denies tingling Neuro Denies abnormal gait, Denies dizziness, Denies frequent falls, Denies numbness, Denies tingling and Denies weakness Endo Denies fatigue and Denies palpitations Physical Exam Vital Signs: Last Vital Signs Pulse 63 11/24/24 14:09 BP 120/70 11/24/24 14:09 BMI result Body Mass Index 30.2 Const General: cooperative, healthy appearing, no acute distress, alert and awake Orientation/consciousness: patient oriented x3 HEENT Head: Yes normal to inspection Neck Neck: Yes normal visual inspection and Yes no JVD Chest Chest palpation & inspection: other (Well-healed sternotomy scar) Resp Effort & Inspection: normal respiratory effort, able to speak in complete sentences and not labored Auscultation: clear to auscultation bilaterally, no crackles, no rales, no rhonchi and no wheezes Cardio Jugular venous distension: no JVD Rate: regular rate Rhythm: regular rhythm Heart sounds: S1 normal heart sound present and S2 normal heart sound present Peripheral pulses: Peripheral pulses 2+ throughout GI Inspection: Yes normal to inspection Neuro General: patient oriented x3 Extrem Other: Right femoral catheterization site well healed with easily palpable femoral pulse General: Yes normal to inspection and No edema Office Procedures EKG Details: EKG shows normal sinus rhythm with moderate voltage criteria for LVH with inferior Q-waves 34980-[id number], Complete Assessment & Plan Assessment & Plan (1) CAD (coronary artery disease): Code(s): I25.10 - Atherosclerotic heart disease of rampart coronary artery without angina pectoris Category: Medical Plan: Complex coronary artery disease with prior surgical revascularization as his multiple coronary interventions for recurrent symptoms of angina and unstable angina. Patient currently still has symptoms of angina especially under stressful situation. Discussed about stress mitigation strategies. Currently otherwise with exertion he was no significant symptoms. Advised to continue current antianginal therapy. Continue aggressive medical therapy. Currently on Plavix as well as full oral anticoagulation. No further workup is indicated. Continue high-intensity statin therapy along with ezetimibe therapy to target goal LDL in the 50s. If he was progressive symptoms or unrelenting symptoms advised to seek emergency care. (2) Paroxysmal atrial fibrillation: Code(s): I48.0 - Paroxysmal atrial fibrillation Category: Medical Plan: Paroxysmal atrial fibrillation has remained suppressed with dronedarone therapy. Highly symptomatic. Continue dronedarone therapy. Will require quarterly EKGs. Will follow up in the clinic in 6 months time. Continue full oral anticoagulation, currently on Xarelto 20 mg daily. Semi annual renal function test should be pursued. Follow up in the clinic in 3 months for EKG in 6 months with me. Thank you for allowing me to partake in his care Orders: Orders CA echo transthoracic complete Today I48.0 - Paroxysmal atrial fibrillation Medications: Refilled atorvastatin 40 mg PO DAILY 90 tabs 1RF clopidogrel (Plavix) 75 mg PO DAILY 90 tabs 1RF dronedarone (Multaq) 400 mg PO BID 180 tabs 1RF rivaroxaban (Xarelto) must administer with evening meal 20 mg PO DAILY 90 tabs 1RF ranolazine ER 500 mg PO BID 180 tabs 1RF 90 days Coding Level of Care Code Est Pt Level 4 (08473) Complex EM visit Add On G2211 Diagnoses CAD (coronary artery disease) I25.10 Paroxysmal atrial fibrillation I48.0 CPT Codes EKG - CPT: 11152-[id number], Complete ([id number])
[2024-11-24 14:09] VITALS: BP 120/70; PULSE 63; BMI 30.2
== END 2024-11-24 14:35 | disposition home or self-care (01) ==
PROVIDERS: PCP Nurse Practitioner Family; Visit Provider Internal Medicine Cardiovascular Disease
DX: I25.10 Atherosclerotic heart disease of native coronary artery without angina pectoris (principal); I48.0 Paroxysmal atrial fibrillation
CPT/HCPCS: 93010; 99214; G2211

== ENCOUNTER → 2024-11-24 13:47 | Outpatient (BNVA) | payer OTHER, SELFPAY | PROVIDERS: PCP Nurse Practitioner Family; Visit Provider Internal Medicine Cardiovascular Disease | DX: I25.10 Atherosclerotic heart disease of native coronary artery without angina pectoris (principal); I48.0 Paroxysmal atrial fibrillation; R94.31 Abnormal electrocardiogram [ECG] [EKG] | CPT/HCPCS: 93005; 99212 ==

== ENCOUNTER 2024-12-05 09:50 | Outpatient (REF) | payer OTHER, SELFPAY ==
--- NOTE | ~2024-12-05 | US_ITS ---
CLINICAL HISTORY: R74.8 - Abnormal levels of other serum enzymes US abdomen complete Comparison: None Findings: The visualized pancreas is normal. The aorta and inferior vena cava are normal caliber. The liver is normal in size and increased in echotexture. There is no intrahepatic bile duct dilatation. The common duct is 6 mm in diameter. The gallbladder demonstrates small gallstones. There is no sonographic Lucas sign. The main portal vein is antegrade. The right kidney is 12 cm in length. The left kidney is 11.7 cm in length. Benign 14 mm cyst noted. The spleen is normal. No ascites. IMPRESSION: Hepatic steatosis. No acute process. Cholelithiasis without evidence of cholecystitis. Benign left renal cyst. This document has been electronically signed by: Vinicio Manuel MD on 12/05/2024 13:09:56
[2024-12-06 08:07] LABS: HBS Num1 > 1000.00 mIU/mL (0-7.99); HBc Num1 9.19 S/CO (0.00-0.79); HBsAGNum1 0.36 S/CO (0.00-0.99); Hepatitis A Antibody IgM 0.22 Index (0-0.79); Hepatitis B Surface Antigen Negative (Negative); ~HepC Num1 0.15 S/CO (0.00-0.79); ~Hepatitis A Antibody IgM Nonreactive (Nonreactive); ~Hepatitis B Surface Antibody REACTIVE (Nonreactive); ~Hepatitis C Antibody Nonreactive (Nonreactive)
[2024-12-06 10:37] LABS: HBc Num2 8.88 S/CO; HBc Num3 9.05 S/CO; Hepatitis B Core Antibody Reactive (Nonreactive)
== END 2024-12-05 09:51 | disposition home or self-care (01) ==
LOC: HO.HMGCX 09:50
PROVIDERS: PCP Nurse Practitioner Family; Visit Provider Nurse Practitioner Family
DX: R74.8 Abnormal levels of other serum enzymes (principal)
CPT/HCPCS: 36415; 76700; 86704; 86706; 86709; 86803; 87340

== ENCOUNTER → 2024-12-05 10:00 | Outpatient (BNV) | payer OTHER, SELFPAY | PROVIDERS: PCP Nurse Practitioner Family; Visit Provider Radiology Vascular & Interventional Radiology | DX: R74.8 Abnormal levels of other serum enzymes (principal) | CPT/HCPCS: 76700 ==

== ENCOUNTER → 2025-01-24 12:52 | Outpatient (REF) | payer OTHER, SELFPAY ==
--- NOTE | 2025-01-24 12:55 | CA_ITS ---
Transthoracic Echocardiogram Patient (Last, First, Middle): Matteo Carlos, Gender: Male Date of : 1960 Age: 65 Procedure Date: 01/24/2025 Procedure Type: Transthoracic Echocardiogram Location: OP Height: 177.8 cm Weight: 95.26 kg BSA: 2.13 m2 Heart Rate: bpm BP: 122 / 74 mmHg Supervisor Rose Grading: JUAN JOSÉ Referring MD: Dakota Cotter MD Symptoms: I48.0 - Paroxysmal atrial fibrillation Study Quality: Fair ECG Rhythm: Atrial flutter Conclusions: - Even with contrast, difficult to assess LVEF and wall motion. Suspect LVEF >55%. - No obvious valvular pathology seen on this study. Findings Procedure Information Contrast agent, definity, is being given per protocol without apparent complications. The quality of the study was despite the use of contrast and endocardial definition remains poor. Left Ventricle Normal left ventricular cavity size. Regional wall motion abnormalities can not be excluded due to suboptimal endocardial definition. Diastolic function is indeterminate on the basis of available data. There is severe septal asymmetric hypertrophy. Even with contrast, difficult to assess LVEF and wall motion. Suspect LVEF >55%. Right Ventricle Normal right ventricular cavity size. There is moderate to severely decreased right ventricular systolic function. Atria Both atria are normal in size. Aortic Valve There is a normal trileaflet aortic valve. There is no aortic valve stenosis. There is no aortic valve regurgitation. Mitral Valve The mitral valve appears normal. There is no mitral valve regurgitation. There is no mitral valve stenosis. Pulmonic Valve The pulmonic valve is likely normal. Tricuspid Valve There is trace tricuspid valve regurgitation. Tricuspid regurgitation envelope is inadequate for calculation of right ventricular systolic pressure. Great Vessels The asc aorta is normal in size. Venous The inferior vena cava was not well visualized. Pericardium/Pleural There is no evidence of pericardial effusion. Prior Study Comparison No significant change compared to prior study dated: 12/26/2021. Recommendations, Care & Conclusions No obvious valvular pathology seen on this study. Measurements 2D Linear Measurements IVSd: 1.64 0.6-0.9/0.6-1.0 cm LVIDd: 4.10 3.9-5.3/4.2-5.9 cm LVIDd Index: 1.92 2.4-3.2/2.2-3.1 cm/m2 LVIDs: 3.31 2.0-3.6 cm LVOT Diam: 2.50 3.0+(-)1.3 cm 2D Systolic Function EF 4C: 69.80 >55% Mitral Valve MV Pk E: 0.75 Aortic Valve AoV Pk Stalin: 0.77 AoV Pk Grad: 2.00 BROOKE: 4.48 LVOT LVOT Pk Stalin: 0.71 LVOT Mn Stalin: 0.48 LVOT VTI: 0.11 LVOT Pk Grad: 2.00 LVOT Mn Grad: 1.00 LVOT Diam: 2.50 LVOT Area: 4.91 Diastolic Function MV Pk E: 0.75 Right Ventricle TAPSE (mm): 7.70 TVS' Stalin: 6.90 Great Vessels Aorta Sinus of Valsalva: 3.70 2.0-3.5 cm Ao Asc: 3.80 2.1-3.4 cm Pulmonary Valve PV Pk Stalin: 0.81 Peak PV Grad: 3.00 Updated in Other Vendor System with Status of Final Tariq Hernandes MD electronically signed on 01/25/2025 11:04:18 AM with status of Final
== END ==
LOC: HO.CARD 12:52
PROVIDERS: PCP Nurse Practitioner Family; Visit Provider Internal Medicine Cardiovascular Disease
DX: I48.0 Paroxysmal atrial fibrillation (principal)
CPT/HCPCS: 93306; Q9957

== ENCOUNTER → 2025-01-24 12:55 | Outpatient (BNV) | payer OTHER, SELFPAY | PROVIDERS: PCP Nurse Practitioner Family; Visit Provider Internal Medicine | DX: I42.2 Other hypertrophic cardiomyopathy (principal) | CPT/HCPCS: 93306 ==

== ENCOUNTER 2025-02-07 14:07 | Outpatient (AMB) | payer OTHER, SELFPAY ==
[2025-02-07 14:23] VITALS: BP 108/80; PULSE 82; RESP 16; TEMP 36.7; O2SAT 97; BMI 29.7
--- NOTE | 2025-02-07 14:23 | A.OFFPC_ITS ---
Vital Signs 02/07/25 14:23 Height 5 ft 10 in Weight 207 lb BMI 29.7 BP 108/80 Blood Pressure Location Lt brachial Position Sitting Respiration 16 Pulse 82 Pulse Source Pulse Oximeter Temp 98.0 F Temp Source Oral Pulse Oximetry (%) 97 Oxygen Delivery Method Room Air Intake Visit Reasons: 3 months f/up Intake Note: Pt is here today for his 3mo. f/u Allergies allopurinol Allergy (Verified 11/09/24 15:39) Chest Pain Tobacco use date assessed: 02/07/25 Dental Screening Dental Screen Date: 02/07/25 Did you have a dental visit in the last 12 months?: No Did you have a dental problem in the last 6 months where you did not have access to dental care?: No Was dental information given to patient?: Patient has dentist HPI 3 months f/up HPI Details Chief Complaint Follow-up for hypertension and evaluation of cardiac symptoms History of Present Illness The patient is a 65-year-old male presenting with concerns related to hypertension management and possible cardiac irregularities. Currently on follow-up for hypertension, he reports no new or worsening symptoms related to blood pressure. He denies any chest pain or shortness of breath which could indicate a pressing ischemic event. Dizziness is noted upon postural transitions, likely secondary to orthostatic mechanisms, for which I have advised cautious positional changes. There is a noted sensation of intermittent warmth in the chest. Today's cardiac assessment recorded an irregular heartbeat pattern, confirmed by EKG to be atrial flutter with an associated atrioventricular block. This necessitated an immediate emergency room referral for comprehensive cardiac evaluation. Despite recommendations to seek immediate care using emergency services, the patient insisted on self-driving due to his stable perceived state, thus proceeding directly to [facility]. Social History Health Maintenance - Lab studies for further evaluation dis cussed and encouraged. Review of Systems - Cardiovascular: Reports dizziness with rapid postural change, warmth in chest; Denies chest pain or shortness of breath. - Gastrointestinal: Denies abdominal kosta n, blood in stool, constipation, diarrhea. - Constitutional: Denies fever, chills. - Neurological: Denies blurred vision or dizziness unrelated to postural changes. Physical Exam General: Cooperative, healthy appearing, comfortable, no acute distress and well developed Orientation: Patient oriented x3 Limitations: No limitations Head: Normal to inspection Ears: Hearing grossly normal bilaterally Nose: Normal external nose present Face and sinus: Normal facial exam Eyes: Appearance normal, both eyes and all related structures Neck: Normal visual inspection and Yes full ROM Respiratory: Normal respiratory effort and able to speak in complete sentences. Clear to auscultation bilaterally Cardiovascular: Very irregular heart rhythm. A flutter with AV block noted on EKG GI: Normal to inspection. Soft to palpation and nontender Skin: No rashes or lesions noted Neuro: Patient oriented x3 Extremities: Normal to inspection Results - Tests and Diagnostics: Electrocardiogr am (EKG) revealed atrial flutter with AV block. Plan The discovery of atrial flutter with AV block necessitates urgent further evaluation, resulting in the patient being referred immediately to [facility] for additional cardiac diagnostic procedures and potential interventions. Although preference was indicated for non-ambulatory travel, it was impressed upon him the critical nature of timely assessment. For hypertension and orthostatic dizziness management, I recommended laboratory investigations to review his current clinical status and advised on lifestyle modifications to manage dizziness occurrences. Implementation of treatment from the emergency department is anticipated as the immediate next step. Discussion Notes During today's consultation, I identified atrial flutter with AV block on the patient's EKG, necessitating immediate referral to an emergency department for comprehensive cardiac evaluation and intervention. I explained the potential risks associated with the arrhythmia, emphasizing urgency given the EKG findings. Despite his decision to drive himself, I underscored the importance of hospital assessment. For reported dizziness upon rising, I addressed lifestyle alterations such as slow positional changes to mitigate symptoms. The patient was informed of the need for further evaluations in managing EKG changes. Consent discussions primarily revolved around understanding the urgency of follow-up and potential treatments he might require once evaluated at [facility]. Patient Instructions - Go directly to [facility] for further evaluation of your heart. - Drive safely and seek medical attentio n immediately upon arrival. - Stand up slowly to manage dizziness fr om quick position changes. - Await results from further cardiac arthur dies, if needed, as advised by medical staff. - Follow up with laboratory tests for hy pertension as discussed. [facility] Medical History (Updated 02/07/25 @ 15:33 by Jorge Alberto Dumont, [facility]) Fatty liver Crescendo angina Persistent atrial fibrillation TIA (transient ischemic attack) Exertional chest pain Paroxysmal atrial flutter CAD (coronary artery disease) HLD (hyperlipidemia) HTN (hypertension) Surgical History S/P cardiac catheterization Hx of CABG History of cardiac cath History of cardiac cath Family History (Updated 02/07/25 @ 14:26 by Abigail Warren CMA) Father No problems noted. Mother No problems noted. 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 1. Little interest or pleasure in doing things: not at all 2. Feeling down, depressed, or hopeless: not at all 3. Trouble falling or staying asleep, or sleeping too much: not at all 4. Feeling tired or having little energy: not at all 5. Poor appetite or overeating: not at all 6. Feeling bad about yourself - or that you are a failure or have let yourself or your family down: not at all 7. Trouble concentrating on things, such as reading the newspaper or watching television: not at all 8. Moving or speaking so slowly that other people could have noticed. Or the opposite - being so fidgety or restless that you have been moving around a lot more than usual: not at all 9. Thoughts that you would be better off or of hurting yourself in some way: not at all Total score: 0 Depression Screening Interpretation: Negative Depression Screening Done: Yes 76361 - PHQ-9 Billing: Yes Source: Developed by Drs. Ge Fuentes, Maricruz Velázquez, Brent Lara and colleagues, with an educational miah from [employer]. Thrive Questionnaire Date Thrive assessed: 11/09/24 I am a: Patient What is your living situation today?: I do not have a steady places to live I am staying at a hotel Within the past 12 months, did the food you bought not last and you didn't have the money to get more?: I choose not to answer this question Within the past 12 months, did you worry whether your food would run out before you got money to buy more?: I choose not to answer this question Do you have trouble paying for medicines?: No Do you have trouble getting transportation to medical appointments?: No Do you have trouble paying your heating and electricity bill?: No Do you have trouble taking care of your child, family member or friend?: No Do you have trouble with day-to-day activities such as bathing, preparing meals, shopping, managing finances, etc.?: No Are you currently unemployed and looking for a job?: No Are you interested in more education?: No Please select the resources that you would like help with: Housing/Correction Currently or been in a relationship where the following occur: I choose not to answer THRIVE Score: 1 AUDIT C Alcohol Use Questionnaire (AUDIT-C) 1. How often do you have a drink containing alcohol?: Never Total Score: 0 MIKEL-7 AMB Questionnaire MIKEL-7 Date MIKEL - 7 assessed: 11/09/24 Feeling nervous, anxious, or on edge: 0 = Not at all Not being able to stop or control worryin = Not at all Worrying too much about different things: 0 = Not at all Trouble relaxin = Not at all Being so restless that it is hard to sit still: 0 = Not at all Becoming easily annoyed or irritable: 0 = Not at all Feeling afraid as if something awful might happen: 0 = Not at all Total MIKEL-7 score (0-4 normal; 5-9 mild; 10-14 moderate; 15-21 severe): 0 Source: Developed by Drs. Ge Fuentes, Maricruz Velázquez, Brent Lara and colleagues, with an educational miah from [employer]. Physical exam (Primary Care) Vital Signs: Last Vital Signs Temp 98.0 F 02/07/25 14:23 Pulse 82 02/07/25 14:23 Resp 16 02/07/25 14:23 BP 108/80 02/07/25 14:23 Pulse Ox 97 02/07/25 14:23 Oxygen Delivery Method Room Air 02/07/25 14:23 BMI result Body Mass Index 29.7 Tobacco/Smoking Status: Tobacco use Status Tobacco use date assessed 02/07/25 02/07/25 14:29 Patient Tobacco Use Status Former Tobacco user 02/07/25 14:29 e-Cigarette/Vaping Use Never Used 02/07/25 14:29 PHQ-9: PHQ-9 Score PHQ-9: Total score 0 02/07/25 14:29 Depression Screening Interpretation: Negative Thrive Assessment: Date of Thrive Assessment Date Thrive assessed 11/09/24 02/07/25 14:29 Currently or been in a relationship where the following occur: I choose not to answer Coding Level of Care Code Est Pt Level 4 (84555) Diagnoses HTN (hypertension) I10 HLD (hyperlipidemia) E78.5 Atrial flutter I48.92 AV block I44.30 Additional Codes PHQ-9 - 66299 - PHQ-9 Billing: Yes ([id number]) Assessment & Plan Assessment & Plan (1) HTN (hypertension): Comment: stable Code(s): I10 - Essential (primary) hypertension Category: Medical (2) HLD (hyperlipidemia): Code(s): E78.5 - Hyperlipidemia, unspecified Category: Medical (3) Atrial flutter: Code(s): I48.92 - Unspecified atrial flutter Category: Medical (4) AV block: Code(s): I44.30 - Unspecified atrioventricular block Category: Medical Plan . Orders: Orders Complete Blood Count Auto Diff Today I10 - Essential (primary) hypertension Comprehensive [place]. Panel Fast Today I10 - Essential (primary) hypertension TSH reflex Free T4 Today I10 - Essential (primary) hypertension UA CC w/rflx Micro + Cult Today I10 - Essential (primary) hypertension Lipid Panel Today I10 - Essential (primary) hypertension AMB EKG-In Office Today E78.5 - Hyperlipidemia, unspecified, I10 - Essential (primary) hypertension Medications: New amoxicillin-pot clavulanate 875-125 mg 1 tab PO BID 10 days 20 tabs 0RF
== END 2025-02-07 16:49 | disposition home or self-care (01) ==
LOC: HO.HMCC 14:08
PROVIDERS: PCP Nurse Practitioner Family; Visit Provider Nurse Practitioner Family
DX: I10 Essential (primary) hypertension (principal); E78.5 Hyperlipidemia, unspecified; I48.92 Unspecified atrial flutter; I44.30 Unspecified atrioventricular block

== ENCOUNTER → 2025-02-07 14:07 | Outpatient (BNVA) | payer OTHER, SELFPAY | PROVIDERS: PCP Nurse Practitioner Family; Visit Provider Nurse Practitioner Family | DX: I10 Essential (primary) hypertension (principal); E78.5 Hyperlipidemia, unspecified; I48.92 Unspecified atrial flutter; I44.30 Unspecified atrioventricular block | CPT/HCPCS: 96127; 99212 ==

== ENCOUNTER 2025-02-07 17:13 | Emergency (ER) | payer OTHER, SELFPAY ==
[2025-02-07] VITALS (7 sets, daily range): BP systolic 113–137; BP diastolic 71–86; PULSE 66–122; RESP 18–20; TEMP 36.9–37.1; O2SAT 95–96; BMI 29.5
--- NOTE | 2025-02-07 | ECG_ITS ---
Test Reason : CHEST PAIN Blood Pressure : */* mmHG Vent. Rate : 117 BPM Atrial Rate : 117 BPM P-R Int : 160 ms QRS Dur : 84 ms QT Int : 322 ms P-R-T Axes : 83 46 42 degrees QTcB Int : 449 ms Artifact in tracing Sinus tachycardia - probably Nonspecific ST abnormality Abnormal ECG When compared with ECG of 05-Oct-2024 10:12, Vent. rate has increased by [address] now depressed in Lateral leads Referred By: Generic ED Physician Electronically Signed By: RAINE HYLTON
--- NOTE | ~2025-02-07 | XR_ITS ---
CLINICAL HISTORY: EKG changes Single view of the chest. COMPARISON: XR chest dated 10/05/24 at 04:09 EST FINDINGS: Status post sternotomy. Normal heart size. Atherosclerotic thoracic aorta. No consolidation. No pleural effusion or pneumothorax. No acute fracture. IMPRESSION: 1. No consolidation. This document has been electronically signed by: Cuong Butt MD on 02/07/2025 18:51:10
[2025-02-07 17:40] LABS: MANUAL DIFF FLAG NO
[2025-02-07 17:42] LABS: Basophils Percent Auto 0.3 % (0-2); Eosinophils Absolute Auto 0.1 X10*3/uL (0.0-0.4); Eosinophils Percent Auto 1.1 % (0-4); Hematocrit 42.8 % (42.0-52.0); Hemoglobin 15.3 g/dl (14.0-18.0); Imm Gran Abs Auto 0.03 X10*3/uL (0.00-0.03); Imm Gran Pct Auto 0.3 % (0.0-0.4); Lymphocytes Absolute Auto 2.3 X10*3/uL (1.2-4.9); Mean Corpuscular HGB Conc 35.7 g/dl (31.0-36.0); Mean Corpuscular Hemoglobin 31.5 pg (27.0-33.0); Mean Corpuscular Volume 88.1 fL (80.0-98.0); Mean Platelet Volume 8.5 fL (9.4-12.4); Monocytes Absolute Auto 0.9 X10*3/uL (0.1-1.2); Monocytes Percent Auto 9.6 % (2-11); Neutrophils Absolute Auto 5.8 x10*3/uL (2.0-8.3); Neutrophils Percent Auto 63.7 % (45-73); Platelet Count 316 X10*3/uL (160-400); Red Blood Count 4.86 X10*6/uL (4.60-5.80); Red Cell Distribution Width 12.3 % (11.0-16.0); White Blood Count 9.1 X10*3/uL (4.8-10.8)
[2025-02-07 17:50] LABS: Prothrombin Time 23.6 SEC (10.9-12.4)
--- NOTE | 2025-02-07 18:11 | ED.CHESTPAIN ---
HPI - Chest Pain General Chief Complaint: Chest Pain Stated Complaint: Chest pain Time Seen by Provider: 02/07/25 17:45 Related Data Home Medications ?Medication ?Instructions ?Recorded ?Confirmed cholecalciferol (vitamin D3) 25 25 mcg PO DAILY 01/23/22 11/24/24 mcg (1,000 unit) tablet multivitamin 1 tab PO DAILY 01/23/22 11/24/24 omega-3 fatty acids-fish oil 684 1 cap PO DAILY 01/23/22 11/24/24 mg-1,200 mg capsule,delayed release isosorbide mononitrate 30 mg 30 mg PO BID 11/09/24 11/24/24 tablet,extended release 24 hr Previous Rx's ?Medication ?Instructions ?Recorded ezetimibe 10 mg tablet 10 mg PO DAILY #90 tabs 04/26/24 diltiazem HCl 180 mg 180 mg PO DAILY #14 caps 10/05/24 capsule,extended release 24 hr gabapentin 400 mg capsule 400 mg PO TID 90 days #270 caps 11/09/24 atorvastatin 40 mg tablet 40 mg PO DAILY #90 tabs 11/24/24 clopidogrel 75 mg tablet (Plavix) 75 mg PO DAILY #90 tabs 11/24/24 dronedarone 400 mg tablet (Multaq) 400 mg PO BID #180 tabs 11/24/24 ranolazine 500 mg tablet,extended 500 mg PO BID 90 days #180 tabs 11/24/24 release,12 hr rivaroxaban 20 mg tablet (Xarelto) 20 mg PO DAILY #90 tabs 11/24/24 buspirone 5 mg tablet 5 mg PO BID 30 days #60 tabs 12/11/24 lisinopril 10 mg tablet 10 mg PO BID #180 tabs 12/19/24 metoprolol tartrate 50 mg tablet 25 mg (1/2 x 50 mg) PO QID #180 12/19/24 tabs clotrimazole 1 % topical cream 1 appl topical BID #45 grams 12/20/24 spironolactone 25 mg tablet 25 mg PO DAILY #90 tabs 12/20/24 colchicine 0.6 mg tablet 0.6 mg PO .COMPLEX PRN gout flare 01/09/25 10 days #30 tabs amoxicillin 875 mg-potassium 1 tab PO BID 10 days #20 tabs 05/06/25 clavulanate 125 mg tablet lorazepam 0.5 mg tablet 0.5 mg PO BEDTIME PRN anxiety 30 02/08/25 days #30 tabs pantoprazole 40 mg tablet,delayed 40 mg PO DAILY #90 tabs 02/08/25 release Allergies Allergy/AdvReac Type Severity Reaction Status Date / Time allopurinol Allergy Chest Pain Verified 02/07/25 17:26 [facility] Past Medical History Medical History (Updated 02/08/25 @ 00:00 by Shalom Avila) Fatty liver Crescendo angina Persistent atrial fibrillation TIA (transient ischemic attack) Exertional chest pain Paroxysmal atrial flutter CAD (coronary artery disease) HLD (hyperlipidemia) HTN (hypertension) Surgical History S/P cardiac catheterization Hx of CABG History of cardiac cath History of cardiac cath Family History Family History (Updated 02/07/25 @ 14:26 by Abigail Warren CMA) Father No problems noted. Mother No problems noted. 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 Current occupational exposures/hazards: No Cognitive needs: No Hearing needs: No Vision needs: No Physical Exam Vital Signs: Vital Signs: Last Vital Signs Temp 98.5 F 02/07/25 20:35 Pulse 82 02/07/25 20:35 Resp 20 02/07/25 20:35 BP 113/80 02/07/25 20:35 Pulse Ox 96 02/07/25 20:35 O2 Del Method Room Air 02/07/25 20:35 BMI result Body Mass Index 29.5 Medications Administered Discontinued Medications Generic Name Dose Route Start Last Admin Trade Name Freq PRN Reason Stop Dose Admin Diltiazem HCl 15 mg 02/07/25 18:04 02/07/25 18:37 Diltiazem Hcl 50 Mg/10 Ml Vial IVPUSH 02/07/25 18:05 15 mg STAT STA Administration Diltiazem HCl 60 mg 05/06/25 18:04 02/07/25 18:34 Diltiazem Hcl 60 Mg Tablet PO 02/07/25 18:05 60 mg ONCE ONE Administration Protocol Furosemide 20 mg 02/07/25 18:57 02/07/25 19:19 Furosemide 20 Mg Tablet PO 02/07/25 18:58 20 mg ONCE ONE Administration Protocol Sodium Chloride 1,000 mls @ 999 mls/hr 02/07/25 18:15 02/07/25 20:22 Ns IV 02/07/25 19:15 Infused .Q1H1M BREANNA Infusion Sodium Zirconium Cyclosilicate 10 gm 02/07/25 18:57 02/07/25 19:19 Sodium Zirconium Cyclosilicate 10 Gm Powd.Pack PO 02/07/25 18:58 10 gm ONCE ONE Administration Medical Decision Making Medical Decision Making [facility] Narrative: Problem: Rapid dysrhythmia likely AFib paroxysmal with RVR. No major actionable electrolyte derangements aside from hyperkalemia plan for Lokelma Lasix, IV hydration. No clinical symptomatology of fluid overload, DVT Doubt PE control with the diltiazem IV and oral reassessment Does have paroxysmal atrial fibrillation. Unclear etiology of the patient's INR over 2. He is on apparently Xarelto. Fully anticoagulated. Has mild transaminitis of unclear etiology. Persistent atrial flutter in the ED though rate control affective. He has no active chest pain on reassessment at 19:00. Rates well controlled we will watch him a little bit longer. Plan for him to continue home meds including beta-romi and dronedarone and we will have him call his liability analyst tomorrow morning. CA excluded with troponin x2 given the timing and atypical nature of the symptoms Problem: Hyperglycemia, could be stress related, he has had elevating fasting blood sugar in the past Problem: Chest pain: Chronic recurrent angina despite most of all revascularization events. Patient was at a regular routine visit today and he tells me that after he was told his heart rate was fast he developed intermittent chest discomfort this is atypical in nature troponin negative no acute ischemic changes on ECG Admission/Observation Consideration of admission/observation: Escalation of care including admission/observation considered Considered however we were able to control his rate and maintain comfort Lab Data [facility] Lab Attestation statement: I reviewed the patient's lab results. 02/07/25 17:35 02/07/25 17:35 Labs: Lab Results 02/07/25 02/07/25 Range/Units 17:35 19:21 WBC 9.1 (4.8-10.8) X10*3/uL RBC 4.86 (4.60-5.80) X10*6/uL Hgb 15.3 (14.0-18.0) g/dl Hct 42.8 (42.0-52.0) % MCV 88.1 (80.0-98.0) fL MCH 31.5 (27.0-33.0) pg MCHC 35.7 (31.0-36.0) g/dl RDW 12.3 (11.0-16.0) % Plt Count 316 D (160-400) X10*3/uL MPV 8.5 L (9.4-12.4) fL Immature Gran % (Auto) 0.3 (0.0-0.4) % Neut % (Auto) 63.7 (45-73) % Lymph % (Auto) 25.0 (20-40) % [place] % (Auto) 9.6 (2-11) % Eos % (Auto) 1.1 (0-4) % Baso % (Auto) 0.3 (0-2) % Lymph # (Auto) 2.3 (1.2-4.9) X10*3/uL [place] # (Auto) 0.9 (0.1-1.2) X10*3/uL Eos # (Auto) 0.1 (0.0-0.4) X10*3/uL Baso # (Auto) 0.0 (0.0-0.2) X10*3/uL Abs Immat Gran (auto) 0.03 (0.00-0.03) X10*3/uL Absolute Neuts (auto) 5.8 (2.0-8.3) x10*3/uL Absolute Nucleated RBC 0.000 (0.0-0.012) X10*3/uL Nucleated RBC % (auto) 0.0 (0.0-0.2) /100WBC PT 23.6 H D (10.9-12.4) SEC INR 2.0 H (0.9-1.1) Sodium 133 L (135-145) mmol/L Potassium 5.6 H D (3.3-5.1) mmol/L Chloride 98 (96-108) mmol/L Carbon Dioxide 26 (22-29) mmol/L Anion Gap 15 (12-20) BUN 19 H (9-16) mg/dL Creatinine 1.17 (0.5-1.4) mg/dL Estim Creat Clear Calc 74.1 Estimated GFR > 60 Random Glucose 235 H (60-115) mg/dL Calcium 9.7 (8.4-10.2) mg/dL Magnesium 1.8 (1.6-2.6) mg/dL Total Bilirubin 0.8 (0.0-1.0) mg/dL AST 44 H (5-37) U/L ALT 84 H (0-40) U/L Alkaline Phosphatase 54 (39-117) U/L Troponin I High Sens < 2.7 D < 2.7 (<3.5-35.0) ng/L B-Natriuretic Peptide 114 H (<100) pg/mL Total Protein 7.5 (6.5-8.0) g/dL Albumin 4.4 (3.5-5.0) g/dL TSH 1.52 (0.32-4.0) uIU/mL Influenza Type A (PCR) NEGATIVE (Negative) Influenza Type B (PCR) NEGATIVE (Negative) RSV RNA Qual (PCR) NEGATIVE (Negative) SARS-CoV-2 RNA (RT-PCR) NEGATIVE (Negative) Independent Interpretation I performed an independent interpretation of an: EKG (Initial: Likely atrial fibrillation irregular, rate 117, QTC 449. No acute ischemic changes. ), Rhythm Strip and Plain X-Ray (No infiltrates or pulmonary edema) Interpretation: Rhythm interpretation rate controlled a flutter on the monitor at approximately 19:00. Chronic Conditions Patient?s care impacted by: Hypertension and Other (Coronary artery disease, AFib a flutter) Critical Care Time Critical Care Time Critical Care Time: Yes Total Critical Care Time: 45 Attestation: ED Critical Care: Authorized and Performed by: Erlin Laws MD Total critical care time: Approximately 45 Tachy arrhythmia requiring intravenous rate control Due to a high probability of clinically significant, life threatening deterioration, the patient required my highest level of preparedness to intervene emergently and I personally spent this critical care time directly and personally managing the patient. This critical care time included obtaining a history; examining the patient; pulse oximetry; ordering and review of studies; arranging urgent treatment with development of a management plan; evaluation of patient's response to treatment; frequent reassessment; and, discussions with other providers. This critical care time was performed to assess and manage the high probability of imminent, life-threatening deterioration that could result in multi-organ failure. It was exclusive of separately billable procedures and treating other patients and teaching time. Discharge Plan Discharge Clinical Impression: Chest pain, CAD (coronary artery disease), Atrial fibrillation Patient Disposition: Home, Self-Care Additional Instructions: DISCHARGE DIAGNOSES: Atrial fibrillation with rapid heartbeat Chest pain unlikely to be cardiac in nature Mildly elevated potassium level HISTORY OF PRESENTATION: ?You were sent here for rapid heart beating and chest pain from your primary doctor's office, a routine visit. EMERGENCY DEPARTMENT COURSE,TESTS, TREATMENTS: While in the ED today your heart rate was initially fast irregular consistent with atrial fibrillation/atrial flutter an abnormal arrhythmia that you have previous diagnosed with. We gave you lower your potassium as it was slightly high and lower your heart rate which did effectively. DISCHARGE MEDICATIONS: ?[We have made no changes to your regular medication regimen] FOLLOW-UP: ?Call your primary or general physician soon as possible to discuss your symptoms, your ED visit and to discuss follow up plans Call your liability analyst tomorrow 1st thing in the morning to discuss your symptoms and follow up. We recommend you see your doctor within 2-3 days for repeat blood potassium level to make sure your potassium has improved if you can not be seen by your primary doctor you may need to come to the emergency department for lab draw INSTRUCTIONS ?& RETURN PRECAUTIONS: If any symptoms change first call your primary physician, if it is after-hours your primary doctors office should have a provider salesperson stereo equipment you can speak with. If the symptoms are severe or very concerning to you then call 911 or return to the ED. Erlin Laws MD Emergency Physician [facility] Prescriptions: No Action ezetimibe 10 mg tablet 10 mg PO DAILY Qty: 90 3RF buspirone 5 mg tablet 5 mg PO BID 30 Days Qty: 60 1RF lisinopril 10 mg tablet 10 mg PO BID Qty: 180 1RF metoprolol tartrate 50 mg tablet 25 mg PO QID Qty: 180 1RF spironolactone 25 mg tablet 25 mg PO DAILY Qty: 90 1RF clotrimazole 1 % cream 1 appl topical BID Qty: 45 1RF colchicine 0.6 mg tablet 0.6 mg PO .COMPLEX PRN (Reason: gout flare) 10 Days Qty: 30 0RF Rx Instructions: 0.6 mg orally 2 tabs with flare, then 1 tab 1 hr later PRN; (MAX: 3 tabs a day) Cannot take concurrently with Multaq lorazepam 0.5 mg tablet 0.5 mg PO BEDTIME PRN (Reason: anxiety) 30 Days Qty: 30 2RF pantoprazole 40 mg tablet,delayed release (DR/EC) 40 mg PO DAILY Qty: 90 1RF multivitamin Tablet 1 tab PO DAILY cholecalciferol (vitamin D3) 25 mcg (1,000 unit) Tablet 25 mcg PO DAILY omega-3 fatty acids-fish oil 684-1,200 mg Capsule,Delayed Release(Dr/Ec) 1 cap PO DAILY diltiazem HCl 180 mg capsule,extended release 24hr 180 mg PO DAILY Qty: 14 0RF atorvastatin 40 mg tablet 40 mg PO DAILY Qty: 90 1RF clopidogrel [Plavix] 75 mg tablet 75 mg PO DAILY Qty: 90 1RF Multaq 400 mg tablet 400 mg PO BID Qty: 180 1RF Xarelto 20 mg tablet 20 mg PO DAILY Qty: 90 1RF Rx Instructions: must administer with evening meal ranolazine 500 mg tablet extended release 12 hr 500 mg PO BID 90 Days Qty: 180 1RF amoxicillin-pot clavulanate 875-125 mg tablet 1 tab PO BID 10 Days Qty: 20 0RF isosorbide mononitrate 30 mg tablet extended release 24 hr 30 mg PO BID gabapentin 400 mg capsule 400 mg PO TID 90 Days Qty: 270 0RF Interventions: ED Discharge Assessment Last Done: 02/07/25 20:35 Discharge Date/Time: 02/07/25 20:36 Print Language: Romanian
[2025-02-07 18:14] LABS: B Type Natriuretic Peptide 114 pg/mL (<100)
[2025-02-07 18:20] LABS: Troponin-I High Sensitivity < 2.7 ng/L (<3.5-35.0)
[2025-02-07 18:22] LABS: Influenza A PCR NEGATIVE (Negative); Influenza B PCR NEGATIVE (Negative); Resp Syncy Virus RNA Qual PCR NEGATIVE (Negative); SARS COV2 PCR INHOUSE NEGATIVE (Negative)
[2025-02-07 18:26] LABS: Alanine Aminotransferase 84 U/L (0-40); Albumin Level 4.4 g/dL (3.5-5.0); Anion Gap 15 (12-20); Aspartate Amino Transferase 44 U/L (5-37); Bilirubin Total 0.8 mg/dL (0.0-1.0); Blood Urea Nitrogen 19 mg/dL (9-16); Calcium 9.7 mg/dL (8.4-10.2); Carbon Dioxide 26 mmol/L (22-29); Chloride 98 mmol/L (96-108); Creatinine Clr Calc Pharmacy 74.1; Estimated Glomerular Filt Rate > 60; Glucose Random 235 mg/dL (60-115); Magnesium 1.8 mg/dL (1.6-2.6); Potassium 5.6 mmol/L (3.3-5.1); Sodium 133 mmol/L (135-145); Total Protein 7.5 g/dL (6.5-8.0)
[2025-02-07] MEDS: dilTIAZem HCL 60 MG TABLET PO (18:34)
[2025-02-07] MEDS: 0.9 % Sodium Chloride 1,000 ML 999 ML IV (18:36)
[2025-02-07] MEDS: dilTIAZem HCL 50 MG/10 ML VIAL 15 MG IVPUSH (18:37)
[2025-02-07 19:00] LABS: Alkaline Phosphatase 54 U/L (39-117)
[2025-02-07 19:04] LABS: Thyroid Stimulating Hormone 1.52 uIU/mL (0.32-4.0)
[2025-02-07] MEDS: Furosemide 20 MG TABLET PO (19:19)
[2025-02-07] MEDS: Sodium Zirconium Cyclosilicate 10 GM POWD.PACK PO (19:19)
[2025-02-07 19:58] LABS: Troponin-I High Sensitivity < 2.7 ng/L (<3.5-35.0)
== END 2025-02-07 20:36 | disposition home or self-care (01) ==
PROVIDERS: Emergency Provider Emergency Medicine; PCP Nurse Practitioner Family
DX: R07.9 Chest pain, unspecified (principal); I48.91 Unspecified atrial fibrillation; E87.5 Hyperkalemia; Z03.818 Encounter for observation for suspected exposure to other biological agents ruled out; I10 Essential (primary) hypertension; E78.5 Hyperlipidemia, unspecified; Z86.73 Personal history of transient ischemic attack (TIA), and cerebral infarction without residual deficits; Z95.1 Presence of aortocoronary bypass graft; Z95.5 Presence of coronary angioplasty implant and graft
CPT/HCPCS: 0241U; 36415; 71045; 80053; 83735; 83880; 84443; 84484; 85025; 85610; 93005; 96361; 96374; 99284; 99285

== ENCOUNTER → 2025-02-07 17:15 | Outpatient (BNV) | payer OTHER, SELFPAY | PROVIDERS: Emergency Provider Emergency Medicine; PCP Nurse Practitioner Family; Visit Provider Internal Medicine | DX: R94.31 Abnormal electrocardiogram [ECG] [EKG] (principal); R07.9 Chest pain, unspecified | CPT/HCPCS: 93010 ==

== ENCOUNTER → 2025-02-07 17:45 | Outpatient (BNV) | payer OTHER, SELFPAY | PROVIDERS: Emergency Provider Emergency Medicine; PCP Nurse Practitioner Family; Visit Provider Radiology Diagnostic Radiology | DX: R94.31 Abnormal electrocardiogram [ECG] [EKG] (principal) | CPT/HCPCS: 71045 ==

== ENCOUNTER 2025-02-10 10:49 | Outpatient (REF) | payer OTHER, SELFPAY ==
[2025-02-10 13:17] LABS: MANUAL DIFF FLAG NO
[2025-02-10 13:27] LABS: Basophils Percent Auto 0.4 % (0-2); Eosinophils Absolute Auto 0.1 X10*3/uL (0.0-0.4); Eosinophils Percent Auto 1.3 % (0-4); Hematocrit 42.5 % (42.0-52.0); Hemoglobin 14.8 g/dl (14.0-18.0); Imm Gran Abs Auto 0.02 X10*3/uL (0.00-0.03); Imm Gran Pct Auto 0.2 % (0.0-0.4); Lymphocytes Absolute Auto 3.3 X10*3/uL (1.2-4.9); Lymphocytes Percent Auto 36.2 % (20-40); Mean Corpuscular HGB Conc 34.8 g/dl (31.0-36.0); Mean Corpuscular Hemoglobin 31.3 pg (27.0-33.0); Mean Corpuscular Volume 89.9 fL (80.0-98.0); Mean Platelet Volume 9.1 fL (9.4-12.4); Monocytes Absolute Auto 1.1 X10*3/uL (0.1-1.2); Monocytes Percent Auto 11.9 % (2-11); Neutrophils Absolute Auto 4.5 x10*3/uL (2.0-8.3); Platelet Count 302 X10*3/uL (160-400); Red Blood Count 4.73 X10*6/uL (4.60-5.80); Red Cell Distribution Width 12.4 % (11.0-16.0)
[2025-02-10 13:36] LABS: Appearance Urine Clear; Color Urine Yellow; Glucose Urine UA Negative (Negative); Leukocyte Esterase Urine Trace (Negative); Nitrite Urine Negative (Negative); PH 7.5 (5.0-9.0); UMIC TRIGGER UACC YES; Urine Blood Negative (Negative); Urine Ketones Negative (Negative); Urine Protein Negative (Neg-Trace)
[2025-02-10 13:41] LABS: Bacteria Urine None Seen (None Seen); Hyaline Casts Urine 0-2 /LPF (0-2); RBC Urine 0-2 /HPF (0-2); Squamous Epithelial Cell Urine 0-2 /HPF (0-2); WBC Urine 0-5 /HPF (0-5)
[2025-02-10 14:07] LABS: Alanine Aminotransferase 68 U/L (0-40); Alkaline Phosphatase 47 U/L (39-117); Anion Gap 9 (12-20); Aspartate Amino Transferase 35 U/L (5-37); Bilirubin Total 1.5 mg/dL (0.0-1.0); Blood Urea Nitrogen 15 mg/dL (9-16); Calcium 9.4 mg/dL (8.4-10.2); Carbon Dioxide 28 mmol/L (22-29); Chloride 97 mmol/L (96-108); Cholesterol 117 mg/dL (<200); Estimated Glomerular Filt Rate > 60; Glucose Fasting 149 mg/dL (60-99); HDL Cholesterol 34 mg/dL (>40); LDL Cholesterol Calculated 41 mg/dL (<100); Potassium 4.4 mmol/L (3.3-5.1); Sodium 130 mmol/L (135-145); Total Protein 6.9 g/dL (6.5-8.0); Triglycerides 210 mg/dL (<150)
[2025-02-10 14:11] LABS: TSH reflex Free T4 1.57 uIU/mL (0.32-4.0)
== END 2025-02-10 10:50 | disposition home or self-care (01) ==
LOC: HO.HMGCLDS 10:49
PROVIDERS: PCP Nurse Practitioner Family; Visit Provider Nurse Practitioner Family
DX: I10 Essential (primary) hypertension (principal)
CPT/HCPCS: 36415; 80053; 80061; 81001; 84443; 85025

== ENCOUNTER → 2025-02-15 13:57 | Outpatient (BNVA) | payer OTHER, SELFPAY | PROVIDERS: PCP Nurse Practitioner Family; Visit Provider Internal Medicine Cardiovascular Disease ==

== ENCOUNTER → 2025-02-22 11:36 | Day surgery (SDC) | payer OTHER, SELFPAY ==
[2025-02-20 15:14] VITALS: BMI 30.1
--- NOTE | 2025-02-21 10:55 | HO.ANESPROP2 ---
HPI - Anesthesia Eval Consult details Narrative: 65yo M for Cardioversion Xarelto and plavix Complex coronary artery disease with prior surgical revascularization as his multiple coronary interventions for recurrent symptoms of angina and unstable angina. Currently, stable angina with stressful situations PMF Active Problems Active Problems: All Active Problems Hyponatremia (Acute) Elevated bilirubin (Acute) AV block (Acute) Atrial flutter (Acute) Elevated liver enzymes (Acute) Stress (Acute) Physical exam (Acute) S/P cardiac cath (Acute) Pneumonia (Acute) GERD (gastroesophageal reflux disease) (Acute) Paroxysmal atrial fibrillation (Acute) Left hip pain (Acute) Status post coronary artery stent placement (Acute) Facial numbness (Acute) Chest pain (Acute) Weakness (Acute) Left inguinal hernia (Acute) Elevated fasting blood sugar (Acute) Discomfort of left groin (Acute) Screening PSA (prostate specific antigen) (Acute) Fatty liver (Acute) Hx of CABG (Acute) S/P cardiac catheterization (Acute) Exertional chest pain (Acute) CAD (coronary artery disease) (Acute) HLD (hyperlipidemia) (Acute) HTN (hypertension) (Acute) Past Medical History Medical History (Updated 02/20/25 @ 15:00 by Marilyn Farias RN) History of cardioversion Fatty liver Crescendo angina Persistent atrial fibrillation TIA (transient ischemic attack) Exertional chest pain Paroxysmal atrial flutter CAD (coronary artery disease) HLD (hyperlipidemia) HTN (hypertension) Family History Family History (Updated 02/07/25 @ 14:26 by Abigail Warren CMA) Father No problems noted. Mother No problems noted. 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 Current occupational exposures/hazards: No Cognitive needs: No Hearing needs: No Vision needs: No Meds Allergies Allergy/AdvReac Type Severity Reaction Status Date / Time allopurinol Allergy Chest Pain Verified 02/07/25 17:26 Home Medications ?Medication ?Instructions ?Recorded ?Confirmed ?Last Taken ?Type cholecalciferol (vitamin D3) 25 25 mcg PO DAILY 01/23/22 02/20/25 01/23/22 History mcg (1,000 unit) tablet multivitamin 1 tab PO DAILY 01/23/22 02/20/25 01/23/22 History omega-3 fatty acids-fish oil 684 1 cap PO DAILY 01/23/22 02/20/25 01/23/22 History mg-1,200 mg capsule,delayed release isosorbide mononitrate 30 mg 30 mg PO BID 11/09/24 02/20/25 Unknown History tablet,extended release 24 hr Exam Height,Weight and Vital Signs: Height 5 ft 10 in Weight 95.254 kg Pertinent Lab Results Pertinent Lab Results: Laboratory Tests 02/10/25 02/10/25 10:52 11:52 WBC 9.0 Hgb 14.8 Hct 42.5 Plt Count 302 Sodium 130 L Potassium 4.4 D Chloride 97 Carbon Dioxide 28 BUN 15 Creatinine 0.97 Narrative Narrative: EKG 02/2025 Aflutter @ [address] and T wave abn ECHO 01/2025 Conclusions: - Even with contrast, difficult to assess LVEF and wall motion. Suspect LVEF >55%. - No obvious valvular pathology seen on this study. Assessment and Plan Assessment Anesthesia Assessment: Chart Reviewed
--- NOTE | 2025-02-22 12:46 | ECG_ITS ---
Test Reason : preop Blood Pressure : */* mmHG Vent. Rate : 66 BPM Atrial Rate : 66 BPM P-R Int : 208 ms QRS Dur : 90 ms QT Int : 444 ms P-R-T Axes : 34 36 57 degrees QTcB Int : 465 ms Sinus rhythm with marked sinus arrhythmia Otherwise normal ECG When compared with ECG of 07-Feb-2025 17:15, Vent. rate has decreased by [address] no longer depressed in Inferior leads Referred By: Dakota Cotter Electronically Signed By: Leonard Leos
[2025-02-22 12:47] VITALS: BP 135/85; PULSE 68; RESP 14; TEMP 36.6; O2SAT 95
--- NOTE | 2025-02-22 13:24 | PC.NURSE ---
Upon intake with nurse Crockett, pt was noted to be in NSR. Dr. Cotter notified via [place] text, EKG ordered/completed, sent image to Dr. Cotter. Advised pt go home, discontinue Cardizem and continue Ranexa with follow up in office in one week for EKG. Pt aware of instructions which were transcribed to discharge paperwork and presented to patient. Discharged to friend in waiting room.
== END ==
LOC: HO.SSS 11:38
PROVIDERS: PCP Nurse Practitioner Family; Visit Provider Internal Medicine Cardiovascular Disease
DX: I48.92 Unspecified atrial flutter (principal); Z53.8 Procedure and treatment not carried out for other reasons; Z79.01 Long term (current) use of anticoagulants; Z79.02 Long term (current) use of antithrombotics/antiplatelets; I10 Essential (primary) hypertension; I25.10 Atherosclerotic heart disease of native coronary artery without angina pectoris; Z95.1 Presence of aortocoronary bypass graft; Z95.5 Presence of coronary angioplasty implant and graft
CPT/HCPCS: 93005

== ENCOUNTER → 2025-02-22 12:46 | Outpatient (BNV) | payer OTHER, SELFPAY | PROVIDERS: PCP Nurse Practitioner Family; Visit Provider Internal Medicine Cardiovascular Disease | DX: I49.9 Cardiac arrhythmia, unspecified (principal) | CPT/HCPCS: 93010 ==

== ENCOUNTER → 2025-03-01 09:17 | Outpatient (BNVA) | payer OTHER, SELFPAY | PROVIDERS: PCP Nurse Practitioner Family; Visit Provider Internal Medicine Cardiovascular Disease ==

== ENCOUNTER 2025-04-06 21:57 | Emergency (ER) | payer OTHER, SELFPAY ==
--- NOTE | 2025-04-06 22:08 | PC.NURSE ---
Informed by registration patient left dept immediately after checking in. Patient not in WR at this time.
--- NOTE | 2025-04-06 22:18 | MHC.EDTECH ---
Pt checked in for CP at front desk team member. EKG oder entered at 2200. Pt called for att 2202. Nax1 at 2202. Pt called for again at 2214 with Nax2. Informed by registration patient left dept immediately after checking in. Patient not in WR at this time. On speaking with registration staff, pt was well appearing, ambulating independently without difficulty, speaking full coherent sentences, with no visible apparent distress.
--- NOTE | 2025-04-06 22:43 | PC.NURSE ---
Called Pt cell phone, Pt stated I left because my called me and she needs me, I go if I'm feeling bad . Pt LWBS.
== END 2025-04-06 23:12 | disposition left against medical advice (07) ==
LOC: HO.ED 23:10
PROVIDERS: Emergency Provider Emergency Medicine
DX: R07.9 Chest pain, unspecified (principal); Z53.21 Procedure and treatment not carried out due to patient leaving prior to being seen by health care provider

== ENCOUNTER 2025-05-10 16:06 | Outpatient (AMB) | payer OTHER, SELFPAY ==
--- NOTE | 2025-05-10 16:08 | AM.OFFWIN_ITS ---
Intake Vital Signs 05/10/25 16:11 Height 5 ft 10 in Weight 202 lb BMI 29.0 BP 102/76 Blood Pressure Location Lt brachial Position Sitting Pulse 75 Pulse Source Pulse Oximeter Temp 97.9 F Temp Source Oral Pulse Oximetry (%) 96 Oxygen Delivery Method Room Air Intake Visit Reasons: EP Stomach pain Intake Note: presents with epigastric pain after eating certain foods- never had issues with this food before Patient Tobacco Use Status: Former Tobacco user Allergies allopurinol Allergy (Verified 05/10/25 16:09) Chest Pain Medication List - Last Reconciled 05/10/25 by Yumiko Lamb PA-C atorvastatin 40 mg PO DAILY buspirone 5 mg PO BID 30 days cholecalciferol (vitamin D3) 25 mcg PO DAILY clopidogrel (Plavix) 75 mg PO DAILY clotrimazole 1% 1 appl topical BID PRN colchicine 0.6 mg orally 2 tabs with flare, then 1 tab 1 hr later PRN; (MAX: 3 tabs a day) Cannot take concurrently with Multaq 10 days diltiazem HCl CD 180 mg PO DAILY dronedarone (Multaq) 400 mg PO BID ezetimibe 10 mg PO DAILY gabapentin 400 mg PO TID PRN garlic 500 mg PO DAILY isosorbide mononitrate ER 30 mg PO BID lisinopril 10 mg PO BID lorazepam 0.5 mg PO BEDTIME PRN 30 days magnesium citrate 100 mg PO DAILY metoprolol tartrate 50 mg PO TID multivitamin 1 tab PO DAILY omega-3 fatty acids-fish oil 684-1,200 mg 1 cap PO DAILY pantoprazole 40 mg PO DAILY ranolazine ER 500 mg PO BID 90 days rivaroxaban (Xarelto) 20 mg PO DAILY spironolactone 25 mg PO DAILY zinc gluconate 100 mg PO DAILY Do you need a note to return to daycare/school/sports/work: No HPI HPI Comments History of Present Illness Details History of Present Illness - The patient is a 65-year-old male pres enting with abdominal pain. - Abdominal pain onset after eating empa nada and coffee, ongoing for months. - Nausea and vomiting occur in the morni ngs, no blood or black vomit. - Diarrhea present, no blood or black st ools, no fever. - History of gallstones and fatty liver from December 2024 ultrasound. - Denies alcohol and tobacco use. - Negative cardiac workup at [facility] ED la [facility] week, abdominal pain not addressed. Physical Exam General: Cooperative, healthy appearing, comfortable, no acute distress and well developed Orientation: Patient oriented x3 Limitations: No limitations Head: Normal to inspection Ears: Hearing grossly normal bilaterally Nose: Normal External nose present Face and sinus: Normal facial exam Eyes: Appearance normal, both eyes and all related structures Neck: Normal visual inspection and Yes full ROM Respiratory: Normal respiratory effort and able to speak in complete sentences. GI; obese abdomen, soft, + andre's, ttp RUQ, otherwise normal Skin: No rashes or lesions noted Neuro: Patient oriented x3 Extremities: Normal to inspection [facility] Medical History History of cardioversion Fatty liver Crescendo angina Persistent atrial fibrillation TIA (transient ischemic attack) Exertional chest pain Paroxysmal atrial flutter CAD (coronary artery disease) HLD (hyperlipidemia) HTN (hypertension) Surgical History S/P cardiac catheterization Hx of CABG History of cardiac cath History of cardiac cath Family History (Updated 02/07/25 @ 14:26 by Abigail Warren CMA) Father No problems noted. Mother No problems noted. 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 Current occupational exposures/hazards: No Cognitive needs: No Hearing needs: No Vision needs: No Review of Systems Const All systems reviewed & are unremarkable except as noted in HPI and below Physical Exam Vital Signs: Last Vital Signs Temp 97.9 F 05/10/25 16:11 Pulse 75 05/10/25 16:11 BP 102/76 05/10/25 16:11 Pulse Ox 96 05/10/25 16:11 Oxygen Delivery Method Room Air 05/10/25 16:11 BMI result Body Mass Index 29.0 Assessment & Plan Assessment & Plan (1) RUQ abdominal pain: Code(s): R10.11 - Right upper quadrant pain Plan: Plan - Abdominal ultrasound ordered (okay with PCP) for gallbladder evaluation. - Zofran and Bentyl prescribed for symptom relief. - ER visit advised if symptoms worsen before ultrasound. Patient was informed and verbally consented to the use of an ambient scribe for clinic note documentation during this visit. (2) Nausea and vomiting: Code(s): R11.2 - Nausea with vomiting, unspecified Qualifiers: Vomiting type: unspecified Qualified Code(s): R11.2 - Nausea with vomiting, unspecified Plan: as above Orders: Orders US abdomen limited Today Yumiko Lamb PA-C R10.11 - Right upper quadrant pain, R11.2 - Nausea with vomiting, unspecified Medications: New ondansetron 4 mg PO Q8H PRN 10 tabs 0RF nausea and vomiting Yumiko Lamb PA-C dicyclomine 10 mg PO TID PRN 10 caps 0RF abdominal pain Yumiko Lamb PA-C Changed From metoprolol tartrate 25 mg (1/2 x 50 mg) PO QID 180 tabs 1RF To metoprolol tartrate 50 mg PO TID Dakota Cotter MD From gabapentin 400 mg PO TID 90 days 270 caps 2RF To gabapentin 400 mg PO TID PRN JESSE Glover From clotrimazole 1% 1 appl topical BID 45 grams 1RF To clotrimazole 1% 1 appl topical BID PRN JESSE Glover Coding Level of Care Code Est Pt Level 4 (42447) Diagnoses RUQ abdominal pain R10.11 Nausea and vomiting, unspecified vomiting type R11.2 Vomiting type: unspecified
[2025-05-10 16:11] VITALS: BP 102/76; PULSE 75; TEMP 36.6; O2SAT 96; BMI 29.0
--- OUTSIDE RECORDS SUMMARY | 2025-05-10 16:24 | XMS_ITS | Clinical Summary ---
Author Organization [facility] Address [address] [place] [phone] Phone Care Team Providers Care Actuarial Manager Name Role Phone Physician, Pcp Unknown Primary Care Provider Greta vailable Allergies No known active allergies Medications acetaminophen (TYLENOL) 500 mg tablet Take 1 tablet (500 mg total) by mouth every 6 (six) hours if needed for mild pain for up to 12 doses. 12 tablet 04/29/20 25 Active loperamide (IMODIUM) 2 mg capsule Take 1 capsule (2 mg total) by mouth 4 (four) times a day if needed for diarrhea for up to 24 doses. 24 capsule 04/29/20 25 Active ondansetron ODT (ZOFRAN-ODT) 4 mg disintegrating tablet Dissolve 1 tablet (4 mg total) on top of the tongue every 8 (eight) hours if needed for nausea or vomiting for up to 12 doses. Let 1 tablet dissolve under the tongue three times daily as needed for nausea or vomiting. 12 tablet 04/29/20 25 Active acetaminophen (TYLENOL) 500 mg tablet Take 1 tablet (500 mg total) by mouth every 6 (six) hours if needed for mild pain for up to 12 doses. 12 tablet 04/29/20 25 025 Discontinued ondansetron ODT (ZOFRAN-ODT) 4 mg disintegrating tablet Dissolve 1 tablet (4 mg total) on top of the tongue every 8 (eight) hours if needed for nausea or vomiting for up to 12 doses. Let 1 tablet dissolve under the tongue three times daily as needed for nausea or vomiting. 12 tablet 04/29/20 25 025 Discontinued loperamide (IMODIUM) 2 mg capsule Take 1 capsule (2 mg total) by mouth 4 (four) times a day if needed for diarrhea for up to 24 doses. 24 capsule 04/29/20 25 025 Discontinued Encounters Date Type Department Care Team Description 04/29/2025 11:18 AM EDT - 04/29/2025 4:41 PM EDT Emergency [facility] Emergency [address] [place] [address] Robe Cui MD Acute gastroenteritis (Primary Dx); Nausea vomiting and diarrhea; Lightheadedness Discharge Disposition: Home or Self Care from Last 3 Months Social History Tobacco Use Types Packs/Day Years Used Date Smoking Tobacco: Never Assessed Sex and Gender Information Value Date Recorded Sex Assigned at Not on file Legal Sex Male 11:14 AM EDT Gender Identity Not on file Sexual Orientation Not on file Last Filed Vital Signs Vital Sign Reading Time Taken Comments Blood Pressure 120/86 04/29/2025 4:08 PM EDT Pulse 66 04/29/2025 4:08 PM EDT Temperature 36.6 C (97.9 F) 04/29/2025 4:08 PM EDT Respiratory Rate 18 04/29/2025 4:08 PM EDT Oxygen Saturation 97% 04/29/2025 4:08 PM EDT Inhaled Oxygen Concentration - - Weight - - Height - - Body Mass Index - - Plan of Treatment Health Maintenance Due Date Last Done Comments DTaP,Tdap,and Td Vaccines (1 - Tdap) 1981 Pneumococcal Vaccine: 50+ Years (1 of 1 - PCV) 01/07/2012 Zoster Vaccines (1 of 2) 01/07/2012 COVID-19 Vaccine ( - 2023-2 5 season) 2024 Depression Screening 10/05/2024 Cholesterol Screening (Lipid Panel) 04/29/2025 HIV Screening 04/29/2025 Hepatitis C Screening 04/29/2025 Medicare Annual Wellness Visit 04/29/2025 Social Influencers of Health Screening 04/29/2025 Influenza Vaccine (#1) 2025 Colorectal Cancer Screening: FIT-DNA (Cologuard) 03/05/2026 03/05/2023, 03/05/2023 RSV Immunization Adult Patients (1 - 1-dose 75+ series) 2037 HIB Vaccines Aged Out No longer eligi ble based on patient's age to complete this topic HPV Vaccines Aged Out No longer eligi ble based on patient's age to complete this topic Hepatitis A Vaccines Aged Out No long er eligible based on patient's age to complete this topic Hepatitis B Vaccines Aged Out No long er eligible based on patient's age to complete this topic IPV Vaccines Aged Out No longer eligi ble based on patient's age to complete this topic MMR Vaccines Aged Out No longer eligi ble based on patient's age to complete this topic Meningococcal ACWY Vaccine Aged Out N o longer eligible based on patient's age to complete this topic Meningococcal B Vaccine Aged Out No l onger eligible based on patient's age to complete this topic RSV Immunization Patients Under 20 months Aged Out No longer eligible b ased on patient's age to complete this topic Varicella Vaccines Aged Out No longer eligible based on patient's age to complete this topic Procedures Procedure Name Priority Date/Time Associated Diagnosis Comments ECG ANNOTATED 05/01/2025 XR CHEST 2 VIEWS STAT 04/29/2025 1:19 PM EDT YI URINE CULTURE TUBE STAT 04/29/2025 1:04 PM EDT URINALYSIS WITH REFLEX MICROSCOPIC AND CULTURE STAT 04/29/2025 1:04 PM EDT URINALYSIS WITH REFLEX MICROSCOPIC AND CULTURE STAT 04/29/2025 1:04 PM EDT CULTURE URINE STAT 04/29/2025 1:04 PM EDT HEPATIC FUNCTION PANEL STAT Add-on 04/29/2025 12:05 PM EDT TROPONIN I HIGH SENSITIVITY STAT 04/29/2025 12:05 PM EDT CBC WITH AUTO DIFFERENTIAL STAT 04/29/2025 12:05 PM EDT MAGNESIUM STAT 04/29/2025 12:05 PM EDT BASIC METABOLIC PANEL STAT 04/29/2025 12:05 PM EDT CBC AND DIFFERENTIAL STAT 04/29/2025 12:05 PM EDT POCT GLUCOSE BLOOD Routine 04/29/2025 11 :49 AM EDT ECG 12-LEAD STAT 04/29/2025 11:44 AM EDT from Last 3 Months Results * ECG-Annotated (05/01/2025) us Provider Onbase MD ECG ORDERABLES Final Result * XR Chest 2 Views (04/29/2025 1:19 PM EDT) Anatomical Region Laterality Modality Body Radiographic Tamela ging 04/29/2025 1:39 PM EDT Impressions 04/29/2025 1:40 PM EDT Impression: No active pulmonary process identified. Telerad JENNIE ([id number]) -------- FINAL REPORT -------- Dictated By: Mae Morley Dictated Date: 04/29/2025 13:39 ET Assigned Physician: Mae Morley Reviewed and Electronically Signed By: Mae Morley Signed Date: 04/29/2025 13:40 ET Workstation ID: [id number] Transcribed By: Self Edit Transcribed Date: 04/29/2025 13:39 ET Narrative 04/29/2025 1:40 PM EDT History: Dizziness. Comparison: No previous imaging at this institution. Findings: PA and lateral views. The cardiac silhouette is normal in size. Sternal sutures and mediastinal clips are consistent with coronary artery surgery. The leslie are not enlarged. The pulmonary vascularity is within normal limits. The lungs are clear. The costophrenic angles are sharp. Procedure Note Mae Morley MD - 04/29/2025 History: Dizziness. Comparison: No previous imaging at this institution. Findings: PA and lateral views. The cardiac silhouette is normal in size. Sternalsutures and mediastinal clips are consistent with coronary artery surgery.The leslie are not enlarged. The pulmonary vascularity is within normallimits. The lungs are clear. The costophrenic angles are sharp. IMPRESSION: Impression: No active pulmonary process identified. Telerad PA ([id number]) -------- FINAL REPORT -------- Dictated By: Mae Morley Dictated Date: 04/29/2025 13:39 ET Assigned Physician: Mae Morley Reviewed and Electronically Signed By: Mae Morley Signed Date: 04/29/2025 13:40 ET Workstation ID: [id number] Transcribed By: Self Edit Transcribed Date: 04/29/2025 13:39 ET us Robe Cui MD IMG XR PROCEDURES Final Res ult * (ABNORMAL) Urinalysis with reflex microscopic and culture (04/29/2025 1:04 PM EDT) Specific [place] Urine 1.025 1.003 - 1.030 LAB URINALYSIS - [facility] pH, Urine 6.0 5.0 - 8.0 pH LAB URINALYSIS - AUTOMATED METHOD 04/29/2025 1:47 PM [facility] Leukocytes, Urine Trace(A) Negative LAB URINALYSIS - AUTOMATED METHOD 04/29/2025 1:47 PM [facility] Nitrite, Urine Negative Negative LAB URINALYSIS - AUTOMATED METHOD 04/29/2025 1:47 PM [facility] Protein, Urine 30(A) <=Trace mg/dL LAB URINALYSIS - AUTOMATED METHOD 04/29/2025 1:47 PM [facility] Glucose, Urine Negative Negative mg/dL LAB URINALYSIS - AUTOMATED METHOD 04/29/2025 1:47 PM [facility] Ketones, Urine Trace(A) Negative mg/dL LAB URINALYSIS - AUTOMATED METHOD 04/29/2025 1:47 PM [facility] Urobilinogen, Urine 1.0 0.2 - 1.0 mg/dL LAB URINALYSIS - AUTOMATED METHOD 04/29/2025 1:47 PM EDT [facility] Bilirubin, Urine Negative Negative LAB URINALYSIS - AUTOMATED METHOD 04/29/2025 1:47 PM EDT [facility] Blood, Urine Negative Negative LAB URINALYSIS - AUTOMATED METHOD 04/29/2025 1:47 PM EDT [facility] RBC, Urine 4.0 0 - 4 /HPF LAB URINALYSIS - AUTOMATED METHOD 04/29/2025 1:47 PM EDT [facility] WBC, Urine 2.5 0 - 4 /HPF LAB URINALYSIS - AUTOMATED METHOD 04/29/2025 1:47 PM EDT [facility] Squamous Epithelial, Urine 13 0 - 60 /LPF LAB URINALYSIS - AUTOMATED METHOD 04/29/2025 1:47 PM [facility] Bacteria, Urine Negative Negative /HPF LAB URINALYSIS - AUTOMATED METHOD 04/29/2025 1:47 PM [facility] Hyaline Casts, Urine 2.4 0 - 3 /LPF LAB URINALYSIS - AUTOMATED METHOD 04/29/2025 1:47 PM EDT [facility] Urine Urine specimen obtained by clean catch procedure / Unknown Non-blood Collection / Unknown 04/29/2025 1:04 PM EDT 04/29/2025 1:38 PM EDT Robe Cui MD LAB URINE ORDERABLES Final Result [facility] [address] [place] [address], * Yi urine culture tube (04/29/2025 1:04 PM EDT) Extra Tube Hold for add-ons. 04/29/2025 3:01 PM EDT [facility] Comment:Auto resulted. Urine Urine specimen obtained by clean catch procedure / Unknown Non-blood Collection / Unknown 04/29/2025 1:04 PM EDT 04/29/2025 1:38 PM EDT Robe Cui MD LAB URINE ORDERABLES Final Result [facility] [address] [place] [address], [place] [phone] * Culture urine (04/29/2025 1:04 PM EDT) Pathologist [facility] Culture, Urine No growth 04/30/2025 10:04 AM EDT [facility] Urine Urine specimen obtained by clean catch procedure / Unknown Non-blood Collection / Unknown 04/29/2025 1:04 PM EDT 04/29/2025 1:47 PM EDT Robe Cui MD LAB MICROBIOLOGY - GENERAL ORDERABLES Final Result [facility] [address] [place] [address], [place] [phone] * Troponin I high sensitivity (04/29/2025 12:05 PM EDT) [facility] High Sensitivity Troponin I 6 <=79 ng/L LAB CHEMISTRY METHOD 04/29/2025 12:49 PM EDT [facility] Blood Venous blood specimen / Unknown Venipuncture / Unknown 04/29/2025 12:05 PM EDT 04/29/2025 12:18 PM EDT Narrative [facility] - 04/29/2025 12:49 PM EDT High levels of biotin in samples may falsely decrease hsTroponin values. Use caution when interpreting hsTroponin results in patients taking biotin who exhibit renal impairment (eGFR <60) or in patients taking more than 20 mg/day of biotin. us Nohemi Turner MD LAB BLOOD ORDERABLES Final Resul t [facility] [address] [place] [address], * (ABNORMAL) CBC auto differential (04/29/2025 12:05 PM EDT) WBC 11.7(H) 4.8 - 10.8 K/mcL LAB HEMETOLOGY METHOD 04/29/2025 12:25 PM EDT [facility] RBC 4.70 4.50 - 5.50 M/mcL LAB HEMETOLOGY METHOD 04/29/2025 12:25 PM EDT [facility] Hemoglobin 14.6 13.5 - 17.5 g/dL LAB HEMETOLOGY METHOD 04/29/2025 12:25 PM EDT [facility] Hematocrit 43.6 42.0 - 54.0 % LAB HEMETOLOGY METHOD 04/29/2025 12:25 PM EDT [facility] MCV 92.6 79.0 - 98.0 FL LAB HEMETOLOGY METHOD 04/29/2025 12:25 PM EDT [facility] MCH 31.0 27.0 - 32.0 pcg LAB HEMETOLOGY METHOD 04/29/2025 12:25 PM EDT [facility] MCHC 33.5 32.0 - 37.0 g/dL LAB HEMETOLOGY METHOD 04/29/2025 12:25 PM EDT [facility] RDW 11.9 11.0 - 15.0 % LAB HEMETOLOGY METHOD 04/29/2025 12:25 PM EDT [facility] Platelets 274 130 - 400 K/mcL LAB HEMETOLOGY METHOD 04/29/2025 12:25 PM EDT [facility] MPV 8.8 7.0 - 11.0 FL LAB HEMETOLOGY METHOD 04/29/2025 12:25 PM EDT [facility] NRBC 0.0 <1.0 % LAB HEMETOLOGY METHOD 04/29/2025 12:25 PM EDT [facility] NRBC Absolute 0.00 <0.10 K/mcL LAB HEMETOLOGY METHOD [facility]/29[facility]2025 [facility] Neutrophils Relative 68.8 % LAB HEMETOLOGY METHOD 04/29/2025 12:[facility] Lymphocytes Relative 22.3 % LAB HEMETOLOGY METHOD 04/29/2025 12:25 [facility] Monocytes Relative 7.6 % LAB HEMETOLOGY METHOD 04/29/2025 12:25 PM [facility] Eosinophils Relative 0.8 % LAB HEMETOLOGY METHOD 04/29/2025 12:25 PM [facility] Basophils Relative 0.2 % LAB HEMETOLOGY METHOD 04/29/2025 12:25 PM [facility] Immature Granulocytes Relative 0.3 % LAB HEMETOLOGY METHOD 04/29/2025 12:25 PM [facility] Neutrophils Absolute 8.08(H) 1.50 - 7.00 K/mcL LAB HEMETOLOGY METHOD 04/29/2025 12:25 PM [facility] Lymphocytes Absolute 2.62 1.00 - 5.00 K/mcL LAB HEMETOLOGY METHOD 04/29/2025 12:25 PM T [facility] Monocytes Absolute 0.89 0.20 - 1.00 K/mcL LAB HEMETOLOGY METHOD 04/29/2025 12:25 PM [facility] Eosinophils Absolute 0.09 0.00 - 0.50 K/mcL LAB HEMETOLOGY METHOD 04/29/2025 12:25 PM [facility] Basophils Absolute 0.02 0.00 - 0.20 K/mcL LAB HEMETOLOGY METHOD 04/29/2025 12:25 PM EDT [facility] Immature Granulocytes Absolute 0.03 0.00 - 0.03 K/mcL LAB HEMETOLOGY METHOD 04/29/2025 12:25 PM EDT [facility] Blood Venous blood specimen / Unknown Venipuncture / Unknown 04/29/2025 12:05 PM EDT 04/29/2025 12:18 PM EDT Robe Cui MD LAB BLOOD ORDERABLES Final Result [facility] [address] [place] [address], [place] [phone] * Magnesium (04/29/2025 12:05 PM EDT) Magnesium 1.9 1.9 - 2.6 mg/dL LAB CHEMISTRY METHOD 04/29/2025 12:46 PM EDT [facility] Blood Venous blood specimen / Unknown Venipuncture / Unknown 04/29/2025 12:05 PM EDT 04/29/2025 12:18 PM EDT Robe Cui MD LAB BLOOD ORDERABLES Final Result Performing Organization Address City/[facility]/ZIP Co de Phone Number [facility] [address] [place] [address], [place] [phone] * Hepatic Function Panel (04/29/2025 12:05 PM EDT) Total Protein 7.0 6.0 - 8.0 g/dL LAB CHEMISTRY METHOD 04/29/2025 2:43 PM EDT [facility] Albumin 3.7 3.2 - 5.0 g/dL LAB CHEMISTRY METHOD 04/29/2025 2:43 PM EDT [facility] Total Bilirubin 0.9 0.0 - 1.4 mg/dL LAB CHEMISTRY METHOD 04/29/2025 2:43 PM EDT [facility] Bilirubin, Direct 0.2 0.0 - 0.3 mg/dL LAB CHEMISTRY METHOD 04/29/2025 2:43 PM EDT [facility] Bilirubin, Indirect 0.7 0.0 - 1.1 mg/dL LAB CHEMISTRY METHOD 04/29/2025 2:43 PM EDT [facility] ALT (SGPT) 50 10 - 60 unit/L LAB CHEMISTRY METHOD 04/29/2025 2:43 PM EDT [facility] AST (SGOT) 24 10 - 42 unit/L LAB CHEMISTRY METHOD 04/29/2025 2:43 PM EDT [facility] Alkaline Phosphatase 61 42 - 121 unit/L LAB CHEMISTRY METHOD 04/29/2025 2:43 PM T [facility] Blood Venous blood specimen / Unknown Venipuncture / Unknown 04/29/2025 12:05 PM EDT 04/29/2025 12:18 PM EDT us Robe Cui MD LAB BLOOD ORDERABLES Final Result [facility] [address] [place] [address], * (ABNORMAL) Basic metabolic panel (04/29/2025 12:05 PM EDT) Sodium 137 133 - 145 mmol/L LAB CHEMISTRY METHOD 04/29/2025 12:46 PM EDT [facility] Potassium 4.5 3.5 - 5.5 mmol/L LAB CHEMISTRY METHOD 04/29/2025 12:46 PM EDT [facility] Chloride 103 96 - 110 mmol/L LAB CHEMISTRY METHOD 04/29/2025 12:46 PM [facility] CO2 30 21 - 32 mmol/L LAB CHEMISTRY METHOD 04/29/2025 12:46 PM EDT [facility] Anion Gap 4 3 - 11 LAB CHEMISTRY METHOD 04/29/2025 12:46 PM EDT [facility] Glucose 193(H) 70 - 100 mg/dL LAB CHEMISTRY METHOD 04/29/2025 12:46 PM EDT [facility] BUN 15 5 - 25 mg/dL LAB CHEMISTRY METHOD 04/29/2025 12:46 PM EDT [facility] Creatinine 1.19 0.70 - 1.30 mg/dL LAB CHEMISTRY METHOD 04/29/2025 12:46 PM EDT [facility] eGFR 69 >=60 mL/min/1. 73m2 LAB CHEMISTRY METHOD 04/29/2025 12:46 PM EDT [facility] Comment:Calculation based on the Chronic Kidney Disease Epidemiology Collaboration (CKD-EPI) equation refit without adjustment for race. BUN/Creatinine Ratio 12.6 LAB CHEMISTRY METHOD 04/29/2025 12:46 PM EDT [facility] Calcium 9.7 8.5 - 10.5 mg/dL LAB CHEMISTRY METHOD 04/29/2025 12:46 PM T [facility] Blood Venous blood specimen / Unknown Venipuncture / Unknown 04/29/2025 12:05 PM EDT 04/29/2025 12:18 PM EDT us Robe Cui MD LAB BLOOD ORDERABLES Final Result [facility] [address] [place] [address], * (ABNORMAL) POCT Glucose, blood (04/29/2025 11:49 AM EDT) Glucose POCT 195(H) 70 - 100 mg/dL 04/29/2025 11:50 AM EDT [facility] Blood Capillary blood specimen / Unknown 04/29/2025 11:49 AM EDT 04/29/2025 11:51 AM EDT us Generic Provider Poct LAB POINT OF CARE TEST DOCKED DEVICE UNSOLICITED RESULTS Final Result Performing Organization Address City/[facility]/ZIP Co de Phone Number AD [facility] [address] [place] [address], [place] [phone] * ECG 12 lead (04/29/2025 11:44 AM EDT) Ventricular Rate ECG 73 BPM GEMUSE Atrial Rate 73 BPM GEMUSE P-R Interval 192 ms GEMUSE QRS Duration 88 ms GEMUSE Q-T Interval 436 ms GEMUSE QTc 480 ms GEMUSE P Wave [place] 45 degrees GEMUSE R [place] 25 degrees GEMUSE T [place] 52 degrees GEMUSE ECG Interpretation Normal sinus rhythm with sinus arrhythmia Nonspecific T wave abnormality Statement not found (#[id number]) Abnormal ECG No previous ECGs available Confirmed by Clement BOYD JAMES ([id number]) on 04/29/2025 5:38:21 PM GEMUSE 04/29/2025 11:4 4 AM EDT 04/29/2025 5:38 PM EDT Robe Cui MD ECG ORDERABLES Final Resul t Performing Organization Address City/[facility] Co de Phone Number GEMUSE from Last 3 Months Insurance MEDICARE Care Teams Actuarial Manager Relationship Specialty Start Date End Date Physician, Pcp Unknown PCP - General 04/29/25
== END 2025-05-10 16:49 | disposition home or self-care (01) ==
PROVIDERS: PCP Nurse Practitioner Family; Visit Provider Physician Assistant
DX: R10.11 Right upper quadrant pain (principal); R11.2 Nausea with vomiting, unspecified

== ENCOUNTER → 2025-05-10 16:06 | Outpatient (BNVA) | payer MEDICARE, MEDICAID, SELFPAY | PROVIDERS: PCP Nurse Practitioner Family; Visit Provider Physician Assistant | DX: R10.11 Right upper quadrant pain (principal); R11.2 Nausea with vomiting, unspecified | CPT/HCPCS: 99212 ==

== ENCOUNTER 2025-05-12 07:52 | Outpatient (REF) | payer MEDICARE, MEDICAID, SELFPAY ==
--- NOTE | ~2025-05-12 | US_ITS ---
EXAMINATION: US ABDOMEN LIMITED CLINICAL INFORMATION: Right upper arm pain. COMPARISON: 12/05/2024. TECHNIQUE: Real-time imaging of the right upper quadrant abdominal viscera. FINDINGS: PANCREAS: Visualized portions are unremarkable. LIVER: Liver is mildly enlarged. The right hepatic lobe measures 18.6 cm in length. The liver contour is normal. Parenchymal echogenicity is diffusely increased and mildly heterogeneous. No focal hepatic lesion. There is no intrahepatic biliary duct dilatation seen. GALLBLADDER: Gallbladder is physiologically distended. There are small shadowing gallstones intraluminally. There is no wall thickening, pericholecystic fluid, or edema. Negative sonographic Lucas's sign. COMMON BILE DUCT: Normal in caliber measuring 0.4 cm in diameter. RIGHT KIDNEY: No hydronephrosis. No renal calculi or focal parenchymal lesions. The kidney measures 11.5 cm in maximum dimension. FREE FLUID: None. US/US abdomen limited IMPRESSION: 1. Cholelithiasis. 2. Mild hepatomegaly with diffuse increased hepatic echotexture, likely in keeping with fatty infiltration. 3. No biliary dilatation. Electronically signed by: Kolby Martin MD 05/12/2025 08:48 AM EDT
--- OUTSIDE RECORDS SUMMARY | 2025-05-12 07:54 | XMS_ITS | Clinical Summary ---
Author Organization [facility] Address [address] [place] [phone] Phone Care Team Providers Care Watch Dial Maker Name Role Phone Physician, Pcp Unknown Primary [...] EDT - 04/29/2025 4:41 PM EDT Emergency [facility] Emergency [address] [place] [address] Robe Cui MD Acute gastroenteritis [...] No active pulmonary process identified. Telerad JENNIE ([id number]) -------- FINAL REPORT -------- Dictated By: Mae Morley Dictated Date: 04/29/2025 13:39 ET Assigned Physician: Mae Morley Reviewed and Electronically Signed By: Mae Morley Signed Date: 04/29/2025 13:40 ET Workstation ID: [id number] Transcribed By: Self Edit Transcribed Date: 04/29/2025 [...] No active pulmonary process identified. Telerad PA ([id number]) -------- FINAL REPORT -------- Dictated By: Mae Morley Dictated Date: 04/29/2025 13:39 ET Assigned Physician: Mae Morley Reviewed and Electronically Signed By: Mae Morley Signed Date: 04/29/2025 13:40 ET Workstation ID: [id number] Transcribed By: Self Edit Transcribed Date: 04/29/2025 13:39 ET us Robe Cui MD IMG XR PROCEDURES Final Res ult * (ABNORMAL) Urinalysis with reflex microscopic and culture (04/29/2025 1:04 PM EDT) Specific [place] Urine 1.025 1.003 - 1.030 LAB URINALYSIS - [facility], U[facility] 6.0 5.0 - 8.0 pH LAB URINALYSIS - AUTOMATED METHOD 04/29/2025 1:47 PM [facility] Leukocytes, Urine Trace(A) Negative LAB URINALYSIS - AUTOMATED METHOD 04/29/2025 1:47 PM [facility] Nitrite, Urine Negative Negative LAB URINALYSIS - AUTOMATED METHOD 04/29/2025 1:47 PM [facility] Protein, Urine 30(A) <=Trace mg/dL LAB URINALYSIS - AUTOMATED METHOD 04/29/2025 1:47 PM [facility] Glucose, Urine Negative Negative mg/dL LAB URINALYSIS - AUTOMATED METHOD 04/29/2025 1:47 PM [facility] Ketones, Urine Trace(A) Negative mg/dL LAB URINALYSIS - AUTOMATED METHOD 04/29/2025 1:47 PM [facility] Urobilinogen, Urine 1.0 0.2 - 1.0 mg/dL LAB URINALYSIS - AUTOMATED METHOD 04/29/2025 1:47 PM EDT [facility] Bilirubin, Urine Negative Negative LAB URINALYSIS - AUTOMATED METHOD 04/29/2025 1:47 PM EDT [facility] Blood, Urine Negative Negative LAB URINALYSIS - AUTOMATED METHOD 04/29/2025 1:47 PM EDT [facility] RBC, Urine 4.0 0 - 4 /HPF LAB URINALYSIS - AUTOMATED METHOD 04/29/2025 1:47 PM EDT [facility] WBC, Urine 2.5 0 - 4 /HPF LAB URINALYSIS - AUTOMATED METHOD 04/29/2025 1:47 PM EDT [facility] Squamous Epithelial, Urine 13 0 - 60 /LPF LAB URINALYSIS - AUTOMATED METHOD 04/29/2025 1:47 PM [facility] Bacteria, Urine Negative Negative /HPF LAB URINALYSIS - AUTOMATED METHOD 04/29/2025 1:47 PM [facility] Hyaline Casts, Urine 2.4 0 - 3 /LPF LAB URINALYSIS - AUTOMATED METHOD 04/29/2025 1:47 PM EDT [facility] Urine Urine specimen obtained by clean catch procedure / Unknown Non-blood Collection / Unknown 04/29/2025 1:04 PM EDT 04/29/2025 1:38 PM EDT Robe Cui MD LAB URINE ORDERABLES Final Result [facility] [address] [place] [address], * Yi urine culture tube (04/29/2025 1:04 PM EDT) Extra Tube Hold for add-ons. 04/29/2025 3:01 PM EDT [facility] Comment:Auto resulted. Urine Urine specimen obtained by clean catch procedure / Unknown Non-blood Collection / Unknown 04/29/2025 1:04 PM EDT 04/29/2025 1:38 PM EDT Robe Cui MD LAB URINE ORDERABLES Final Result [facility] [address] [place] [address], [place] [phone] * Culture urine (04/29/2025 1:04 PM EDT) Pathologist [facility] Culture, Urine No growth 04/30/2025 10:04 AM EDT [facility] Urine Urine specimen obtained by clean catch procedure / Unknown Non-blood Collection / Unknown 04/29/2025 1:04 PM EDT 04/29/2025 1:47 PM EDT Robe Cui MD LAB MICROBIOLOGY - GENERAL ORDERABLES Final Result [facility] [address] [place] [address], [place] [phone] * Troponin I high sensitivity (04/29/2025 12:05 PM EDT) [facility] High Sensitivity Troponin I 6 <=79 ng/L LAB CHEMISTRY METHOD 04/29/2025 12:49 PM EDT [facility] Blood Venous blood specimen / Unknown Venipuncture / Unknown 04/29/2025 12:05 PM EDT 04/29/2025 12:18 PM EDT Narrative [facility] - 04/29/2025 12:49 PM EDT High levels of biotin in samples may falsely decrease hsTroponin values. Use caution when interpreting hsTroponin results in patients taking biotin who exhibit renal impairment (eGFR <60) or in patients taking more than 20 mg/day of biotin. us Nohemi Turner MD LAB BLOOD ORDERABLES Final Resul t [facility] [address] [place] [address], * (ABNORMAL) CBC auto differential (04/29/2025 12:05 PM EDT) WBC 11.7(H) 4.8 - 10.8 K/mcL LAB HEMETOLOGY METHOD 04/29/2025 12:25 PM EDT [facility] RBC 4.70 4.50 - 5.50 M/mcL LAB HEMETOLOGY METHOD 04/29/2025 12:25 PM EDT [facility] Hemoglobin 14.6 13.5 - 17.5 g/dL LAB HEMETOLOGY METHOD 04/29/2025 12:25 PM EDT [facility] Hematocrit 43.6 42.0 - 54.0 % LAB HEMETOLOGY METHOD 04/29/2025 12:25 PM EDT [facility] MCV 92.6 79.0 - 98.0 FL LAB HEMETOLOGY METHOD 04/29/2025 12:25 PM EDT [facility] MCH 31.0 27.0 - 32.0 pcg LAB HEMETOLOGY METHOD 04/29/2025 12:25 PM EDT [facility] MCHC 33.5 32.0 - 37.0 g/dL LAB HEMETOLOGY METHOD 04/29/2025 12:25 PM EDT [facility] RDW 11.9 11.0 - 15.0 % LAB HEMETOLOGY METHOD 04/29/2025 12:25 PM EDT [facility] Platelets 274 130 - 400 K/mcL LAB HEMETOLOGY METHOD 04/29/2025 12:25 PM EDT [facility] MPV 8.8 7.0 - 11.0 FL LAB HEMETOLOGY METHOD 04/29/2025 12:25 PM EDT [facility] NRBC 0.0 <1.0 % LAB HEMETOLOGY METHOD 04/29/2025 12:25 PM EDT [facility] NRBC Absolute 0.00 <0.10 K/mcL LAB HEMETOLOGY METHOD 04/29[facility]2025 12:[facility] Neutrophils Relative 68.8 % LAB HEMETOLOGY METHOD 04/29/2025 12:25 PM [facility] Lymphocytes Relative 22.3 % LAB HEMETOLOGY METHOD 04/29/2025 12:25 PM [facility] Monocytes Relative 7.6 % LAB HEMETOLOGY METHOD 04/29/2025 12:25 PM [facility] Eosinophils Relative 0.8 % LAB HEMETOLOGY METHOD 04/29/2025 12:25 PM [facility] Basophils Relative 0.2 % LAB HEMETOLOGY METHOD 04/29/2025 12:25 PM [facility] Immature Granulocytes Relative 0.3 % LAB HEMETOLOGY METHOD 04/29/2025 12:25 PM [facility] Neutrophils Absolute 8.08(H) 1.50 - 7.00 K/mcL LAB HEMETOLOGY METHOD 04/29/2025 12:25 PM [facility] Lymphocytes Absolute 2.62 1.00 - 5.00 K/mcL LAB HEMETOLOGY METHOD 04/29/2025 12:25 PM T [facility] Monocytes Absolute 0.89 0.20 - 1.00 K/mcL LAB HEMETOLOGY METHOD 04/29/2025 12:25 PM [facility] Eosinophils Absolute 0.09 0.00 - 0.50 K/mcL LAB HEMETOLOGY METHOD 04/29/2025 12:25 PM [facility] Basophils Absolute 0.02 0.00 - 0.20 K/mcL LAB HEMETOLOGY METHOD 04/29/2025 12:25 PM EDT [facility] Immature Granulocytes Absolute 0.03 0.00 - 0.03 K/mcL LAB HEMETOLOGY METHOD 04/29/2025 12:25 PM EDT [facility] Blood Venous blood specimen / Unknown Venipuncture / Unknown 04/29/2025 12:05 PM EDT 04/29/2025 12:18 PM EDT Robe Cui MD LAB BLOOD ORDERABLES Final Result [facility] [address] [place] [address], [place] [phone] * Magnesium (04/29/2025 12:05 PM EDT) Magnesium 1.9 1.9 - 2.6 mg/dL LAB CHEMISTRY METHOD 04/29/2025 12:46 PM EDT [facility] Blood Venous blood specimen / Unknown Venipuncture / Unknown 04/29/2025 12:05 PM EDT 04/29/2025 12:18 PM EDT Robe Cui MD LAB BLOOD ORDERABLES Final Result Performing Organization Address City/[facility]/ZIP Co de Phone Number [facility] [address] [place] [address], [place] [phone] * Hepatic Function Panel (04/29/2025 12:05 PM EDT) Total Protein 7.0 6.0 - 8.0 g/dL LAB CHEMISTRY METHOD 04/29/2025 2:43 PM EDT [facility] Albumin 3.7 3.2 - 5.0 g/dL LAB CHEMISTRY METHOD 04/29/2025 2:43 PM EDT [facility] Total Bilirubin 0.9 0.0 - 1.4 mg/dL LAB CHEMISTRY METHOD 04/29/2025 2:43 PM EDT [facility] Bilirubin, Direct 0.2 0.0 - 0.3 mg/dL LAB CHEMISTRY METHOD 04/29/2025 2:43 PM EDT [facility] Bilirubin, Indirect 0.7 0.0 - 1.1 mg/dL LAB CHEMISTRY METHOD 04/29/2025 2:43 PM EDT [facility] ALT (SGPT) 50 10 - 60 unit/L LAB CHEMISTRY METHOD 04/29/2025 2:43 PM EDT [facility] AST (SGOT) 24 10 - 42 unit/L LAB CHEMISTRY METHOD 04/29/2025 2:43 PM EDT [facility] Alkaline Phosphatase 61 42 - 121 unit/L LAB CHEMISTRY METHOD 04/29/2025 2:43 PM T [facility] Blood Venous blood specimen / Unknown Venipuncture / Unknown 04/29/2025 12:05 PM EDT 04/29/2025 12:18 PM EDT us Robe Cui MD LAB BLOOD ORDERABLES Final Result [facility] [address] [place] [address], * (ABNORMAL) Basic metabolic panel (04/29/2025 12:05 PM EDT) Sodium 137 133 - 145 mmol/L LAB CHEMISTRY METHOD 04/29/2025 12:46 PM EDT [facility] Potassium 4.5 3.5 - 5.5 mmol/L LAB CHEMISTRY METHOD 04/29/2025 12:46 PM EDT [facility] Chloride 103 96 - 110 mmol/L LAB CHEMISTRY METHOD 04/29/2025 12:46 PM [facility] CO2 30 21 - 32 mmol/L LAB CHEMISTRY METHOD 04/29/2025 12:46 PM EDT [facility] Anion Gap 4 3 - 11 LAB CHEMISTRY METHOD 04/29/2025 12:46 PM EDT [facility] Glucose 193(H) 70 - 100 mg/dL LAB CHEMISTRY METHOD 04/29/2025 12:46 PM EDT [facility] BUN 15 5 - 25 mg/dL LAB CHEMISTRY METHOD 04/29/2025 12:46 PM EDT [facility] Creatinine 1.19 0.70 - 1.30 mg/dL LAB CHEMISTRY METHOD 04/29/2025 12:46 PM EDT [facility] eGFR 69 >=60 mL/min/1. 73m2 LAB CHEMISTRY METHOD 04/29/2025 12:46 PM EDT [facility] Comment:Calculation based on the Chronic Kidney Disease Epidemiology Collaboration (CKD-EPI) equation refit without adjustment for race. BUN/Creatinine Ratio 12.6 LAB CHEMISTRY METHOD 04/29/2025 12:46 PM EDT [facility] Calcium 9.7 8.5 - 10.5 mg/dL LAB CHEMISTRY METHOD 04/29/2025 12:46 PM T [facility] Blood Venous blood specimen / Unknown Venipuncture / Unknown 04/29/2025 12:05 PM EDT 04/29/2025 12:18 PM EDT us Robe Cui MD LAB BLOOD ORDERABLES Final Result [facility] [address] [place] [address], * (ABNORMAL) POCT Glucose, blood (04/29/2025 11:49 AM EDT) Glucose POCT 195(H) 70 - 100 mg/dL 04/29/2025 11:50 AM EDT [facility] Blood Capillary blood specimen / Unknown 04/29/2025 11:49 AM EDT 04/29/2025 11:51 AM EDT us Generic Provider Poct LAB POINT OF CARE TEST DOCKED DEVICE UNSOLICITED RESULTS Final Result Performing Organization Address City/[facility]/ZIP Co de Phone Number [facility] [address] [place] [address], [place] [phone] * ECG 12 lead (04/29/2025 11:44 AM EDT) Ventricular Rate ECG 73 BPM GEMUSE Atrial Rate 73 BPM GEMUSE P-R Interval 192 ms GEMUSE QRS Duration 88 ms GEMUSE Q-T Interval 436 ms GEMUSE QTc 480 ms GEMUSE P Wave [place] 45 degrees GEMUSE R [place] 25 degrees GEMUSE T [place] 52 degrees GEMUSE ECG Interpretation Normal sinus rhythm with sinus arrhythmia Nonspecific T wave abnormality Statement not found (#[id number]) Abnormal ECG No previous ECGs available Confirmed by Clement BOYD JAMES ([id number]) on 04/29/2025 5:38:21 PM GEMUSE 04/29/2025 11:4 4 AM EDT 04/29/2025 5:38 PM EDT Robe Cui MD ECG ORDERABLES Final Resul t Performing Organization Address City/[facility] Co de Phone Number GEMUSE from Last 3 Months Insurance MEDICARE Care Teams Watch Dial Maker Relationship Specialty Start Date End Date Physician, Pcp Unknown PCP - General 04/29/25
== END 2025-05-12 07:53 | disposition home or self-care (01) ==
LOC: HO.US 07:52
PROVIDERS: PCP Nurse Practitioner Family; Visit Provider Physician Assistant
DX: R10.11 Right upper quadrant pain (principal); R11.2 Nausea with vomiting, unspecified
CPT/HCPCS: 76705

== ENCOUNTER → 2025-05-12 07:59 | Outpatient (BNV) | payer MEDICARE, MEDICAID, SELFPAY | PROVIDERS: PCP Nurse Practitioner Family; Visit Provider Radiology Diagnostic Radiology | DX: K80.20 Calculus of gallbladder without cholecystitis without obstruction (principal) | CPT/HCPCS: 76705 ==

== ENCOUNTER 2025-05-23 12:47 | Outpatient (AMB) | payer MEDICARE, MEDICAID, SELFPAY ==
[2025-05-23 12:50] VITALS: BP 118/80; PULSE 67; RESP 16; O2SAT 96; BMI 29.4
--- NOTE | 2025-05-23 12:50 | MHC.PC.OV ---
Vital Signs 05/23/25 12:50 Height 5 ft 10 in Weight 205 lb BMI 29.4 BP 118/80 Blood Pressure Location Lt brachial Respiration 16 Pulse 67 Pulse Source Pulse Oximeter Pulse Oximetry (%) 96 Oxygen Delivery Method Room Air Intake Visit Reasons: JESSICA ALBA Immigration Manager Required: No Accompanied by: Self / Same As Patient Allergies allopurinol Allergy (Verified 05/23/25 12:52) Chest Pain Medication List - Last Reconciled 05/23/25 by BRADFORD Glover- atorvastatin 40 mg PO DAILY cholecalciferol (vitamin D3) 25 mcg PO DAILY clopidogrel (Plavix) 75 mg PO DAILY clotrimazole 1% 1 appl topical BID PRN colchicine 0.6 mg orally 2 tabs with flare, then 1 tab 1 hr later PRN; (MAX: 3 tabs a day) Cannot take concurrently with Multaq 10 days dicyclomine 10 mg PO TID PRN diltiazem HCl CD 180 mg PO DAILY dronedarone (Multaq) 400 mg PO BID ezetimibe 10 mg PO DAILY gabapentin 400 mg PO TID PRN garlic 500 mg PO DAILY isosorbide mononitrate ER 30 mg PO BID lisinopril 10 mg PO BID lorazepam 0.5 mg PO BEDTIME PRN 30 days magnesium citrate 100 mg PO DAILY metoprolol tartrate 50 mg PO TID multivitamin 1 tab PO DAILY omega-3 fatty acids-fish oil 684-1,200 mg 1 cap PO DAILY ondansetron 4 mg PO Q8H PRN pantoprazole 40 mg PO DAILY ranolazine ER 500 mg PO BID 90 days rivaroxaban (Xarelto) 20 mg PO DAILY spironolactone 25 mg PO DAILY zinc gluconate 100 mg PO DAILY Tobacco use date assessed: 05/23/25 Dental Screening Dental Screen Date: 05/23/25 Did you have a dental visit in the last 12 months?: No Did you have a dental problem in the last 6 months where you did not have access to dental care?: No Was dental information given to patient?: Patient has dentist HPI JESSICA ALBA HPI Details History of Present Illness The patient is a 65-year-old male presenting for a physical examination. He reports regular follow-ups with a emergency communications dispatcher and denies any recent chest pain, increased dyspnea, or gastrointestinal symptoms such as blood in stool, constipation, or diarrhea. The patient reports erectile dysfunction but is currently on nitrate therapy through his emergency communications dispatcher, precluding the prescription of erectile dysfunction medications at this time. He is referred to a urologist for further evaluation due to increased nocturia and a suspected enlarged prostate, with a PSA test ordered for further assessment. 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 He also reports a larger diameter of the external ear canal on the left side. The patient is noted to be obese, and his colon cancer screening is up to date. [facility] Maintenance - Colon cancer screening is up to date Social History Review of Systems - Cardiovascular: Denies chest pain, increased dyspnea - Gastrointestinal: Denies blood in stool, constipation, diarrhea - Genitourinary: Reports erectile dysfunction, increased nocturia - Neurological: Reports hearing loss in the left ear Physical Exam General: Cooperative, healthy appearing, comfortable, no acute distress and well developed, otherwise obese Orientation: Patient oriented x3 Limitations: No limitations Head: Normal to inspection Ears: Enlarged external ear canal to the left side, no hearing through the left ear Nose: Normal external nose present Face and sinus: Normal facial exam Eyes: Appearance normal, both eyes and all related structures Neck: Normal visual inspection and Yes full ROM, no carotid bruits noted Respiratory: Normal respiratory effort and able to speak in complete sentences. Clear to auscultation bilaterally Cardiovascular: Regular rate and rhythm. Normal S1 and S2 GI: Normal to inspection. Soft to palpation and nontender : singular Testicle without masses/lesions and no hernias appreciated, reports some erectile dysfunction, question of prostate enlargement Skin: No rashes or lesions noted Neuro: Patient oriented x3 Extremities: Normal to inspection, no edema Results Plan The patient will continue regular follow-ups with his emergency communications dispatcher, and no changes to his current nitrate therapy are advised until further consultation with his cardiology team. He is referred to a urologist for a comprehensive evaluation of his increased nocturia and suspected prostate enlargement, with a PSA test ordered to assist in the assessment. Given the history of hearing loss due to prior brain tumor surgery, no immediate interventions are planned, but monitoring for any changes in auditory function is advised. Discussion Notes I discussed with the patient the importance of continuing his regular cardiology follow-ups and the need for a urology referral to evaluate his urinary symptoms and potential prostate enlargement. We also reviewed his history of hearing loss and the lack of current interventions needed, emphasizing monitoring for any changes. Patient Instructions - Continue regular follow-ups with your emergency communications dispatcher. - Attend the urology appointment for further evaluation of urinary symptoms. - Monitor for any changes in hearing and report them promptly. [facility] Medical History Left ear hearing loss History of cardioversion Fatty liver [place] angina Persistent atrial fibrillation TIA (transient ischemic attack) Exertional chest pain Paroxysmal atrial flutter CAD (coronary artery disease) HLD (hyperlipidemia) HTN (hypertension) Surgical History S/P cardiac catheterization Hx of CABG History of cardiac cath History of cardiac cath Family History Father No problems noted. Mother No problems noted. 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 1. Little interest or pleasure in doing things: not at all 2. Feeling down, depressed, or hopeless: not at all 3. Trouble falling or staying asleep, or sleeping too much: not at all 4. Feeling tired or having little energy: not at all 5. Poor appetite or overeating: not at all 6. Feeling bad about yourself - or that you are a failure or have let yourself or your family down: not at all 7. Trouble concentrating on things, such as reading the newspaper or watching television: not at all 8. Moving or speaking so slowly that other people could have noticed. Or the opposite - being so fidgety or restless that you have been moving around a lot more than usual: not at all 9. Thoughts that you would be better off or of hurting yourself in some way: not at all Total score: 0 Depression Screening Interpretation: Negative Depression Screening Done: Yes 34266 - PHQ-9 Billing: Yes Source: Developed by Drs. Ge Fuentes, Maricruz Velázquez, Brent Lara and colleagues, with an educational miah from [employer] Thrive Questionnaire Date Thrive assessed: 02/07/25 I am a: Patient What is your living situation today?: I do not have a steady places to live I am staying at a hotel Within the past 12 months, did the food you bought not last and you didn't have the money to get more?: I choose not to answer this question Within the past 12 months, did you worry whether your food would run out before you got money to buy more?: I choose not to answer this question Do you have trouble paying for medicines?: No Do you have trouble getting transportation to medical appointments?: No Do you have trouble paying your heating and electricity bill?: No Do you have trouble taking care of your child, family member or friend?: No Do you have trouble with day-to-day activities such as bathing, preparing meals, shopping, managing finances, etc.?: No Are you currently unemployed and looking for a job?: No Are you interested in more education?: No Please select the resources that you would like help with: Housing/Detention Currently or been in a relationship where the following occur: I choose not to answer THRIVE Score: 1 MIKEL-7 AMB Questionnaire MIKEL-7 Date MIKEL - 7 assessed: 05/23/25 Feeling nervous, anxious, or on edge: 0 = Not at all Not being able to stop or control worryin = Not at all Worrying too much about different things: 0 = Not at all Trouble relaxin = Not at all Being so restless that it is hard to sit still: 0 = Not at all Becoming easily annoyed or irritable: 0 = Not at all Feeling afraid as if something awful might happen: 0 = Not at all Total MIKEL-7 score (0-4 normal; 5-9 mild; 10-14 moderate; 15-21 severe): 0 Source: Developed by Drs. Ge Fuentes, Maricruz Velázquez, Brent Lara and colleagues, with an educational miah from [employer] MIKEL-7 Assessment Billing MIKEL-7 Assessment Tool: MIKEL-7 Assessment 34758 Physical exam (Primary Care) Vital Signs: Last Vital Signs Pulse 67 05/23/25 12:50 Resp 16 05/23/25 12:50 BP 118/80 05/23/25 12:50 Pulse Ox 96 05/23/25 12:50 Oxygen Delivery Method Room Air 05/23/25 12:50 BMI result Body Mass Index 29.4 Tobacco/Smoking Status: Tobacco use Status Tobacco use date assessed 05/23/25 05/23/25 12:57 Patient Tobacco Use Status Former Tobacco user 05/23/25 12:57 e-Cigarette/Vaping Use Never Used 05/23/25 12:57 PHQ-9: PHQ-9 Score PHQ-9: Total score 0 05/23/25 13:14 Depression Screening Interpretation: Negative Thrive Assessment: Date of Thrive Assessment Date Thrive assessed 02/07/25 05/23/25 12:57 Currently or been in a relationship where the following occur: I choose not to answer Coding Level of Care Code Est Pt Prev Care 40-64y(83236) Diagnoses Encounter for routine adult physical exam with abnormal findings Z00. Screening PSA (prostate specific antigen) Z12.5 Nocturia R35.1 Additional Codes MIKEL-7 Assessment Billing - MIKEL-7 Assessment Tool: MIKEL-7 Assessment 56720 ([id number]) PHQ-9 - 15651 - PHQ-9 Billing: Yes ([id number]) Assessment & Plan Assessment & Plan (1) Encounter for routine adult physical exam with abnormal findings: Code(s): Z00.01 - Encounter for general adult medical examination with abnormal findings Category: Medical (2) Screening PSA (prostate specific antigen): Code(s): Z12.5 - Encounter for screening for malignant neoplasm of prostate Category: Medical (3) Nocturia: Code(s): R35.1 - Nocturia Category: Medical Plan . Orders: Orders Comprehensive [place]. Panel Fast Today Z00.01 - Encounter for general adult medical examination with abnormal findings UA CC w/rflx Micro + Cult Today Z00.01 - Encounter for general adult medical examination with abnormal findings Prostate Specific Antigen Scr Today Z12.5 - Encounter for screening for malignant neoplasm of prostate Complete Blood Count Auto Diff Today Z00.01 - Encounter for general adult medical examination with abnormal findings TSH reflex Free T4 Today Z00.01 - Encounter for general adult medical examination with abnormal findings Lipid Panel Today Z00.01 - Encounter for general adult medical examination with abnormal findings Referrals Urology Referral R35.1 - Nocturia Medications: New clotrimazole-betamethasone 1-0.05 % 1 appl topical BID 45 grams 0RF
--- OUTSIDE RECORDS SUMMARY | 2025-05-23 13:57 | XMS_ITS | Clinical Summary ---
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 Telerad JENNIE ([id number]) -------- FINAL REPORT -------- Dictated By: Mae Morley Dictated Date: 04/29/2025 13:39 ET Assigned Physician: Mae Morley Reviewed and Electronically Signed By: Mae Morley Signed Date: 04/29/2025 13:40 ET Workstation ID: [id number] Transcribed By: Self Edit Transcribed Date: 04/29/2025 [...] No active pulmonary process identified. Telerad PA ([id number]) -------- FINAL REPORT -------- Dictated By: Mae Morley Dictated Date: 04/29/2025 13:39 ET Assigned Physician: Mae Morley Reviewed and Electronically Signed By: Mae Morley Signed Date: 04/29/2025 13:40 ET Workstation ID: [id number] Transcribed By: Self Edit Transcribed Date: 04/29/2025 13:39 ET us Robe Cui MD IMG XR PROCEDURES Final Res ult * (ABNORMAL) Urinalysis with reflex microscopic and culture (04/29/2025 1:04 PM EDT) Specific [place] Urine 1.025 1.003 - 1.030 LAB URINALYSIS - [facility]OM[facility] pH, Urine 6.0 5.0 - 8.0 pH LAB URINALYSIS - AUTOMATED METHOD 04/29/2025 1:47 PM [facility] Leukocytes, Urine Trace(A) Negative LAB URINALYSIS - AUTOMATED METHOD 04/29/2025 1:47 PM [facility] Nitrite, Urine Negative Negative LAB URINALYSIS - AUTOMATED METHOD 04/29/2025 1:47 PM [facility] Protein, Urine 30(A) <=Trace mg/dL LAB URINALYSIS - AUTOMATED METHOD 04/29/2025 1:47 PM [facility] Glucose, Urine Negative Negative mg/dL LAB URINALYSIS - AUTOMATED METHOD 04/29/2025 1:47 PM [facility] Ketones, Urine Trace(A) Negative mg/dL LAB URINALYSIS - AUTOMATED METHOD 04/29/2025 1:47 PM [facility] Urobilinogen, Urine 1.0 0.2 - 1.0 mg/dL LAB URINALYSIS - AUTOMATED METHOD 04/29/2025 1:47 PM EDT [facility] Bilirubin, Urine Negative Negative LAB URINALYSIS - AUTOMATED METHOD 04/29/2025 1:47 PM EDT [facility] Blood, Urine Negative Negative LAB URINALYSIS - AUTOMATED METHOD 04/29/2025 1:47 PM EDT [facility] RBC, Urine 4.0 0 - 4 /HPF LAB URINALYSIS - AUTOMATED METHOD 04/29/2025 1:47 PM EDT [facility] WBC, Urine 2.5 0 - 4 /HPF LAB URINALYSIS - AUTOMATED METHOD 04/29/2025 1:47 PM EDT [facility] Squamous Epithelial, Urine 13 0 - 60 /LPF LAB URINALYSIS - AUTOMATED METHOD 04/29/2025 1:47 PM [facility] Bacteria, Urine Negative Negative /HPF LAB URINALYSIS - AUTOMATED METHOD 04/29/2025 1:47 PM [facility] Hyaline Casts, Urine 2.4 0 - 3 /LPF LAB URINALYSIS - AUTOMATED METHOD 04/29/2025 1:47 PM EDT [facility] Urine Urine specimen obtained by clean catch procedure / Unknown Non-blood Collection / Unknown 04/29/2025 1:04 PM EDT 04/29/2025 1:38 PM EDT Robe Cui MD LAB URINE ORDERABLES Final Result [facility] [address] [place] [address], * Yi urine culture tube (04/29/2025 1:04 PM EDT) Extra Tube Hold for add-ons. 04/29/2025 3:01 PM EDT [facility] Comment:Auto resulted. Urine Urine specimen obtained by clean catch procedure / Unknown Non-blood Collection / Unknown 04/29/2025 1:04 PM EDT 04/29/2025 1:38 PM EDT Robe Cui MD LAB URINE ORDERABLES Final Result [facility] [address] [place] [address], [place] [phone] * Culture urine (04/29/2025 1:04 PM EDT) Pathologist [facility] Culture, Urine No growth 04/30/2025 10:04 AM EDT [facility] Urine Urine specimen obtained by clean catch procedure / Unknown Non-blood Collection / Unknown 04/29/2025 1:04 PM EDT 04/29/2025 1:47 PM EDT Robe Cui MD LAB MICROBIOLOGY - GENERAL ORDERABLES Final Result [facility] [address] [place] [address], [place] [phone] * Troponin I high sensitivity (04/29/2025 12:05 PM EDT) [facility] High Sensitivity Troponin I 6 <=79 ng/L LAB CHEMISTRY METHOD 04/29/2025 12:49 PM EDT [facility] Blood Venous blood specimen / Unknown Venipuncture / Unknown 04/29/2025 12:05 PM EDT 04/29/2025 12:18 PM EDT Narrative [facility] - 04/29/2025 12:49 PM EDT High levels of biotin in samples may falsely decrease hsTroponin values. Use caution when interpreting hsTroponin results in patients taking biotin who exhibit renal impairment (eGFR <60) or in patients taking more than 20 mg/day of biotin. us Nohemi Turner MD LAB BLOOD ORDERABLES Final Resul t [facility] [address] [place] [address], * (ABNORMAL) CBC auto differential (04/29/2025 12:05 PM EDT) WBC 11.7(H) 4.8 - 10.8 K/mcL LAB HEMETOLOGY METHOD 04/29/2025 12:25 PM EDT [facility] RBC 4.70 4.50 - 5.50 M/mcL LAB HEMETOLOGY METHOD 04/29/2025 12:25 PM EDT [facility] Hemoglobin 14.6 13.5 - 17.5 g/dL LAB HEMETOLOGY METHOD 04/29/2025 12:25 PM EDT [facility] Hematocrit 43.6 42.0 - 54.0 % LAB HEMETOLOGY METHOD 04/29/2025 12:25 PM EDT [facility] MCV 92.6 79.0 - 98.0 FL LAB HEMETOLOGY METHOD 04/29/2025 12:25 PM EDT [facility] MCH 31.0 27.0 - 32.0 pcg LAB HEMETOLOGY METHOD 04/29/2025 12:25 PM EDT [facility] MCHC 33.5 32.0 - 37.0 g/dL LAB HEMETOLOGY METHOD 04/29/2025 12:25 PM EDT [facility] RDW 11.9 11.0 - 15.0 % LAB HEMETOLOGY METHOD 04/29/2025 12:25 PM EDT [facility] Platelets 274 130 - 400 K/mcL LAB HEMETOLOGY METHOD 04/29/2025 12:25 PM EDT [facility] MPV 8.8 7.0 - 11.0 FL LAB HEMETOLOGY METHOD 04/29/2025 12:25 PM EDT [facility] NRBC 0.0 <1.0 % LAB HEMETOLOGY METHOD 04/29/2025 12:25 PM EDT [facility] NRBC Absolute 0.00 <0.10 K/mcL LAB HEMETOLOGY METHOD [facility] Neutrophils Relative 68.8 % LAB HEMETOLOGY METHOD [facility]2025 [facility] Lymphocytes Relative 22.3 % LAB HEMETOLOGY METHOD 04/29[facility]2025 12:[facility] Monocytes Relative 7.6 % LAB HEMETOLOGY METHOD [facility]/29[facility]2025 [facility] Eosinophils Relative 0.8 % LAB HEMETOLOGY METHOD 04/29/2025 12:25 PM [facility] Basophils Relative 0.2 % LAB HEMETOLOGY METHOD 04/29/2025 12:25 PM [facility] Immature Granulocytes Relative 0.3 % LAB HEMETOLOGY METHOD 04/29/2025 12:25 PM [facility] Neutrophils Absolute 8.08(H) 1.50 - 7.00 K/mcL LAB HEMETOLOGY METHOD 04/29/2025 12:25 PM [facility] Lymphocytes Absolute 2.62 1.00 - 5.00 K/mcL LAB HEMETOLOGY METHOD 04/29/2025 12:25 PM T [facility] Monocytes Absolute 0.89 0.20 - 1.00 K/mcL LAB HEMETOLOGY METHOD 04/29/2025 12:25 PM [facility] Eosinophils Absolute 0.09 0.00 - 0.50 K/mcL LAB HEMETOLOGY METHOD 04/29/2025 12:25 PM [facility] Basophils Absolute 0.02 0.00 - 0.20 K/mcL LAB HEMETOLOGY METHOD 04/29/2025 12:25 PM EDT [facility] Immature Granulocytes Absolute 0.03 0.00 - 0.03 K/mcL LAB HEMETOLOGY METHOD 04/29/2025 12:25 PM EDT [facility] Blood Venous blood specimen / Unknown Venipuncture / Unknown 04/29/2025 12:05 PM EDT 04/29/2025 12:18 PM EDT Robe Cui MD LAB BLOOD ORDERABLES Final Result [facility] [address] [place] [address], [place] [phone] * Magnesium (04/29/2025 12:05 PM EDT) Magnesium 1.9 1.9 - 2.6 mg/dL LAB CHEMISTRY METHOD 04/29/2025 12:46 PM EDT [facility] Blood Venous blood specimen / Unknown Venipuncture / Unknown 04/29/2025 12:05 PM EDT 04/29/2025 12:18 PM EDT Robe Cui MD LAB BLOOD ORDERABLES Final Result Performing Organization Address City/[facility]/ZIP Co de Phone Number [facility] [address] [place] [address], [place] [phone] * Hepatic Function Panel (04/29/2025 12:05 PM EDT) Total Protein 7.0 6.0 - 8.0 g/dL LAB CHEMISTRY METHOD 04/29/2025 2:43 PM EDT [facility] Albumin 3.7 3.2 - 5.0 g/dL LAB CHEMISTRY METHOD 04/29/2025 2:43 PM EDT [facility] Total Bilirubin 0.9 0.0 - 1.4 mg/dL LAB CHEMISTRY METHOD 04/29/2025 2:43 PM EDT [facility] Bilirubin, Direct 0.2 0.0 - 0.3 mg/dL LAB CHEMISTRY METHOD 04/29/2025 2:43 PM EDT [facility] Bilirubin, Indirect 0.7 0.0 - 1.1 mg/dL LAB CHEMISTRY METHOD 04/29/2025 2:43 PM EDT [facility] ALT (SGPT) 50 10 - 60 unit/L LAB CHEMISTRY METHOD 04/29/2025 2:43 PM EDT [facility] AST (SGOT) 24 10 - 42 unit/L LAB CHEMISTRY METHOD 04/29/2025 2:43 PM EDT [facility] Alkaline Phosphatase 61 42 - 121 unit/L LAB CHEMISTRY METHOD 04/29/2025 2:43 PM T [facility] Blood Venous blood specimen / Unknown Venipuncture / Unknown 04/29/2025 12:05 PM EDT 04/29/2025 12:18 PM EDT us Robe Cui MD LAB BLOOD ORDERABLES Final Result [facility] [address] [place] [address], * (ABNORMAL) Basic metabolic panel (04/29/2025 12:05 PM EDT) Sodium 137 133 - 145 mmol/L LAB CHEMISTRY METHOD 04/29/2025 12:46 PM EDT [facility] Potassium 4.5 3.5 - 5.5 mmol/L LAB CHEMISTRY METHOD 04/29/2025 12:46 PM EDT [facility] Chloride 103 96 - 110 mmol/L LAB CHEMISTRY METHOD 04/29/2025 12:46 PM [facility] CO2 30 21 - 32 mmol/L LAB CHEMISTRY METHOD 04/29/2025 12:46 PM EDT [facility] Anion Gap 4 3 - 11 LAB CHEMISTRY METHOD 04/29/2025 12:46 PM EDT [facility] Glucose 193(H) 70 - 100 mg/dL LAB CHEMISTRY METHOD 04/29/2025 12:46 PM EDT [facility] BUN 15 5 - 25 mg/dL LAB CHEMISTRY METHOD 04/29/2025 12:46 PM EDT [facility] Creatinine 1.19 0.70 - 1.30 mg/dL LAB CHEMISTRY METHOD 04/29/2025 12:46 PM EDT [facility] eGFR 69 >=60 mL/min/1. 73m2 LAB CHEMISTRY METHOD 04/29/2025 12:46 PM EDT [facility] Comment:Calculation based on the Chronic Kidney Disease Epidemiology Collaboration (CKD-EPI) equation refit without adjustment for race. BUN/Creatinine Ratio 12.6 LAB CHEMISTRY METHOD 04/29/2025 12:46 PM EDT [facility] Calcium 9.7 8.5 - 10.5 mg/dL LAB CHEMISTRY METHOD 04/29/2025 12:46 PM T [facility] Blood Venous blood specimen / Unknown Venipuncture / Unknown 04/29/2025 12:05 PM EDT 04/29/2025 12:18 PM EDT us Robe Cui MD LAB BLOOD ORDERABLES Final Result [facility] [address] [place] [address], * (ABNORMAL) POCT Glucose, blood (04/29/2025 11:49 AM EDT) Glucose POCT 195(H) 70 - 100 mg/dL 04/29/2025 11:50 AM EDT [facility] Blood Capillary blood specimen / Unknown 04/29/2025 11:49 AM EDT 04/29/2025 11:51 AM EDT us Generic Provider Poct LAB POINT OF CARE TEST DOCKED DEVICE UNSOLICITED RESULTS Final Result Performing Organization Address City/[facility]/ZIP Co de Phone Number AD [facility] [address] [place] [address], [place] [phone] * ECG 12 lead (04/29/2025 11:44 AM EDT) Ventricular Rate ECG 73 BPM GEMUSE Atrial Rate 73 BPM GEMUSE P-R Interval 192 ms GEMUSE QRS Duration 88 ms GEMUSE Q-T Interval 436 ms GEMUSE QTc 480 ms GEMUSE P Wave [place] 45 degrees GEMUSE R [place] 25 degrees GEMUSE T [place] 52 degrees GEMUSE ECG Interpretation Normal sinus rhythm with sinus arrhythmia Nonspecific T wave abnormality Statement not found (#[id number]) Abnormal ECG No previous ECGs available Confirmed by Clement BOYD JAMES ([id number]) on 04/29/2025 5:38:21 PM GEMUSE 04/29/2025 11:4 4 AM EDT 04/29/2025 5:38 PM EDT Robe Cui MD ECG ORDERABLES Final Resul t Performing Organization Address City/[facility] Co de Phone Number GEMUSE from Last 3 Months Insurance MEDICARE [employer] Care Teams Candlemaking Laborer Relationship Specialty Start Date End Date Physician, Pcp Unknown PCP - General 04/29/25
== END 2025-05-23 13:50 | disposition home or self-care (01) ==
PROVIDERS: PCP Nurse Practitioner Family; Visit Provider Nurse Practitioner Family
DX: Z00.01 Encounter for general adult medical examination with abnormal findings (principal); Z12.5 Encounter for screening for malignant neoplasm of prostate; R35.1 Nocturia

== ENCOUNTER → 2025-05-23 12:47 | Outpatient (BNVA) | payer MEDICARE, MEDICAID, SELFPAY | PROVIDERS: PCP Nurse Practitioner Family; Visit Provider Nurse Practitioner Family | DX: Z00.01 Encounter for general adult medical examination with abnormal findings (principal); I25.10 Atherosclerotic heart disease of native coronary artery without angina pectoris; I48.0 Paroxysmal atrial fibrillation; R35.1 Nocturia; Z87.891 Personal history of nicotine dependence | CPT/HCPCS: 93005; 96127; 99212; 99396 ==

== ENCOUNTER 2025-05-23 14:01 | Outpatient (AMB) | payer MEDICARE, MEDICAID, SELFPAY ==
[2025-05-23 14:22] VITALS: BP 106/66; PULSE 63; BMI 31.0
--- NOTE | 2025-05-23 14:22 | MHC.OFFVIS ---
Vital Signs 05/23/25 14:22 Height 5 ft 10 in Weight 216 lb 0.848 oz BMI 31.0 BP 106/66 Blood Pressure Location Lt brachial Position Sitting Pulse 63 Intake Visit Reasons: 6m follow up Intake Note: 6 month follow-up feeling good Documentation Consultant Required: No Allergies allopurinol Allergy (Verified 05/23/25 12:52) Chest Pain Medication List - Last Reconciled 05/23/25 by Dakota Cotter MD atorvastatin 40 mg PO DAILY cholecalciferol (vitamin D3) 25 mcg PO DAILY clopidogrel (Plavix) 75 mg PO DAILY clotrimazole 1% 1 appl topical BID PRN clotrimazole-betamethasone 1-0.05 % 1 appl topical BID colchicine 0.6 mg orally 2 tabs with flare, then 1 tab 1 hr later PRN; (MAX: 3 tabs a day) Cannot take concurrently with Multaq 10 days dicyclomine 10 mg PO TID PRN diltiazem HCl CD 180 mg PO DAILY dronedarone (Multaq) 400 mg PO BID ezetimibe 10 mg PO DAILY gabapentin 400 mg PO TID PRN garlic 500 mg PO DAILY isosorbide mononitrate ER 30 mg PO BID lisinopril 10 mg PO BID lorazepam 0.5 mg PO BEDTIME PRN 30 days magnesium citrate 100 mg PO DAILY metoprolol tartrate 50 mg PO TID multivitamin 1 tab PO DAILY omega-3 fatty acids-fish oil 684-1,200 mg 1 cap PO DAILY ondansetron 4 mg PO Q8H PRN pantoprazole 40 mg PO DAILY ranolazine ER 500 mg PO BID 90 days rivaroxaban (Xarelto) 20 mg PO DAILY spironolactone 25 mg PO DAILY zinc gluconate 100 mg PO DAILY HPI Comments Details: Matteo comes for follow-up. Patient has had couple weeks ago he had developed some nausea vomiting and lightheadedness and went to emergency room at [facility] [place] and was told that he had gastrointestinal viral disease. Subsequently was treated and sent home. No cardiac issues. He has not had any significant cardiac issues in the last 6 months. No hospitalization for AFib or angina. Taking all his medications. He has no orthopnea, PND, leg edema. No prolonged palpitation irregular heartbeat. No exertional chest pain. He is complaining of erectile dysfunction and is looking for medications. [facility] Medical History Left ear hearing loss History of cardioversion Fatty liver [place] angina Persistent atrial fibrillation TIA (transient ischemic attack) Exertional chest pain Paroxysmal atrial flutter CAD (coronary artery disease) HLD (hyperlipidemia) HTN (hypertension) Surgical History S/P cardiac catheterization Hx of CABG History of cardiac cath History of cardiac cath Family History Father No problems noted. Mother No problems noted. 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 Current occupational exposures/hazards: No Cognitive needs: No Hearing needs: No Vision needs: No Review of Systems Const Denies chills, Denies fatigue, Denies fever(s), Denies frequent falls, Denies weakness, Denies weight gain and Denies weight loss ENT Denies dizziness Card Denies chest pain, Denies leg edema, Denies lightheadedness, Denies palpitations, Denies dyspnea, Denies dyspnea on exertion, Denies orthopnea and Denies other (loss of consciousness) Resp Denies cough, Denies dyspnea and Denies dyspnea on exertion GI Denies hematochezia and Denies change in stool character Musc Denies abnormal gait, Denies muscle weakness, Denies numbness, Denies radiating pain into limb and Denies tingling Neuro Denies abnormal gait, Denies dizziness, Denies frequent falls, Denies numbness, Denies tingling and Denies weakness Endo Denies fatigue and Denies palpitations Physical Exam Vital Signs: Last Vital Signs Pulse 63 05/23/25 14:22 BP 106/66 05/23/25 14:22 BMI result Body Mass Index 31.0 Const General: cooperative, healthy appearing, no acute distress, alert and awake Orientation/consciousness: patient oriented x3 HEENT Head: Yes normal to inspection Neck Neck: Yes normal visual inspection and Yes no JVD Chest Chest palpation & inspection: other (Well-healed sternotomy scar) Resp Effort & Inspection: normal respiratory effort, able to speak in complete sentences and not labored Auscultation: clear to auscultation bilaterally, no crackles, no rales, no rhonchi and no wheezes Cardio Jugular venous distension: no JVD Rate: regular rate Rhythm: regular rhythm Heart sounds: S1 normal heart sound present and S2 normal heart sound present Peripheral pulses: Peripheral pulses 2+ throughout GI Inspection: Yes normal to inspection Neuro General: patient oriented x3 Extrem Other: Right femoral catheterization site well healed with easily palpable femoral pulse General: Yes normal to inspection and No edema Office Procedures EKG Details: EKG shows normal sinus rhythm with PACs with inferior infarct 67249-[id number], Complete Assessment & Plan Assessment & Plan (1) CAD (coronary artery disease): Code(s): I25.10 - Atherosclerotic heart disease of torres martinez coronary artery without angina pectoris Category: Medical Plan: CAD complex coronary artery disease with prior coronary revascularization by surgical means as well as by PCI. Currently on current medical therapy he has not had any recurrent anginal symptoms. Continue Plavix. Continue current therapy with Cardizem, isosorbide, Ranexa as well as metoprolol which has helped him significantly. He is currently on full oral anticoagulation with Xarelto and would add advised to avoid aspirin therapy. Continue aggressive blood pressure control which is currently well optimized. Advised to monitor blood pressure at home maintain a log. Goal blood pressure less than 130/84. Low-salt diet was advised. Encouraged to participate in physical activity as tolerated. Continue rhythm control approach. Continue high-intensity statin therapy with target goal LDL less than 70 mg/dL. Advised lipid panel in near future. Given that he is on long-acting nitrates, phosphodiesterase inhibitors are absolutely contraindicated. (2) Paroxysmal atrial fibrillation: Code(s): I48.0 - Paroxysmal atrial fibrillation Category: Medical Plan: Paroxysmal atrial fibrillation which has done well with rhythm control approach with Multaq. He is tolerating this therapy well. Has led to decreasing hospitalization related to AFib. Continue the same. Avoidance of stimulants was discussed. Stress mitigation strategies were discussed. Continue full oral anticoagulation, currently on Xarelto 20 mg daily. Semi annual renal function test should be pursued. Follow up in the clinic in 6 months time, sooner p.r.n.. Thank you for allowing me to partake in his care Coding Level of Care Code Est Pt Level 4 (60792) Complex EM visit Add On G2211 Diagnoses CAD (coronary artery disease) I25.10 Paroxysmal atrial fibrillation I48.0 CPT Codes EKG - CPT: 33412-[id number], Complete ([id number])
== END 2025-05-23 15:14 | disposition home or self-care (01) ==
LOC: HO.HCS 14:02
PROVIDERS: PCP Nurse Practitioner Family; Visit Provider Internal Medicine Cardiovascular Disease
DX: I25.10 Atherosclerotic heart disease of native coronary artery without angina pectoris (principal); I48.0 Paroxysmal atrial fibrillation
CPT/HCPCS: 93010; 99214; G2211

== ENCOUNTER 2025-05-30 07:29 | Outpatient (REF) | payer MEDICARE, MEDICAID, SELFPAY ==
--- OUTSIDE RECORDS SUMMARY | 2025-05-30 07:32 | XMS_ITS | Clinical Summary ---
Author Organization [facility] Address [address] [place] [address] Phone Care Team Providers Care Saw Maker Name Role Phone Physician, Pcp Unknown Primary Care Provider Greta vailable Allergies No known active allergies Medications acetaminophen (TYLENOL) 500 mg tablet Take 1 tablet (500 mg total) by mouth every 6 (six) hours if needed for mild pain for up to 12 doses. 12 tablet 5 Active loperamide (IMODIUM) 2 mg capsule Take 1 capsule (2 mg total) by mouth 4 (four) times a day if needed for diarrhea for up to 24 doses. 24 capsule 5 Active ondansetron ODT (ZOFRAN-ODT) 4 mg disintegrating tablet Dissolve 1 tablet (4 mg total) on top of the tongue every 8 (eight) hours if needed for nausea or vomiting for up to 12 doses. Let 1 tablet dissolve under the tongue three times daily as needed for nausea or vomiting. 12 tablet 5 Active Encounters Date Type Department Care Team Description 04/29/2025 11:18 AM EDT - 04/29/2025 4:41 PM EDT Emergency [facility] Emergency [address] [place] [id number] Robe Cui MD Acute gastroenteritis (Primary Dx); [...] Vaccines (1 of 2) 01/07/2012 COVID-19 Vaccine (2023-2 5 season) 2024 Depression Screening 10/05/2024 Cholesterol [...] No active pulmonary process identified. Telerad JENNIE ([id number]) -------- FINAL REPORT -------- Dictated By: Mae Morley Dictated Date: 04/29/2025 13:39 ET Assigned Physician: Mae Morley Reviewed and Electronically Signed By: Mae Morley Signed Date: 04/29/2025 13:40 ET Workstation ID: [id number] Transcribed By: Self Edit Transcribed Date: 04/29/2025 [...] No active pulmonary process identified. Telerad JENNIE ([id number]) -------- FINAL REPORT -------- Dictated By: Mae Morley Dictated Date: 04/29/2025 13:39 ET Assigned Physician: Mae Morley Reviewed and Electronically Signed By: Mae Morley Signed Date: 04/29/2025 13:40 ET Workstation ID: [id number] Transcribed By: Self Edit Transcribed Date: 04/29/2025 13:39 ET us Robe Cui MD IMG XR PROCEDURES Final Res ult * (ABNORMAL) Urinalysis with reflex microscopic and culture (04/29/2025 1:04 PM EDT) [facility] Specific [place] Urine 1.025 1.003 - 1.030 LAB URINALYSIS - AUTOMATED METHOD 04/29/2025 1:47 PM [facility] pH, Urine 6.0 5.0 - 8.0 pH LAB URINALYSIS - AUTOMATED METHOD 04/29/2025 1:47 PM [facility] Leukocytes, Urine Trace(A) Negative LAB URINALYSIS - AUTOMATED METHOD 04/29/2025 1:47 PM [facility] Nitrite, Urine Negative Negative LAB URINALYSIS - AUTOMATED METHOD 04/29/2025 1:47 PM [facility] Protein, Urine 30(A) <=Trace mg/dL LAB URINALYSIS - AUTOMATED METHOD 04/29/2025 1:47 PM [facility] Glucose, Urine Negative Negative mg/dL LAB URINALYSIS - AUTOMATED METHOD 04/29/2025 1:47 PM [facility] Ketones, Urine Trace(A) Negative mg/dL LAB URINALYSIS - AUTOMATED METHOD 04/29/2025 1:47 PM [facility] Urobilinogen, Urine 1.0 0.2 - 1.0 mg/dL LAB URINALYSIS - AUTOMATED METHOD 04/29/2025 1:47 PM [facility] Bilirubin, Urine Negative Negative LAB URINALYSIS - AUTOMATED METHOD 04/29/2025 1:47 PM [facility] Blood, Urine Negative Negative LAB URINALYSIS - AUTOMATED METHOD 04/29/2025 1:47 PM [facility] RBC, Urine 4.0 0 - 4 /HPF LAB URINALYSIS - AUTOMATED METHOD 04/29/2025 1:47 PM [facility] WBC, Urine 2.5 0 - 4 /HPF LAB URINALYSIS - AUTOMATED METHOD 04/29/2025 1:47 PM [facility] Squamous Epithelial, Urine 13 0 - 60 /LPF LAB URINALYSIS - AUTOMATED METHOD 04/29/2025 1:47 PM EDT [facility] Bacteria, Urine Negative Negative /HPF LAB URINALYSIS - AUTOMATED METHOD 04/29/2025 1:47 PM EDT [facility] Hyaline Casts, Urine 2.4 0 - 3 /LPF LAB URINALYSIS - AUTOMATED METHOD 04/29/2025 1:47 PM EDT [facility] Urine Urine specimen obtained by clean catch procedure / Unknown Non-blood Collection / Unknown 04/29/2025 1:04 PM EDT 04/29/2025 1:38 PM EDT Robe Cui MD LAB URINE ORDERABLES Final Result Performing Organization Address [facility] [place]/[facility]/ZIP Co de Phone Number [facility] [address] [place] [address], [place] [phone] * Yi urine culture tube (04/29/2025 1:04 PM EDT) Extra Tube Hold for add-ons. 04/29/2025 3:01 PM EDT [facility] Comment:Auto resulted. Urine Urine specimen obtained by clean catch procedure / Unknown Non-blood Collection / Unknown 04/29/2025 1:04 PM EDT 04/29/2025 1:38 PM EDT Robe Cui MD LAB URINE ORDERABLES Final Result Performing Organization Address City/[facility]/ZIP Co de Phone Number [facility] [address] [place] [address], [place] [phone] * Culture urine (04/29/2025 1:04 PM EDT) Culture, Urine No growth 04/30/2025 10:04 AM EDT [facility] Urine Urine specimen obtained by clean catch procedure / Unknown Non-blood Collection / Unknown 04/29/2025 1:04 PM EDT 04/29/2025 1:47 PM EDT Robe Cui MD LAB MICROBIOLOGY - GENERAL ORDERABLES Final Result Performing Organization Address [facility] [place] Co de Phone Number [facility] [address] [place] [address], * Troponin I high sensitivity (04/29/2025 12:05 PM EDT) [facility] High Sensitivity Troponin I 6 <=79 ng/L LAB CHEMISTRY METHOD 04/29/2025 12:49 PM EDT [facility] Blood Venous blood specimen / Unknown Venipuncture / Unknown 04/29/2025 12:05 PM EDT 04/29/2025 12:18 PM EDT Narrative [facility] - 04/29/2025 12:49 PM EDT High levels of biotin in samples may falsely decrease hsTroponin values. Use caution when interpreting hsTroponin results in patients taking biotin who exhibit renal impairment (eGFR <60) or in patients taking more than 20 mg/day of biotin. Nohemi Turner MD LAB BLOOD ORDERABLES Final Resul t Performing Organization Address [facility] [place]/[facility] de Phone Number [facility] [address] [place] [address], * (ABNORMAL) CBC auto differential (04/29/2025 12:05 PM EDT) [facility] WBC 11.7(H) 4.8 - 10.8 K/mcL LAB HEMETOLOGY METHOD 04/29/2025 12:25 PM EDT [facility] RBC 4.70 4.50 - 5.50 M/mcL LAB HEMETOLOGY METHOD 04/29/2025 12:25 PM EDT [facility] Hemoglobin 14.6 13.5 - 17.5 g/dL LAB HEMETOLOGY METHOD 04/29/2025 12:25 PM EDT [facility] Hematocrit 43.6 42.0 - 54.0 % LAB HEMETOLOGY METHOD 04/29/2025 12:25 PM [facility] MCV 92.6 79.0 - 98.0 FL LAB HEMETOLOGY METHOD 04/29/2025 12:25 PM [facility] MCH 31.0 27.0 - 32.0 pcg LAB HEMETOLOGY METHOD [facility] MCHC 33.5 32.0 - 37.0 g/dL LAB HEMETOLOGY METHOD 04/29/2025 12:25 PM [facility] RDW 11.9 11.0 - 15.0 % LAB HEMETOLOGY METHOD 04/29/2025 12:25 PM [facility] Platelets 274 130 - 400 K/mcL LAB HEMETOLOGY METHOD 04/29/2025 12:25 PM [facility] MPV 8.8 7.0 - 11.0 FL LAB HEMETOLOGY METHOD 04/29/2025 12:25 PM [facility] NRBC 0.0 <1.0 % LAB HEMETOLOGY METHOD 04/29/2025 12:25 PM [facility] NRBC Absolute 0.00 <0.10 K/mcL LAB HEMETOLOGY METHOD 04/29/2025 12:25 PM [facility] Neutrophils Relative 68.8 % LAB HEMETOLOGY METHOD 04/29[facility]2025 12:[facility] Lymphocytes Relative 22.3 % LAB HEMETOLOGY METHOD 04/29/2025 12:25 PM [facility] Monocytes Relative 7.6 % LAB HEMETOLOGY METHOD 04/29/2025 12:25 PM [facility] Eosinophils Relative 0.8 % LAB HEMETOLOGY METHOD 04/29/2025 12:25 PM EDT [facility] Basophils Relative 0.2 % LAB HEMETOLOGY METHOD 04/29/2025 12:25 PM EDT [facility] Immature Granulocytes Relative 0.3 % LAB HEMETOLOGY METHOD 04/29/2025 12:25 PM EDT [facility] Neutrophils Absolute 8.08(H) 1.50 - 7.00 K/mcL LAB HEMETOLOGY METHOD 04/29/2025 12:25 PM EDT [facility] Lymphocytes Absolute 2.62 1.00 - 5.00 K/mcL LAB HEMETOLOGY METHOD 04/29/2025 12:25 PM EDT [facility] Monocytes Absolute 0.89 0.20 - 1.00 K/mcL LAB HEMETOLOGY METHOD 04/29/2025 12:25 PM EDT [facility] Eosinophils Absolute 0.09 0.00 - 0.50 K/mcL LAB HEMETOLOGY METHOD 04/29/2025 12:25 PM EDT [facility] Basophils Absolute 0.02 0.00 - 0.20 K/mcL LAB HEMETOLOGY METHOD 04/29/2025 12:25 PM EDT [facility] Immature Granulocytes Absolute 0.03 0.00 - 0.03 K/mcL LAB HEMETOLOGY METHOD 04/29/2025 12:25 PM EDT [facility] Blood Venous blood specimen / Unknown Venipuncture / Unknown 04/29/2025 12:05 PM EDT 04/29/2025 12:18 PM EDT us Robe Cui MD LAB BLOOD ORDERABLES Final Result [facility] [address] [place] [address], * Magnesium (04/29/2025 12:05 PM EDT) Magnesium 1.9 1.9 - 2.6 mg/dL LAB CHEMISTRY METHOD 04/29/2025 12:46 PM EDT [facility] Blood Venous blood specimen / Unknown Venipuncture / Unknown 04/29/2025 12:05 PM EDT 04/29/2025 12:18 PM EDT Robe Cui MD LAB BLOOD ORDERABLES Final Result [facility] [address] [place] [address], * Hepatic Function Panel (04/29/2025 12:05 PM EDT) [facility] Total Protein 7.0 6.0 - 8.0 g/dL LAB CHEMISTRY METHOD [facility]25 2[facility] Albumin 3.7 3.2 - 5.0 g/dL LAB CHEMISTRY METHOD 04/29/2025 2:43 PM [facility] Total Bilirubin 0.9 0.0 - 1.4 mg/dL LAB CHEMISTRY METHOD 04/29/2025 2:43 PM [facility] Bilirubin, Direct 0.2 0.0 - 0.3 mg/dL LAB CHEMISTRY METHOD 04/29/2025 2:43 PM [facility] Bilirubin, Indirect 0.7 0.0 - 1.1 mg/dL LAB CHEMISTRY METHOD 04/29/2025 2:43 PM [facility] ALT (SGPT) 50 10 - 60 unit/L LAB CHEMISTRY METHOD 04/29/2025 2:43 PM [facility] AST (SGOT) 24 10 - 42 unit/L LAB CHEMISTRY METHOD 04/29/2025 2:43 PM EDT [facility] Alkaline Phosphatase 61 42 - 121 unit/L LAB CHEMISTRY METHOD 04/29/2025 2:43 PM [facility] Blood Venous blood specimen / Unknown Venipuncture / Unknown 04/29/2025 12:05 PM EDT 04/29/2025 12:18 PM EDT us Robe Cui MD LAB BLOOD ORDERABLES Final Result [facility] [address] [place] [address], [place] [phone] * (ABNORMAL) Basic metabolic panel (04/29/2025 12:05 PM EDT) Sodium 137 133 - 145 mmol/L LAB CHEMISTRY METHOD 04/29/2025 12:46 PM [facility] Potassium 4.5 3.5 - 5.5 mmol/L LAB CHEMISTRY METHOD 04/29/2025 12:46 PM [facility] Chloride 103 96 - 110 mmol/L LAB CHEMISTRY METHOD 04/29/2025 12:46 PM [facility] CO2 30 21 - 32 mmol/L LAB CHEMISTRY METHOD 04/29/2025 12:46 PM [facility] Anion Gap 4 3 - 11 LAB CHEMISTRY METHOD 04/29/2025 12:46 PM [facility] Glucose 193(H) 70 - 100 mg/dL LAB CHEMISTRY METHOD 04/29/2025 12:46 PM [facility] BUN 15 5 - 25 mg/dL LAB CHEMISTRY METHOD 04/29/2025 12:46 PM [facility] Creatinine 1.19 0.70 - 1.30 mg/dL LAB CHEMISTRY METHOD 04/29/2025 12:46 PM [facility] eGFR 69 >=60 mL/min/1. 73m2 LAB CHEMISTRY METHOD 04/29/2025 12:46 PM EDT [facility] Comment:Calculation based on the Chronic Kidney Disease Epidemiology Collaboration (CKD-EPI) equation refit without adjustment for race. BUN/Creatinine Ratio 12.6 LAB CHEMISTRY METHOD 04/29/2025 12:46 PM EDT [facility] Calcium 9.7 8.5 - 10.5 mg/dL LAB CHEMISTRY METHOD 04/29/2025 12:46 PM EDT [facility] Blood Venous blood specimen / Unknown Venipuncture / Unknown 04/29/2025 12:05 PM EDT 04/29/2025 12:18 PM EDT Robe Cui MD LAB BLOOD ORDERABLES Final Result [facility] [address] [place] [address], [place] [phone] * (ABNORMAL) POCT Glucose, blood (04/29/2025 11:49 AM EDT) [facility] Glucose POCT 195(H) 70 - 100 mg/dL 04/29/2025 11:50 AM EDT [facility] Blood Capillary blood specimen / Unknown 04/29/2025 11:49 AM EDT 04/29/2025 11:51 AM EDT us Generic Provider Poct LAB POINT OF CARE TEST DOCKED DEVICE UNSOLICITED RESULTS Final Result [facility] [address] [place] [address], [place] [phone] * ECG 12 lead (04/29/2025 11:44 AM EDT) Ventricular Rate ECG 73 BPM GEMUSE Atrial Rate 73 BPM GEMUSE P-R Interval 192 ms GEMUSE QRS Duration 88 ms GEMUSE Q-T Interval 436 ms GEMUSE QTc 480 ms GEMUSE P Wave [place] 45 degrees GEMUSE R [place] 25 degrees GEMUSE T [place] 52 degrees GEMUSE ECG Interpretation Normal sinus rhythm with sinus arrhythmia Nonspecific T wave abnormality Statement not found (#[id number]) Abnormal ECG No previous ECGs available Confirmed by Clement BOYD JAMES ([id number]) on 04/29/2025 5:38:21 PM GEMUSE 04/29/2025 11:4 4 AM EDT 04/29/2025 5:38 PM EDT us Robe Cui MD ECG ORDERABLES Final Resul t GEMUSE from Last 3 Months Insurance [address] [place] [address] MEDICARE [facility] MEDICAID - [place] Care Teams Saw Maker Relationship Specialty Start Date End Date Physician, Pcp Unknown PCP - General 04/29/25
[2025-05-30 10:08] LABS: MANUAL DIFF FLAG NO
[2025-05-30 10:10] LABS: Hematocrit 41.9 % (42.0-52.0); Hemoglobin 14.4 g/dl (14.0-18.0); Imm Gran Abs Auto 0.01 X10*3/uL (0.00-0.03); Imm Gran Pct Auto 0.1 % (0.0-0.4); Lymphocytes Absolute Auto 3.2 X10*3/uL (1.2-4.9); Mean Corpuscular HGB Conc 34.4 g/dl (31.0-36.0); Mean Corpuscular Hemoglobin 31.2 pg (27.0-33.0); Mean Corpuscular Volume 90.9 fL (80.0-98.0); NRBC Abs Auto 0.000 X10*3/uL (0.0-0.012); NRBC Pct Auto 0.0 /100WBC (0.0-0.2); Platelet Count 326 X10*3/uL (160-400); Red Blood Count 4.61 X10*6/uL (4.60-5.80); Reticulocytes Absolute 0.099 X10*6/uL (0.026-0.095); White Blood Count 7.1 X10*3/uL (4.8-10.8)
[2025-05-30 10:20] LABS: Osmolality, Serum 290 mosm/kg (281-305)
[2025-05-30 10:45] LABS: Appearance Urine Clear; Glucose Urine UA Negative (Negative); PH 6.5 (5.0-9.0); Specific Gravity - Urine 1.015 (1.005-1.025)
[2025-05-30 10:53] LABS: Alanine Aminotransferase 55 U/L (0-40); Albumin Level 4.0 g/dL (3.5-5.0); Alkaline Phosphatase 102 U/L (39-117); Anion Gap 13 (12-20); Aspartate Amino Transferase 31 U/L (5-37); Blood Urea Nitrogen 12 mg/dL (9-16); Calcium 9.4 mg/dL (8.4-10.2); Carbon Dioxide 27 mmol/L (22-29); Chloride 101 mmol/L (96-108); Cholesterol 125 mg/dL (<200); Estimated Glomerular Filt Rate > 60; HDL Cholesterol 33 mg/dL (>40); Potassium 4.7 mmol/L (3.3-5.1); Sodium 136 mmol/L (135-145); Total Protein 6.8 g/dL (6.5-8.0); Triglycerides 192 mg/dL (<150)
== END 2025-05-30 07:30 | disposition home or self-care (01) ==
LOC: HO.HMGCLDS 07:29
PROVIDERS: PCP Nurse Practitioner Family; Visit Provider Nurse Practitioner Family
DX: Z00.01 Encounter for general adult medical examination with abnormal findings (principal); Z12.5 Encounter for screening for malignant neoplasm of prostate; R17 Unspecified jaundice; E87.1 Hypo-osmolality and hyponatremia; I10 Essential (primary) hypertension
CPT/HCPCS: 36415; 80053; 80061; 81003; 82248; 83010; 83615; 83930; 84153; 84443; 85025; 85045; 86015

== ENCOUNTER 2025-06-09 14:17 | Outpatient (REF) | payer MEDICARE, MEDICAID, SELFPAY ==
[2025-06-09 19:04] LABS: Resp Syncy Virus RNA Qual PCR NEGATIVE (Negative); SARS COV2 PCR INHOUSE NEGATIVE (Negative)
== END 2025-06-09 14:18 | disposition home or self-care (01) ==
LOC: HO.LAB 14:17
PROVIDERS: PCP Nurse Practitioner Family; Visit Provider Physician Assistant
DX: J06.9 Acute upper respiratory infection, unspecified (principal); R09.89 Other specified symptoms and signs involving the circulatory and respiratory systems; Z87.891 Personal history of nicotine dependence
CPT/HCPCS: 87637; 99212

== ENCOUNTER 2025-06-09 14:17 | Outpatient (AMB) | payer MEDICARE, MEDICAID, SELFPAY ==
[2025-06-09 14:38] VITALS: BP 102/60; PULSE 66; TEMP 36.9; O2SAT 94; BMI 29.1
--- NOTE | 2025-06-09 14:38 | MHC.OFFWIV ---
Intake Vital Signs 06/09/25 14:38 Height 5 ft 10 in Weight 203 lb BMI 29.1 BP 102/60 Blood Pressure Location Lt brachial Position Sitting Pulse 66 Pulse Source Pulse Oximeter Temp 98.5 F Temp Source Oral Pulse Oximetry (%) 94 Oxygen Delivery Method Room Air Intake Visit Reasons: EP Covid? Intake Note: pt presents with dry cough with pain to chest x1 day Patient Tobacco Use Status: Former Tobacco user Allergies allopurinol Allergy (Verified 06/09/25 14:42) Chest Pain Do you need a note to return to daycare/school/sports/work: No HPI HPI Comments History of Present Illness Details History - The patient is a 65-year-old male presenting with a cough and possible COVID-19 exposure. - The cough began the day prior to the visit and persisted throughout the night. - The patient visited a longterm where COVID-19 was present, although he wore a mask during the visit. - The patient denies fever, shortness of breath, wheezing, ear pain, and sinus pain. - The patient self-administered amoxicillin and Mucinex without relief. - The patient has a history of receiving antibiotics for similar symptoms in the past, typically azithromycin, which he reports as effective and he would like it today Physical Exam General: Cooperative, healthy appearing, comfortable and no acute distress Orientation/consciousness: Patient oriented x3 Limitations: No limitations Head: Normal to inspection Ears: Hearing grossly normal bilaterally, external ears normal and TM's normal bilaterally Nose: Normal external nose present, Normal nares present and No nasal discharge present Face and sinus: Normal facial exam and Yes sinuses nontender Mouth: Normal oral and palatal mucosa present and moist mucous membranes Throat: Yes tonsils normal, Yes uvula midline. Posterior oropharynx erythema, no exudates Eyes: Appearance normal, both eyes and all related structures Neck: Normal visual inspection, full ROM Respiratory: Clear to auscultation bilaterally. Normal respiratory effort, able to speak in complete sentences, not actively coughing, no respiratory distress, not tachypneic, no tripod positioning and no use of accessory muscles Cardiovascular: Regular rate and rhythm. Normal S1 and S2 Skin: No rashes or lesions noted Neuro: Patient oriented x3 Extremities: Normal to inspection and Yes no clubbing, cyanosis or edema [facility] Medical History Left ear hearing loss History of cardioversion Fatty liver Crescendo angina Persistent atrial fibrillation TIA (transient ischemic attack) Exertional chest pain Paroxysmal atrial flutter CAD (coronary artery disease) HLD (hyperlipidemia) HTN (hypertension) Surgical History S/P cardiac catheterization Hx of CABG History of cardiac cath History of cardiac cath Family History Father No problems noted. Mother No problems noted. 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 Current occupational exposures/hazards: No Cognitive needs: No Hearing needs: No Vision needs: No Review of Systems Const All systems reviewed & are unremarkable except as noted in HPI and below Physical Exam Vital Signs: Last Vital Signs Temp 98.5 F 06/09/25 14:38 Pulse 66 06/09/25 14:38 BP 102/60 06/09/25 14:38 Pulse Ox 94 06/09/25 14:38 Oxygen Delivery Method Room Air 06/09/25 14:38 BMI result Body Mass Index 29.1 Assessment & Plan Assessment & Plan (1) URI, acute: Code(s): J06.9 - Acute upper respiratory infection, unspecified Plan: Plan Patient was informed and verbally consented to the use of an ambient scribe for clinic note documentation during this visit. VSS, pt well appearing and PE unremarkable. Viral URI - Explained that Zpak will not help if this is viral, explained it helps him feel better bc of pleiotropic/anti-inflammatory effects so pt is asking for something so we decided on prednisone 20mg x5days for anti inflammatory rather than Zpak. - Continue Mucinex and add an allergy pill to help dry up secretions. - Prescribed a cough suppressant for nighttime use. - Conducted nasal swab for COVID-19/flu/RSV testing. - If positive, can prescribe Paxlovid, an antiviral medication. - Discussed that antibiotics are ineffective against viral infections. Orders: Orders SARS-CoV2/FLU/RSV Today R09.89 - Other specified symptoms and signs involving the circulatory and respiratory systems Medications: New prednisone 20 mg PO QAM 5 tabs 0RF benzonatate 200 mg PO BEDTIME PRN 10 caps 0RF cough Coding Level of Care Code Est Pt Level 3 (52253) Diagnoses URI, acute J06.9
--- OUTSIDE RECORDS SUMMARY | 2025-06-09 14:45 | XMS_ITS | Clinical Summary ---
Author Organization [facility] Address [address] [place] [address] Phone Care Team Providers Care Councilor Name Role Phone Physician, Pcp Unknown Primary [...] - 04/29/2025 4:41 PM EDT Emergency [facility] Emergency [address] [place] [id number] Robe Cui MD Acute gastroenteritis (Primary Dx); [...] 01/07/2012 Zoster Vaccines (1 of 2) 01/07/2012 Depression Screening 10/05/2024 Cholesterol Screening (Lipid Panel) 04/29/2025 HIV Screening 04/29/2025 Hepatitis C Screening 04/29/2025 Medicare Annual Wellness Visit 04/29/2025 Social Influencers of Health Screening 04/29/2025 COVID-19 Vaccine (1 - 2023-2 5 season) 2025 Influenza Vaccine (#1) 2025 Colorectal Cancer Screening: [...] No active pulmonary process identified. Telerad JENNIE ([id number]) -------- FINAL REPORT -------- Dictated By: Mae Morley Dictated Date: 04/29/2025 13:39 ET Assigned Physician: Mae Morley Reviewed and Electronically Signed By: Mae Morley Signed Date: 04/29/2025 13:40 ET Workstation ID: [id number] Transcribed By: Self Edit Transcribed Date: 04/29/2025 [...] No active pulmonary process identified. Telerad JENNIE ([id number]) -------- FINAL REPORT -------- Dictated By: Mea Morley Dictated Date: 04/29/2025 13:39 ET Assigned Physician: Mae Morley Reviewed and Electronically Signed By: Mae Morley Signed Date: 04/29/2025 13:40 ET Workstation ID: [id number] Transcribed By: Self Edit Transcribed Date: 04/29/2025 13:39 ET us Robe Cui MD IMG XR PROCEDURES Final Res ult * (ABNORMAL) Urinalysis with reflex microscopic and culture (04/29/2025 1:04 PM EDT) [facility] Specific [place] Urine 1.025 1.003 - 1.030 LAB URINALYSIS - AUTOMATED METHOD 04/29/2025 1:47 PM [facility] pH, Urine 6.0 5.0 - 8.0 pH LAB URINALYSIS - AUTOMATED METHOD 04/29/2025 1:47 PM [facility] Leukocytes, Urine Trace(A) Negative LAB URINALYSIS - AUTOMATED METHOD 04/29/2025 1:47 PM [facility] Nitrite, Urine Negative Negative LAB URINALYSIS - AUTOMATED METHOD 04/29/2025 1:47 PM [facility] Protein, Urine 30(A) <=Trace mg/dL LAB URINALYSIS - AUTOMATED METHOD 04/29/2025 1:47 PM [facility] Glucose, Urine Negative Negative mg/dL LAB URINALYSIS - AUTOMATED METHOD 04/29/2025 1:47 PM [facility] Ketones, Urine Trace(A) Negative mg/dL LAB URINALYSIS - AUTOMATED METHOD 04/29/2025 1:47 PM [facility] Urobilinogen, Urine 1.0 0.2 - 1.0 mg/dL LAB URINALYSIS - AUTOMATED METHOD 04/29/2025 1:47 PM [facility] Bilirubin, Urine Negative Negative LAB URINALYSIS - AUTOMATED METHOD 04/29/2025 1:47 PM [facility] Blood, Urine Negative Negative LAB URINALYSIS - AUTOMATED METHOD 04/29/2025 1:47 PM [facility] RBC, Urine 4.0 0 - 4 /HPF LAB URINALYSIS - AUTOMATED METHOD 04/29/2025 1:47 PM [facility] WBC, Urine 2.5 0 - 4 /HPF LAB URINALYSIS - AUTOMATED METHOD 04/29/2025 1:47 PM [facility] Squamous Epithelial, Urine 13 0 - 60 /LPF LAB URINALYSIS - AUTOMATED METHOD 04/29/2025 1:47 PM EDT [facility] Bacteria, Urine Negative Negative /HPF LAB URINALYSIS - AUTOMATED METHOD 04/29/2025 1:47 PM EDT [facility] Hyaline Casts, Urine 2.4 0 - 3 /LPF LAB URINALYSIS - AUTOMATED METHOD 04/29/2025 1:47 PM EDT [facility] Urine Urine specimen obtained by clean catch procedure / Unknown Non-blood Collection / Unknown 04/29/2025 1:04 PM EDT 04/29/2025 1:38 PM EDT Robe Cui MD LAB URINE ORDERABLES Final Result Performing Organization Address [facility]/ZIP Co de Phone Number [facility] [address] [place] [address], [place] [phone] * Yi urine culture tube (04/29/2025 1:04 PM EDT) Extra Tube Hold for add-ons. 04/29/2025 3:01 PM EDT [facility] Comment:Auto resulted. Urine Urine specimen obtained by clean catch procedure / Unknown Non-blood Collection / Unknown 04/29/2025 1:04 PM EDT 04/29/2025 1:38 PM EDT Robe Cui MD LAB URINE ORDERABLES Final Result Performing Organization Address City/[facility]/ZIP Co de Phone Number [facility] [address] [place] [address], [place] [phone] * Culture urine (04/29/2025 1:04 PM EDT) Culture, Urine No growth 04/30/2025 10:04 AM EDT [facility] Urine Urine specimen obtained by clean catch procedure / Unknown Non-blood Collection / Unknown 04/29/2025 1:04 PM EDT 04/29/2025 1:47 PM EDT Robe Cui MD LAB MICROBIOLOGY - GENERAL ORDERABLES Final Result Performing Organization Address [facility] Co de Phone Number [facility] [address] [place] [address], * Troponin I high sensitivity (04/29/2025 12:05 PM EDT) [facility] High Sensitivity Troponin I 6 <=79 ng/L LAB CHEMISTRY METHOD 04/29/2025 12:49 PM EDT [facility] Blood Venous blood specimen / Unknown Venipuncture / Unknown 04/29/2025 12:05 PM EDT 04/29/2025 12:18 PM EDT Narrative [facility] - 04/29/2025 12:49 PM EDT High levels of biotin in samples may falsely decrease hsTroponin values. Use caution when interpreting hsTroponin results in patients taking biotin who exhibit renal impairment (eGFR <60) or in patients taking more than 20 mg/day of biotin. Nohemi Turner MD LAB BLOOD ORDERABLES Final Resul t Performing Organization Address [facility] de Phone Number [facility] [address] [place] [address], * (ABNORMAL) CBC auto differential (04/29/2025 12:05 PM EDT) [facility] WBC 11.7(H) 4.8 - 10.8 K/mcL LAB HEMETOLOGY METHOD 04/29/2025 12:25 PM EDT [facility] RBC 4.70 4.50 - 5.50 M/mcL LAB HEMETOLOGY METHOD 04/29/2025 12:25 PM EDT [facility] Hemoglobin 14.6 13.5 - 17.5 g/dL LAB HEMETOLOGY METHOD 04/29/2025 12:25 PM EDT [facility] Hematocrit 43.6 42.0 - 54.0 % LAB HEMETOLOGY METHOD 04/29/2025 12:25 PM [facility] MCV 92.6 79.0 - 98.0 FL LAB HEMETOLOGY METHOD 04/29/2025 12:25 PM [facility] MCH 31.0 27.0 - 32.0 pcg LAB HEMETOLOGY METHOD 04/29/2025 12:[facility] MCHC 33.5 32.0 - 37.0 g/dL LAB HEMETOLOGY METHOD 04/29/2025 12:25 PM [facility] RDW 11.9 11.0 - 15.0 % LAB HEMETOLOGY METHOD 04/29/2025 12:25 PM [facility] Platelets 274 130 - 400 K/mcL LAB HEMETOLOGY METHOD 04/29/2025 12:25 PM [facility] MPV 8.8 7.0 - 11.0 FL LAB HEMETOLOGY METHOD 04/29/2025 12:25 PM [facility] NRBC 0.0 <1.0 % LAB HEMETOLOGY METHOD 04/29/2025 12:25 PM [facility] NRBC Absolute 0.00 <0.10 K/mcL LAB HEMETOLOGY METHOD 04/29/2025 12:25 PM [facility] Neutrophils Relative 68.8 % LAB HEMETOLOGY METHOD 04/29/2025 12:[facility] Lymphocytes Relative 22.3 % LAB HEMETOLOGY METHOD 04/29/2025 12:25 PM [facility] Monocytes Relative 7.6 % LAB HEMETOLOGY METHOD 04/29/2025 12:25 PM [facility] Eosinophils Relative 0.8 % LAB HEMETOLOGY METHOD 04/29/2025 12:25 PM EDT [facility] Basophils Relative 0.2 % LAB HEMETOLOGY METHOD 04/29/2025 12:25 PM EDT [facility] Immature Granulocytes Relative 0.3 % LAB HEMETOLOGY METHOD 04/29/2025 12:25 PM EDT [facility] Neutrophils Absolute 8.08(H) 1.50 - 7.00 K/mcL LAB HEMETOLOGY METHOD 04/29/2025 12:25 PM EDT [facility] Lymphocytes Absolute 2.62 1.00 - 5.00 K/mcL LAB HEMETOLOGY METHOD 04/29/2025 12:25 PM EDT [facility] Monocytes Absolute 0.89 0.20 - 1.00 K/mcL LAB HEMETOLOGY METHOD 04/29/2025 12:25 PM EDT [facility] Eosinophils Absolute 0.09 0.00 - 0.50 K/mcL LAB HEMETOLOGY METHOD 04/29/2025 12:25 PM EDT [facility] Basophils Absolute 0.02 0.00 - 0.20 K/mcL LAB HEMETOLOGY METHOD 04/29/2025 12:25 PM EDT [facility] Immature Granulocytes Absolute 0.03 0.00 - 0.03 K/mcL LAB HEMETOLOGY METHOD 04/29/2025 12:25 PM EDT [facility] Blood Venous blood specimen / Unknown Venipuncture / Unknown 04/29/2025 12:05 PM EDT 04/29/2025 12:18 PM EDT us Robe Cui MD LAB BLOOD ORDERABLES Final Result [facility] [address] [place] [address], * Magnesium (04/29/2025 12:05 PM EDT) Magnesium 1.9 1.9 - 2.6 mg/dL LAB CHEMISTRY METHOD 04/29/2025 12:46 PM EDT [facility] Blood Venous blood specimen / Unknown Venipuncture / Unknown 04/29/2025 12:05 PM EDT 04/29/2025 12:18 PM EDT Robe Cui MD LAB BLOOD ORDERABLES Final Result [facility] [address] [place] [address], * Hepatic Function Panel (04/29/2025 12:05 PM EDT) [facility] Total Protein 7.0 6.0 - 8.0 g/dL LAB CHEMISTRY METHOD 04/29/2025 2:[facility] Albumin 3.7 3.2 - 5.0 g/dL LAB CHEMISTRY METHOD 04/29/2025 2:43 PM [facility] Total Bilirubin 0.9 0.0 - 1.4 mg/dL LAB CHEMISTRY METHOD 04/29/2025 2:43 PM [facility] Bilirubin, Direct 0.2 0.0 - 0.3 mg/dL LAB CHEMISTRY METHOD 04/29/2025 2:43 PM [facility] Bilirubin, Indirect 0.7 0.0 - 1.1 mg/dL LAB CHEMISTRY METHOD 04/29/2025 2:43 PM [facility] ALT (SGPT) 50 10 - 60 unit/L LAB CHEMISTRY METHOD 04/29/2025 2:43 PM [facility] AST (SGOT) 24 10 - 42 unit/L LAB CHEMISTRY METHOD 04/29/2025 2:43 PM EDT [facility] Alkaline Phosphatase 61 42 - 121 unit/L LAB CHEMISTRY METHOD 04/29/2025 2:43 PM [facility] Blood Venous blood specimen / Unknown Venipuncture / Unknown 04/29/2025 12:05 PM EDT 04/29/2025 12:18 PM EDT us Robe Cui MD LAB BLOOD ORDERABLES Final Result [facility] [address] [place] [address], [place] [phone] * (ABNORMAL) Basic metabolic panel (04/29/2025 12:05 PM EDT) Sodium 137 133 - 145 mmol/L LAB CHEMISTRY METHOD 04/29/2025 12:46 PM [facility] Potassium 4.5 3.5 - 5.5 mmol/L LAB CHEMISTRY METHOD 04/29/2025 12:46 PM [facility] Chloride 103 96 - 110 mmol/L LAB CHEMISTRY METHOD 04/29/2025 12:46 PM [facility] CO2 30 21 - 32 mmol/L LAB CHEMISTRY METHOD 04/29/2025 12:46 PM [facility] Anion Gap 4 3 - 11 LAB CHEMISTRY METHOD 04/29/2025 12:46 PM [facility] Glucose 193(H) 70 - 100 mg/dL LAB CHEMISTRY METHOD 04/29/2025 12:46 PM [facility] BUN 15 5 - 25 mg/dL LAB CHEMISTRY METHOD 04/29/2025 12:46 PM [facility] Creatinine 1.19 0.70 - 1.30 mg/dL LAB CHEMISTRY METHOD 04/29/2025 12:46 PM [facility] eGFR 69 >=60 mL/min/1. 73m2 LAB CHEMISTRY METHOD 04/29/2025 12:46 PM EDT [facility] Comment:Calculation based on the Chronic Kidney Disease Epidemiology Collaboration (CKD-EPI) equation refit without adjustment for race. BUN/Creatinine Ratio 12.6 LAB CHEMISTRY METHOD 04/29/2025 12:46 PM EDT [facility] Calcium 9.7 8.5 - 10.5 mg/dL LAB CHEMISTRY METHOD 04/29/2025 12:46 PM EDT [facility] Blood Venous blood specimen / Unknown Venipuncture / Unknown 04/29/2025 12:05 PM EDT 04/29/2025 12:18 PM EDT Robe Cui MD LAB BLOOD ORDERABLES Final Result [facility] [address] [place] [address], [place] [phone] * (ABNORMAL) POCT Glucose, blood (04/29/2025 11:49 AM EDT) [facility] Glucose POCT 195(H) 70 - 100 mg/dL 04/29/2025 11:50 AM EDT [facility] Blood Capillary blood specimen / Unknown 04/29/2025 11:49 AM EDT 04/29/2025 11:51 AM EDT us Generic Provider Poct LAB POINT OF CARE TEST DOCKED DEVICE UNSOLICITED RESULTS Final Result [facility] [address] [place] [address], [place] [phone] * ECG 12 lead (04/29/2025 11:44 AM EDT) Ventricular Rate ECG 73 BPM GEMUSE Atrial Rate 73 BPM GEMUSE P-R Interval 192 ms GEMUSE QRS Duration 88 ms GEMUSE Q-T Interval 436 ms GEMUSE QTc 480 ms GEMUSE P Wave [place] 45 degrees GEMUSE R [place] 25 degrees GEMUSE T [place] 52 degrees GEMUSE ECG Interpretation Normal sinus rhythm with sinus arrhythmia Nonspecific T wave abnormality Statement not found (#[id number]) Abnormal ECG No previous ECGs available Confirmed by Clement BOYD JAMES ([id number]) on 04/29/2025 5:38:21 PM GEMUSE 04/29/2025 11:4 4 AM EDT 04/29/2025 5:38 PM EDT us Robe Cui MD ECG ORDERABLES Final Resul t GEMUSE from Last 3 Months Insurance [address] [place] [address] MEDICARE [facility] MEDICAID - [place] Care Teams Councilor Relationship Specialty Start Date End Date Physician, Pcp Unknown PCP - General 04/29/25
== END 2025-06-09 14:53 | disposition home or self-care (01) ==
PROVIDERS: PCP Nurse Practitioner Family; Visit Provider Physician Assistant
DX: J06.9 Acute upper respiratory infection, unspecified (principal)

== ENCOUNTER 2025-07-11 10:22 | Outpatient (AMB) | payer MEDICARE, MEDICAID, SELFPAY ==
--- NOTE | 2025-07-11 11:11 | AM.OFFWIN_ITS ---
Intake Vital Signs 07/11/25 11:12 Height 5 ft 10 in Weight 205 lb BMI 29.4 BP 126/84 Blood Pressure Location Lt brachial Position Sitting Pulse 121 H Pulse Source Pulse Oximeter Temp 99.4 F Temp Source Oral Pulse Oximetry (%) 96 Oxygen Delivery Method Room Air Intake Visit Reasons: EP Face is numb Intake Note: pt presents with on/off left sided face numbness, mild upper chest pain off/on, right sided neck pain- all symptoms began this morning Patient Tobacco Use Status: Former Tobacco user Allergies allopurinol Allergy (Verified 07/11/25 11:18) Chest Pain Do you need a note to return to daycare/school/sports/work: No HPI HPI Comments History of Present Illness Details History of Present Illness - The patient is a 65-year-old male pres enting with left sided facial numbness. - The facial numbness began suddenly thi s morning, causing significant anxiety about a potential stroke. - He states that he was laying in bed pl aying his game on his phone when he noticed that his face was going numb on the left side. - He states that he had gotten up and re ported it to his . - The patient reported taking his usual morning medications and vitamins prior to the onset of symptoms. - He experienced no chest pain, arm weak ness, or numbness, but did report neck pain in the mid neck and headache. - His told him to pinch his face an d wake it up . - He wanted to call an ambulance and she told him to wait and see if the symptoms resolved. - The patient received a COVID-19 vaccin ation the day before the symptoms began, raising concerns about a possible reaction. - The numbness resolved by the time of t he examination, with no residual defici ts noted. - He had no associated chest pain, facia l droop, slurred speech, unilateral weakness - He is wondering if the vitamins are co ntributing to his symptoms as he takes a lot daily. Physical Exam General: Cooperative, healthy appearing, comfortable, no acute distress and well developed Orientation: Patient oriented x3 Limitations: No limitations Head: Normal to inspection Eyes: Appearance normal, both eyes and all related structures. PERRLA, EOMI. Neck: Normal visual inspection, yes full ROM. No midline spinous tenderness noted. No step offs noted. Respiratory: Normal respiratory effort and able to speak in complete sentences. Clear to auscultation bilaterally. No w/r/r noted. Cardiovascular: Regular rate and rhythm. Normal S1 and S2. No m/r/g noted. No carotid bruits noted. GI: Normal to inspection. Soft to palpation and nontender Skin: No rashes or lesions noted Neuro: Patient oriented x3, no deficits noted, CN II- XII intact. Strength is 5/5 on the UE and LE. No facial droop noted. Sensation to light touch and sharp/dull on the face bilaterally intact. Extremities: Normal to inspection. FROM of the UE and LE bilaterally. No edema noted. Patient was informed and verbally consented to the use of an ambient scribe for clinic note documentation during this visit. [facility] Medical History Left ear hearing loss History of cardioversion Fatty liver Crescendo angina Persistent atrial fibrillation TIA (transient ischemic attack) Exertional chest pain Paroxysmal atrial flutter CAD (coronary artery disease) HLD (hyperlipidemia) HTN (hypertension) Surgical History S/P cardiac catheterization Hx of CABG History of cardiac cath History of cardiac cath Family History Father No problems noted. Mother No problems noted. 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 Current occupational exposures/hazards: No Cognitive needs: No Hearing needs: No Vision needs: No Review of Systems Const All systems reviewed & are unremarkable except as noted in HPI and below Physical Exam Vital Signs: Last Vital Signs Temp 99.4 F 07/11/25 11:12 Pulse 121 H 07/11/25 11:12 BP 126/84 07/11/25 11:12 Pulse Ox 96 10/07/25 11:12 Oxygen Delivery Method Room Air 07/11/25 11:12 BMI result Body Mass Index 29.4 Assessment & Plan Assessment & Plan (1) Left facial numbness: Code(s): R20.0 - Anesthesia of skin Plan Most likely neuropathy vs cervical radiculopathy vs trigeminal paresthesia vs Campo's palsy? vs TIA vs electrolyte abnormality unlikely an acute stroke as his symptoms resolved after a few mins and have not returned EKG in the office shows a fib, rate controlled at 87 bpm plan - Monitor for recurrence of symptoms and seek immediate medical attention if symptoms reappear. - Consider potential link to electrolyte abnormality - will order labs today - continue with medications as prescribed - needs to f/u with PCP in a week for a reevaluation - will call with the results of the labs Orders: Orders Magnesium Today R20.0 - Anesthesia of skin Vitamin B12 and Folate Today R20.0 - Anesthesia of skin Comprehensive Met. Panel Today R20.0 - Anesthesia of skin Complete Blood Count Auto Diff Today R20.0 - Anesthesia of skin Coding Level of Care Code Est Pt Level 4 (36927) Diagnoses Left facial numbness R20.0
[2025-07-11 11:12] VITALS: BP 126/84; PULSE 121; TEMP 37.4; O2SAT 96; BMI 29.4
--- OUTSIDE RECORDS SUMMARY | 2025-07-11 12:28 | XMS_ITS | Clinical Summary ---
Author Organization [facility] Address [address] [place] [address] Phone Care Team Providers Care Auditor Medical Claims Name Role Phone Physician, Pcp Unknown Primary [...] EDT - 04/29/2025 4:41 PM EDT [facility] Emergency [address] [place] [phone] Robe Cui MD Acute gastroenteritis (Primary Dx); [...] No active pulmonary process identified. Telerad JENNIE ([id number]) -------- FINAL REPORT -------- Dictated By: Mae Morley Dictated Date: 04/29/2025 13:39 ET Assigned Physician: Mae Morley Reviewed and Electronically Signed By: Mae Morley Signed Date: 04/29/2025 13:40 ET Workstation ID: [id number] Transcribed By: Self Edit Transcribed Date: 04/29/2025 [...] No active pulmonary process identified. Telerad JENNIE ([id number]) -------- FINAL REPORT -------- Dictated By: Mae Morley Dictated Date: 04/29/2025 13:39 ET Assigned Physician: Mae Morley Reviewed and Electronically Signed By: Mae Morley Signed Date: 04/29/2025 13:40 ET Workstation ID: [id number] Transcribed By: Self Edit Transcribed Date: 04/29/2025 13:39 ET us Robe Cui MD IMG XR PROCEDURES Final Res ult * (ABNORMAL) Urinalysis with reflex microscopic and culture (04/29/2025 1:04 PM EDT) [facility] Specific [place] Urine 1.025 1.003 - 1.030 LAB URINALYSIS - AUTOMATED METHOD 04/29/2025 1:47 PM [facility] pH, Urine 6.0 5.0 - 8.0 pH LAB URINALYSIS - AUTOMATED METHOD 04/29/2025 1:47 PM [facility] Leukocytes, Urine Trace(A) Negative LAB URINALYSIS - AUTOMATED METHOD 04/29/2025 1:47 PM [facility] Nitrite, Urine Negative Negative LAB URINALYSIS - AUTOMATED METHOD 04/29/2025 1:47 PM [facility] Protein, Urine 30(A) <=Trace mg/dL LAB URINALYSIS - AUTOMATED METHOD 04/29/2025 1:47 PM [facility] Glucose, Urine Negative Negative mg/dL LAB URINALYSIS - AUTOMATED METHOD 04/29/2025 1:47 PM [facility] Ketones, Urine Trace(A) Negative mg/dL LAB URINALYSIS - AUTOMATED METHOD 04/29/2025 1:47 PM [facility] Urobilinogen, Urine 1.0 0.2 - 1.0 mg/dL LAB URINALYSIS - AUTOMATED METHOD 04/29/2025 1:47 PM [facility] Bilirubin, Urine Negative Negative LAB URINALYSIS - AUTOMATED METHOD 04/29/2025 1:47 PM [facility] Blood, Urine Negative Negative LAB URINALYSIS - AUTOMATED METHOD 04/29/2025 1:47 PM [facility] RBC, Urine 4.0 0 - 4 /HPF LAB URINALYSIS - AUTOMATED METHOD 04/29/2025 1:47 PM [facility] WBC, Urine 2.5 0 - 4 /HPF LAB URINALYSIS - AUTOMATED METHOD 04/29/2025 1:47 PM [facility] Squamous Epithelial, Urine 13 0 - 60 /LPF LAB URINALYSIS - AUTOMATED METHOD 04/29/2025 1:47 PM EDT [facility] Bacteria, Urine Negative Negative /HPF LAB URINALYSIS - AUTOMATED METHOD 04/29/2025 1:47 PM EDT [facility] Hyaline Casts, Urine 2.4 0 - 3 /LPF LAB URINALYSIS - AUTOMATED METHOD 04/29/2025 1:47 PM EDT [facility] Urine Urine specimen obtained by clean catch procedure / Unknown Non-blood Collection / Unknown 04/29/2025 1:04 PM EDT 04/29/2025 1:38 PM EDT Robe Cui MD LAB URINE ORDERABLES Final Result Performing Organization Address [facility]/ZIP Co de Phone Number [facility] [address] [place] [address], [place] [phone] * Yi urine culture tube (04/29/2025 1:04 PM EDT) Extra Tube Hold for add-ons. 04/29/2025 3:01 PM EDT [facility] Comment:Auto resulted. Urine Urine specimen obtained by clean catch procedure / Unknown Non-blood Collection / Unknown 04/29/2025 1:04 PM EDT 04/29/2025 1:38 PM EDT Robe Cui MD LAB URINE ORDERABLES Final Result Performing Organization Address City/[facility]/ZIP Co de Phone Number [facility] [address] [place] [address], [place] [phone] * Culture urine (04/29/2025 1:04 PM EDT) Culture, Urine No growth 04/30/2025 10:04 AM EDT [facility] Urine Urine specimen obtained by clean catch procedure / Unknown Non-blood Collection / Unknown 04/29/2025 1:04 PM EDT 04/29/2025 1:47 PM EDT Robe Cui MD LAB MICROBIOLOGY - GENERAL ORDERABLES Final Result Performing Organization Address [facility] Co de Phone Number [facility] [address] [place] [address], * Troponin I high sensitivity (04/29/2025 12:05 PM EDT) [facility] High Sensitivity Troponin I 6 <=79 ng/L LAB CHEMISTRY METHOD 04/29/2025 12:49 PM EDT [facility] Blood Venous blood specimen / Unknown Venipuncture / Unknown 04/29/2025 12:05 PM EDT 04/29/2025 12:18 PM EDT Narrative [facility] - 04/29/2025 12:49 PM EDT High levels of biotin in samples may falsely decrease hsTroponin values. Use caution when interpreting hsTroponin results in patients taking biotin who exhibit renal impairment (eGFR <60) or in patients taking more than 20 mg/day of biotin. Nohemi Turner MD LAB BLOOD ORDERABLES Final Resul t Performing Organization Address [facility] de Phone Number [facility] [address] [place] [address], * (ABNORMAL) CBC auto differential (04/29/2025 12:05 PM EDT) [facility] WBC 11.7(H) 4.8 - 10.8 K/mcL LAB HEMETOLOGY METHOD 04/29/2025 12:25 PM EDT [facility] RBC 4.70 4.50 - 5.50 M/mcL LAB HEMETOLOGY METHOD 04/29/2025 12:25 PM EDT [facility] Hemoglobin 14.6 13.5 - 17.5 g/dL LAB HEMETOLOGY METHOD 04/29/2025 12:25 PM EDT [facility] Hematocrit 43.6 42.0 - 54.0 % LAB HEMETOLOGY METHOD 04/29/2025 12:25 PM [facility] MCV 92.6 79.0 - 98.0 FL LAB HEMETOLOGY METHOD 04/29/2025 12:25 PM [facility] MCH 31.0 27.0 - 32.0 pcg LAB HEMETOLOGY METHOD 04/29[facility]2025 12[facility] MCHC 33.5 32.0 - 37.0 g/dL LAB HEMETOLOGY METHOD 04/29/2025 12:25 PM [facility] RDW 11.9 11.0 - 15.0 % LAB HEMETOLOGY METHOD 04/29/2025 12:25 PM [facility] Platelets 274 130 - 400 K/mcL LAB HEMETOLOGY METHOD 04/29/2025 12:25 PM [facility] MPV 8.8 7.0 - 11.0 FL LAB HEMETOLOGY METHOD 04/29/2025 12:25 PM [facility] NRBC 0.0 <1.0 % LAB HEMETOLOGY METHOD 04/29/2025 12:25 PM [facility] NRBC Absolute 0.00 <0.10 K/mcL LAB HEMETOLOGY METHOD 04/29/2025 12:25 PM [facility] Neutrophils Relative 68.8 % LAB HEMETOLOGY METHOD 04/29/2025 12:[facility] Lymphocytes Relative 22.3 % LAB HEMETOLOGY METHOD 04/29/2025 12:25 PM [facility] Monocytes Relative 7.6 % LAB HEMETOLOGY METHOD 04/29/2025 12:25 PM [facility] Eosinophils Relative 0.8 % LAB HEMETOLOGY METHOD 04/29/2025 12:25 PM EDT [facility] Basophils Relative 0.2 % LAB HEMETOLOGY METHOD 04/29/2025 12:25 PM EDT [facility] Immature Granulocytes Relative 0.3 % LAB HEMETOLOGY METHOD 04/29/2025 12:25 PM EDT [facility] Neutrophils Absolute 8.08(H) 1.50 - 7.00 K/mcL LAB HEMETOLOGY METHOD 04/29/2025 12:25 PM EDT [facility] Lymphocytes Absolute 2.62 1.00 - 5.00 K/mcL LAB HEMETOLOGY METHOD 04/29/2025 12:25 PM EDT [facility] Monocytes Absolute 0.89 0.20 - 1.00 K/mcL LAB HEMETOLOGY METHOD 04/29/2025 12:25 PM EDT [facility] Eosinophils Absolute 0.09 0.00 - 0.50 K/mcL LAB HEMETOLOGY METHOD 04/29/2025 12:25 PM EDT [facility] Basophils Absolute 0.02 0.00 - 0.20 K/mcL LAB HEMETOLOGY METHOD 04/29/2025 12:25 PM EDT [facility] Immature Granulocytes Absolute 0.03 0.00 - 0.03 K/mcL LAB HEMETOLOGY METHOD 04/29/2025 12:25 PM EDT [facility] Blood Venous blood specimen / Unknown Venipuncture / Unknown 04/29/2025 12:05 PM EDT 04/29/2025 12:18 PM EDT us Robe Cui MD LAB BLOOD ORDERABLES Final Result [facility] [address] [place] [address], * Magnesium (04/29/2025 12:05 PM EDT) Magnesium 1.9 1.9 - 2.6 mg/dL LAB CHEMISTRY METHOD 04/29/2025 12:46 PM EDT [facility] Blood Venous blood specimen / Unknown Venipuncture / Unknown 04/29/2025 12:05 PM EDT 04/29/2025 12:18 PM EDT Robe Cui MD LAB BLOOD ORDERABLES Final Result [facility] [address] [place] [address], * Hepatic Function Panel (04/29/2025 12:05 PM EDT) [facility] Total Protein 7.0 6.0 - 8.0 g/dL LAB CHEMISTRY METHOD 04/29/2025 2:43 [facility] Albumin 3.7 3.2 - 5.0 g/dL LAB CHEMISTRY METHOD 04/29/2025 2:43 PM [facility] Total Bilirubin 0.9 0.0 - 1.4 mg/dL LAB CHEMISTRY METHOD 04/29/2025 2:43 PM [facility] Bilirubin, Direct 0.2 0.0 - 0.3 mg/dL LAB CHEMISTRY METHOD 04/29/2025 2:43 PM [facility] Bilirubin, Indirect 0.7 0.0 - 1.1 mg/dL LAB CHEMISTRY METHOD 04/29/2025 2:43 PM [facility] ALT (SGPT) 50 10 - 60 unit/L LAB CHEMISTRY METHOD 04/29/2025 2:43 PM [facility] AST (SGOT) 24 10 - 42 unit/L LAB CHEMISTRY METHOD 04/29/2025 2:43 PM EDT [facility] Alkaline Phosphatase 61 42 - 121 unit/L LAB CHEMISTRY METHOD 04/29/2025 2:43 PM [facility] Blood Venous blood specimen / Unknown Venipuncture / Unknown 04/29/2025 12:05 PM EDT 04/29/2025 12:18 PM EDT us Robe Cui MD LAB BLOOD ORDERABLES Final Result [facility] [address] [place] [address], [place] [phone] * (ABNORMAL) Basic metabolic panel (04/29/2025 12:05 PM EDT) Sodium 137 133 - 145 mmol/L LAB CHEMISTRY METHOD 04/29/2025 12:46 PM [facility] Potassium 4.5 3.5 - 5.5 mmol/L LAB CHEMISTRY METHOD 04/29/2025 12:46 PM [facility] Chloride 103 96 - 110 mmol/L LAB CHEMISTRY METHOD 04/29/2025 12:46 PM [facility] CO2 30 21 - 32 mmol/L LAB CHEMISTRY METHOD 04/29/2025 12:46 PM [facility] Anion Gap 4 3 - 11 LAB CHEMISTRY METHOD 04/29/2025 12:46 PM [facility] Glucose 193(H) 70 - 100 mg/dL LAB CHEMISTRY METHOD 04/29/2025 12:46 PM [facility] BUN 15 5 - 25 mg/dL LAB CHEMISTRY METHOD 04/29/2025 12:46 PM [facility] Creatinine 1.19 0.70 - 1.30 mg/dL LAB CHEMISTRY METHOD 04/29/2025 12:46 PM [facility] eGFR 69 >=60 mL/min/1. 73m2 LAB CHEMISTRY METHOD 04/29/2025 12:46 PM EDT [facility] Comment:Calculation based on the Chronic Kidney Disease Epidemiology Collaboration (CKD-EPI) equation refit without adjustment for race. BUN/Creatinine Ratio 12.6 LAB CHEMISTRY METHOD 04/29/2025 12:46 PM EDT [facility] Calcium 9.7 8.5 - 10.5 mg/dL LAB CHEMISTRY METHOD 04/29/2025 12:46 PM EDT [facility] Blood Venous blood specimen / Unknown Venipuncture / Unknown 04/29/2025 12:05 PM EDT 04/29/2025 12:18 PM EDT Robe Cui MD LAB BLOOD ORDERABLES Final Result [facility] [address] [place] [address], [place] [phone] * (ABNORMAL) POCT Glucose, blood (04/29/2025 11:49 AM EDT) [facility] Glucose POCT 195(H) 70 - 100 mg/dL 04/29/2025 11:50 AM EDT [facility] Blood Capillary blood specimen / Unknown 04/29/2025 11:49 AM EDT 04/29/2025 11:51 AM EDT us Generic Provider Poct LAB POINT OF CARE TEST DOCKED DEVICE UNSOLICITED RESULTS Final Result [facility] [address] [place] [address], [place] [phone] * ECG 12 lead (04/29/2025 11:44 AM EDT) Ventricular Rate ECG 73 BPM GEMUSE Atrial Rate 73 BPM GEMUSE P-R Interval 192 ms GEMUSE QRS Duration 88 ms GEMUSE Q-T Interval 436 ms GEMUSE QTc 480 ms GEMUSE P Wave Ambrose 45 degrees GEMUSE R Ambrose 25 degrees GEMUSE T Ambrose 52 degrees GEMUSE ECG Interpretation Normal sinus rhythm with sinus arrhythmia Nonspecific T wave abnormality Statement not found (#[id number]) Abnormal ECG No previous ECGs available Confirmed by Clement BOYD JAMES ([id number]) on 04/29/2025 5:38:21 PM GEMUSE 04/29/2025 11:4 4 AM EDT 04/29/2025 5:38 PM EDT us Robe Cui MD ECG ORDERABLES Final Resul t GEMUSE from Last 3 Months Insurance [address] [place] [address] MEDICARE [facility] MEDICAID - [place] Care Teams Auditor Medical Claims Relationship Specialty Start Date End Date Physician, Pcp Unknown PCP - General 04/29/25
== END 2025-07-11 11:58 | disposition home or self-care (01) ==
PROVIDERS: PCP Nurse Practitioner Family; Visit Provider Physician Assistant Medical
DX: R20.0 Anesthesia of skin (principal)

== ENCOUNTER 2025-07-11 10:22 | Outpatient (REF) | payer MEDICARE, MEDICAID, SELFPAY ==
[2025-07-11 13:28] LABS: MANUAL DIFF FLAG NO
[2025-07-11 13:33] LABS: Hematocrit 38.1 % (42.0-52.0); Hemoglobin 13.3 g/dl (14.0-18.0); Imm Gran Abs Auto 0.03 X10*3/uL (0.00-0.03); Imm Gran Pct Auto 0.4 % (0.0-0.4); Lymphocytes Absolute Auto 1.1 X10*3/uL (1.2-4.9); Mean Corpuscular HGB Conc 34.9 g/dl (31.0-36.0); Mean Corpuscular Hemoglobin 31.3 pg (27.0-33.0); Mean Corpuscular Volume 89.6 fL (80.0-98.0); NRBC Abs Auto 0.000 X10*3/uL (0.0-0.012); NRBC Pct Auto 0.0 /100WBC (0.0-0.2); Platelet Count 263 X10*3/uL (160-400); Red Blood Count 4.25 X10*6/uL (4.60-5.80); White Blood Count 8.0 X10*3/uL (4.8-10.8)
[2025-07-11 14:07] LABS: Potassium 4.5 mmol/L (3.3-5.1); Sodium 138 mmol/L (135-145)
[2025-07-11 14:08] LABS: Alanine Aminotransferase 33 U/L (0-40); Albumin Level 4.3 g/dL (3.5-5.0); Alkaline Phosphatase 55 U/L (39-117); Anion Gap 12 (12-20); Aspartate Amino Transferase 25 U/L (5-37); Blood Urea Nitrogen 12 mg/dL (9-16); Calcium 9.4 mg/dL (8.4-10.2); Carbon Dioxide 27 mmol/L (22-29); Chloride 104 mmol/L (96-108); Estimated Glomerular Filt Rate > 60; Magnesium 2.0 mg/dL (1.6-2.6); Total Protein 7.2 g/dL (6.5-8.0)
[2025-07-11 14:25] LABS: Folate 17.6 ng/mL (> or = 4.0); Vitamin B12 1175 pg/mL (200-900)
== END 2025-07-11 10:23 | disposition home or self-care (01) ==
LOC: HO.HMGCLDS 10:22
PROVIDERS: PCP Nurse Practitioner Family; Visit Provider Physician Assistant Medical
DX: R20.0 Anesthesia of skin (principal)
CPT/HCPCS: 36415; 80053; 82607; 82746; 83735; 85025; 99212

== ENCOUNTER 2025-07-20 22:20 | Emergency (ER) | payer MEDICARE, MEDICAID, SELFPAY ==
--- NOTE | ~2025-07-20 | XR_ITS ---
CLINICAL HISTORY: CP, SOB 1 view chest x-ray Comparison: Chest x-ray from 02/07/2025 Findings: Low lung volumes with mild bibasilar atelectasis and/or scarring. Pneumonitis also considered particularly in the right lung base. No lobar consolidation. No pleural effusion or pneumothorax in this portable study. Mild cardiomegaly redemonstrated tortuosity thoracic aorta and previous sternotomy changes. Degenerative changes include imaged shoulders and AC joints with small old ossicle adjacent to left AC joint. IMPRESSION: Mild bibasilar atelectasis This document has been electronically signed by: Javan Gavin MD on 07/21/2025 00:23:51
--- NOTE | 2025-07-20 22:21 | ECG_ITS ---
Test Reason : cp Blood Pressure : */* mmHG Vent. Rate : 100 BPM Atrial Rate : * BPM P-R Int : * ms QRS Dur : 88 ms QT Int : 390 ms P-R-T Axes : * 29 59 degrees QTcB Int : 503 ms Atrial fibrillation Nonspecific ST and T wave abnormality Abnormal ECG When compared with ECG of 22-Feb-2025 12:56, Atrial fibrillation has replaced Sinus rhythm Vent. rate has increased by 34 bpm Nonspecific T wave abnormality now evident in Inferior leads Nonspecific T wave abnormality now evident in Lateral leads Referred By: Generic ED Physician Electronically Signed By: Leonard Leos
[2025-07-20 22:34] VITALS: BP 132/97; PULSE 78; RESP 16; TEMP 36.2; O2SAT 96; BMI 28.5
[2025-07-20 23:21] LABS: Hematocrit 42.9 % (42.0-52.0); Hemoglobin 15.2 g/dl (14.0-18.0); Imm Gran Abs Auto 0.06 X10*3/uL (0.00-0.03); Imm Gran Pct Auto 0.5 % (0.0-0.4); Lymphocytes Absolute Auto 5.8 X10*3/uL (1.2-4.9); MANUAL DIFF FLAG SCAN; Mean Corpuscular HGB Conc 35.4 g/dl (31.0-36.0); Mean Corpuscular Hemoglobin 30.9 pg (27.0-33.0); Mean Corpuscular Volume 87.2 fL (80.0-98.0); NRBC Abs Auto 0.000 X10*3/uL (0.0-0.012); NRBC Pct Auto 0.0 /100WBC (0.0-0.2); Platelet Count 352 X10*3/uL (160-400); Red Blood Count 4.92 X10*6/uL (4.60-5.80); SCAN SMEAR FLAG 1; White Blood Count 12.2 X10*3/uL (4.8-10.8)
[2025-07-20 23:31] LABS: Alanine Aminotransferase 40 U/L (0-40); Albumin Level 4.6 g/dL (3.5-5.0); Alkaline Phosphatase 59 U/L (39-117); Anion Gap 13 (12-20); Aspartate Amino Transferase 28 U/L (5-37); Blood Urea Nitrogen 16 mg/dL (9-16); Calcium 9.7 mg/dL (8.4-10.2); Carbon Dioxide 25 mmol/L (22-29); Chloride 102 mmol/L (96-108); Creatinine Clr Calc Pharmacy 74.9; Estimated Glomerular Filt Rate > 60; Potassium 5.0 mmol/L (3.3-5.1); Sodium 135 mmol/L (135-145); Total Protein 7.6 g/dL (6.5-8.0)
--- OUTSIDE RECORDS SUMMARY | 2025-07-20 23:32 | XMS_ITS | Clinical Summary ---
Author Organization [facility] Address [address] [place] [address] Phone Care Team Providers Care Specimen Accessioner Name Role Phone Physician, Pcp Unknown Primary [...] EDT - 04/29/2025 4:41 PM EDT Emergency [facility] Emergency [address] [place] [id number] Robe Cui MD Acute gastroenteritis (Primary Dx); [...] No active pulmonary process identified. Telerad JENNIE ([id number]) -------- FINAL REPORT -------- Dictated By: Mae Morley Dictated Date: 04/29/2025 13:39 ET Assigned Physician: Mae Morley Reviewed and Electronically Signed By: Mae Morley Signed Date: 04/29/2025 13:40 ET Workstation ID: [id number] Transcribed By: Self Edit Transcribed Date: 04/29/2025 [...] No active pulmonary process identified. Telerad JENNIE ([id number]) -------- FINAL REPORT -------- Dictated By: Mae Morley Dictated Date: 04/29/2025 13:39 ET Assigned Physician: Mae Morley Reviewed and Electronically Signed By: Mae Morley Signed Date: 04/29/2025 13:40 ET Workstation ID: [id number] Transcribed By: Self Edit Transcribed Date: 04/29/2025 13:39 ET us Robe Cui MD IMG XR PROCEDURES Final Res ult * (ABNORMAL) Urinalysis with reflex microscopic and culture (04/29/2025 1:04 PM EDT) [facility] Specific [place] Urine 1.025 1.003 - 1.030 LAB URINALYSIS - AUTOMATED METHOD 04/29/2025 1:47 PM [facility] pH, Urine 6.0 5.0 - 8.0 pH LAB URINALYSIS - AUTOMATED METHOD 04/29/2025 1:47 PM [facility] Leukocytes, Urine Trace(A) Negative LAB URINALYSIS - AUTOMATED METHOD 04/29/2025 1:47 PM [facility] Nitrite, Urine Negative Negative LAB URINALYSIS - AUTOMATED METHOD 04/29/2025 1:47 PM [facility] Protein, Urine 30(A) <=Trace mg/dL LAB URINALYSIS - AUTOMATED METHOD 04/29/2025 1:47 PM [facility] Glucose, Urine Negative Negative mg/dL LAB URINALYSIS - AUTOMATED METHOD 04/29/2025 1:47 PM [facility] Ketones, Urine Trace(A) Negative mg/dL LAB URINALYSIS - AUTOMATED METHOD 04/29/2025 1:47 PM [facility] Urobilinogen, Urine 1.0 0.2 - 1.0 mg/dL LAB URINALYSIS - AUTOMATED METHOD 04/29/2025 1:47 PM [facility] Bilirubin, Urine Negative Negative LAB URINALYSIS - AUTOMATED METHOD 04/29/2025 1:47 PM [facility] Blood, Urine Negative Negative LAB URINALYSIS - AUTOMATED METHOD 04/29/2025 1:47 PM [facility] RBC, Urine 4.0 0 - 4 /HPF LAB URINALYSIS - AUTOMATED METHOD 04/29/2025 1:47 PM [facility] WBC, Urine 2.5 0 - 4 /HPF LAB URINALYSIS - AUTOMATED METHOD 04/29/2025 1:47 PM [facility] Squamous Epithelial, Urine 13 0 - 60 /LPF LAB URINALYSIS - AUTOMATED METHOD 04/29/2025 1:47 PM EDT [facility] Bacteria, Urine Negative Negative /HPF LAB URINALYSIS - AUTOMATED METHOD 04/29/2025 1:47 PM EDT [facility] Hyaline Casts, Urine 2.4 0 - 3 /LPF LAB URINALYSIS - AUTOMATED METHOD 04/29/2025 1:47 PM EDT [facility] Urine Urine specimen obtained by clean catch procedure / Unknown Non-blood Collection / Unknown 04/29/2025 1:04 PM EDT 04/29/2025 1:38 PM EDT Robe Cui MD LAB URINE ORDERABLES Final Result Performing Organization Address [facility]/ZIP Co de Phone Number [facility] [address] [place] [address], [place] [phone] * Yi urine culture tube (04/29/2025 1:04 PM EDT) Extra Tube Hold for add-ons. 04/29/2025 3:01 PM EDT [facility] Comment:Auto resulted. Urine Urine specimen obtained by clean catch procedure / Unknown Non-blood Collection / Unknown 04/29/2025 1:04 PM EDT 04/29/2025 1:38 PM EDT Robe Cui MD LAB URINE ORDERABLES Final Result Performing Organization Address City/[facility]/ZIP Co de Phone Number [facility] [address] [place] [address], [place] [phone] * Culture urine (04/29/2025 1:04 PM EDT) Culture, Urine No growth 04/30/2025 10:04 AM EDT [facility] Urine Urine specimen obtained by clean catch procedure / Unknown Non-blood Collection / Unknown 04/29/2025 1:04 PM EDT 04/29/2025 1:47 PM EDT Robe Cui MD LAB MICROBIOLOGY - GENERAL ORDERABLES Final Result Performing Organization Address [facility] Co de Phone Number [facility] [address] [place] [address], * Troponin I high sensitivity (04/29/2025 12:05 PM EDT) [facility] High Sensitivity Troponin I 6 <=79 ng/L LAB CHEMISTRY METHOD 04/29/2025 12:49 PM EDT [facility] Blood Venous blood specimen / Unknown Venipuncture / Unknown 04/29/2025 12:05 PM EDT 04/29/2025 12:18 PM EDT Narrative [facility] - 04/29/2025 12:49 PM EDT High levels of biotin in samples may falsely decrease hsTroponin values. Use caution when interpreting hsTroponin results in patients taking biotin who exhibit renal impairment (eGFR <60) or in patients taking more than 20 mg/day of biotin. Nohemi Turner MD LAB BLOOD ORDERABLES Final Resul t Performing Organization Address [facility] de Phone Number [facility] [address] [place] [address], * (ABNORMAL) CBC auto differential (04/29/2025 12:05 PM EDT) [facility] WBC 11.7(H) 4.8 - 10.8 K/mcL LAB HEMETOLOGY METHOD 04/29/2025 12:25 PM EDT [facility] RBC 4.70 4.50 - 5.50 M/mcL LAB HEMETOLOGY METHOD 04/29/2025 12:25 PM EDT [facility] Hemoglobin 14.6 13.5 - 17.5 g/dL LAB HEMETOLOGY METHOD 04/29/2025 12:25 PM EDT [facility] Hematocrit 43.6 42.0 - 54.0 % LAB HEMETOLOGY METHOD 04/29/2025 12:25 PM [facility] MCV 92.6 79.0 - 98.0 FL LAB HEMETOLOGY METHOD 04/29/2025 12:25 PM [facility] MCH 31.0 27.0 - 32.0 pcg LAB HEMETOLOGY [facility] MCHC 33.5 32.0 - 37.0 g/dL LAB HEMETOLOGY METHOD 04/29/2025 12:25 PM [facility] RDW 11.9 11.0 - 15.0 % LAB HEMETOLOGY METHOD 04/29/2025 12:25 PM [facility] Platelets 274 130 - 400 K/mcL LAB HEMETOLOGY METHOD 04/29/2025 12:25 PM [facility] MPV 8.8 7.0 - 11.0 FL LAB HEMETOLOGY METHOD 04/29/2025 12:25 PM [facility] NRBC 0.0 <1.0 % LAB HEMETOLOGY METHOD 04/29/2025 12:25 PM [facility] NRBC Absolute 0.00 <0.10 K/mcL LAB HEMETOLOGY METHOD 04/29/2025 12:25 PM [facility] Neutrophils Relative 68.8 % LAB HEMETOLOGY METHOD 04/29/2025 12:[facility] Lymphocytes Relative 22.3 % LAB HEMETOLOGY METHOD 04/29/2025 12:25 PM [facility] Monocytes Relative 7.6 % LAB HEMETOLOGY METHOD 04/29/2025 12:25 PM [facility] Eosinophils Relative 0.8 % LAB HEMETOLOGY METHOD 04/29/2025 12:25 PM EDT [facility] Basophils Relative 0.2 % LAB HEMETOLOGY METHOD 04/29/2025 12:25 PM EDT [facility] Immature Granulocytes Relative 0.3 % LAB HEMETOLOGY METHOD 04/29/2025 12:25 PM EDT [facility] Neutrophils Absolute 8.08(H) 1.50 - 7.00 K/mcL LAB HEMETOLOGY METHOD 04/29/2025 12:25 PM EDT [facility] Lymphocytes Absolute 2.62 1.00 - 5.00 K/mcL LAB HEMETOLOGY METHOD 04/29/2025 12:25 PM EDT [facility] Monocytes Absolute 0.89 0.20 - 1.00 K/mcL LAB HEMETOLOGY METHOD 04/29/2025 12:25 PM EDT [facility] Eosinophils Absolute 0.09 0.00 - 0.50 K/mcL LAB HEMETOLOGY METHOD 04/29/2025 12:25 PM EDT [facility] Basophils Absolute 0.02 0.00 - 0.20 K/mcL LAB HEMETOLOGY METHOD 04/29/2025 12:25 PM EDT [facility] Immature Granulocytes Absolute 0.03 0.00 - 0.03 K/mcL LAB HEMETOLOGY METHOD 04/29/2025 12:25 PM EDT [facility] Blood Venous blood specimen / Unknown Venipuncture / Unknown 04/29/2025 12:05 PM EDT 04/29/2025 12:18 PM EDT us Robe Cui MD LAB BLOOD ORDERABLES Final Result [facility] [address] [place] [address], * Magnesium (04/29/2025 12:05 PM EDT) Magnesium 1.9 1.9 - 2.6 mg/dL LAB CHEMISTRY METHOD 04/29/2025 12:46 PM EDT [facility] Blood Venous blood specimen / Unknown Venipuncture / Unknown 04/29/2025 12:05 PM EDT 04/29/2025 12:18 PM EDT Robe Cui MD LAB BLOOD ORDERABLES Final Result [facility] [address] [place] [address], * Hepatic Function Panel (04/29/2025 12:05 PM EDT) [facility] Total Protein 7.0 6.0 - 8.0 g/dL LAB CHEMISTRY [facility]25 2[facility] Albumin 3.7 3.2 - 5.0 g/dL LAB CHEMISTRY METHOD 04/29/2025 2:43 PM [facility] Total Bilirubin 0.9 0.0 - 1.4 mg/dL LAB CHEMISTRY METHOD 04/29/2025 2:43 PM [facility] Bilirubin, Direct 0.2 0.0 - 0.3 mg/dL LAB CHEMISTRY METHOD 04/29/2025 2:43 PM [facility] Bilirubin, Indirect 0.7 0.0 - 1.1 mg/dL LAB CHEMISTRY METHOD 04/29/2025 2:43 PM [facility] ALT (SGPT) 50 10 - 60 unit/L LAB CHEMISTRY METHOD 04/29/2025 2:43 PM [facility] AST (SGOT) 24 10 - 42 unit/L LAB CHEMISTRY METHOD 04/29/2025 2:43 PM EDT [facility] Alkaline Phosphatase 61 42 - 121 unit/L LAB CHEMISTRY METHOD 04/29/2025 2:43 PM [facility] Blood Venous blood specimen / Unknown Venipuncture / Unknown 04/29/2025 12:05 PM EDT 04/29/2025 12:18 PM EDT us Robe Cui MD LAB BLOOD ORDERABLES Final Result [facility] [address] [place] [address], [place] [phone] * (ABNORMAL) Basic metabolic panel (04/29/2025 12:05 PM EDT) Sodium 137 133 - 145 mmol/L LAB CHEMISTRY METHOD 04/29/2025 12:46 PM [facility] Potassium 4.5 3.5 - 5.5 mmol/L LAB CHEMISTRY METHOD 04/29/2025 12:46 PM [facility] Chloride 103 96 - 110 mmol/L LAB CHEMISTRY METHOD 04/29/2025 12:46 PM [facility] CO2 30 21 - 32 mmol/L LAB CHEMISTRY METHOD 04/29/2025 12:46 PM [facility] Anion Gap 4 3 - 11 LAB CHEMISTRY METHOD 04/29/2025 12:46 PM [facility] Glucose 193(H) 70 - 100 mg/dL LAB CHEMISTRY METHOD 04/29/2025 12:46 PM [facility] BUN 15 5 - 25 mg/dL LAB CHEMISTRY METHOD 04/29/2025 12:46 PM [facility] Creatinine 1.19 0.70 - 1.30 mg/dL LAB CHEMISTRY METHOD 04/29/2025 12:46 PM [facility] eGFR 69 >=60 mL/min/1. 73m2 LAB CHEMISTRY METHOD 04/29/2025 12:46 PM EDT [facility] Comment:Calculation based on the Chronic Kidney Disease Epidemiology Collaboration (CKD-EPI) equation refit without adjustment for race. BUN/Creatinine Ratio 12.6 LAB CHEMISTRY METHOD 04/29/2025 12:46 PM EDT [facility] Calcium 9.7 8.5 - 10.5 mg/dL LAB CHEMISTRY METHOD 04/29/2025 12:46 PM EDT [facility] Blood Venous blood specimen / Unknown Venipuncture / Unknown 04/29/2025 12:05 PM EDT 04/29/2025 12:18 PM EDT Robe Cui MD LAB BLOOD ORDERABLES Final Result [facility] [address] [place] [address], [place] [phone] * (ABNORMAL) POCT Glucose, blood (04/29/2025 11:49 AM EDT) [facility] Glucose POCT 195(H) 70 - 100 mg/dL 04/29/2025 11:50 AM EDT [facility] Blood Capillary blood specimen / Unknown 04/29/2025 11:49 AM EDT 04/29/2025 11:51 AM EDT us Generic Provider Poct LAB POINT OF CARE TEST DOCKED DEVICE UNSOLICITED RESULTS Final Result [facility] [address] [place] [address], [place] [phone] * ECG 12 lead (04/29/2025 11:44 AM EDT) Ventricular Rate ECG 73 BPM GEMUSE Atrial Rate 73 BPM GEMUSE P-R Interval 192 ms GEMUSE QRS Duration 88 ms GEMUSE Q-T Interval 436 ms GEMUSE QTc 480 ms GEMUSE P Wave [place] 45 degrees GEMUSE R [place] 25 degrees GEMUSE T [place] 52 degrees GEMUSE ECG Interpretation Normal sinus rhythm with sinus arrhythmia Nonspecific T wave abnormality Statement not found (#[id number]) Abnormal ECG No previous ECGs available Confirmed by Clement BOYD JAMES ([id number]) on 04/29/2025 5:38:21 PM GEMUSE 04/29/2025 11:4 4 AM EDT 04/29/2025 5:38 PM EDT us Robe Cui MD ECG ORDERABLES Final Resul t GEMUSE from Last 3 Months Insurance [address] [place] [address] MEDICARE [facility] MEDICAID - [place] Care Teams Specimen Accessioner Relationship Specialty Start Date End Date Physician, Pcp Unknown PCP - General 04/29/25
[2025-07-20 23:41] VITALS: BP 116/83; PULSE 81; RESP 18; TEMP 36.6; O2SAT 94
[2025-07-20 23:43] VITALS: BP 116/83; PULSE 92
[2025-07-20] MEDS: Aspirin Enteric Coated 325 MG TABLET.DR PO (23:43)
[2025-07-20 23:44] LABS: Troponin-I High Sensitivity 6.5 ng/L (<3.5-35.0)
--- NOTE | 2025-07-20 23:50 | ED.CHESTPAIN ---
HPI - Chest Pain General Chief Complaint: Chest Pain Stated Complaint: chest pain Time Seen by Provider: 07/20/25 23:15 Source: patient Mode of arrival: ambulatory Limitations: no limitations History of Present Illness ED Provider: Dr. Svetlana Broderick HPI narrative: Patient comes to the emergency room complaining of midsternal chest pressure for couple of days. Patient states that it has been intermittent but for the last 3-4 hours, it has been constant, nonradiating. Patient states that he has a history of triple bypass 10 years ago, and had a 2nd stent placed couple of years ago. Patient states that he has history of atrial fibrillation and is compliant with his medication and blood thinners. Patient denies shortness of breath. Denies history of CHF. Patient states that in the past he has had nitro paste or tablets in the past with chest help him with the pain. Related Data Home Medications ?Medication ?Instructions ?Recorded ?Confirmed cholecalciferol (vitamin D3) 25 25 mcg PO DAILY 01/23/22 05/23/25 mcg (1,000 unit) tablet multivitamin 1 tab PO DAILY 01/23/22 05/23/25 omega-3 fatty acids-fish oil 684 1 cap PO DAILY 01/23/22 05/23/25 mg-1,200 mg capsule,delayed release clotrimazole 1 % topical cream 1 appl topical BID PRN 05/10/25 05/23/25 gabapentin 400 mg capsule 400 mg PO TID PRN 05/10/25 05/23/25 garlic 500 mg capsule 500 mg PO DAILY 05/10/25 05/23/25 magnesium citrate 100 mg tablet 100 mg PO DAILY 05/10/25 05/23/25 zinc gluconate 100 mg tablet 100 mg PO DAILY 05/10/25 05/23/25 ascorbic acid (vitamin C) 500 mg 500 mg PO DAILY 07/11/25 tablet calcium 600 mg (as carbonate)-vit tab PO 07/11/25 D3 10 mcg (400 unit) chewable tablet (Calcium 600 with Vitamin D3) cinnamon bark 500 mg capsule 500 mg PO DAILY 07/11/25 (Cinnamon) ferrous sulfate 325 mg (65 mg 325 mg PO DAILY 07/11/25 iron) tablet turmeric 400 mg capsule mg PO 07/11/25 Previous Rx's ?Medication ?Instructions ?Recorded diltiazem HCl 180 mg 180 mg PO DAILY #14 caps 10/05/24 capsule,extended release 24 hr dronedarone 400 mg tablet (Multaq) 400 mg PO BID #180 tabs 11/24/24 ranolazine 500 mg tablet,extended 500 mg PO BID 90 days #180 tabs 11/24/24 release,12 hr spironolactone 25 mg tablet 25 mg PO DAILY #90 tabs 12/20/24 lorazepam 0.5 mg tablet 0.5 mg PO BEDTIME PRN anxiety 30 02/08/25 days #30 tabs pantoprazole 40 mg tablet,delayed 40 mg PO DAILY #90 tabs 02/08/25 release atorvastatin 40 mg tablet 40 mg PO DAILY #90 tabs 03/17/25 ezetimibe 10 mg tablet 10 mg PO DAILY #90 tabs 03/28/25 dicyclomine 10 mg capsule 10 mg PO TID PRN abdominal pain 05/10/25 #10 caps ondansetron 4 mg disintegrating 4 mg PO Q8H PRN nausea and 05/10/25 tablet vomiting #10 tabs lisinopril 10 mg tablet 10 mg PO BID #180 tabs 05/22/25 clotrimazole-betamethasone 1 1 appl topical BID #45 grams 05/23/25 %-0.05 % topical cream clopidogrel 75 mg tablet 75 mg PO DAILY #90 tabs 05/30/25 rivaroxaban 20 mg tablet (Xarelto) 20 mg PO QPM #90 tabs 06/07/25 metoprolol tartrate 50 mg tablet 50 mg PO TID 90 days #270 tabs 06/16/25 colchicine 0.6 mg tablet 0.6 mg PO .COMPLEX PRN gout flare 07/06/25 10 days #30 tabs isosorbide mononitrate 30 mg 30 mg PO TID #270 tabs 07/10/25 tablet,extended release 24 hr Allergies Allergy/AdvReac Type Severity Reaction Status Date / Time allopurinol Allergy Chest Pain Verified 07/20/25 22:36 Review of Systems Review of Systems: Constitutional : No Weight loss, No Fever, No Chills, No Night Sweats, No Fatigue, No Malaise ENT/Mouth : No Hearing loss, No Ear Pain, No Nasal Congestion, No Sinus Pain, No Hoarseness, No sore throat, No Rhinorrhea, No Swallowing Difficulty Eyes: No Eye Pain, No Swelling, No Redness, No Foreign Body, No Discharge, No Vision Changes Cardiovascular : Complaining of a combination of chest pain and chest pressure for 2 days, no edema or palpitations Respiratory : No Cough, No Sputum, No Wheezing, No Smoke Exposure, No Dyspnea Gastrointestinal : No Nausea, No Vomiting, No Diarrhea, No Constipation, No abdominal Pain, No Hematochezia, No Melena Genitourinary : no irregular bleeding, No Dysuria, No Urinary Frequency, No Hematuria, No Urinary Incontinence, No Urgency, No Flank Pain, No Urinary Flow Changes, No Hesitancy Musculoskeletal : No joint pain, No Myalgias, No Joint Swelling Skin : No Skin Lesions, No rash Neuro : No Weakness, No Numbness, No Paresthesias, No Loss of Consciousness, No Dizziness, No Headache Psych : No Anxiety/Panic, No Depression, No SI/HI/AH/VH, No Social Issues, Heme/Lymph: No Bruising, No Bleeding,No Lymphadenopathy Endocrine : No Polyuria, No Polydipsia, No Temperature Intolerance [facility] Past Medical History Medical History Left ear hearing loss History of cardioversion Fatty liver Crescendo angina Persistent atrial fibrillation TIA (transient ischemic attack) Exertional chest pain Paroxysmal atrial flutter CAD (coronary artery disease) HLD (hyperlipidemia) HTN (hypertension) Surgical History S/P cardiac catheterization Hx of CABG History of cardiac cath History of cardiac cath Family History Family History Father No problems noted. Mother No problems noted. 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 Oriented X3. No acute distress. Eyes: Pupils equal, round and reactive to light. ENT: Pharynx normal. Neck: Normal inspection. Neck supple. No lymph nodes noted. No crepitus CVS: Normal heart rate and rhythm. Pulses normal. Normal S1 and S2 Respiratory: No respiratory distress. Breath sounds normal. No Wheezing. No rales Abdomen: Soft and nontender. No rigidity. No distention. Skin: Skin warm and dry. Normal skin color. Normal skin turgor. Extremities: No lower extremity edema. No Lacerations. No Rash Neuro: Oriented X 3. No motor deficit. No sensory deficit. Moving all extremities. No slurred speech. CN 2 through 12 grossly intact Psych: calm, cooperative, slightly anxious Vital Signs: Vital Signs: Last Vital Signs Temp 98.5 F 07/21/25 02:05 Pulse 85 07/21/25 02:05 Resp 16 07/21/25 02:05 BP 116/74 07/21/25 02:05 Pulse Ox 94 07/21/25 02:05 O2 Del Method Room Air 07/21/25 02:05 BMI result Body Mass Index 28.5 Course Course Course Narrative: Patient with past medical history of triple bypass 10 years ago with a new stent placed 1-2 years ago, complaining of chest pain for 2 days, intermittent, but worse over last 3-4 hours. Patient receiving prophylactic aspirin p.o. and sublingual nitroglycerin. Medications Administered Discontinued Medications Generic Name Dose Route Start Last Admin Trade Name Yamileth PRN Reason Stop Dose Admin Acetaminophen 650 mg 07/20/25 23:46 07/20/25 23:53 Acetaminophen 325 Mg Tablet PO 07/20/25 23:47 650 mg ONCE ONE Administration Aspirin 325 mg 07/20/25 23:28 07/20/25 23:43 Aspirin Enteric Coated 325 Mg Tablet.Dr PO 07/20/25 23:29 325 mg ONCE ONE Administration Nitroglycerin 0.4 mg 07/20/25 23:28 07/20/25 23:43 Nitroglycerin 0.4 Mg Tab.Subl SUBLINGUAL 07/20/25 23:29 0.4 mg ONCE ONE Administration Medical Decision Making Medical Decision Making [facility] Narrative: My interpretation of EKG: Atrial fibrillation, heart rate 100, nonspecific ST-T changes in V2 through V6, QTC 503 My interpretation of labs: Patient's white blood cell count 12.2, chemistry does not show any acute abnormality. Troponin within normal limits, normal LFTs. Patient's pro BNP negative for patient's age, troponin x2 negative. Chest x-ray: Mild bibasilar atelectasis Patient walked around the emergency room, steady oxygen saturation, no chest pain, no palpitations. ACS less likely. Patient is still in AFib, rate control, heart rate in the 70s. I reviewed patient's past medical records, patient is usually in sinus rhythm. I strongly recommended admission. I discussed with the patient that AFib is not a chronic rhythm for him. It is usually sinus. An on top of that, patient has been having intermittent chest pressure for 2 days. However, patient states that she would like to go home. Patient is asymptomatic. I offered to the patient to give him the medications that he missed, the p.o. metoprolol and diltiazem. Patient declined, patient states that he feels well in once he gets home he will take his own medication. I discussed with the patient that if he has any further palpitations or any new symptoms, he needs to return to the emergency room, and likely to be admitted for atrial fibrillation. Patient agrees with plan. Patient was walked around the emergency room couple of times, walk to the bathroom, patient denies chest pain, palpitations or any symptoms. Patient's vitals at the time of discharge: Blood pressure 116/74, pulse 85, respirations 16, oxygen saturation 94% on room air Patient states that he is asymptomatic Differential Diagnosis Differential Diagnoses: The differential diagnosis associated with the presentation includes (ACS, atrial fibrillation, NSTEMI, costochondritis, URI) Admission/Observation Consideration of admission/observation: Escalation of care including admission/observation considered (Patient is usually in sinus rhythm, not AFib, patient declined admission) Lab Data MDM Lab Attestation statement: I reviewed the patient's lab results. 07/20/25 23:10 07/20/25 23:10 Labs: Lab Results 07/20/25 07/21/25 Range/Units 23:10 02:02 WBC 12.2 H (4.8-10.8) X10*3/uL RBC 4.92 (4.60-5.80) X10*6/uL Hgb 15.2 (14.0-18.0) g/dl Hct 42.9 (42.0-52.0) % MCV 87.2 (80.0-98.0) fL MCH 30.9 (27.0-33.0) pg MCHC 35.4 (31.0-36.0) g/dl RDW 12.5 (11.0-16.0) % Plt Count 352 D (160-400) X10*3/uL MPV 8.7 L (9.4-12.4) fL Immature Gran % (Auto) 0.5 H (0.0-0.4) % Neut % (Auto) 39.7 L (45-73) % Lymph % (Auto) 47.4 H (20-40) % [place] % (Auto) 10.9 (2-11) % Eos % (Auto) 1.1 (0-4) % Baso % (Auto) 0.4 (0-2) % Lymph # (Auto) 5.8 H (1.2-4.9) X10*3/uL [place] # (Auto) 1.3 H (0.1-1.2) X10*3/uL Eos # (Auto) 0.1 (0.0-0.4) X10*3/uL Baso # (Auto) 0.1 (0.0-0.2) X10*3/uL Abs Immat Gran (auto) 0.06 H (0.00-0.03) X10*3/uL Absolute Neuts (auto) 4.9 (2.0-8.3) x10*3/uL Absolute Nucleated RBC 0.000 (0.0-0.012) X10*3/uL Nucleated RBC % (auto) 0.0 (0.0-0.2) /100WBC Smear Tech's Comments VERIFIED Sodium 135 (135-145) mmol/L Potassium 5.0 (3.3-5.1) mmol/L Chloride 102 (96-108) mmol/L Carbon Dioxide 25 (22-29) mmol/L Anion Gap 13 (12-20) BUN 16 (9-16) mg/dL Creatinine 1.14 (0.5-1.4) mg/dL Estim Creat Clear Calc 74.9 Estimated GFR > 60 Random Glucose 176 H (60-115) mg/dL Calcium 9.7 (8.4-10.2) mg/dL Total Bilirubin 1.0 (0.0-1.0) mg/dL AST 28 (5-37) U/L ALT 40 (0-40) U/L Alkaline Phosphatase 59 (39-117) U/L Troponin I High Sens 6.5 D 5.3 (<3.5-35.0) ng/L NT-Pro-B Natriuret Pep 490.2 H (<300) pg/mL Total Protein 7.6 (6.5-8.0) g/dL Albumin 4.6 (3.5-5.0) g/dL Independent Interpretation I performed an independent interpretation of an: EKG and Plain X-Ray Radiology Impression Discussion of test interpretation with radiology: I have reviewed the radiologist's reading. Radiologist Impression: Low lung volumes with mild bibasilar atelectasis and/or scarring. Pneumonitis also considered particularly in the right lung base. No lobar consolidation. No pleural effusion or pneumothorax in this portable study. Mild cardiomegaly redemonstrated tortuosity thoracic aorta and previous sternotomy changes. Degenerative changes include imaged shoulders and AC joints with small old ossicle adjacent to left AC joint. IMPRESSION: Mild bibasilar atelectasis Critical Care Time Critical Care Time Critical Care Time: Yes Total Critical Care Time: 60 Attestation: I have personally provided critical care time. Time includes review of lab data, radiology results, discussion with consultants, and monitoring for potential decompensation. Intervention performed as documented. Discharge Plan Discharge Clinical Impression: Atrial fibrillation, Atypical chest pain Patient Disposition: Home, Self-Care Instructions: A-fib (Atrial Fibrillation) (ED), Chest Pain (ED) Additional Instructions: Make sure that you take your Vizcarra medication when you get home. Keep an eye on your symptoms. Usually, you have a normal heart rhythm. At this time, your still in atrial fibrillation. I strongly recommend that you get admitted. Please follow-up with your primary care physician tomorrow. If you have any worsening or new symptoms, please return to the emergency room or call 911 Prescriptions: No Action spironolactone 25 mg tablet 25 mg PO DAILY Qty: 90 1RF lorazepam 0.5 mg tablet 0.5 mg PO BEDTIME PRN (Reason: anxiety) 30 Days Qty: 30 2RF pantoprazole 40 mg tablet,delayed release (DR/EC) 40 mg PO DAILY Qty: 90 1RF atorvastatin 40 mg tablet 40 mg PO DAILY Qty: 90 1RF ezetimibe 10 mg tablet 10 mg PO DAILY Qty: 90 1RF lisinopril 10 mg tablet 10 mg PO BID Qty: 180 3RF clopidogrel 75 mg tablet 75 mg PO DAILY Qty: 90 3RF Xarelto 20 mg tablet 20 mg PO QPM Qty: 90 3RF metoprolol tartrate 50 mg tablet 50 mg PO TID 90 Days Qty: 270 3RF colchicine 0.6 mg tablet 0.6 mg PO .COMPLEX PRN (Reason: gout flare) 10 Days Qty: 30 0RF Rx Instructions: 0.6 mg orally 2 tabs with flare, then 1 tab 1 hr later PRN; (MAX: 3 tabs a day) Cannot take concurrently with Multaq isosorbide mononitrate 30 mg tablet extended release 24 hr 30 mg PO TID Qty: 270 3RF multivitamin Tablet 1 tab PO DAILY cholecalciferol (vitamin D3) 25 mcg (1,000 unit) Tablet 25 mcg PO DAILY omega-3 fatty acids-fish oil 684-1,200 mg Capsule,Delayed Release(Dr/Ec) 1 cap PO DAILY diltiazem HCl 180 mg capsule,extended release 24hr 180 mg PO DAILY Qty: 14 0RF Multaq 400 mg tablet 400 mg PO BID Qty: 180 1RF ranolazine 500 mg tablet extended release 12 hr 500 mg PO BID 90 Days Qty: 180 1RF clotrimazole-betamethasone 1-0.05 % cream 1 appl topical BID Qty: 45 0RF gabapentin 400 mg capsule 400 mg PO TID PRN clotrimazole 1 % cream 1 appl topical BID PRN zinc gluconate 100 mg tablet 100 mg PO DAILY garlic 500 mg capsule 500 mg PO DAILY magnesium citrate 100 mg tablet 100 mg PO DAILY ondansetron 4 mg tablet,disintegrating 4 mg PO Q8H PRN (Reason: nausea and vomiting) Qty: 10 0RF dicyclomine 10 mg capsule 10 mg PO TID PRN (Reason: abdominal pain) Qty: 10 0RF ascorbic acid (vitamin C) 500 mg tablet 500 mg PO DAILY ferrous sulfate 325 mg (65 mg iron) tablet 325 mg PO DAILY cinnamon bark [Cinnamon] 500 mg capsule 500 mg PO DAILY Calcium 600 with Vitamin D3 600 mg-10 mcg (400 unit) tablet,chewable PO turmeric 400 mg capsule PO Print Language: Maori
[2025-07-20 23:53] VITALS: BP 117/76; PULSE 102; RESP 23
[2025-07-20 23:58] VITALS: PULSE 96
[2025-07-21 00:19] VITALS: BP 118/84; PULSE 91; RESP 17; O2SAT 94
[2025-07-21 00:27] LABS: NT Pro B Type Natriuretic Pept 490.2 pg/mL (<300)
--- NOTE | 2025-07-21 00:39 | PC.NURSE ---
Assumed care of pt, presents with chest pain and shortness of breath, pt has a hx of triple by-pass with 2 stents, Afib, aaox4, pt is lying comfortably in the stretcher,
[2025-07-21 02:05] VITALS: BP 116/74; PULSE 85; RESP 16; TEMP 36.9; O2SAT 94
[2025-07-21 02:32] LABS: Troponin-I High Sensitivity 5.3 ng/L (<3.5-35.0)
--- NOTE | 2025-07-21 03:15 | MHC.EDTECH ---
ambulation trial completed lowest O2 93 and FL 101
[2025-07-21 03:23] VITALS: BP 132/84; PULSE 99; RESP 19; O2SAT 94
[2025-07-21 03:31] VITALS: BP 132/84; PULSE 99; RESP 19; TEMP 36.3; O2SAT 94
== END 2025-07-21 03:36 | disposition home or self-care (01) ==
PROVIDERS: Emergency Provider Emergency Medicine; PCP Nurse Practitioner Family
DX: I48.91 Unspecified atrial fibrillation (principal); R07.9 Chest pain, unspecified; R06.02 Shortness of breath; I10 Essential (primary) hypertension; E78.5 Hyperlipidemia, unspecified; I25.10 Atherosclerotic heart disease of native coronary artery without angina pectoris; R94.31 Abnormal electrocardiogram [ECG] [EKG]; Z79.899 Other long term (current) drug therapy; Z87.891 Personal history of nicotine dependence
CPT/HCPCS: 36415; 71045; 80053; 83880; 84484; 85025; 93005; 99283; 99285

== ENCOUNTER → 2025-07-20 22:21 | Outpatient (BNV) | payer MEDICARE, MEDICAID, SELFPAY | PROVIDERS: Emergency Provider Emergency Medicine; PCP Nurse Practitioner Family; Visit Provider Internal Medicine Cardiovascular Disease | DX: I48.91 Unspecified atrial fibrillation (principal) | CPT/HCPCS: 93010 ==

== ENCOUNTER → 2025-07-20 23:27 | Outpatient (BNV) | payer MEDICARE, MEDICAID, SELFPAY | PROVIDERS: Emergency Provider Emergency Medicine; PCP Nurse Practitioner Family; Visit Provider Radiology Neuroradiology | DX: J98.11 Atelectasis (principal) | CPT/HCPCS: 71045 ==

== ENCOUNTER 2025-08-25 13:15 | Outpatient (AMB) | payer MEDICARE, MEDICAID, SELFPAY ==
--- OUTSIDE RECORDS SUMMARY | 2025-08-25 13:33 | XMS_ITS | Clinical Summary ---
Author Organization [facility] Address [address] [place] [phone] Phone Care Team Providers Care Legal Clerk Name Role Phone Physician, Pcp Unknown Primary [...] nausea or vomiting. 12 tablet 5 Active Social History Tobacco Use Types Packs/Day Years [...] Health Screening 04/29/2025 COVID-19 Vaccine (1 - 2024-2 6 season) 2025 Influenza Vaccine (#1) 2025 Colorectal [...] on patient's age to complete this topic Insurance MEDICARE [facility] [employer] [place]ICA[place] - [place] Care Teams Legal Clerk Relationship Specialty Start Date End Date Physician, Pcp Unknown PCP - General 04/29/25
--- NOTE | 2025-08-25 13:54 | A.OFFVIS_ITS ---
Intake Visit Reasons: Nocturia, ED Intake Note: New Patient Is Present for Nocturia/Erectile Dysfunction Urology Med: None Antibiotic Allergy: None Blood Thinner: Plavix, Xarelto PVR: 0ml PSA-05/30/25 0.67 Accompanied by: Self / Same As Patient Allergies allopurinol Allergy (Verified 08/25/25 14:12) Chest Pain HPI Comments Details: Matteo is a pleasant [place] male. He is a patient of Dr. Carney. He seen for the following urologic conditions - erectile dysfunction - lower urinary tract symptoms primarily nocturia PSA 0.6 Initial AUA score 15, bother 3 PVR 0 Erectile dysfunction Secondary to cardiac catheterization Well known complication Recommend trial daily Cialis Does use isosorbide daily Low-dose daily Cialis has never been studied in conjunction with daily isosorbide The studies that showed interaction between isosorbide and sildenafil used high doses of both medications for 7 days. Whilst there was a measured blood pressure change between groups there was no clinically significant symptoms. All discussion over interaction has to date been purely hypothetical. Large scale population based studies in [place] have shown no interaction and no increased risk. [facility] Medical History Left ear hearing loss History of cardioversion Fatty liver Crescendo angina Persistent atrial fibrillation TIA (transient ischemic attack) Exertional chest pain Paroxysmal atrial flutter CAD (coronary artery disease) HLD (hyperlipidemia) HTN (hypertension) Surgical History S/P cardiac catheterization Hx of CABG History of cardiac cath History of cardiac cath Family History Father No problems noted. Mother No problems noted. 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 Current occupational exposures/hazards: No Cognitive needs: No Hearing needs: No Vision needs: No Review of Systems Const Denies chills and Denies fever(s) Card Reports no additional complaints and Denies syncope Resp Denies cough GI Denies abdominal pain and Denies heartburn Reports as per HPI and Denies change in libido Neuro Denies syncope Psych Denies change in libido Endo Denies change in libido Physical Exam Const General: cooperative, healthy appearing, comfortable and no acute distress Orientation/consciousness: patient oriented x3 HEENT Face and sinus: Yes normal facial exam Mouth: moist mucous membranes Neck Neck: Yes normal visual inspection, Yes full ROM and Yes trachea midline Chest Chest palpation & inspection: normal inspection of the chest Resp Effort & Inspection: normal respiratory effort, able to speak in complete sentences and no respiratory distress GI Inspection: Yes normal to inspection Back/Spine/Pelvis Cervical Spine: normal cervical lordosis Thoracic/Lumbar Spine: thoracic and lumbar spine normal to inspection Skin General skin exam: no rashes or lesions noted Neuro General: patient oriented x3, gait normal, tone normal and moves all extremities Extrem General: Yes normal to inspection and Yes capillary refill normal Office Procedures Post Void Residual Post Residual Void Post Void Residual (PVR): 0 [id number] Void Residual by ultrasound Results AMB Urinalysis, Automated UA Leukoctes 0 Enrique/uL Last Edit by Shelli Jones [facility] on 08/25/25 13:59 UA Nitrite Negative Last Edit by Shelli Jones [facility] on 08/25/25 13:59 UA Urobilinogen 0.2 mg/dL Last Edit by Shelli Jones [facility] on 08/25/25 13:5 9 UA Protein 0 mg/dL Last Edit by Shelli Jones [facility] on 08/25/25 13:59 UA pH 7.5 Last Edit by Shelli Jones [facility] on 08/25/25 13:59 UA Blood 0 Ramone/uL Last Edit by Shelli Jones [facility] on 08/25/25 13:59 UA Specific [place] 1.010 Last Edit by Shelli Jones [facility] on 08/25/25 13: 59 UA Ketone Negative Last Edit by Shelli Jones [facility] on 08/25/25 13:59 UA Bilirubin 0 mg/dL Last Edit by Shelli Jones [facility] on 08/25/25 13:59 UA Glucose 0 mg/dL Last Edit by MARCO Irvin on 08/25/25 13:59 Results Reviewed Results Reviewed: Laboratory Last Values Urine pH (Auto) 7.5 08/25/25 13:58 Specific [place] (Auto) 1.010 08/25/25 13:58 Urine Protein (Auto) 0 mg/dL 08/25/25 13:58 Glucose (UA)(Auto) 0 mg/dL 08/25/25 13:58 Urine Ketones (Auto) Negative 08/25/25 13:58 Urine Blood (Auto) 0 Ramone/uL 08/25/25 13:58 Urine Nitrite (Auto) Negative 08/25/25 13:58 Urine Bilirubin (Auto) 0 mg/dL 08/25/25 13:58 Urine Urobilinogen (Auto) 0.2 mg/dL 08/25/25 13:58 Leukocyte Esterase (Auto) 0 Enrique/uL 08/25/25 13:58 Assessment & Plan Assessment & Plan (1) Erectile dysfunction due to arterial insufficiency: Code(s): N52.01 - Erectile dysfunction due to arterial insufficiency Category: Medical Plan Three-month follow-up office Orders: Orders AMB Urinalysis Automated Today Z13.9 - Encounter for screening, unspecified AMB Post Void Residual by ultrasound Today R35.1 - Nocturia Medications: New tadalafil 5 mg PO DAILY 90 tabs 1RF bladder instability 90 days N32.0 - Bladder-neck obstruction, R35.1 - Nocturia tadalafil On demand medication take 60 minutes before intended activity - [id number] [facility] [id number] Member [id number] 20 mg PO ONCE PRN 30 tabs 0RF sexual activity 30 days E11.69 - Type 2 diabetes mellitus with other specified complication, N52.1 - Erectile dysfunction due to diseases classified elsewhere Patient Instructions: This note is constructed using voice recognition software. While every effort has been made to ensure accuracy medical transcription editor errors may have been included. Imaging studies, laboratory and physical exam results were discussed and reviewed in detail. No major barriers to patient understanding were identified. An opportunity to ask questions regarding the treatment plan was provided. All questions were answered. The patient expressed understanding and agreement with the above treatment plan. The patient is aware they should contact our office by phone for worsening of their current condition or the appearance of new urologic symptoms. Compliance is encouraged with any medications and followup testing that is ordered. It is a privilege to participate in the urologic care of your patient. If you have any questions or concerns regarding treatment for the above conditions, or other urologic issues, please do not hesitate to contact me. The office telephone contact is [phone]. Sincerely, Dr Yoav Muñoz MD, [facility] - Urology Compassionate Specialist Care for the Genitourinary System Coding Level of Care Code New Pt Level 4 (04071) Diagnoses Erectile dysfunction due to arterial insufficiency N52.01 CPT Codes Post Residual Void - PVR CPT Code: 91833-Fnez Void Residual by ultrasound ([id number])
== END 2025-08-25 14:43 | disposition home or self-care (01) ==
LOC: HO.HUSH 13:16
PROVIDERS: PCP Nurse Practitioner Family; Visit Provider Urology
DX: Z13.9 Encounter for screening, unspecified (principal); N52.01 Erectile dysfunction due to arterial insufficiency
CPT/HCPCS: 99204

== ENCOUNTER → 2025-08-25 13:15 | Outpatient (BNVA) | payer MEDICARE, MEDICAID, SELFPAY | PROVIDERS: PCP Nurse Practitioner Family; Visit Provider Urology | DX: N52.01 Erectile dysfunction due to arterial insufficiency (principal); R35.1 Nocturia; Z79.01 Long term (current) use of anticoagulants; Z87.891 Personal history of nicotine dependence | CPT/HCPCS: 51798; 81003; 99202 ==

== ENCOUNTER 2025-09-20 15:02 | Outpatient (REF) | payer MEDICARE, MEDICAID, SELFPAY ==
--- NOTE | ~2025-09-20 | XR_ITS ---
EXAMINATION: XR SHOULDER, LEFT CLINICAL INFORMATION: M25.512 - Pain in left shoulder COMPARISON: Previous x-ray September 2023 TECHNIQUE: AP external rotation, Grashey, scapular Y, and axillary views of the left shoulder. FINDINGS: Bone alignment is normal. No fracture or dislocation. Normal glenohumeral joint. 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 Soft tissues are unremarkable. XR/XR shoulder LT min 2V IMPRESSION: Arthritis at the acromioclavicular joint. Electronically signed by: Myrtle Kern MD 09/20/2025 03:49 PM [facility]TY
== END 2025-09-20 15:03 | disposition home or self-care (01) ==
LOC: HO.HMGCX 15:02
PROVIDERS: Absent Provider Physician Assistant; PCP Nurse Practitioner Family; Visit Provider Nurse Practitioner Family
DX: M25.512 Pain in left shoulder (principal)
CPT/HCPCS: 73030; 99212

== ENCOUNTER 2025-09-20 15:11 | Outpatient (AMB) | payer MEDICARE, MEDICAID, SELFPAY ==
[2025-09-20 15:15] VITALS: BP 110/66; PULSE 65; O2SAT 96; BMI 29.7
--- NOTE | 2025-09-20 15:15 | MHC.OFFWIV ---
Intake Vital Signs 09/20/25 15:15 Height 5 ft 10 in Weight 207 lb BMI 29.7 BP 110/66 Blood Pressure Location Rt brachial Position Sitting Pulse 65 Pulse Source Pulse Oximeter Pulse Oximetry (%) 96 Oxygen Delivery Method Room Air Intake Visit Reasons: EP-lt shoulder pain Intake Note: Patient presents c/o left shoulder pain x few days. Patient Tobacco Use Status: Former Tobacco user Allergies allopurinol Allergy (Verified 09/20/25 15:18) Chest Pain HPI HPI Comments History of Present Illness Details Patient is a 65yo M who presents with L shoulder pain Occured a few days ago while shoveling snow He said he thinks he dislocated his L shoulder when shoveling It has happened 4 times in the past States put it back in He is still having pain in that should after the injury + limited ROM due to pain No numbness, tingling, CP or SOB Slight R sided neck ache with ROM but no other trauma No other complaints Said he did not try anything for pain because OTC medicine doesn't usually help PFSH Medical History Left ear hearing loss History of cardioversion Fatty liver Crescendo angina Persistent atrial fibrillation TIA (transient ischemic attack) Exertional chest pain Paroxysmal atrial flutter CAD (coronary artery disease) HLD (hyperlipidemia) HTN (hypertension) Surgical History S/P cardiac catheterization Hx of CABG History of cardiac cath History of cardiac cath Family History Father No problems noted. Mother No problems noted. 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 Current occupational exposures/hazards: No Cognitive needs: No Hearing needs: No Vision needs: No Review of Systems Const Denies chills, Denies fever(s) and Denies headache(s) Eyes Denies change in vision ENT Denies headache(s) and Reports neck pain ( R sided ache; intermittent and mild) Card Denies chest pain and Denies dyspnea Resp Denies cough and Denies dyspnea Musc Reports arthralgias (L shoulder pain), Reports neck pain ( R sided ache; intermittent and mild), Denies numbness and Denies tingling Skin/Breast Denies erythema, Denies rash and Denies skin swelling Neuro Denies headache(s), Denies numbness and Denies tingling Physical Exam Exam Exam: General: Non-toxic, NAD. Speaking full sentences. Skin: Warm dry throughout. No neck, shoulder or upper extremity edema, rash or lesions Eye: EOMI Respiratory: CTA bilaterally. No wheezes, rales or rhonchi Cardiac: RRR. No murmur. LUE Radial pulse intact MSK: No midline c spine ttp. No L clavical ttp. + ttp L Anterior bicipital groove and anterior humerus. No lateral humeral ttp. L arm abduction to 90 degrees. full extnsion forward LUE. + full ROM L elbow without ttp. Full ROM RUE. Minimal ttp R trapezius muscle. Neurology: Alert. No aphasia or facial droop. Gait without abnormality Psych: Good mood and affect Vital Signs: Last Vital Signs Pulse 65 09/20/25 15:15 BP 110/66 09/20/25 15:15 Pulse Ox 96 09/20/25 15:15 Oxygen Delivery Method Room Air 09/20/25 15:15 BMI result Body Mass Index 29.7 Assessment & Plan Assessment & Plan (1) Shoulder pain, left: Code(s): M25.512 - Pain in left shoulder Qualifiers: Chronicity: acute Qualified Code(s): M25.512 - Pain in left shoulder Plan: Patient seen and evaluated. Xray L shoulder: I viewed xray and pt appears to have AC joint and glenerohumeral joint calcifications without obvious bankhart or hillsacks lesion or fx/dislocation He is on blood thinners so he can not take anti-inflammatory medicine Will discharge with RObaxin and advised to follow up with his PCP or orthopedics for continual pain Any CP or SOB go to ER Patient gave verbal understanding and had no additional questions or concerns at time of discharge All questions answered Orders: Orders XR shoulder LT min 2V Today M25.512 - Pain in left shoulder Medications: New methocarbamol do not drink alcohol or drive motor vehicle or operate machinery under the influence of this medication 500 mg PO TID 14 tabs 0RF Coding Level of Care Code Est Pt Level 3 (99823) Diagnoses Acute pain of left shoulder M25.512 Chronicity: acute
== END 2025-09-20 16:32 | disposition home or self-care (01) ==
PROVIDERS: PCP Nurse Practitioner Family; Visit Provider Physician Assistant
DX: M25.512 Pain in left shoulder (principal)

== ENCOUNTER → 2025-09-20 15:34 | Outpatient (BNV) | payer MEDICARE, MEDICAID, SELFPAY | PROVIDERS: Absent Provider Physician Assistant; PCP Nurse Practitioner Family; Visit Provider Radiology Diagnostic Radiology | DX: M19.012 Primary osteoarthritis, left shoulder (principal) | CPT/HCPCS: 73030 ==